=== PATIENT | female | born 1980 | race American Indian/Alaskan Native ===

== ENCOUNTER 2016-09-24 23:11 | Inpatient (IN) | payer MEDICAID ==
[2016-09-25] MEDS ORDERED: APRESOLINE IV ONE (00:58)
[2016-09-25] MEDS ORDERED: MORPHINE IV ONE (00:58)
--- NOTE | 2016-09-25 01:00 | Emergency Department Report ---
ED General Adult HPI - General Chief complaint: Abdominal Pain Stated complaint: ABD PAIN/BILATERAL EYE PULSATION Time Seen by Provider: 09/25/16 00:47 Source: patient Mode of arrival: Ambulatory Limitations: No Limitations - History of Present Illness Initial comments: This is a 36-year-old female, previously unknown to me. She is 1, para 0. She reports that her last menstrual period is July 11. She reports a past medical history of hypertension, and has not taken medication secondary to insurance issues. She has not had any care. She presents to the ER with abdominal pain. Abdominal pain is periumbilical. It migrates down to the right lower quadrant. It is sharp. It increases with palpation, decreases with rest. Patient denies irritative and obstructive urinary symptoms. She describes scant vaginal bleeding which has since resolved. Patient denies shortness of breath. She denies vomiting. She denies irritative and obstructive urinary symptoms. She admitted to mild chest pressure earlier on this afternoon after she ate some spicy food which has since resolved. There is no leg pain. There is no leg swelling. No recent trips greater than 4 hours. No recent hospital admissions. -: Gradual Location: chest, abdomen Consistency: intermittent Improves with: rest Worsens with: movement Associated Symptoms: chest pain - Related Data Home Medications Medication Instructions Recorded Confirmed Last Taken Pnv95/Ferrous Fumarate/FA 1 each PO QDAY 09/25/16 09/25/16 09/24/16 [ [place]] Allergies Allergy/AdvReac Type Severity Reaction Status Date / Time No Known Allergies Allergy Unverified 09/05/14 14:28 ED Review of Systems ROS: Stated complaint: ABD PAIN/BILATERAL EYE PULSATION Other details as noted in HPI Constitutional: fever. denies: malaise, weakness Eyes: denies: eye discharge ENT: denies: epistaxis Respiratory: denies: cough Cardiovascular: denies: chest pain Gastrointestinal: abdominal pain Genitourinary: as per HPI Musculoskeletal: as per HPI Skin: as per HPI Neurological: as per HPI Psychiatric: as per HPI ED Past Medical Hx - Past Medical History Hx Hypertension: Yes - Social History Smoking Status: Never Smoker Substance Use Type: None - Medications Home Medications: Home Medications Medication Instructions Recorded Confirmed Last Taken Type Pnv95/Ferrous Fumarate/FA 1 each PO QDAY 09/25/16 09/25/16 09/24/16 History [ [facility]] ED Physical Exam - General Limitations: No Limitations General appearance: alert, in no apparent distress, obese - Head Head exam: Present: atraumatic, normocephalic - Eye Eye exam: Present: normal appearance, EOMI. Absent: nystagmus - ENT ENT exam: Present: normal exam, normal orophraynx, mucous membranes moist, normal external ear exam - Neck Neck exam: Present: normal inspection, full ROM. Absent: tenderness, meningismus - Respiratory Respiratory exam: Present: normal lung sounds bilaterally. Absent: respiratory distress, wheezes, rales, rhonchi, stridor, chest wall tenderness - Cardiovascular Cardiovascular Exam: Present: normal rhythm, tachycardia, normal heart sounds. Absent: systolic murmur, diastolic murmur, rubs, gallop - GI/Abdominal GI/Abdominal exam: Present: soft, tenderness, normal bowel sounds, other ( suprapubic, periumbilical tenderness. Minimal right lower quadrant tenderness. No rebound, guarding or peritoneal signs.). Absent: distended, guarding, rebound, rigid, pulsatile mass - External exam: Present: normal external exam Speculum exam: Present: normal speculum exam. Absent: vaginal bleeding, foreign body Bi-manual exam: Present: normal bi-manual exam, other (escorted by CARLI WIGGINS) - Extremities Exam Extremities exam: Present: normal inspection, full ROM, normal capillary refill. Absent: tenderness, pedal edema, joint swelling, calf tenderness - Back Exam Back exam: Present: normal inspection, full ROM. Absent: tenderness, CVA tenderness (R), CVA tenderness (L), muscle spasm, paraspinal tenderness, vertebral tenderness - Neurological Exam Neurological exam: Present: alert, oriented X3, normal gait, other (Extraocular movements intact. Tongue midline. No facial droop. Facial sensation intact to light touch in the V1, V2, V3 distribution bilaterally. 5 and 5 strength in 4 extremities.. Sensation is intact to light touch in 4 extremities.). Absent : motor sensory deficit - Psychiatric Psychiatric exam: Present: normal affect, normal mood - Skin Skin exam: Present: warm, dry, intact, normal color. Absent: rash ED Course Vital Signs 09/25/16 09/25/16 09/25/16 00:32 01:22 01:28 Temperature 98.2 F 101.6 F H Pulse Rate 121 H Respiratory 20 18 Rate Blood Pressure 203/141 Blood Pressure [Left] O2 Sat by Pulse 100 Oximetry 09/25/16 09/25/16 09/25/16 01:34 01:52 01:55 Temperature Pulse Rate 108 H 104 H 108 H Respiratory 12 Rate Blood Pressure 199/133 209/107 Blood Pressure [Left] O2 Sat by Pulse 100 Oximetry 09/25/16 09/25/16 09/25/16 03:25 03:31 03:36 Temperature 101.5 F H Pulse Rate 107 H 112 H Respiratory 19 18 Rate Blood Pressure 165/87 Blood Pressure 156/94 [Left] O2 Sat by Pulse 100 100 100 Oximetry 09/25/16 09/25/16 09/25/16 03:45 04:15 04:31 Temperature Pulse Rate 105 H 111 H 109 H Respiratory 29 H 25 H 14 Rate Blood Pressure 165/87 184/112 Blood Pressure [Left] O2 Sat by Pulse 98 100 99 Oximetry 09/25/16 09/25/16 09/25/16 05:05 05:15 05:31 Temperature Pulse Rate 113 H 109 H 112 H Respiratory 19 10 L 29 H Rate Blood Pressure 184/112 170/96 184/112 Blood Pressure [Left] O2 Sat by Pulse 99 99 99 Oximetry 09/25/16 09/25/16 09/25/16 05:45 06:00 06:15 Temperature Pulse Rate 105 H 105 H 104 H Respiratory 32 H 23 29 H Rate Blood Pressure 184/112 156/81 156/81 Blood Pressure [Left] O2 Sat by Pulse 99 99 99 Oximetry 09/25/16 09/25/16 09/25/16 06:31 06:45 07:00 Temperature Pulse Rate 102 H 101 H 104 H Respiratory 26 H 27 H 16 Rate Blood Pressure 156/81 156/81 163/98 Blood Pressure 163/98 [Left] O2 Sat by Pulse 97 98 100 Oximetry 09/25/16 09/25/16 09/25/16 07:03 07:15 07:21 Temperature Pulse Rate 108 H 94 H Respiratory 14 33 H Rate Blood Pressure 163/98 163/98 163/98 Blood Pressure [Left] O2 Sat by Pulse 99 100 98 Oximetry 09/25/16 09/25/16 09/25/16 07:31 07:45 08:00 Temperature Pulse Rate 93 H 90 91 H Respiratory 30 H 28 H 29 H Rate Blood Pressure 163/98 163/98 152/80 Blood Pressure [Left] O2 Sat by Pulse 99 98 98 Oximetry 09/25/16 09/25/16 09/25/16 09:00 09:07 09:30 Temperature Pulse Rate 90 Respiratory 16 Rate Blood Pressure 148/85 144/90 Blood Pressure 148/85 [Left] O2 Sat by Pulse 100 Oximetry 09/25/16 09/25/16 09/25/16 10:00 11:00 14:00 Temperature Pulse Rate 85 99 H Respiratory 16 16 Rate Blood Pressure 159/101 Blood Pressure 155/94 155/89 [Left] O2 Sat by Pulse 100 100 Oximetry 09/25/16 09/25/16 14:40 16:00 Temperature Pulse Rate 99 H 97 H Respiratory 16 Rate Blood Pressure 155/89 Blood Pressure 161/89 [Left] O2 Sat by Pulse 100 Oximetry - Reevaluation(s) Reevaluation #1: 09/25/16 01:08 Differential diagnosis: Ovarian cyst, urinary tract infection, miscarriage, placental abruption, placenta previa, appendicitis, heterotopic Assessment and plan: 36-year-old female who is advanced maternal age, known hypertensive patient, who is noncompliant with medications who presents primarily with abdominal pain. She is afebrile, tachycardic, and markedly hypertensive. The patient's primary complaint is abdominal pain. She did describe some atypical chest discomfort which lasted for a few seconds earlier on this afternoon. However she states this is not her primary complaint. Patient has not received any care. My bedside ultrasound does demonstrate an obvious intrauterine . She will be given hydralazine for blood pressure. Her tachycardia is appreciated. Uncertain if pain, or anxiety. She will be given IV fluids and morphine. Formal radiology ultrasounds are pending. Pelvic examination will be performed after her ultrasounds have been done. We will reassess. Reevaluation #2: 09/25/16 04:29 Hypertension is improved. Patient spiked a fever. Obstetrics ultrasound unremarkable, demonstrates intrauterine gestation at 10 weeks and 6 days. The appendix is not identified on ultrasound. Renal insufficiency noted, appears to be chronic. lock tender. Antibiotics and blood cultures ordered. MR of the abdomen and pelvis ordered. Reevaluation #3: 09/25/16 07:07 d/w cmm technician at 5 am that MRI is an emergent study MRI still pending care transferred to Dr Sung if MRI shows appendicitis, plan to admit to surgery if negative for appendicitis, plan to admit to medicine for renal insufficiency , hypertensive urgency, acute febrile illness ED Medical Decision Making - Lab Data Result diagrams: 09/25/16 11:09 09/25/16 11:09 Vital Signs 09/25/16 00:32 Temperature 98.2 F Pulse Rate 121 H Respiratory 20 Rate Blood Pressure 203/141 O2 Sat by Pulse 100 Oximetry Critical care attestation.: If time is entered above; I have spent that time in minutes in the direct care of this critically ill patient, excluding procedure time. ED Disposition Clinical Impression: , Hypertensive urgency, Renal insufficiency, Acute febrile illness Disposition: OP ADMITTED IP TO THIS HOSP Is pt being admited?: Yes Condition: Good
[2016-09-25] MEDS ORDERED: NACL 0.9% 1000 ML 1,000 ML ONE (01:13)
[2016-09-25 01:21] LABS: Basophils % (Auto) 0.8 % (0.0-1.8); Eosinophils % (Auto) 0.5 % (0.0-4.3); Hematocrit 39.6 % (30.3-42.9); Hemoglobin 12.9 gm/dl (10.1-14.3); Mean Corpuscular HGB Conc 33 % (30-34); Mean Corpuscular Hemoglobin 28 pg (28-32); Mean Corpuscular Volume 84 fl (79-97); Platelet Count 226 K/mm3 (140-440); Red Cell Distribution Width 16.1 % (13.2-15.2); White Blood Count 10.2 K/mm3 (4.5-11.0)
[2016-09-25 01:29] LABS: INR 1.01 (0.87-1.13)
[2016-09-25 01:35] LABS: Albumin 3.8 g/dL (3.9-5); Albumin/Globulin Ratio 1.1 %; BUN/Creatinine Ratio 9.41; Bilirubin,Total 0.2 mg/dL (0.1-1.2); Calcium 9.2 mg/dL (8.4-10.2); Chloride 96.6 mmol/L (98-107); Potassium 4.1 mmol/L (3.6-5.0); Total Protein 7.2 g/dL (6.3-8.2)
[2016-09-25] MEDS ORDERED: NORMODYNE IV ONE (01:46)
--- NOTE | 2016-09-25 01:50 | Admit Criteria Form ---
Admission Criteria Documentation: ABDOMINAL PAIN: OBSERVATION CARE USE THIS FORM ONLY WHEN INPATIENT ADMISSION CRITERIA ARE NOT MET. (Place X for any and all applicable criteria): Placement for observation care is indicated for a patient with ANY ONE of the following(1)(2)(3)(4)(5))(6): []I. Suspected condition requiring continued monitoring (e.g., ectopic , appendicitis) [A] []II. Undiagnosed pain after evaluation and initial treatment with ANY ONE of the following: []a) Continued pain unrelieved by symptomatic treatment []b) Patient unable to maintain hydration status []c) Concerning finding on examination (e.g., increasing tenderness, focal abdominal finding) or diagnostic testing (e.g., air fluid level on x-ray) []III. A child whose situation includes ANY ONE of the following: []a) Clinical response to outpatient therapy uncertain []b) Outpatient supervision by parents or caregivers uncertain [X]IV. Other observation care needs. (Also use General Criteria: Observation Care). The original [facility] [employer] content created by [facility] has been revised. The portions of the content which have been revised are identified through the use of italic text, and [facility] has neither reviewed nor approved the modified material. All other unmodified content is copyright [facility]. Please see references footnoted in the original [facility] edition 2015 Admission Criteria Met: Yes
[2016-09-25 02:20] LABS: Bacteria,Urine 1+ /HPF (Negative); Bilirubin,Urine NEG (Negative); Blood,Urine SM (Negative); Ketones,Urine TR mg/dL (Negative); Leukocyte Esterase,Urine TR (Negative); Mucus,Urine FEW /HPF; Nitrite,Urine NEG (Negative); Urobilinogen,Urine < 2.0 mg/dL (<2.0)
[2016-09-25] MEDS ORDERED: ZOSYN/NS 4.5GM/100ML 100 ML IV ONE ×3 (03:26→07:00)
[2016-09-25] MEDS ORDERED: TYLENOL PO ONE ×2 (03:28→07:00)
--- NOTE | 2016-09-25 03:50 | Ultrasound Report ---
FINAL REPORT PROCEDURE: US ABDOMEN LIMITED TECHNIQUE: Real-time sonography in multiple planes of the bowels/appendix in the right lower quadrant of the abdomen was performed using graded compression with image documentation. CPT 70176 HISTORY: lower abd pain COMPARISON: No prior studies are available for comparison. FINDINGS: The appendix is not identified. There is no abdominal mass or fluid collection. There is no abscess or adenopathy. IMPRESSION: The appendix is not seen. There is no secondary evidence of appendicitis.
--- NOTE | 2016-09-25 03:57 | Ultrasound Report ---
FINAL REPORT PROCEDURE: US OB TRANSVAGINAL TECHNIQUE: Real-time transvaginal sonography of the uterus, placenta, amniotic fluid, adnexa, and fetus was performed with image documentation. Measurements were obtained to determine age/size. M-mode Doppler was used to document heartbeat. CPT 42252 HISTORY: abd pain COMPARISON: No prior studies are available for comparison. FINDINGS: CRL: 39.2mm, which corresponds to a gestational age of: 10weeks, 6 days. Yolk Sac: Normal. Embryonic Cardiac Activity: 194 beats per minute Gestational Sac: Normal. Right Ovary: There is an 18 millimeter complex cyst. Left Ovary: Normal. Estimated delivery date: 04/17/2017 Comment: Complete anatomic survey at 18-20 weeks suggested. IMPRESSION: 1. Single living intrauterine gestation at approximately 10 weeks and 6 days 2. EDC by US 04/17/2017.
--- NOTE | 2016-09-25 03:57 | Ultrasound Report ---
FINAL REPORT PROCEDURE: US OB early TECHNIQUE: Real-time transabdominal sonography of the uterus, placenta, amniotic fluid, adnexa, and fetus was performed with image documentation. Measurements were obtained to determine age/size. M-mode Doppler was used to document heartbeat. HISTORY: abd pain COMPARISON: No prior studies are available for comparison. FINDINGS: CRL: 39.2mm, which corresponds to a gestational age of: 10weeks, 6 days. Yolk Sac: Normal. Embryonic Cardiac Activity: 194 beats per minute Gestational Sac: Normal. Right Ovary: There is an 18 millimeter complex cyst. Left Ovary: Normal. Estimated delivery date: 04/17/2017 Comment: Complete anatomic survey at 18-20 weeks suggested. IMPRESSION: 1. Single living intrauterine gestation at approximately 10 weeks and 6 days 2. EDC by US 04/17/2017.
[2016-09-25] MEDS ORDERED: NACL 0.9% 1000 ML 1,000 ML IV ONE (05:34)
[2016-09-25] MEDS ORDERED: TYLENOL ONE (06:53)
--- NOTE | 2016-09-25 10:17 | Magnetic Resonance Report ---
MR ABDOMEN WITHOUT CONTRAST: MR PELVIS WITHOUT CONTRAST: HISTORY: Abdominal pain during , fever. TECHNIQUE: Multiple T1 and T2-weighted images were obtained with and without fat suppression through the abdomen and pelvis. COMPARISON: Ultrasound OB transvaginal, ultrasound abdomen limited of the right lower quadrant. FINDINGS: The uterus is anteverted. An intrauterine is identified. Amniotic fluid volume appears normal. The placenta appears to be forming in the fundal region. The cervix is normal. The bladder is normal. 2 cm slightly complex right ovarian cyst is noted. The left ovary is unremarkable. There is small pelvic ascites. The appendix is identified on MRI and measures 8 mm in diameter which is borderline dilated. There is certainly no advanced appendicitis. No abscess or free air. There is trace ascites in this area which may be secondary to the right ovarian cyst. The remaining bowel loops are unremarkable. Normal liver, biliary system, pancreas, spleen, kidneys and adrenal glands. The aorta is normal caliber. IMPRESSION: 2 cm right ovarian cyst and small pelvic ascites. The appendix is borderline in diameter measuring 8 mm. In my opinion, there are no convincing findings for acute appendicitis. Please see above. There is trace fluid in the region of the appendix but this is probably secondary to the ovarian cyst. Please correlate with the patient's laboratory values and clinical presentation. These findings were discussed with Dr. Sung in the emergency department at 0920 hours.
--- NOTE | 2016-09-25 10:29 | Event Note ---
Date: 09/25/16 See H/p in reports HTN emergency acute abdominal pain UTI Chest pain-Gerd no stress test ordered
[2016-09-25] MEDS ORDERED: TYLENOL PO PRN (10:30)
[2016-09-25] MEDS ORDERED: DULCOLAX PR PRN (10:30)
[2016-09-25] MEDS ORDERED: ZOFRAN IV PRN (10:30)
--- NOTE | 2016-09-25 10:45 | Admit Criteria Form ---
Admission Criteria Documentation: HYPERTENSIVE DISORDERS OF Clinical Indications for Admission to Inpatient Care (Place 'X' for any and all applicable criteria): Admission is indicated for ANY ONE of the following (1)(2)(3)(4)(5): [ ]I. Eclampsia[A][B] [ ]II. Preeclampsia with severe features (ie, severe preeclampsia) indicated by ANY ONE of the following[B][C]: [ ]a) SBP greater than or equal to 160 mm Hg or DBP greater than or equal to 110 mm Hg on 2 occasions at least 4 hours apart while the patient is at bed rest (unless antihypertensive therapy is initiated before this time) [ ]b) Platelet count less than 100,000/mm3 (100 x109/L) [ ]c) Impaired liver function as indicated by ANY ONE of the following: [ ]i. Elevation of liver enzymes (eg, SGOT, SGPT) to twice normal concentration [ ]ii. Severe persistent right upper quadrant or epigastric pain unresponsive to medication and not accounted for by alternative diagnosis [ ]d) Progressive renal insufficiency indicated by ANY ONE of the following: [ ]i. Serum creatinine concentration greater than 1.1 mg/dL (97 micromoles/L) [ ]ii. Doubling (from baseline) of serum creatinine concentration in the absence of other renal disease [ ]e) Pulmonary edema [ ]f) Cerebral or visual symptoms (eg, headache, Altered mental status , changes in vision) [ ]III. Delivery planned due to nonsevere preeclampsia as indicated by ALL of the following: [ ]a) Nonsevere preeclampsia present as indicated by ALL of the following: [ ]i. Woman at 20 or more weeks' gestation [ ]ii. New-onset SBP greater than or equal to 140 mm Hg but less than 160 mm Hg or DBP greater than or equal to 90 mm Hg but less than 110 mm Hg on 2 occasions at least 4 hours apart [ ]iii. Proteinuria present as indicated by ANY ONE of the following: [ ]A. Urinary protein excretion greater than or equal to 300 mg per 24-hour collection (or this amount extrapolated from a shorter timed collection) [ ]B. Protein/creatinine ratio greater than or equal to 0.3 (measured in mg/dL) [ ]b) Delivery indicated due to ANY ONE of the following: [ ]i. Gestational age of 37 0/7 weeks or more [ ]ii. Gestational age of 34 0/7 weeks to 36 6/7 weeks and ANY ONE of the following: [ ]A. Progressive labor or rupture of membranes [ ]B. Abnormal biophysical profile [ ]C. Suspected abruptio placentae [ ]D. Ultrasound estimate of weight less than 5th percentile [ ]E. Other indication for delivery [ ]IV. Delivery planned due to gestational hypertension[D] because of ANY ONE of the following: [ ]a) Delivery indicated because gestational age of 37 0/7 weeks or more has been reached [ ]b) Gestational age of 34 0/7 weeks to 36 6/7 weeks for which delivery is indicated because of ANY ONE of the following: [ ]i. Progressive labor or rupture of membranes [ ]ii. Abnormal biophysical profile [ ]iii. Suspected abruptio placentae [ ]iv. Ultrasound estimate of weight less than 5th percentile [ ]v. Other indication for delivery [X]V. Hypertension of any category[E] during with acute end organ damage as indicated by ANY ONE of the following: [ ]a) Hypertensive encephalopathy (eg, Altered mental status that is severe or persistent )(11) [ ]b) Cerebral infarction [ ]c) Intracranial hemorrhage [ ]d) Myocardial ischemia or infarction [ ]e) Pulmonary edema [ ]f) Aortic dissection [ ]g) Seizure [ ]h) Papilledema [ ]i) Microangiopathic hemolytic anemia [ ]j) Visual loss [X ]k) Acute renal failure [ ]) Hypertension during with evidence of compromise as indicated by ANY ONE of the following: [ ]a) Abnormal heart tones [ ]b) Abnormal stress test [ ]c) Abnormal biophysical profile [ ]VII) patient requires inpatient control of blood pressure indicated by (see Hypertensive Disorders of : Observation Care [facility] guideline as appropriate) ALL of the following: [ ]a) SBP is greater than or equal to 160 mm Hg or DBP is greater than or equal to 105 mm Hg [ ]b) Blood pressure cannot be reduced below these levels with outpatient or observation care treatment (eg, oral medications not effective) Extended stay beyond goal length of stay may be needed for : [ ]a) Eclampsia [ ]b) Ongoing compromise [ ]c) Complications of hypertensive disorders of [ ]d) Active comorbidities (eg, heart failure, poorly controlled diabetes, renal insufficiency) [ ]e) Persistent hypertension [ ]f) Delivery planned The original [facility] [employer] content created by [facility] has been revised. The portions of the content which have been revised are identified through the use of italic text or in bold, and [facility] has neither reviewed nor approved the modified material. All other unmodified content is copyright [facility] [employer]. Please see references footnoted in the original [facility] [employer] edition 2016.
[2016-09-25] MEDS ORDERED: MILK OF MAGNESIA PO PRN (11:00)
[2016-09-25 11:29] LABS: Hemoglobin 12.4 gm/dl (10.1-14.3); Mean Corpuscular HGB Conc 33 % (30-34); Mean Corpuscular Hemoglobin 28 pg (28-32); Mean Corpuscular Volume 86 fl (79-97); Platelet Count 209 K/mm3 (140-440); Red Blood Count 4.43 M/mm3 (3.65-5.03); White Blood Count 6.6 K/mm3 (4.5-11.0)
[2016-09-25] MEDS: LOVENOX SUB-Q SCH (11:49)
[2016-09-25 11:56] LABS: Albumin 3.3 g/dL (3.9-5); BUN/Creatinine Ratio 8.82; Bilirubin,Total 0.3 mg/dL (0.1-1.2); Calcium 8.5 mg/dL (8.4-10.2); Chloride 104.5 mmol/L (98-107); Potassium 4.1 mmol/L (3.6-5.0); Total Protein 6.6 g/dL (6.3-8.2)
[2016-09-25 12:15] LABS: Anisocytosis Few; Basophils % (Manual) 0 % (0.0-1.8); Blastocytes % (Manual) 0 %; Diff Status Complete; Eosinophils % (Manual) 0 % (0.0-4.3)
[2016-09-25] MEDS: NORMODYNE PO SCH ×2 (14:40→21:29)
--- NOTE | 2016-09-25 22:48 | History and Physical Report ---
CHIEF COMPLAINT: 1. Chest tightness. 2. High blood pressure. HISTORY OF PRESENT ILLNESS: A 36-year-old female whose last menstrual period was 07/11/2016, comes in for high blood pressure. Some chest tightness. Also, right lower quadrant abdominal pain and periumbilical abdominal pain. The patient denies shortness of breath. No vomiting. No dysuria. No flank pain. No leg swelling. Past medical history significant for hypertension, but noncompliant. Taking iron pills. For hypertension, labetalol 200 q. 8h. was initiated and compliance was insisted. IV labetalol as necessary. Add amlodipine if necessary. PAST MEDICAL HISTORY: As mentioned, hypertension. PAST SURGICAL HISTORY: None. SOCIAL HISTORY: Does not smoke. No alcohol, no recreational drugs. FAMILY HISTORY: Significant for hypertension. REVIEW OF SYSTEMS: CONSTITUTIONAL: No weight loss, no weight gain. No fever, no chills. HEENT: No sore throat, no postnasal drip. CARDIOVASCULAR AND RESPIRATORY: No shortness of breath. No chest pain. No palpitations. Some chest tightness present. No diaphoresis. GASTROINTESTINAL: No nausea. No vomiting. Has right lower quadrant pain and tenderness present and periumbilical tenderness present. GENITOURINARY: No dysuria, no flank pain. MUSCULOSKELETAL: No joint pains. CENTRAL NERVOUS SYSTEM: No syncope, no seizures. PSYCHIATRIC: No depression. No homicidal or suicidal ideation. SKIN: No rashes. A 14-point review of systems done, essentially negative. PHYSICAL EXAMINATION: GENERAL: Young female, cooperative during examination. VITAL SIGNS: Blood pressure 203/141, temperature 98.2, pulse is 121, respirations are 20. HEENT: Unremarkable. Pupils are equal and reactive. NECK: Supple, no lymphadenopathy, no thyromegaly. LUNGS: Clear to auscultation and percussion. Good air entry. CARDIOVASCULAR: S1, S2 heard. No gallop, no murmur, no rub. Apical impulse in left fifth intercostal space and midclavicular line. ABDOMEN: Soft and benign. No hepatosplenomegaly. No guarding, no rigidity. Hernial orifices are normal. Right lower quadrant tenderness slightly present. EXTREMITIES: Good pedal pulses. No pedal edema. CENTRAL NERVOUS SYSTEM: Alert and oriented x 4, nonfocal exam. SKIN: Normal. LABORATORY DATA: White count is 10,200, H and H is 12.9 and 39.6, platelet count is 226,000. Electrolytes are normal. Sodium is 134, slightly low, BUN and creatinine is 16 and 1.7. Albumin is 3.8. HCG is 163,258. Urine shows 8 white blood cells. MRI of the abdomen shows normal appendix. ASSESSMENT AND PLAN: 1. Hypertensive emergency. We will treat with labetalol 200 mg p.o. q. 8h. and also add amlodipine if necessary, labetalol IV in the meantime. The patient counseled about compliance. 2. . We will consult on-call SWITCH[employer]IC, also on-call surgeon. 3. Acute abdominal pain. On-call surgeon was consulted. Appendix unlikely. MRI of her appendix was negative. 4. Urinary tract infection. Started on Rocephin 2 grams IV piggyback q. 24h., should be safe in the . 5. Deep venous thrombosis prophylaxis, SCDs. No Lovenox. JOB# [id number] VSM/NTS
--- NOTE | 2016-09-26 01:34 | Consultation ---
HISTORY OF PRESENT ILLNESS: This patient was seen in the ER this morning. She is a 36-year-old -[place] female who is 8 weeks that is her first . She had no children before that. She noted some pain in the epigastric and periumbilical area last night and this became worse. She had no nausea nor vomiting. The patient came because of the increase in her pain problem. She never had this before. The patient had a CAT scan that was essentially negative. She had a small ovarian cyst on the right side, this is about 2.5 cm. The appendix did not look abnormal. Her white count was normal. PHYSICAL EXAMINATION: GENERAL: A well-preserved, obese black female. She is in no pain. She is having a tray eating without any problem. HEAD AND NECK: Negative. Neck is supple. BREASTS: Symmetrical. CHEST: Essentially clear. HEART: Sound normal to me. ABDOMEN: Protuberant, soft, benign. No evidence for any tenderness. EXTREMITIES: Showed no significant edema. IMPRESSION AND PLAN: Mid epigastric and lower abdominal pain without any specific evidence of any etiology for the pain, the fact that she is eating and having good appetite, I believe this would rule out any intraabdominal serious problem. I had a lengthy talk with the patient as to the need to keep an eye on her. She has been seen by OB so far, and I believe she is going to be admitted today to the medical floor. JOB# [id number] JOEL/WILEY
[2016-09-26] MEDS: NORMODYNE PO SCH ×3 (05:31→22:06)
[2016-09-26] MEDS: LOVENOX SUB-Q SCH (09:24)
--- NOTE | 2016-09-26 09:25 | Progress Note ---
Subjective Patient Reports: Positive: feels better, tolerating a regular diet, afebrile Narrative: Doing fine , no evidence of general surgical problem tolerating regular diet well , WBC WNL , talked to Pt, to call PRN , also, to see OB . Objective Vital Signs - 12hr 09/26/16 09/26/16 09/26/16 00:38 01:21 05:17 Temperature 97.6 F 98.2 F Pulse Rate 96 H Pulse Rate [ 94 H 92 H From Monitor] Respiratory 18 20 Rate Blood Pressure 142/72 137/78 [Left Arm] O2 Sat by Pulse 100 100 Oximetry 09/26/16 08:00 Temperature 98.3 F Pulse Rate Pulse Rate [ 88 From Monitor] Respiratory 18 Rate Blood Pressure 149/98 [Left Arm] O2 Sat by Pulse 100 Oximetry - Labs 09/25/16 11:09 09/25/16 11:09 Diabetes panel 09/25/16 Range/Units 11:09 Sodium 139 (137-145) mmol/L Potassium 4.1 (3.6-5.0) mmol/L Chloride 104.5 (98-107) mmol/L Carbon Dioxide 19 L (22-30) mmol/L BUN 15 (7-17) mg/dL Creatinine 1.7 H (0.7-1.2) mg/dL Glucose 86 (65-100) mg/dL Calcium 8.5 (8.4-10.2) mg/dL AST 15 (5-40) units/L ALT 18 (7-56) units/L Alkaline Phosphatase 47 (35-129) units/L Total Protein 6.6 (6.3-8.2) g/dL Albumin 3.3 L (3.9-5) g/dL Calcium panel 09/25/16 Range/Units 11:09 Calcium 8.5 (8.4-10.2) mg/dL Albumin 3.3 L (3.9-5) g/dL Pituitary panel 09/25/16 Range/Units 11:09 Sodium 139 (137-145) mmol/L Potassium 4.1 (3.6-5.0) mmol/L Chloride 104.5 (98-107) mmol/L Carbon Dioxide 19 L (22-30) mmol/L BUN 15 (7-17) mg/dL Creatinine 1.7 H (0.7-1.2) mg/dL Glucose 86 (65-100) mg/dL Calcium 8.5 (8.4-10.2) mg/dL Adrenal panel 09/25/16 Range/Units 11:09 Sodium 139 (137-145) mmol/L Potassium 4.1 (3.6-5.0) mmol/L Chloride 104.5 (98-107) mmol/L Carbon Dioxide 19 L (22-30) mmol/L BUN 15 (7-17) mg/dL Creatinine 1.7 H (0.7-1.2) mg/dL Glucose 86 (65-100) mg/dL Calcium 8.5 (8.4-10.2) mg/dL Total Bilirubin 0.3 (0.1-1.2) mg/dL AST 15 (5-40) units/L ALT 18 (7-56) units/L Alkaline Phosphatase 47 (35-129) units/L Total Protein 6.6 (6.3-8.2) g/dL Albumin 3.3 L (3.9-5) g/dL
--- NOTE | 2016-09-26 11:08 | Progress Note ---
[id number] is on labetalol. Blood Pressure still uncontrolled. Add Norvasc 5 mg by mouth daily. Discussed choices with Dr. Giovani Garay drill press hand Urinary tract infection . Continue Ampicillin Full CODE STATUS History Interval history: abdominal pain, Fever resolving Hospitalist Physical - Constitutional Vitals: Temp Pulse Resp BP Pulse Ox 98.3 F 88 18 149/98 100 09/26/16 08:00 09/26/16 08:00 09/26/16 08:00 09/26/16 08:00 09/26/16 08:00 General appearance: Present: no acute distress, obese - EENT Eyes: Present: PERRL ENT: hearing intact - Neck Neck: Present: supple, normal ROM - Respiratory Respiratory effort: normal Respiratory: bilateral: CTA, negative: diminished, rales, rhonchi, wheezing - Cardiovascular Rhythm: regular Heart Sounds: Present: S1 & S2 (S1 and S2 regular, no murmurs rubs or gallops) - Extremities Extremities: no ischemia, No edema, normal temperature, normal color - Abdominal General gastrointestinal: soft, non-tender, non-distended, normal bowel sounds, other () - Integumentary Integumentary: Present: clear - Psychiatric Psychiatric: appropriate mood/affect - Neurologic Neurologic: moves all extremities, other (Awake,alert, oriented 3, no focal signs) Results - Labs CBC & Chem 7: 09/27/16 08:16 09/27/16 08:00 Labs: Laboratory Last Values WBC 6.6 K/mm3 (4.5-11.0) 09/25/16 11:09 RBC 4.43 M/mm3 (3.65-5.03) 09/25/16 11:09 Hgb 12.4 gm/dl (10.1-14.3) 09/25/16 11:09 Hct 38.0 % (30.3-42.9) 09/25/16 11:09 MCV 86 fl (79-97) 09/25/16 11:09 MCH 28 pg (28-32) 09/25/16 11:09 MCHC 33 % (30-34) 09/25/16 11:09 RDW 17.0 % (13.2-15.2) H 09/25/16 11:09 Plt Count 209 K/mm3 (140-440) 09/25/16 11:09 Lymph % (Auto) 18.4 % (13.4-35.0) 09/25/16 00:59 [place] % (Auto) Party Plan Dealer 09/25/16 11:09 Eos % (Auto) 0.5 % (0.0-4.3) 09/25/16 00:59 Baso % (Auto) 0.8 % (0.0-1.8) 09/25/16 00:59 Lymph # 1.9 K/mm3 (1.2-5.4) 09/25/16 00:59 [place] # 1.4 K/mm3 (0.0-0.8) H 09/25/16 00:59 Eos # 0.0 K/mm3 (0.0-0.4) 09/25/16 00:59 Baso # 0.1 K/mm3 (0.0-0.1) 09/25/16 00:59 Add Manual Diff Complete 09/25/16 11:09 Total Counted 100 09/25/16 11:09 Seg Neutrophils % 66.8 % (40.0-70.0) 09/25/16 00:59 Seg Neuts % (Manual) 60.0 % (40.0-70.0) 09/25/16 11:09 Band Neutrophils % 1.0 % 09/25/16 11:09 Lymphocytes % (Manual) 23.0 % (13.4-35.0) 09/25/16 11:09 Reactive Lymphs % (Man) 0 % 09/25/16 11:09 Monocytes % (Manual) 16.0 % (0.0-7.3) H 09/25/16 11:09 Eosinophils % (Manual) 0 % (0.0-4.3) 09/25/16 11:09 Basophils % (Manual) 0 % (0.0-1.8) 09/25/16 11:09 Metamyelocytes % 0 % 09/25/16 11:09 Myelocytes % 0 % 09/25/16 11:09 Promyelocytes % 0 % 09/25/16 11:09 Blast Cells % 0 % 09/25/16 11:09 Nucleated RBC % Not Reportable 09/25/16 11:09 Seg Neutrophils # 6.8 K/mm3 (1.8-7.7) 09/25/16 00:59 Seg Neutrophils # Man 4.0 K/mm3 (1.8-7.7) 09/25/16 11:09 Band Neutrophils # 0.1 K/mm3 09/25/16 11:09 Lymphocytes # (Manual) 1.5 K/mm3 (1.2-5.4) 09/25/16 11:09 Abs React Lymphs (Man) 0.0 K/mm3 09/25/16 11:09 Monocytes # (Manual) 1.1 K/mm3 (0.0-0.8) H 09/25/16 11:09 Eosinophils # (Manual) 0.0 K/mm3 (0.0-0.4) 09/25/16 11:09 Basophils # (Manual) 0.0 K/mm3 (0.0-0.1) 09/25/16 11:09 Metamyelocytes # 0.0 K/mm3 09/25/16 11:09 Myelocytes # 0.0 K/mm3 09/25/16 11:09 Promyelocytes # 0.0 K/mm3 09/25/16 11:09 Blast Cells # 0.0 K/mm3 09/25/16 11:09 WBC Morphology Not Reportable 09/25/16 11:09 Hypersegmented Neuts Not Reportable 09/25/16 11:09 Hyposegmented Neuts Not Reportable 09/25/16 11:09 Hypogranular Neuts Not Reportable 09/25/16 11:09 Smudge Cells Not Reportable 09/25/16 11:09 Toxic Granulation Not Reportable 09/25/16 11:09 Toxic Vacuolation Not Reportable 09/25/16 11:09 Dohle Bodies Not Reportable 09/25/16 11:09 Pelger-Huet Anomaly Not Reportable 09/25/16 11:09 Michael Rods Not Reportable 09/25/16 11:09 Platelet Estimate Not Reportable 09/25/16 11:09 Clumped Platelets Not Reportable 09/25/16 11:09 Plt Clumps, EDTA Not Reportable 09/25/16 11:09 Large Platelets Not Reportable 09/25/16 11:09 Giant Platelets Not Reportable 09/25/16 11:09 Platelet Satelliting Not Reportable 09/25/16 11:09 Plt Morphology Comment Not Reportable 09/25/16 11:09 RBC Morphology Not Reportable 09/25/16 11:09 Dimorphic RBCs Not Reportable 09/25/16 11:09 Polychromasia Not Reportable 09/25/16 11:09 Hypochromasia Not Reportable 09/25/16 11:09 Poikilocytosis Not Reportable 09/25/16 11:09 Anisocytosis Few 09/25/16 11:09 Microcytosis Not Reportable 09/25/16 11:09 Macrocytosis Not Reportable 09/25/16 11:09 Spherocytes Not Reportable 09/25/16 11:09 Pappenheimer Bodies Not Reportable 09/25/16 11:09 Sickle Cells Not Reportable 09/25/16 11:09 Target Cells Not Reportable 09/25/16 11:09 Tear Drop Cells Not Reportable 09/25/16 11:09 Ovalocytes Not Reportable 09/25/16 11:09 Helmet Cells Not Reportable 09/25/16 11:09 Croft-Frostproof Bodies Not Reportable 09/25/16 11:09 Wake Rings Not Reportable 09/25/16 11:09 Em Cells Not Reportable 09/25/16 11:09 Bite Cells Not Reportable 09/25/16 11:09 Crenated Cell Not Reportable 09/25/16 11:09 Elliptocytes Not Reportable 09/25/16 11:09 Acanthocytes (Spur) Not Reportable 09/25/16 11:09 Rouleaux Not Reportable 09/25/16 11:09 Hemoglobin C Crystals Not Reportable 09/25/16 11:09 Schistocytes Not Reportable 09/25/16 11:09 Malaria parasites Not Reportable 09/25/16 11:09 Jules Bodies Not Reportable 09/25/16 11:09 Hem Pathologist Commnt No 09/25/16 11:09 PT 13.2 Sec. (12.2-14.9) 09/25/16 01:04 INR 1.01 (0.87-1.13) 09/25/16 01:04 Sodium 139 mmol/L (137-145) 09/25/16 11:09 Potassium 4.1 mmol/L (3.6-5.0) 09/25/16 11:09 Chloride 104.5 mmol/L (98-107) 09/25/16 11:09 Carbon Dioxide 19 mmol/L (22-30) L 09/25/16 11:09 Anion Gap 20 mmol/L 09/25/16 11:09 BUN 15 mg/dL (7-17) 09/25/16 11:09 Creatinine 1.7 mg/dL (0.7-1.2) H 09/25/16 11:09 Estimated GFR 41 ml/min 09/25/16 11:09 BUN/Creatinine Ratio 8.82 % 09/25/16 11:09 Glucose 86 mg/dL (65-100) 09/25/16 11:09 POC Glucose 76 (70-105) 09/25/16 21:46 Lactic Acid 0.8 mmol/L (0.7-2.0) 09/25/16 04:13 Calcium 8.5 mg/dL (8.4-10.2) 09/25/16 11:09 Total Bilirubin 0.3 mg/dL (0.1-1.2) 09/25/16 11:09 AST 15 units/L (5-40) 09/25/16 11:09 ALT 18 units/L (7-56) 09/25/16 11:09 Alkaline Phosphatase 47 units/L (35-129) 09/25/16 11:09 Troponin T < 0.010 ng/mL (0.00-0.029) 09/25/16 01:04 Total Protein 6.6 g/dL (6.3-8.2) 09/25/16 11:09 Albumin 3.3 g/dL (3.9-5) L 09/25/16 11:09 Albumin/Globulin Ratio 1.0 % 09/25/16 11:09 Lipase 43 units/L (13-60) 09/25/16 00:59 HCG, Quant [id number] mIU/mL (0-4) H 09/25/16 01:04 Urine Color Straw (Yellow) 09/25/16 01:45 Urine Turbidity Clear (Clear) 09/25/16 01:45 Urine pH 5.0 (5.0-7.0) 09/25/16 01:45 Ur Specific [place] 1.009 (1.003-1.030) 09/25/16 01:45 Urine Protein 100 mg/dl mg/dL (Negative) 09/25/16 01:45 Urine Glucose (UA) Neg mg/dL (Negative) 09/25/16 01:45 Urine Ketones Tr mg/dL (Negative) 09/25/16 01:45 Urine Blood Sm (Negative) 09/25/16 01:45 Urine Nitrite Neg (Negative) 09/25/16 01:45 Urine Bilirubin Neg (Negative) 09/25/16 01:45 Urine Urobilinogen < 2.0 mg/dL (<2.0) 09/25/16 01:45 Ur Leukocyte Esterase Tr (Negative) 09/25/16 01:45 Urine WBC (Auto) 8.0 /HPF (0.0-6.0) H 09/25/16 01:45 Urine RBC (Auto) 4.0 /HPF (0.0-6.0) 09/25/16 01:45 U Epithel Cells (Auto) 2.0 /HPF (0-13.0) 09/25/16 01:45 Urine Bacteria (Auto) 1+ /HPF (Negative) 09/25/16 01:45 Urine Mucus Few /HPF 09/25/16 01:45
[2016-09-26] MEDS: ROCEPHIN/NS 2 GM/100 ML 100 ML IV SCH (11:26)
--- NOTE | 2016-09-26 13:09 | Consultation ---
History of Present Illness Consult date: 09/26/16 Requesting physician: COREY RECIO Reason for consult: early problem History of present illness: Pt is a 36yo BF LMP 07/11/16; EGA 11 0/7 weeks confirmed by pelvic u/s, admitted for evaluation of abdominal pains and to r/o appendicitis. She was evaluated by Dr Hernandez, and basically cleared. I was consulted since she is and has not yet seen an Retirement Officer. She denies any further abdominal pains or vaginal bleeding and she has an appointment to begin care at [facility]. Past History Past Medical History: hypertension, diabetes (NIDDM) Past Surgical History: no surgical history Social history: no significant social history Medications and Allergies Allergies Allergy/AdvReac Type Severity Reaction Status Date / Time No Known Allergies Allergy Unverified 09/05/14 14:28 Home Medications Medication Instructions Recorded Confirmed Last Taken Type Pnv95/Ferrous Fumarate/FA 1 each PO QDAY 09/25/16 09/25/16 09/24/16 History [ Caplet] Active Meds: Active Medications Acetaminophen (Tylenol) 650 mg PO Q4H PRN PRN Reason: Pain MILD(1-3)/Fever >100.5/ANDUJAR Last Admin: 09/25/16 20:11 Dose: 650 mg Bisacodyl (Dulcolax) 10 mg DC QDAY PRN PRN Reason: Constipation unrelieved by MOM Ceftriaxone Sodium (Rocephin/Ns 2 Gm/100 Ml) 100 mls @ 200 mls/hr IV Q24HR DEBORA PRN Reason: Protocol Last Admin: 09/26/16 11:26 Dose: 200 mls/hr Labetalol HCl (Normodyne) 300 mg PO Q8HR DEBORA Last Admin: 09/26/16 05:31 Dose: 300 mg Magnesium Hydroxide (Milk Of Magnesia) 30 ml PO Q4H PRN PRN Reason: Constipation Ondansetron HCl (Zofran) 4 mg IV Q8H PRN PRN Reason: N/V unrelieved by Reglan Review of Systems All systems: negative - Vital Signs Vital signs: Vital Signs Temp Pulse Resp BP Pulse Ox 98.2 F 121 H 20 203/141 100 09/25/16 00:32 09/25/16 00:32 09/25/16 00:32 09/25/16 00:32 09/25/16 00:32 Temp Pulse Resp BP Pulse Ox 98.0 F 86 20 160/100 98 09/26/16 12:00 09/26/16 12:00 09/26/16 12:00 09/26/16 12:00 09/26/16 12:00 - Physical Exam Breasts: Positive: deferred Cardiovascular: Regular rate Lungs: Positive: Clear to auscultation Abdomen: Positive: normal appearance, soft Uterus: Positive: enlarged Extremities: Positive: normal Results Result Diagrams: 09/25/16 11:09 09/25/16 11:09 All other labs normal. Ultrasound: report reviewed Assessment and Plan - Patient Problems (1) Acute febrile illness Diagnosis Date: 09/26/16 Current Visit: Yes Status: Acute (2) Hypertensive urgency Diagnosis Date: 09/26/16 Current Visit: Yes Status: Acute (3) Diagnosis Date: 09/26/16 Current Visit: Yes Status: Acute Qualifiers: Weeks of gestation: 11 weeks Qualified Code(s): Z3A.11 - 11 weeks gestation of Plan to address problem: A: IUP @ 11 0/7 weeks Hypertensive urgency - improved Abdominal pains - resolved P: Pt can be discharged to home when BP under better control, and she can follow up with [facility] next week. (4) Renal insufficiency Diagnosis Date: 09/26/16 Current Visit: Yes Status: Acute
[2016-09-27] MEDS: NORMODYNE PO SCH ×2 (05:23→14:25)
[2016-09-27 08:43] LABS: Hematocrit 36.6 % (30.3-42.9); Hemoglobin 11.7 gm/dl (10.1-14.3); Mean Corpuscular HGB Conc 32 % (30-34); Mean Corpuscular Hemoglobin 28 pg (28-32); Mean Corpuscular Volume 87 fl (79-97); Platelet Count 186 K/mm3 (140-440); Red Blood Count 4.21 M/mm3 (3.65-5.03); Red Cell Distribution Width 16.4 % (13.2-15.2); White Blood Count 4.8 K/mm3 (4.5-11.0)
[2016-09-27 09:12] LABS: BUN/Creatinine Ratio 9.37; Calcium 8.3 mg/dL (8.4-10.2); Chloride 105.5 mmol/L (98-107); Potassium 4.3 mmol/L (3.6-5.0)
[2016-09-27] MEDS: ROCEPHIN/NS 2 GM/100 ML 100 ML IV SCH (09:47)
[2016-09-27] MEDS ORDERED: NORVASC PO SCH (11:00)
[2016-09-27] MEDS ORDERED: NORMODYNE IV ONE (11:01)
--- NOTE | 2016-09-27 12:00 | Discharge Summary ---
Providers - Providers Date of Admission: 09/25/16 10:30 Date of discharge: 09/27/16 Attending physician: COREY RECIO 09/26/16 11:08 Consult to Physician [CONS] Routine Consulting Provider: ODIN GARAY Reason For Exam: 10 weeks, passed blood clot today Place consult to:: Dr. Giovani Garay Notified:: Dr. Giovani Garay Primary care physician: FIBERGLASS CONTAINER WINDING OPERATOR Hospitalization Condition: Good Hospital course: Patient is 36-year-old female with history of hypertension, presents with him elevated blood pressure ,abdominal pain. Her last menstrual period was more than 2 months ago . Urine test was positive .Ultrasound showed 10 weeks 6 days. She was given labetalol to control blood pressure and admitted for further management. Urinalysis showed urinary tract infection. CIRCUS PERFORMER physician Dr. Odin Garay was consulted to assist in management. Blood pressure remained elevated therefore Norvasc was added. Also she had fever which subsided by the following day. She was subsequently discharged home on antihypertensives and oral antibiotics after discussing choices with Machine Printer Hose. She is to follow with electrician supervisor substation as outpatient, for care. Total time spent on discharge 34 minutes Disposition: DISCHARGED TO HOME OR SELFCARE - Discharge Diagnoses (1) Hypertensive urgency Status: Acute (2) UTI (urinary tract infection) Status: Acute Qualifiers: Urinary tract infection type: acute cystitis Hematuria presence: without hematuria Indwelling urinary catheter type: I Encounter type: E Qualified Code(s): N30.00 - Acute cystitis without hematuria (3) Status: Acute Qualifiers: Weeks of gestation: 10 weeks Qualified Code(s): Z3A.10 - 10 weeks gestation of (4) Obesity (BMI 30-39.9) Status: Acute Core Measure Documentation - Palliative Care Palliative Care/ Comfort Measures: Not Applicable - Core Measures Any of the following diagnoses?: none Exam - Constitutional Vitals: Temp Pulse Resp BP Pulse Ox 98.4 F 86 18 158/90 98 09/27/16 11:10 09/27/16 11:10 09/27/16 11:10 09/27/16 11:10 09/27/16 11:10 Plan Activity: advance as tolerated Diet: low fat, low cholesterol, low salt Additional Instructions: 1.Follo up with PCP or [facility] in 1 week. 2.Follow up with stamping press operator as scheduled Follow up with: SRAVAN ANGULO MD [Primary Care Provider] - 7 Days Prescriptions: Ampicillin [Polycillin] 500 mg PO TID #10 capsule Labetalol HCl 300 mg PO TID #90 tablet amLODIPine [Norvasc] 5 mg PO QDAY #30 tablet
[2016-09-27 16:10] VITALS: BP 173/80
== END 2016-09-27 18:39 | disposition home or self-care (01) | DRG 781 ==
LOC: ED 23:11 → 4A 09-25 10:30
PROVIDERS: ADMIT Internal Medicine; ATTEND Internal Medicine
DX: O10.011 Pre-existing essential hypertension complicating pregnancy, first trimester (principal); I16.1 Hypertensive emergency; O24.111 Pre-existing type 2 diabetes mellitus, in pregnancy, first trimester; E11.9 Type 2 diabetes mellitus without complications; Z82.49 Family history of ischemic heart disease and other diseases of the circulatory system; Z3A.10 10 weeks gestation of pregnancy; O23.41 Unspecified infection of urinary tract in pregnancy, first trimester
CPT/HCPCS: 36415; 72195; 74181; 76705; 76801; 76817; 80048; 80053; 81001; 82140; 82962; 83690; 84484; 84702; 85007; 85025; 85027; 85610; 87040; 93005; 93010; 96361; 96365; 96372; 96375; J0360; J0696; J1650; J2270; J2543; J7030

== ENCOUNTER 2016-10-06 15:43 | Emergency (ER) | payer MEDICAID ==
--- NOTE | 2016-10-06 16:04 | Emergency Department Report ---
Chief Complaint: High BP Stated Complaint: HIGH BP - HPI History of Present Illness: Patient is a 36 y/o female at 12 weeks gestation who presents due to high blodd pressure, patient was sent to the ER by her STENCILING MACHINE TENDER at [facility]. Patient denies having any headache, dizziness, blurred vision or numbness and tingling. Patient states that she stopped taking her norvasc because she having vaginal bleeding 2 days ago. - ROS Review of Systems: no headache, no blurred vision, no numbness, no tingling, pelvic pain, no vaginal bleeding. - Exam Vital Signs: Vital Signs 10/06/16 15:49 Temperature 98.3 F Pulse Rate 90 Respiratory 18 Rate Blood Pressure 185/107 O2 Sat by Pulse 100 Oximetry Physical Exam: NAD, no pain MSE screening note: Focused history and physical exam performed. Due to findings the following was ordered:CBC, CMP, hcg, UA, OB ultrasound ED Disposition for MSE Condition: Stable
[2016-10-06 16:38] LABS: Basophils % (Auto) 0.4 % (0.0-1.8); Eosinophils % (Auto) 3.3 % (0.0-4.3); Hematocrit 36.8 % (30.3-42.9); Hemoglobin 11.6 gm/dl (10.1-14.3); Mean Corpuscular HGB Conc 32 % (30-34); Mean Corpuscular Hemoglobin 28 pg (28-32); Mean Corpuscular Volume 88 fl (79-97); Platelet Count 262 K/mm3 (140-440); Red Cell Distribution Width 15.9 % (13.2-15.2); White Blood Count 11.8 K/mm3 (4.5-11.0)
[2016-10-06 16:49] LABS: Alanine Aminotransferase 21 units/L (7-56); Albumin 3.6 g/dL (3.9-5); Albumin/Globulin Ratio 1.2 %; Alkaline Phosphatase 47 units/L (35-129); Anion Gap 17 mmol/L; Bilirubin,Total < 0.2 mg/dL (0.1-1.2); Blood Urea Nitrogen 19 mg/dL (7-17); Calcium 8.9 mg/dL (8.4-10.2); Carbon Dioxide 23 mmol/L (22-30); Chloride 99.5 mmol/L (98-107); Glucose 86 mg/dL (65-100); Potassium 4.4 mmol/L (3.6-5.0); Sodium 135 mmol/L (137-145); Total Protein 6.7 g/dL (6.3-8.2)
[2016-10-06 18:55] LABS: Bilirubin,Urine NEG (Negative); Blood,Urine NEG (Negative); Ketones,Urine NEG (Negative); Leukocyte Esterase,Urine MOD (Negative); Nitrite,Urine NEG (Negative); Urobilinogen,Urine < 2.0 mg/dL (<2.0)
--- NOTE | 2016-10-06 19:09 | Ultrasound Report ---
FINAL REPORT EXAM: US OB TRANSVAGINAL HISTORY: vaginal bleeding. Quantitative beta HCG level [id number]. LMP 09/03/2016 with estimated age 4 weeks 5 days and EDC 06/10/2017 TECHNIQUE: Ultrasound of the pelvis using transvaginal imaging PRIORS: OB ultrasound 09/25/2016 FINDINGS: Uterus: Uterus is enlarged in size and normal and homogeneous in echogenicity without focal fibroid formation. The uterus measures 13.5 x 7.6 x 7.8 cm in size. There is a single early viable intrauterine gestation noted. The placenta is located posterior with no evidence for placenta previa. Intrauterine gestation: There is a single intrauterine gestation identified with both a pole and yolk sac. heart rate is monitored at 161 BPM. With gestational dating parameter measurements, an estimated age 12 weeks 6 days is noted with EDC 04/14/2017. Ovaries: Neither ovary is optimally visualized during this exam. Other: There is no evidence for solid adnexal mass is seen. There is no free fluid in the cul-de-sac. IMPRESSION: Single intrauterine viable with an approximate age of 12 weeks 6 days.
--- NOTE | 2016-10-06 19:10 | Ultrasound Report ---
FINAL REPORT EXAM: US OB < = 14 WEEKS FETUS HISTORY: vaginal bleeding. Quantitative beta HCG level [id number]. LMP 09/03/2016 with estimated age 4 weeks 5 days and EDC 06/10/2017 TECHNIQUE: Ultrasound of the pelvis using transabdominal imaging PRIORS: OB ultrasound 09/25/2016 FINDINGS: Uterus: Uterus is enlarged in size and normal and homogeneous in echogenicity without focal fibroid formation. The uterus measures 13.5 x 7.6 x 7.8 cm in size. There is a single early viable intrauterine gestation noted. The placenta is located posterior with no evidence for placenta previa. Intrauterine gestation: There is a single intrauterine gestation identified with both a pole. heart rate is monitored at 161 BPM. With gestational dating parameter measurements, an estimated age 12 weeks 6 days is noted with EDC 04/14/2017. Ovaries: Neither ovary is optimally visualized during this exam. Other: There is no evidence for solid adnexal mass is seen. There is no free fluid in the cul-de-sac. IMPRESSION: Single intrauterine viable with an approximate age of 12 weeks 6 days.
[2016-10-07 00:37] VITALS: BP 149/86
[2016-10-07] MEDS ORDERED: MACROBID PO ONE (00:51)
--- NOTE | 2016-10-07 01:05 | Emergency Department Report ---
[id number] - [facility] HPI: This is a 36-year-old Afro-[place]rian female who is about 12 weeks at the who presents to the emergency department, sent in by her [facility] MAKER at [facility], 4 hypertension. Patient was seen here and admitted to [facility] few weeks ago for uncontrolled blood pressure. At that time she was placed on labetalol and Norvasc. She stopped taking the Norvasc that she feels like it makes her have vaginal bleeding. However she does take the labetalol 300 mg 3 times daily. She denies any current symptoms of any pain. She has been having some very mild vaginal spotting. She has a history of diabetes and hypertension. Recent travel or sick contacts at home. ED Past Medical Hx - Past Medical History Hx Hypertension: Yes Hx Diabetes: Yes Additional medical history: "spilling protein in urine" per pt. - Social History Smoking Status: Never Smoker Substance Use Type: None - Medications Home Medications: Home Medications Medication Instructions Recorded Confirmed Last Taken Type Ampicillin [Polycillin] 500 mg PO TID #10 capsule 09/27/16 Unknown Rx Labetalol HCl 300 mg PO TID #90 tablet 09/27/16 Unknown Rx amLODIPine [Norvasc] 5 mg PO QDAY #30 tablet 09/27/16 Unknown Rx Nitrofurantoin [place]/M-Cryst 100 mg PO Q12HR #14 capsule 10/07/16 Unknown Rx [Macrobid CAP] Pnv95/Ferrous Fumarate/FA 1 each PO QDAY #30 tablet 10/07/16 Unknown Rx [ Caplet] ED Review of Systems ROS: Stated complaint: HIGH BP Other details as noted in HPI Comment: All other systems reviewed and negative Constitutional: denies: chills, fever Eyes: denies: eye pain, eye discharge, vision change ENT: denies: ear pain, throat pain Respiratory: denies: cough, shortness of breath, wheezing Cardiovascular: denies: chest pain, palpitations Gastrointestinal: denies: abdominal pain, nausea Genitourinary: denies: urgency, dysuria, discharge Musculoskeletal: denies: back pain, joint swelling, arthralgia Skin: denies: rash, lesions Neurological: denies: headache, weakness, paresthesias Physical Exam - Physical Exam Vital Signs: Vital Signs 10/06/16 10/07/16 15:49 00:36 Temperature 98.3 F 98.0 F Pulse Rate 90 85 Respiratory 18 18 Rate Blood Pressure 185/107 Blood Pressure 149/86 [Right] O2 Sat by Pulse 100 100 Oximetry Physical Exam: GENERAL: The patient is well-developed well-nourished. HEENT: Normocephalic. Atraumatic. Extraocular motions are intact. Patient has moist mucous membranes. Pupils equal reactive to light bilaterally. NECK: Supple. Trachea is midline. CHEST/LUNGS: Clear to auscultation. There is no respiratory distress noted. HEART/CARDIOVASCULAR: Regular. There is no tachycardia. There is no gallop rub or murmur. ABDOMEN: Abdomen is soft, nontender. Patient has normal bowel sounds. There is no abdominal distention. Obese habitus. SKIN: There is no rash. There is no diaphoresis. NEURO: The patient is awake, alert, and oriented. The patient is cooperative. The patient has no focal neurologic deficits. The patient has normal speech. MUSCULOSKELETAL: There is no tenderness or deformity. There is no limitation range of motion. There is no evidence of acute injury. ED Course Vital Signs 10/06/16 10/07/16 15:49 00:36 Temperature 98.3 F 98.0 F Pulse Rate 90 85 Respiratory 18 18 Rate Blood Pressure 185/107 Blood Pressure 149/86 [Right] O2 Sat by Pulse 100 100 Oximetry - Consultations Consultation #1: I spoke with the nurse practitioner at [facility], who listened to the patient's case presentation including current blood pressure and her lab results. She feels that the patient is safe for discharge home but they would like her to follow-up tomorrow at [facility] yet again. 10/07/16 01:19 ED Medical Decision Making - Lab Data Result diagrams: 10/06/16 16:15 10/06/16 16:15 - Radiology Data Radiology results: report reviewed Transvaginal/ ultrasound shows a live intrauterine at 12 weeks. - Medical Decision Making This is a 36-year-old female presents to the emergency department at 12 weeks and , sent in by her NET MAKER office, for elevated blood pressure. The patient presents with a systolic blood pressure of about 185 when she first got here through triage. However came down to much more reasonable level without any pressure medications or intervention. The rest the patient's labs are mostly unremarkable except for a mild urinary tract infection. I spoke with the nurse practitioner or [facility] [employer] or [employer] at [facility] who feels that the patient is safe for discharge home and recommends following up with their service tomorrow, Thursday, without fail. Patient will continue taking her labetalol. She was given a prescription for her vitamins. Patient is asymptomatic. I forgot to give the patient her perception for Macrobid when she was here but she will be called and the potential be left for her to sheepskin pickler and she received her first dose here. Patient has very mild proteinuria but not to the level concerning for preeclampsia. Patient also has some mild renal insufficiency but it is consistent with her previous visit. She will also follow up with her primary care doctor in the next few days. She will return to the ER with any worsening of her symptoms or any acute distress. - Differential Diagnosis preeclampsia, hypertensive urgency, essential hypertension Critical care attestation.: If time is entered above; I have spent that time in minutes in the direct care of this critically ill patient, excluding procedure time. ED Disposition Clinical Impression: Renal insufficiency, Threatened Qualifiers: Weeks of gestation: 12 weeks Qualified Code(s): Z3A.12 - 12 weeks gestation of UTI (urinary tract infection) Qualifiers: Urinary tract infection type: acute cystitis Hematuria presence: without hematuria Qualified Code(s): N30.00 - Acute cystitis without hematuria Hypertension Qualifiers: Hypertension type: essential hypertension Qualified Code(s): I10 - Essential ( primary) hypertension Disposition: DISCHARGED TO HOME OR SELFCARE Is pt being admited?: No Does the pt Need Aspirin: No Condition: Stable Instructions: Hypertension (ED), (ED), Threatened Miscarriage (ED) Additional Instructions: Please follow up with [facility] tomorrow. Try to stay away from foods are high in salt and caffeinated products to help with her blood pressure. Continue with your labetalol. Return to the ER with any worsening of your symptoms or any acute distress. Prescriptions: Nitrofurantoin [place]/M-Cryst [Macrobid CAP] 100 mg PO Q12HR #14 capsule Pnv95/Ferrous Fumarate/FA [ Caplet] 1 each PO QDAY #30 tablet Referrals: PRIMARY CAREMD [Primary Care Provider] - 3-5 Days [facility] [Provider Group] - 3-5 Days Time of Disposition: 02:14
== END 2016-10-07 02:30 | disposition home or self-care (01) ==
LOC: ED 15:43
DX: O20.0 Threatened abortion (principal); O16.1 Unspecified maternal hypertension, first trimester; O23.91 Unspecified genitourinary tract infection in pregnancy, first trimester; N30.00 Acute cystitis without hematuria; N28.9 Disorder of kidney and ureter, unspecified; E11.9 Type 2 diabetes mellitus without complications; Z3A.12 12 weeks gestation of pregnancy
CPT/HCPCS: 36415; 76801; 76817; 80053; 81001; 84702; 85025; 86900; 86901

== ENCOUNTER 2017-04-06 20:50 | Inpatient (IN) | payer MEDICAID ==
[2017-04-06] MEDS ORDERED: XYLOCAINE 2% INFILTRATI ONE (20:57)
[2017-04-06] MEDS ORDERED: BRETHINE SUB-Q PRN (20:57)
[2017-04-06] MEDS ORDERED: MINERAL OIL PO PRN (20:57)
[2017-04-06] MEDS ORDERED: BRETHINE IVP PRN (20:57)
[2017-04-06] MEDS ORDERED: ePHEDrine SULFATE IV PRN (20:57)
[2017-04-06] MEDS ORDERED: CERVIDIL VG ONE (20:57)
[2017-04-06] MEDS ORDERED: SUBLIMAZE IV PRN (20:57)
[2017-04-06] MEDS ORDERED: PITOCin/NS 20 UNIT/1000ML DRIP 20 UNITS/1,000 ML BAG IV SCH (21:00)
--- NOTE | 2017-04-06 21:07 | History and Physical Report ---
History of Present Illness Date of examination: 04/06/17 Date of admission: 04/06/17 20:50 Chief complaint: Here for induction of labor for induced hypertension and diabetes History of present illness: 36 y/o here for induction of labor for PIH and pregestational diabetes. 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 On labetalol 300 bid and aldomet 250mg bid. Has been followed by [facility] and [facility]. Past History Past Medical History: hypertension, diabetes Past Surgical History: no surgical history AUDIT PARTNER History: trichomonas Family/Genetic History: heart disease, hypertension Social history: no significant social history - Obstetrical History Expected Date of Delivery: 04/17/17 Actual Gestation: 38 Week(s) 3 Day(s) : 1 Para: 0 Number of Living Children: 0 Medications and Allergies Allergies Allergy/AdvReac Type Severity Reaction Status Date / Time No Known Allergies Allergy Unverified 09/05/14 14:28 Home Medications Medication Instructions Recorded Confirmed Last Taken Type Ampicillin [Polycillin] 500 mg PO TID #10 capsule 09/27/16 Unknown Rx Labetalol HCl 300 mg PO TID #90 tablet 09/27/16 Unknown Rx amLODIPine [Norvasc] 5 mg PO QDAY #30 tablet 09/27/16 Unknown Rx Nitrofurantoin [place]/M-Cryst 100 mg PO Q12HR #14 capsule 10/07/16 Unknown Rx [Macrobid CAP] Pnv95/Ferrous Fumarate/FA 1 each PO QDAY #30 tablet 10/07/16 Unknown Rx [ Caplet] Review of Systems All systems: negative - Physical Exam Breasts: Positive: deferred Cardiovascular: Regular rate Lungs: Positive: Clear to auscultation Abdomen: Positive: soft Genitourinary (Female): Positive: normal external genitalia Vulva: both: normal Vagina: Positive: normal moisture Uterus: Positive: enlarged Adnexa: both: normal Anus/Rectum: Positive: normal perianal skin Deep Tendon Reflex Grade: Normal +2 - Obstetrical FHR: category 1 Uterine Contraction Monitor Mode: External Cervical Dilatation: 1 station: -3 Uterine Contraction Pattern: Absent Results All other labs normal. Assessment and Plan A: Induction of labor for PIH and diabetes type 2 P : Cervadil induction
[2017-04-06 21:55] LABS: Hematocrit 36.2 % (30.3-42.9); Hemoglobin 11.8 gm/dl (10.1-14.3); Mean Corpuscular HGB Conc 33 % (30-34); Mean Corpuscular Hemoglobin 30 pg (28-32); Mean Corpuscular Volume 91 fl (79-97); Platelet Count 281 K/mm3 (140-440); Red Blood Count 3.98 M/mm3 (3.65-5.03); Red Cell Distribution Width 15.3 % (13.2-15.2); White Blood Count 9.8 K/mm3 (4.5-11.0)
[2017-04-06] MEDS ORDERED: AMBIEN PO PRN (23:14)
[2017-04-06] MEDS: ALDOMET PO SCH (23:23)
[2017-04-07] MEDS: NORMODYNE PO SCH ×3 (00:40→23:05)
--- NOTE | 2017-04-07 08:33 | Event Note ---
Date: 04/07/17 O: VE /-1, arom light mec, IUPC and FSE placed, CAT I tracing A: Induction of labor for PIH and diabetes P: Begin pitocin
[2017-04-07] MEDS: LACTATED RINGERS 1,000 ML IV SCH ×3 (09:16→13:08)
[2017-04-07] MEDS: PITOCin/NS 30 UNIT/500ML 30 UNITS/500 ML BAG IV SCH ×2 (09:20→11:51)
[2017-04-07] MEDS: ALDOMET PO SCH ×2 (09:28→23:06)
[2017-04-07] MEDS ORDERED: MAGNESIUM SULFATE 40GM/1000ML 40 GM/1,000 ML BAG IV SCH ×2 (10:00→23:45)
[2017-04-07] MEDS ORDERED: NORMODYNE IV ONE (10:15)
[2017-04-07] MEDS ORDERED: MAGNESIUM SULFATE 4GM/100ML 4 GM/100 ML BAG IV ONE (10:30)
[2017-04-07] MEDS ORDERED: fentaNYL-BUPIV 2 MCG/ML-0.125% 200 MCG/100 ML BAG EPIDURAL ONE (11:25)
[2017-04-07] MEDS ORDERED: ePHEDrine SULFATE IV PRN (11:39)
[2017-04-07] MEDS ORDERED: NARCAN 2 MG/2 ML IV PRN (11:39)
--- NOTE | 2017-04-07 11:39 | Anesthesia Consultation ---
Anesthesia Consult and Med Hx Date of service: 04/07/17 - Airway Anesthetic Teeth Evaluation: Poor (front loose/broken) ROM Head & Neck: Adequate Mental/Hyoid Distance: Adequate Mallampati Class: Class II Intubation Access Assessment: Probably Good - Pulmonary Exam CTA: Yes - Cardiac Exam Cardiac Exam: RRR - Pre-Operative Health Status ASA Pre-Surgery Classification: ASA3 Proposed Anesthetic Plan: Epidural (CSE for labor), Spinal - Pulmonary Hx Smoking: Yes (quit 8 months ago) Hx Asthma: No COPD: No Hx Pneumonia: No - Cardiovascular System Hx Hypertension: Yes (on mag in hospital) Hx Cardia Arrhythmia: Yes (hx skipped heart beats) - Central Nervous System Hx Seizures: No Hx Psychiatric Problems: No - Endocrine Hx Renal Disease: Yes (2003) Hx End Stage Renal Disease: No Hx Hypothyroidism: No Hx Hyperthyroidism: No - Hematic Hx Anemia: No Hx Sickle Cell Disease: No - Other Systems Hx Alcohol Use: Yes (pre ) Hx Obesity: Yes ([place])
[2017-04-07] MEDS ORDERED: APRESOLINE IV PRN (11:49)
[2017-04-07] MEDS ORDERED: fentaNYL-BUPIV 2 MCG/ML-0.125% 200 MCG/100 ML BAG EPIDURAL SCH (12:00)
--- NOTE | 2017-04-07 16:53 | Procedure Note ---
OB Delivery Note - Delivery Date of Delivery: 04/07/17 Surgeon: IFTIKHAR JUAN Estimated blood loss: 100cc - Vaginal Delivery presentation: vertex Delivery position: OA Intrapartum events: meconium, gestational hypertension Delivery induction: cervidil Delivery augmentation: rupture of membranes, pitocin Delivery monitor: external FHT, external uterine, internal FHT, internal uterine Route of delivery: Delivery placenta: spontaneous Delivery cord: other (cord on top of shoulder) Delivery laceration: none Anesthesia: epidural Delivery comments: of a viable female 5# 4oz on 04/07/2017 @ 1628 over intact perineum. Loop of cord noted at delivery of shoulder. NICU called for delivery. 6/9. Placenta delivered 3VCI. FF @ U-1. lochia small. Mother and baby doing well. - Infant A at 1 minute: 6 at 5 minutes: 9 (5# 4oz) Gender: Female
[2017-04-07] MEDS ORDERED: LANSINOH TP PRN (16:55)
[2017-04-07] MEDS ORDERED: TYLENOL PO PRN (16:55)
[2017-04-07] MEDS ORDERED: BENADRYL PO PRN (16:55)
[2017-04-07] MEDS ORDERED: PHENERGAN PO PRN (16:55)
[2017-04-07] MEDS ORDERED: SODIUM CHLORIDE FLUSH SYRINGE 10 ML IV NR (17:00)
[2017-04-07] MEDS: MOTRIN PO SCH (23:06)
[2017-04-07] MEDS ORDERED: LACTATED RINGERS 1,000 ML IV SCH (23:45)
--- NOTE | 2017-04-08 01:15 | Event Note ---
Date: 04/08/17 Just reviewed patient's chart, mag level is 8.10 was 6.9 earlier. Have called RN and asked mag be discontinued. If patient symptomatic, we'll administer calcium gluconate
[2017-04-08] MEDS: MOTRIN PO SCH ×3 (06:09→18:31)
[2017-04-08] MEDS: NORMODYNE PO SCH ×3 (06:10→21:37)
[2017-04-08] MEDS: ALDOMET PO SCH ×3 (06:10→21:37)
[2017-04-08 06:12] LABS: Hematocrit 32.9 % (30.3-42.9); Hemoglobin 10.7 gm/dl (10.1-14.3)
[2017-04-08 08:02] LABS: Urine Drugs of Abuse Note Disclamer
--- NOTE | 2017-04-08 09:02 | Progress Note ---
Assessment and Plan O: BP 140's /80's A: PPD # 1 -stable P: Plan discharge home today Subjective - Subjective Date of service: 04/08/17 Principal diagnosis: Interval history: 36 y/o here for induction of labor for PIH and pregestational diabetes. 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 On labetalol 300 bid and aldomet 250mg bid. Has been followed by [facility] and [facility]. Patient reports: appetite normal : doing well Objective - Vital Signs Latest vital signs: Vital Signs Temp Pulse Resp BP Pulse Ox 04/08/17 06:10 95 H 145/82 04/08/17 04:30 97.8 F 86 20 138/82 04/08/17 00:50 97.6 F 91 H 18 142/79 04/07/17 23:06 98 H 155/85 04/07/17 23:05 98 H 155/85 04/07/17 19:38 108 H 155/85 04/07/17 19:25 107 H 157/85 04/07/17 19:08 108 H 157/89 04/07/17 18:55 97.7 F 106 H 18 157/87 04/07/17 18:53 108 H 158/89 04/07/17 18:38 106 H 154/88 04/07/17 18:23 108 H 158/86 04/07/17 18:08 109 H 169/92 04/07/17 18:07 97.0 F L 109 H 18 169/92 04/07/17 17:53 107 H 166/87 04/07/17 17:43 97.0 F L 109 H 18 164/95 04/07/17 17:38 109 H 164/95 04/07/17 17:27 97.2 F L 113 H 20 175/97 04/07/17 17:23 113 H 175/97 04/07/17 17:16 107 H 20 170/99 04/07/17 17:08 107 H 170/99 04/07/17 16:53 113 H 166/87 04/07/17 16:45 96.8 F L 113 H 20 166/87 04/07/17 16:37 110 H 162/89 04/07/17 16:08 114 H 134/83 04/07/17 15:39 105 H 166/86 04/07/17 15:32 110 H 178/92 04/07/17 15:24 103 H 176/91 04/07/17 15:14 106 H 180/90 04/07/17 15:08 109 H 183/112 04/07/17 15:04 102 H 100 04/07/17 14:59 104 H 100 04/07/17 14:54 99 H 100 04/07/17 14:49 96 H 100 04/07/17 14:44 107 H 100 04/07/17 14:39 95 H 100 04/07/17 14:37 92 H 148/101 04/07/17 14:34 92 H 100 04/07/17 14:29 93 H 100 04/07/17 14:24 85 100 04/07/17 14:19 89 100 04/07/17 14:14 88 100 04/07/17 14:09 93 H 100 04/07/17 14:08 89 172/102 04/07/17 14:04 89 100 04/07/17 13:59 89 100 04/07/17 13:54 90 100 04/07/17 13:49 90 100 04/07/17 13:44 89 100 04/07/17 13:39 89 100 04/07/17 13:37 90 135/60 04/07/17 13:34 98 H 100 04/07/17 13:29 91 H 100 04/07/17 13:24 88 100 04/07/17 13:07 86 179/87 04/07/17 12:37 91 H 127/66 04/07/17 12:33 91 H 140/90 04/07/17 12:26 86 141/88 04/07/17 12:21 91 H 147/86 04/07/17 12:18 88 99 04/07/17 12:17 86 142/80 04/07/17 12:13 89 99 04/07/17 12:11 88 135/82 04/07/17 12:08 87 100 04/07/17 12:07 88 147/86 04/07/17 12:03 88 100 04/07/17 12:01 89 151/86 04/07/17 11:58 90 100 04/07/17 11:56 88 151/87 04/07/17 11:53 91 H 100 04/07/17 11:51 88 140/85 08/01/17 11:48 88 100 04/07/17 11:47 86 153/88 04/07/17 11:43 88 97 04/07/17 11:41 86 167/83 04/07/17 11:38 87 178/86 04/07/17 11:31 88 136/77 04/07/17 11:26 87 138/82 04/07/17 11:22 90 161/89 04/07/17 11:17 89 182/99 04/07/17 11:11 92 H 175/97 04/07/17 11:07 96 H 194/97 04/07/17 10:52 91 H 212/96 04/07/17 10:43 87 189/86 04/07/17 10:38 96 H 173/87 04/07/17 10:37 97 H 215/154 04/07/17 10:21 97 H 215/154 04/07/17 10:07 94 H 219/104 04/07/17 09:49 97 H 214/104 04/07/17 09:37 94 H 225/117 04/07/17 09:28 97 H 144/103 04/07/17 09:27 97 H 144/103 04/07/17 09:07 97 H 144/103 Intake and Output 04/07/17 04/08/17 04/08/17 22:59 06:59 14:59 Intake Total 480 Output Total 1999 1400 100 Balance -1999 -920 -100 Intake: Oral 480 Output: Urine 1999 1400 100 Indwelling Catheter 1999 1400 100 Other: Total, Intake Amount 240 Total, Output Amount 1600 1000 100 Estimated Blood Loss 100 - Exam Breasts: Present: deferred Cardiovascular: Present: Regular rate Lungs: Present: Clear to auscultation Abdomen: Present: soft Vulva: both: normal Uterus: Present: fundal height below umbilicus Extremities: Present: normal Deep Tendon Reflex Grade: Normal +2 - Labs Labs: Abnormal lab results 04/07/17 04/08/17 04/08/17 Range/Units 15:53 00:27 05:44 Magnesium 6.90 H 8.10 H 6.50 H (1.7-2.3) mg/dL
--- NOTE | 2017-04-08 09:04 | Discharge Summary ---
Providers - Providers Date of Admission: 04/06/17 20:50 Date of discharge: 04/08/17 Attending physician: HEMRAN DOWNS MD Primary care physician: HERMAN DOWNS MD Hospitalization Reason for admission: induction of labor Delivery: Episiotomy: none Laceration: none Incision: normal baby: female Condition at discharge: Good Disposition: DC-01 TO HOME OR SELFCARE Plan - Provider Discharge Summary Activity: routine, no sex for 6 weeks, no strenuous exercise Diet: routine Instructions: routine Additional instructions: [] Smoking cessation referral if applicable(refer to patient education folder for contact #) [] Refer to [facility] Booklet Call your doctor immediately for: * Fever > 100.5 * Heavy vaginal bleeding ( >1 pad per hour) * Severe persistent headache * Shortness of breath * Reddened, hot, painful area to leg or breast * Drainage or odor from incision. * Keep incision clean and dry at all times and follow doctor's instructions regarding bathing/showering - Follow up plan Follow up: [facility] [Provider Group] - 14 Days
[2017-04-08] MEDS ORDERED: BOOSTRIX IM ONE (16:30)
[2017-04-08] MEDS: NORCO 5/325 PO PRN (21:33)
[2017-04-09] MEDS: NORCO 5/325 PO PRN (05:41)
[2017-04-09] MEDS: MOTRIN PO SCH (13:42)
[2017-04-09] MEDS: ALDOMET PO SCH (13:44)
[2017-04-09 13:50] VITALS: BP 137/88
[2017-04-09] MEDS: NORMODYNE PO SCH (13:50)
[2017-04-09] MEDS ORDERED: M-M-R II VACCINE SUB-Q ONE (14:35)
== END 2017-04-09 16:35 | disposition home or self-care (01) | DRG 774 ==
LOC: LD 20:50 → OB 04-07 21:06
PROVIDERS: ADMIT Obstetrics & Gynecology; ATTEND Obstetrics & Gynecology
PROC: 10E0XZZ Delivery of Products of Conception, External Approach (ICD-10-PCS; principal; 2017-04-07)
PROC: 3E0P7GC Introduction of Other Therapeutic Substance into Female Reproductive, Via Natural or Artificial Opening (ICD-10-PCS; 2017-04-07)
PROC: 3E0R3CZ (ICD-10-PCS; 2017-04-07)
PROC: 00HU33Z Insertion of Infusion Device into Spinal Canal, Percutaneous Approach (ICD-10-PCS; 2017-04-07)
DX: O13.4 Gestational [pregnancy-induced] hypertension without significant proteinuria, complicating childbirth (principal); O77.0 Labor and delivery complicated by meconium in amniotic fluid; O99.214 Obesity complicating childbirth; E66.9 Obesity, unspecified; O24.12 Pre-existing type 2 diabetes mellitus, in childbirth; E11.9 Type 2 diabetes mellitus without complications; Z82.49 Family history of ischemic heart disease and other diseases of the circulatory system; Z68.38 Body mass index [BMI] 38.0-38.9, adult; Z83.3 Family history of diabetes mellitus; Z3A.38 38 weeks gestation of pregnancy; Z37.0 Single live birth; Z87.891 Personal history of nicotine dependence
CPT/HCPCS: 36415; 80307; 83735; 85014; 85018; 85027; 86592; 86850; 86900; 86901; 90471; 90707; 90715; 99211; G0463; J2590; J3010; J3475; J7120

== ENCOUNTER 2017-04-10 01:12 | Inpatient (IN) | payer MEDICAID ==
[2017-04-10] MEDS ORDERED: LACTATED RINGERS 1,000 ML IV ONE (01:33)
[2017-04-10] MEDS ORDERED: APRESOLINE IV ONE (01:38)
[2017-04-10 01:48] LABS: Basophils % (Auto) 0.4 % (0.0-1.8); Eosinophils % (Auto) 1.7 % (0.0-4.3); Hemoglobin 11.3 gm/dl (10.1-14.3); Mean Corpuscular HGB Conc 32 % (30-34); Mean Corpuscular Hemoglobin 29 pg (28-32); Mean Corpuscular Volume 90 fl (79-97); Platelet Count 269 K/mm3 (140-440); Red Blood Count 3.87 M/mm3 (3.65-5.03); Red Cell Distribution Width 15.3 % (13.2-15.2); White Blood Count 7.8 K/mm3 (4.5-11.0)
[2017-04-10] MEDS ORDERED: NACL ONE (01:55)
[2017-04-10 02:11] LABS: Albumin 3.3 g/dL (3.9-5); Albumin/Globulin Ratio 1.3 %; BUN/Creatinine Ratio 12.6; Bilirubin,Total 0.3 mg/dL (0.1-1.2); Calcium 8.6 mg/dL (8.4-10.2); Chloride 105.3 mmol/L (98-107); Potassium 4.7 mmol/L (3.6-5.0); Total Protein 5.9 g/dL (6.3-8.2)
[2017-04-10] MEDS ORDERED: NORMODYNE IV ONE (02:41)
[2017-04-10 03:02] LABS: Bilirubin,Urine NEG (Negative); Blood,Urine LG (Negative); Ketones,Urine NEG (Negative); Leukocyte Esterase,Urine MOD (Negative); Mucus,Urine FEW /HPF; Nitrite,Urine NEG (Negative); Urobilinogen,Urine < 2.0 mg/dL (<2.0)
[2017-04-10 03:06] LABS: RBC,Urine > 182.0 /HPF (0.0-6.0)
[2017-04-10 03:18] LABS: INR 0.89 (0.87-1.13)
[2017-04-10 03:19] LABS: Partial Thromboplastin Time 31.8 Sec. (24.2-36.6)
--- NOTE | 2017-04-10 04:49 | Nuclear Medicine Report ---
FINAL REPORT PROCEDURE: NM PERFUSION ONLY LUNG SCAN TECHNIQUE: Five mCi Tc-99m MAA was injected IV for pulmonary perfusion imaging in multiple projections. injection site: RIGHT antecubital fossa. CPT 74777 HISTORY: sob COMPARISON: No prior studies are available for comparison. FINDINGS: Lung perfusion imaging shows multiple wedge defects identified throughout both lungs. IMPRESSION: High probability of pulmonary embolus The above findings were discussed with the patient's ER physician at the time of dictation 0342 central standard time on 04/10/2017
--- NOTE | 2017-04-10 05:53 | Emergency Department Report ---
ED Shortness of Breath HPI - General Chief Complaint: Dyspnea/Respdistress Stated Complaint: DIFFICULTY IN BREATHING, VOMITING Time Seen by Provider: 04/10/17 01:28 Source: patient Mode of arrival: Wheelchair Limitations: No Limitations - History of Present Illness Initial Comments: Patient is a 36-year-old female who just delivered her baby yesterday. Patient presents with hemoptysis and shortness of breath. This is been going on for the last 2 hours. And she is experiencing some chest pain. Chest pain is when she takes a deep breath it is a 5 out 10 breathing heavily makes it worse resting makes it better. It is a sharp type of pain. It does not radiate. Patient has a history of uncontrolled high blood pressure and was treated for preeclampsia on her preoperative admission. She gave vaginally and she was induced for labor. Further history is limited due to patient's respiratory status. Patient is 74% O2 on room air. - Related Data Home Medications Medication Instructions Recorded Confirmed Last Taken Methyldopa [Aldomet] 250 mg PO TID 04/08/17 04/08/17 04/08/17 250 mg Previous Rx's Medication Instructions Recorded Last Taken Type Labetalol HCl 300 mg PO TID #90 tablet 09/27/16 04/08/17 Rx 300 mg Allergies Allergy/AdvReac Type Severity Reaction Status Date / Time No Known Allergies Allergy Unverified 09/05/14 14:28 ED Review of Systems ROS: Stated complaint: DIFFICULTY IN BREATHING, VOMITING Other details as noted in HPI Constitutional: weakness. denies: chills, fever Eyes: denies: eye pain, eye discharge, vision change ENT: denies: ear pain, throat pain Respiratory: cough, SOB at rest, other (hemoptysis) Cardiovascular: chest pain. denies: palpitations Endocrine: no symptoms reported Gastrointestinal: denies: abdominal pain, nausea, diarrhea Genitourinary: denies: urgency, dysuria, discharge Musculoskeletal: denies: back pain, joint swelling, arthralgia Skin: denies: rash, lesions Neurological: denies: headache, weakness, paresthesias Psychiatric: denies: anxiety, depression Hematological/Lymphatic: denies: easy bleeding, easy bruising ED Past Medical Hx - Past Medical History Previous Medical History?: Yes Hx Hypertension: Yes (on mag in hospital) Hx Congestive Heart Failure: No Hx Diabetes: Yes Hx Deep Vein Thrombosis: No Hx Renal Disease: Yes (2003) Hx Sickle Cell Disease: No Hx Seizures: No Hx Asthma: No Hx COPD: No Hx HIV: No Additional medical history: "spilling protein in urine" per pt. - Surgical History Past Surgical History?: Yes - Social History Smoking Status: Former Smoker Substance Use Type: None - Medications Home Medications: Home Medications Medication Instructions Recorded Confirmed Last Taken Type Labetalol HCl 300 mg PO TID #90 tablet 09/27/16 04/08/17 04/08/17 Rx 300 mg Methyldopa [Aldomet] 250 mg PO TID 04/08/17 04/08/17 04/08/17 History 250 mg ED Physical Exam - General Limitations: No Limitations General appearance: anxious, in distress - Head Head exam: Present: atraumatic - Eye Eye exam: Present: normal appearance, EOMI - ENT ENT exam: Present: mucous membranes moist - Neck Neck exam: Present: normal inspection - Respiratory Respiratory exam: Present: wheezes, rhonchi - Cardiovascular Cardiovascular Exam: Present: tachycardia. Absent: systolic murmur, diastolic murmur, rubs, gallop - GI/Abdominal GI/Abdominal exam: Present: soft, normal bowel sounds - Extremities Exam Extremities exam: Present: normal inspection - Back Exam Back exam: Present: normal inspection - Neurological Exam Neurological exam: Present: alert, oriented X3 - Psychiatric Psychiatric exam: Present: normal affect, normal mood - Skin Skin exam: Present: warm, normal color ED Course Vital Signs 04/10/17 04/10/17 04/10/17 01:16 01:21 01:30 Pulse Rate 129 H 122 H 120 H Respiratory 17 26 H 45 H Rate Blood Pressure 189/94 179/101 O2 Sat by Pulse 74 L 92 96 Oximetry 04/10/17 04/10/17 04/10/17 01:41 01:49 01:50 Pulse Rate 127 H 120 H Respiratory 25 H 28 H Rate Blood Pressure 179/101 179/101 O2 Sat by Pulse 98 Oximetry 04/10/17 04/10/17 04/10/17 01:51 02:00 02:18 Pulse Rate 130 H 131 H 133 H Respiratory 40 H 36 H 34 H Rate Blood Pressure 170/96 173/94 164/95 O2 Sat by Pulse 99 98 96 Oximetry 04/10/17 04/10/17 04/10/17 02:21 02:30 02:32 Pulse Rate 131 H 131 H 130 H Respiratory 39 H 50 H Rate Blood Pressure 164/95 180/95 O2 Sat by Pulse 99 97 Oximetry 04/10/17 04/10/17 04/10/17 02:41 02:49 02:51 Pulse Rate 127 H 125 H 126 H Respiratory 52 H 49 H Rate Blood Pressure 180/95 180/95 143/80 O2 Sat by Pulse 96 97 Oximetry 04/10/17 04/10/17 04/10/17 03:00 03:11 03:21 Pulse Rate 123 H 124 H 123 H Respiratory 44 H 51 H 44 H Rate Blood Pressure 153/85 153/85 141/80 O2 Sat by Pulse 94 97 97 Oximetry 04/10/17 04/10/17 04/10/17 03:30 03:41 04:51 Pulse Rate 121 H 126 H Respiratory 56 H 23 Rate Blood Pressure 145/90 145/90 O2 Sat by Pulse 93 97 100 Oximetry 04/10/17 04/10/17 04/10/17 05:00 05:11 05:21 Pulse Rate 118 H 114 H 119 H Respiratory 41 H 46 H 25 H Rate Blood Pressure 149/89 149/89 145/90 O2 Sat by Pulse 94 98 99 Oximetry 04/10/17 05:30 Pulse Rate 123 H Respiratory 27 H Rate Blood Pressure 167/96 O2 Sat by Pulse 91 Oximetry - Reevaluation(s) Reevaluation #1: 04/10/17 01:23 Patient is short of breath and tachycardic I'll place patient on simple oxygen mask. Patient's O2 sat is 74% on room air. Patient's oxygen sat is 91% on Ventimask. 04/10/17 05:57 Reevaluation #2: 04/10/17 02:55 Patient is hypertensive will give labetalol and hydralazine due to patient's creatinine level being high I am not able to get a CT a I will treat patient empirically with a heparin drip. - Consultations Consultation #1: 04/10/17 03:50 Consulted with CUSTOMER SUPPORT ASSISTANT Dr. Arce he states that patient does not need magnesium because magnesium level is already high. Since clinical suspicion is for pulmonary embolism he states that the patient will need to be admitted to the hospitalist but there is no acute obstetrical or gynecological intervention needed. ED Medical Decision Making - Lab Data Result diagrams: 04/10/17 01:36 04/10/17 01:36 Laboratory Results - last 24 hr 04/10/17 04/10/17 04/10/17 01:36 01:36 01:36 WBC 7.8 RBC 3.87 Hgb 11.3 Hct 35.0 MCV 90 MCH 29 MCHC 32 RDW 15.3 H Plt Count 269 Lymph % (Auto) 22.3 [place] % (Auto) 6.8 Eos % (Auto) 1.7 Baso % (Auto) 0.4 Lymph # 1.7 [place] # 0.5 Eos # 0.1 Baso # 0.0 Seg Neutrophils % 68.8 Seg Neutrophils # 5.3 PT INR APTT Sodium 141 Potassium 4.7 Chloride 105.3 Carbon Dioxide 20 L Anion Gap 20 BUN 29 H Creatinine 2.3 H Estimated GFR 29 BUN/Creatinine Ratio 12.60 Glucose 86 Lactic Acid Calcium 8.6 Magnesium Total Bilirubin 0.30 AST 25 ALT 32 Alkaline Phosphatase 94 Troponin T < 0.010 NT-Pro-B Natriuret Pep 268.8 Total Protein 5.9 L Albumin 3.3 L Albumin/Globulin Ratio 1.3 Urine Color Urine Turbidity Urine pH Ur Specific [place] Urine Protein Urine Glucose (UA) Urine Ketones Urine Blood Urine Nitrite Urine Bilirubin Urine Urobilinogen Ur Leukocyte Esterase Urine WBC (Auto) Urine RBC (Auto) U Epithel Cells (Auto) Urine Mucus 04/10/17 04/10/17 04/10/17 01:36 01:36 01:43 WBC RBC Hgb Hct MCV MCH MCHC RDW Plt Count Lymph % (Auto) [place] % (Auto) Eos % (Auto) Baso % (Auto) Lymph # [place] # Eos # Baso # Seg Neutrophils % Seg Neutrophils # PT 12.5 INR 0.89 APTT 31.8 Sodium Potassium Chloride Carbon Dioxide Anion Gap BUN Creatinine Estimated GFR BUN/Creatinine Ratio Glucose Lactic Acid 1.20 Calcium Magnesium 2.70 H Total Bilirubin AST ALT Alkaline Phosphatase Troponin T NT-Pro-B Natriuret Pep Total Protein Albumin Albumin/Globulin Ratio Urine Color Urine Turbidity Urine pH Ur Specific [place] Urine Protein Urine Glucose (UA) Urine Ketones Urine Blood Urine Nitrite Urine Bilirubin Urine Urobilinogen Ur Leukocyte Esterase Urine WBC (Auto) Urine RBC (Auto) U Epithel Cells (Auto) Urine Mucus 04/10/17 02:32 WBC RBC Hgb Hct MCV MCH MCHC RDW Plt Count Lymph % (Auto) [place] % (Auto) Eos % (Auto) Baso % (Auto) Lymph # [place] # Eos # Baso # Seg Neutrophils % Seg Neutrophils # PT INR APTT Sodium Potassium Chloride Carbon Dioxide Anion Gap BUN Creatinine Estimated GFR BUN/Creatinine Ratio Glucose Lactic Acid Calcium Magnesium Total Bilirubin AST ALT Alkaline Phosphatase Troponin T NT-Pro-B Natriuret Pep Total Protein Albumin Albumin/Globulin Ratio Urine Color Straw Urine Turbidity Clear Urine pH 5.0 Ur Specific [place] 1.006 Urine Protein 30 mg/dl Urine Glucose (UA) Neg Urine Ketones Neg Urine Blood Lg Urine Nitrite Neg Urine Bilirubin Neg Urine Urobilinogen < 2.0 Ur Leukocyte Esterase Mod Urine WBC (Auto) 45.0 H Urine RBC (Auto) > 182.0 U Epithel Cells (Auto) 2.0 Urine Mucus Few - EKG Data 04/10/17 05:59 EKG shows sinus tachycardia possible left atrial enlargement no ST segment elevations or T-wave inversions. - Radiology Data VQ scan shows multiple filling defects high probability of pulmonary embolism - Medical Decision Making Chief medical diagnosis pulmonary embolism Differential medical diagnosis: Hypertensive emergency, preeclampsia, heart failure We'll get CBC, CMP, troponin, BNP, will get chest x-ray and ventilation perfusion scan will give patient fluids and antihypertensives. Due to patient' s current vital signs instability and shortness of breath patient will be admitted for life-threatening condition. Critical Care Time: Yes Critical care time in (mins) excluding proc time.: 40 Critical care attestation.: If time is entered above; I have spent that time in minutes in the direct care of this critically ill patient, excluding procedure time. Time spent with consulting doctor's 5 minutes Time spent with patient 25 minutes time spent reviewing old records 5 minutes Time discussing diagnostic findings with patient's family 5 minutes. Total amount critical care time 40 minutes ED Disposition Clinical Impression: Tachycardia, Shortness of breath at rest, Hypertensive emergency, no CHF Pulmonary embolism Qualifiers: Pulmonary embolism type: other Chronicity: acute Acute cor pulmonale presence: without acute cor pulmonale Qualified Code(s): I26.99 - Other pulmonary embolism without acute cor pulmonale Hypertension Qualifiers: Hypertension type: unspecified Qualified Code(s): I10 - Essential (primary) hypertension Chronic kidney disease Qualifiers: Chronic kidney disease stage: unspecified stage Qualified Code(s): N18.9 - Chronic kidney disease, unspecified Disposition: OP ADMIT IP TO THIS HOSP Is pt being admited?: No Does the pt Need Aspirin: No Condition: Stable Instructions: Hypertension (ED) Referrals: PRIMARY CARE, [Primary Care Provider] - 3-5 Days Time of Disposition: 06:05
[2017-04-10] MEDS ORDERED: HEPARIN 10,000 UNITS/10 ML IV ONE (07:23)
[2017-04-10] MEDS: HEPARIN/ 0.45% NACL-25,000 UNIT/500 ML 25,000 UNIT/500 ML BAG IV SCH (07:34)
--- NOTE | 2017-04-10 07:57 | Admit Criteria Form ---
Admission Criteria Documentation: PULMONARY EMBOLISM Clinical Indications for Admission to Inpatient Care (Place 'X' for any and all applicable criteria): Admission is indicated for 1 or more of the following(1)(2)(3)(4)(5)(6)(7) [X ]I. Hypoxemia [X ]II. Vital sign abnormality (8) indicated by ALL of the following: [X ]a) Vital sign findings not as expected for chronic patient condition or baseline (eg, intentionally low, blood pressure in heart failure) [X ]b) Vital sign abnormality as indicated by 1 or more of the following [X ]l) Tachycardia [ ]ll) Hypotension [ ]lll) Orthostatic vital sign changes [ ]III. History of cancer [ ]IV. History of chronic cardiopulmonary disease (eg. CHF, coronary artery disease, COPD, cor pulmonale) [ ]V. Cardiac arrhythmias of intermediate concern [ ]. Right ventricular dysfunction (eg, by echocardiogram) [ ]VII. Positive cardiac biomarker (eg, troponin T or I > 0.1 ng/mL (mcg/L), highly sensitive troponin I assay greater than 0.014 ng/mL (mcg/L), BNP or NT proBNP > assay threshold)(8 )(10)(11) [ ]VIII. Need for IV narcotics (eg, to treat dyspnea) 1 or more of following: [ ]a) Bleeding before anticoagulation [ ]b) Recent surgery (eg, within 3 months) that increases risk of catastrophic bleeding (eg, spinal surgery, intracranial surgery, cardiovascular surgery) [ ]c) Recent GI bleeding (eg, within 3 months) or known increased risk of GI bleed (eg,esophageal varices, current ulcer) [ ]d) Recent (eg, within 3 months) ischemic stroke [ ]e) History of intracranial bleeding (eg, hemorrhagic stroke) [ ]f) History of active bleeding when anticoagulated [ ]g) Active substance abuse [ ]h) Other risk factor thought to place patient at high risk such that ability to rapidly reverse reversal agent) [ ]X. Documented extensive thrombosis (eg, clot in vena cava or above iliofemoral bifurcation) [ ]Xl. Thrombolysis (eg, catheter-directed) or pharmacomechanical thrombectomy needed[A][B](8) [ ]XIl. Vena cava filter placement needed (eg, unable to anticoagulate)[C](8) [ ]Xlll. with delivery planned (eg, 37 or more weeks' gestation)(14 ) [ ]XlV. Limb-threatening thrombosis (eg, phlegmasia cerula dolens) [ ]XV. Embolism while on anti-coagulation [ ]XVl. Contraindication to outpatient use of medication with rapid anticoagulation effect as indicated by ALL of the following: [ ] a) Contraindication to use of [id number]-[id number] heparin[E][F ] indicated by 1 or more of the following(16): [ ] i) Documented current or history of heparin-induced thrombocytopenia(15) [ ] ii) Severe thrombocytopenia (eg, platelet count less than 50 ,000/mm3 (50 x109/L)) [ ] iii) Allergy to heparin, [id number]-blhvmt heparin, or product component [ ] iv) Renal failure (creatinine clearance less than 30 mL/min/ 1.73m2 (0.50 mL/sec/1.73m2) or on dialysis) [ ] v) Need for neuraxial anesthesia or spinal puncture anticipated [ ] vi) Inability to manage self-injection (eg. By patient, caregiver, or visiting nurse) [ ] b) Contraindication to use of fondaparinux indicated by 1 or more of the following: [ ] i) Documented current or history of heparin-induced thrombocytopenia (15) [ ] ii) Severe thrombocytopenia (eg, platelet count less than 50 ,000/mm3 (50 x109/L)) [ ] iii) Allergy to fondaparinux, related drugs, or product components [ ] iv) Renal failure (creatinine clearance less than 30 mL/min/ 1.73m2 (0.50 mL/sec/1.73m2) or on dialysis) [ ] v) [ ] vi) Liver disease with coagulopathy (eg, elevated INR due to liver disease) [ ] vii) Mechanical heart valve [ ] viii) Need for neuraxial anesthesia or spinal puncture anticipated [ ] xi) Inability to manage self-injection (eg, by patient, caregiver, or visiting nurse) [ ] c) Contraindication to use of an oral direct thrombin inhibitor (eg, dabigatran) or an oral coagulation factor Xa inhibitor (eg, rivaroxaban, apixaban)[E][F] indicated by 1 or more of the following(17)(18): [ ] i) Severe thrombocytopenia (eg, platelet count less than 50, 000/mm3 (50 x109/L)) [ ] ii) Allergy to medication or product components x109/L)) [ ] iii) Renal failure (creatinine clearance less than 30 mL/min /1.73m2 (0.50 mL/sec/1.73m2) or on dialysis) [ ] iv) [ ] v) Liver disease with coagulopathy (eg, elevated INR due to liver disease) [ ] vi) Mechanical heart valve [ ] vii) Need for neuraxial anesthesia or spinal puncture anticipated [ ]XVll. Inpatient admission required rather than observation care (Also use Pulmonary Embolism: Observation Care guideline as appropriate) because of ANY ONE of the following: [ ] a) Significant autoimmune (thrombocytopenia) or coagulopathic reaction occurs in response to anticoagulation [ ] b) Respiratory symptoms (eg, tachypnea, dyspnea) that are severe or persistent [ ] c) Other condition, treatment, or monitoring requiring inpatient admission The original [employer] content created by [employer] has been revised. The portions of the content which have been revised are identified through the use of italic text or in bold, and [facility] has neither reviewed nor approved the modified material. All other unmodified content is copyright [facility] [employer]. Please see references footnoted in the original [facility] edition 2017 Admission Criteria Met: Yes
[2017-04-10] MEDS ORDERED: PROVENTIL IH PRN (08:00)
--- NOTE | 2017-04-10 08:43 | History and Physical Report ---
<DIAMOND STEWART - Last Filed: 04/10/17 15:53> History of Present Illness Date of examination: 04/10/17 Date of admission: 04/10/2017 Chief complaint: Shortness of breath History of present illness: Patient is a 36-year-old female with past medical history of hypertension and diabetes mellitus who presents to the emergency department complaining of shortness of breath. Patient states she woke up this morning and began to vomit blood. Patient states that she vomited 7-8 times prior to arrival.Now he has had progressive worsening of her dyspnea on exertion ([place]) to where he cannot walk across a room or talk while sitting up without becoming short of breath; she has never had anything like this before. Patient just deliver her baby 2 days ago. Patient also reported chest pain when she takes deep breath. Patient has a history of uncontrolled high blood pressure and was treated for preeclampsia on her preoperative admission. Patient upon arrival to the emergency room she was hypoxia on low 70's % on room air but her oxygen saturation improved with 28% face mask. Past History Past Medical History: diabetes (Type 2), hypertension Medications and Allergies Allergies Allergy/AdvReac Type Severity Reaction Status Date / Time No Known Allergies Allergy Unverified 09/05/14 14:28 Home Medications Medication Instructions Recorded Confirmed Last Taken Type Labetalol HCl 300 mg PO TID #90 tablet 09/27/16 04/10/17 04/09/17 Rx Methyldopa [Aldomet] 250 mg PO TID 04/08/17 04/10/17 04/09/17 History Acetaminophen [Shake That Ache] 750 mg PO Q6H PRN 04/10/17 04/10/17 04/09/17 History Pnv95/Ferrous Fumarate/FA 1 each PO QDAY 04/10/17 04/10/17 04/09/17 History [ [place]] Active Meds: Active Medications Albuterol (Proventil) 2.5 mg IH Q4HRT PRN PRN Reason: Shortness Of Breath Famotidine (Pepcid) 20 mg PO DAILY [place]B[facility]A Hydralazine HCl (Apresoline) 50 mg PO Q8H DEB[place] Hydralazine HCl (Apresoline) 10 mg IV Q4H PRN PRN Reason: Hypertension Heparin Sodium/Sodium Chloride (Heparin/ 0.45% Nacl-25,000 Unit/500 Ml) 25,000 unit in 500 mls @ 29 mls/hr IV TITR DEBORA; 1,450 UNITS/HR PRN Reason: Protocol Last Admin: 04/10/17 07:34 Dose: 1,450 units/hr, 29 mls/hr Ceftriaxone Sodium (Rocephin/Ns 1 Gm/50 Ml) 1 gm in 50 mls @ 100 mls/hr IV Q24HR DEBORA PRN Reason: Protocol Zolpidem Tartrate (Ambien) 5 mg PO QHS PRN PRN Reason: Sleep Review of Systems Constitutional: no weight loss, no weight gain, no fever, no chills Ears, nose, mouth and throat: no ear pain, no ear discharge, no tinnitis Breasts: no change in shape, no swelling Cardiovascular: chest pain (While ), shortness of breath, dyspnea on exertion, no orthopnea, no palpitations Respiratory: cough, hemoptysis, shortness of breath, dyspnea on exertion, no cough with sputum, no excessive sputum Gastrointestinal: vomiting (bloody ), no nausea Genitourinary Female: no dyspareunia, no dysmenorrhea, no pelvic pain Menstruation: no currently menstrual, no premenarcheal, no post hysterectomy, no ammenorrhea Rectal: no pain, no incontinence Musculoskeletal: no neck stiffness, no neck pain, no shooting arm pain, no arm numbness/tingling, no low back pain, no shooting leg pain Integumentary: no rash, no pruritis, no redness, no sores, no wounds Neurological: no head injury, no transient paralysis, no paralysis, no weakness , no parathesias Psychiatric: no anxiety, no memory loss, no change in sleep habits, no sleep disturbances, no insomnia, no hypersomnia Endocrine: no cold intolerance, no heat intolerance, no polyphagia, no excessive thirst, no polydipsia Hematologic/Lymphatic: no easy bruising, no easy bleeding Allergic/Immunologic: no urticaria, no allergic rhinitis Exam - Constitutional Vitals: Temp Pulse Resp BP Pulse Ox 98.1 F 118 H 31 H 174/116 99 04/10/17 07:00 04/10/17 07:55 04/10/17 07:41 04/10/17 07:41 04/10/17 07:41 General appearance: Present: no acute distress - EENT Eyes: Present: PERRL ENT: hearing intact - Neck Neck: Present: supple - Respiratory Respiratory effort: labored Respiratory: bilateral: diminished, rhonchi - Cardiovascular Heart rate: 116 ( tachycardia) Rhythm: regular Heart Sounds: Present: S1 & S2 - Extremities Extremities: no ischemia Peripheral Pulses: within normal limits - Abdominal General gastrointestinal: Present: soft, non-tender Female genitourinary: Present: deferred - Rectal Rectal Exam: deferred - Integumentary Integumentary: Present: clear, warm, dry - Musculoskeletal Musculoskeletal: strength equal bilaterally - Psychiatric Psychiatric: appropriate mood/affect - Neurologic Neurologic: CNII-XII intact - Allied Health Allied health notes reviewed: nursing Results - Labs CBC & Chem 7: 04/10/17 01:36 04/10/17 01:36 Labs: Laboratory Last Values WBC 7.8 K/mm3 (4.5-11.0) 04/10/17 01:36 RBC 3.87 M/mm3 (3.65-5.03) 04/10/17 01:36 Hgb 11.3 gm/dl (10.1-14.3) 04/10/17 01:36 Hct 35.0 % (30.3-42.9) 04/10/17 01:36 MCV 90 fl (79-97) 04/10/17 01:36 MCH 29 pg (28-32) 04/10/17 01:36 MCHC 32 % (30-34) 04/10/17 01:36 RDW 15.3 % (13.2-15.2) H 04/10/17 01:36 Plt Count 269 K/mm3 (140-440) 04/10/17 01:36 Lymph % (Auto) 22.3 % (13.4-35.0) 04/10/17 01:36 [place] % (Auto) 6.8 % (0.0-7.3) 04/10/17 01:36 Eos % (Auto) 1.7 % (0.0-4.3) 04/10/17 01:36 Baso % (Auto) 0.4 % (0.0-1.8) 04/10/17 01:36 Lymph # 1.7 K/mm3 (1.2-5.4) 04/10/17 01:36 [place] # 0.5 K/mm3 (0.0-0.8) 04/10/17 01:36 Eos # 0.1 K/mm3 (0.0-0.4) 04/10/17 01:36 Baso # 0.0 K/mm3 (0.0-0.1) 04/10/17 01:36 Seg Neutrophils % 68.8 % (40.0-70.0) 04/10/17 01:36 Seg Neutrophils # 5.3 K/mm3 (1.8-7.7) 04/10/17 01:36 PT 12.5 Sec. (12.2-14.9) 04/10/17 01:36 INR 0.89 (0.87-1.13) 04/10/17 01:36 APTT 31.8 Sec. (24.2-36.6) 04/10/17 01:36 Sodium 141 mmol/L (137-145) 04/10/17 01:36 Potassium 4.7 mmol/L (3.6-5.0) 04/10/17 01:36 Chloride 105.3 mmol/L (98-107) 04/10/17 01:36 Carbon Dioxide 20 mmol/L (22-30) L 04/10/17 01:36 Anion Gap 20 mmol/L 04/10/17 01:36 BUN 29 mg/dL (7-17) H 04/10/17 01:36 Creatinine 2.3 mg/dL (0.7-1.2) H 04/10/17 01:36 Estimated GFR 29 ml/min 04/10/17 01:36 BUN/Creatinine Ratio 12.60 % 04/10/17 01:36 Glucose 86 mg/dL (65-100) 04/10/17 01:36 Lactic Acid 1.20 mmol/L (0.7-2.0) 04/10/17 01:43 Calcium 8.6 mg/dL (8.4-10.2) 04/10/17 01:36 Magnesium 2.70 mg/dL (1.7-2.3) H 04/10/17 01:36 Total Bilirubin 0.30 mg/dL (0.1-1.2) 04/10/17 01:36 AST 25 units/L (5-40) 04/10/17 01:36 ALT 32 units/L (7-56) 04/10/17 01:36 Alkaline Phosphatase 94 units/L (35-129) 04/10/17 01:36 Troponin T < 0.010 ng/mL (0.00-0.029) 04/10/17 01:36 NT-Pro-B Natriuret Pep 268.8 pg/mL (0-450) 04/10/17 01:36 Total Protein 5.9 g/dL (6.3-8.2) L 04/10/17 01:36 Albumin 3.3 g/dL (3.9-5) L 04/10/17 01:36 Albumin/Globulin Ratio 1.3 % 04/10/17 01:36 Urine Color Straw (Yellow) 04/10/17 02:32 Urine Turbidity Clear (Clear) 04/10/17 02:32 Urine pH 5.0 (5.0-7.0) 04/10/17 02:32 Ur Specific [place] 1.006 (1.003-1.030) 04/10/17 02:32 Urine Protein 30 mg/dl mg/dL (Negative) 04/10/17 02:32 Urine Glucose (UA) Neg mg/dL (Negative) 04/10/17 02:32 Urine Ketones Neg mg/dL (Negative) 04/10/17 02:32 Urine Blood Lg (Negative) 04/10/17 02:32 Urine Nitrite Neg (Negative) 04/10/17 02:32 Urine Bilirubin Neg (Negative) 04/10/17 02:32 Urine Urobilinogen < 2.0 mg/dL (<2.0) 04/10/17 02:32 Ur Leukocyte Esterase Mod (Negative) 04/10/17 02:32 Urine WBC (Auto) 45.0 /HPF (0.0-6.0) H 04/10/17 02:32 Urine RBC (Auto) > 182.0 /HPF (0.0-6.0) 04/10/17 02:32 U Epithel Cells (Auto) 2.0 /HPF (0-13.0) 04/10/17 02:32 Urine Mucus Few /HPF 04/10/17 02:32 - Imaging and Cardiology Chest x-ray: image reviewed (highly probablity of pulmonary embolus) CT scan - chest: image reviewed (NM/ high probability of pulmonary embolus) Assessment and Plan Assessment and plan: ASSSMENT/PLAN Acute respiratory failure with hypoxia Patient oxygen saturation improved with Ventimask, currently oxygen saturation greater than 95%. No acute respiratory distress noted ABG when necessary Oxygen supplement Supportive care Bilateral Pulmonary embolism We will admit to telemetry floor NM Lung scan revealed high probability of pulmonary embolus Started on heparin drip Bilateral VL Doppler ordered to rule out lower extremity DVT. Hematology consulted Supportive care Acute renal failure/Vasomotor nephropathy Etiology unknown BUN/creatinine elevated IV fluid hydration Renal ultrasound If renal does not improved with IV fluid we will consider Nephrology evaluation. Hypertension emergency We will resume home antihypertensive medications IV hydralazine for SBP >160 Closely monitor blood pressure Urinary tract infection Started on empiric treatment of antibiotic Rocephin IV fluid hydration Supportive care Status post vaginal delivery. Patient delivered a baby 2 days ago [employer] consult Diabetes mellitus Type 2 We will get A1c level Sliding scale insulin/NovoLog Accu-Chek before meals and at bedtime ADA consistent carbohydrate diet DVT/prophylaxis Patient on heparin drip for pulmonary embolism. Advance Directives: Yes VTE prophylaxis?: Chemical Contraindication Mechanical VTE Prophylaxis: Treatment Not Indicated Plan of care discussed with patient/family: Yes <ORTIZ TRIPLETT - Last Filed: 04/12/17 16:26> History of Present Illness Date of admission: 04/10/17 07:37 Medications and Allergies Active Meds: Active Medications Acetaminophen (Tylenol) 650 mg PO Q4H PRN PRN Reason: Pain, Mild (1-3) Last Admin: 04/12/17 07:24 Dose: 650 mg Albuterol (Proventil) 2.5 mg IH Q4HRT PRN PRN Reason: Shortness Of Breath Famotidine (Pepcid) 20 mg PO DAILY DEBORA Last Admin: 04/12/17 09:26 Dose: 20 mg Hydralazine HCl (Apresoline) 50 mg PO Q8H DEBORA Last Admin: 04/12/17 09:26 Dose: 50 mg Hydralazine HCl (Apresoline) 10 mg IV Q4H PRN PRN Reason: Hypertension Heparin Sodium/Sodium Chloride (Heparin/ 0.45% Nacl-25,000 Unit/500 Ml) 25,000 unit in 500 mls @ 29 mls/hr IV TITR DEBORA; 1,450 UNITS/HR PRN Reason: Protocol Last Titration: 04/12/17 14:57 Dose: 1,650 units/hr, 33 mls/hr Ceftriaxone Sodium (Rocephin/Ns 1 Gm/50 Ml) 1 gm in 50 mls @ 100 mls/hr IV Q24HR DEBORA PRN Reason: Protocol Last Admin: 04/12/17 09:25 Dose: 100 mls/hr Warfarin Sodium 10 mg/ (Warfarin Sodium 2.5 mg) 12.5 mg PO 1700 DEBORA PRN Reason: Protocol Warfarin Sodium (Coumadin Pharmacy To Dose) 1 each PO PKCONSULT DEBORA PRN Reason: Protocol Warfarin Sodium (Coumadin Pharmacy To Dose) 1 each PO PKCONSULT DEBORA PRN Reason: Protocol Zolpidem Tartrate (Ambien) 5 mg PO QHS PRN PRN Reason: Sleep Last Admin: 04/11/17 22:28 Dose: 5 mg Exam - Constitutional Vitals: Temp Pulse Resp BP Pulse Ox 98.2 F 106 H 20 164/85 99 04/12/17 12:30 04/12/17 12:30 04/12/17 12:30 04/12/17 12:30 04/12/17 10:00 Results - Labs CBC & Chem 7: 04/12/17 03:06 04/12/17 03:06 Labs: Laboratory Last Values WBC 9.6 K/mm3 (4.5-11.0) 04/12/17 03:06 RBC 3.62 M/mm3 (3.65-5.03) L 04/12/17 03:06 Hgb 10.8 gm/dl (10.1-14.3) 04/12/17 03:06 Hct 32.0 % (30.3-42.9) 04/12/17 03:06 MCV 89 fl (79-97) 04/12/17 03:06 MCH 30 pg (28-32) 04/12/17 03:06 MCHC 34 % (30-34) 04/12/17 03:06 RDW 14.8 % (13.2-15.2) 04/12/17 03:06 Plt Count 308 K/mm3 (140-440) 04/12/17 03:06 Lymph % (Auto) 24.7 % (13.4-35.0) 04/12/17 03:06 [place] % (Auto) 8.5 % (0.0-7.3) H 08/06/17 03:06 Eos % (Auto) 3.4 % (0.0-4.3) 04/12/17 03:06 Baso % (Auto) 0.3 % (0.0-1.8) 04/12/17 03:06 Lymph # 2.4 K/mm3 (1.2-5.4) 04/12/17 03:06 [place] # 0.8 K/mm3 (0.0-0.8) 04/12/17 03:06 Eos # 0.3 K/mm3 (0.0-0.4) 04/12/17 03:06 Baso # 0.0 K/mm3 (0.0-0.1) 04/12/17 03:06 Seg Neutrophils % 63.1 % (40.0-70.0) 04/12/17 03:06 Seg Neutrophils # 6.1 K/mm3 (1.8-7.7) 04/12/17 03:06 PT 12.5 Sec. (12.2-14.9) 04/10/17 01:36 INR 0.89 (0.87-1.13) 04/10/17 01:36 APTT 31.8 Sec. (24.2-36.6) 04/10/17 01:36 Antithrombin III Ag 74 % (80-120) L 04/10/17 10:12 Heparin Anti-Xa Level 0.51 U.I./ml (0.3-0.7) 04/12/17 12:41 Sodium 135 mmol/L (137-145) L 04/12/17 03:06 Potassium 4.4 mmol/L (3.6-5.0) 04/12/17 03:06 Chloride 100.6 mmol/L (98-107) 04/12/17 03:06 Carbon Dioxide 22 mmol/L (22-30) 04/12/17 03:06 Anion Gap 17 mmol/L 04/12/17 03:06 BUN 20 mg/dL (7-17) H 04/12/17 03:06 Creatinine 1.6 mg/dL (0.7-1.2) H 04/12/17 03:06 Estimated GFR 44 ml/min 04/12/17 03:06 BUN/Creatinine Ratio 12.50 % 04/12/17 03:06 Glucose 87 mg/dL (65-100) 04/12/17 03:06 Lactic Acid 1.20 mmol/L (0.7-2.0) 04/10/17 01:43 Calcium 8.9 mg/dL (8.4-10.2) 04/12/17 03:06 Magnesium 2.70 mg/dL (1.7-2.3) H 04/10/17 01:36 Total Bilirubin 0.30 mg/dL (0.1-1.2) 04/10/17 01:36 AST 25 units/L (5-40) 04/10/17 01:36 ALT 32 units/L (7-56) 04/10/17 01:36 Alkaline Phosphatase 94 units/L (35-129) 04/10/17 01:36 Troponin T < 0.010 ng/mL (0.00-0.029) 04/10/17 01:36 NT-Pro-B Natriuret Pep 268.8 pg/mL (0-450) 04/10/17 01:36 Total Protein 5.9 g/dL (6.3-8.2) L 04/10/17 01:36 Albumin 3.3 g/dL (3.9-5) L 04/10/17 01:36 Albumin/Globulin Ratio 1.3 % 04/10/17 01:36 Urine Color Straw (Yellow) 04/10/17 02:32 Urine Turbidity Clear (Clear) 04/10/17 02:32 Urine pH 5.0 (5.0-7.0) 04/10/17 02:32 Ur Specific [place] 1.006 (1.003-1.030) 04/10/17 02:32 Urine Protein 30 mg/dl mg/dL (Negative) 04/10/17 02:32 Urine Glucose (UA) Neg mg/dL (Negative) 04/10/17 02:32 Urine Ketones Neg mg/dL (Negative) 04/10/17 02:32 Urine Blood Lg (Negative) 04/10/17 02:32 Urine Nitrite Neg (Negative) 04/10/17 02:32 Urine Bilirubin Neg (Negative) 04/10/17 02:32 Urine Urobilinogen < 2.0 mg/dL (<2.0) 04/10/17 02:32 Ur Leukocyte Esterase Mod (Negative) 04/10/17 02:32 Urine WBC (Auto) 45.0 /HPF (0.0-6.0) H 04/10/17 02:32 Urine RBC (Auto) > 182.0 /HPF (0.0-6.0) 04/10/17 02:32 U Epithel Cells (Auto) 2.0 /HPF (0-13.0) 04/10/17 02:32 Urine Mucus Few /HPF 04/10/17 02:32 Assessment and Plan Assessment and plan: I saw and evaluated the patient. I agree with the findings and the plan of care as documented in the Nurse Practitioner's~note, with the following corrections and additions. Patient seen and evaluated along with the nurse practitioner, physical examination performed, formulated the plan of care About documentation and plan of action reviewed and agreed Continue heparin drip. Consult hematology oncology. As patient is breast- feeding, we will consider Coumadin as long-term anticoagulant Plan of care discussed with the patient and family member
[2017-04-10] MEDS: APRESOLINE PO SCH ×2 (09:13→17:20)
[2017-04-10] MEDS: PEPCID PO SCH (09:32)
--- NOTE | 2017-04-10 09:56 | Hem/Onc Consultation ---
History of Present Illness - Reason for Consult Consult date: 04/10/17 - History of Present Illness dictated doppler LE cont heparin once stable- coumadin or eliquis hypercoag w/u Medications and Allergies Allergies Allergy/AdvReac Type Severity Reaction Status Date / Time No Known Allergies Allergy Unverified 09/05/14 14:28 Home Medications Medication Instructions Recorded Confirmed Last Taken Type Labetalol HCl 300 mg PO TID #90 tablet 09/27/16 04/08/17 04/08/17 Rx 300 mg Methyldopa [Aldomet] 250 mg PO TID 04/08/17 04/08/17 04/08/17 History 250 mg Active Meds: Active Medications Albuterol (Proventil) 2.5 mg IH Q4HRT PRN PRN Reason: Shortness Of Breath Famotidine (Pepcid) 20 mg PO DAILY [facility] Last Admin: 04/10/17 09:32 Dose: 20 mg Hydralazine HCl (Apresoline) 50 mg PO Q8H [place] Last Admin: 04/10/17 09:13 Dose: 50 mg Hydralazine HCl (Apresoline) 10 mg IV Q4H PRN PRN Reason: Hypertension Heparin Sodium/Sodium Chloride (Heparin/ 0.45% Nacl-25,000 Unit/500 Ml) 25,000 unit in 500 mls @ 29 mls/hr IV TITR DEBOR[place]; 1,450 UNITS/HR PRN Reason: Protocol Last Admin: 04/10/17 07:34 Dose: 1,450 units/hr, 29 mls/hr Ceftriaxone Sodium (Rocephin/Ns 1 Gm/50 Ml) 1 gm in 50 mls @ 100 mls/hr IV Q24HR [place] PRN Reason: Protocol Zolpidem Tartrate (Ambien) 5 mg PO QHS PRN PRN Reason: Sleep Exam - Constitutional Vitals: Last Vital Signs Temp 98.1 F 04/10/17 07:00 Pulse 125 H 04/10/17 09:31 Resp 29 H 04/10/17 09:31 BP 136/84 04/10/17 09:31 Pulse Ox 99 04/10/17 09:31
[2017-04-10] MEDS: ROCEPHIN/NS 1 GM/50 ML 1 GM/50 ML BAG IV SCH (11:30)
--- NOTE | 2017-04-10 15:20 | Ultrasound Report ---
ULTRASOUND RENAL BILATERAL HISTORY: Acute renal failure. TECHNIQUE: transabdominal ultrasound with color Doppler interrogation. FINDINGS: The right kidney measures 10.1 x 3.0 x 4.7cm. Right renal cortex: 1.2cm. The left kidney measures 11.1 x 3.5 x 4.4cm. Left renal cortex: 1.0cm. The kidneys are normal size, contour and position. There is increased renal parenchymal echotexture bilaterally. Corticomedullary differentiation is preserved. No evidence for cystic disease, mass, nephrolithiasis, hydronephrosis or perinephric fluid. The views of the bladder and the region of the ureters appear normal. IMPRESSION: Renal parenchymal disease.
[2017-04-10] MEDS: TYLENOL PO PRN (17:21)
--- NOTE | 2017-04-10 20:25 | Consultation ---
REFERRING PHYSICIAN: Dr. Bell. REASON FOR CONSULTATION: Pulmonary emboli. HISTORY OF PRESENT ILLNESS: The patient is a 36-year-old female who is , 2 days ago she delivered a baby. She presented to the hospital with shortness of breath, which was going on for about 2 hours. She also had chest pain. She presented to the hospital where she was found to have evidence of pulmonary emboli. She is started on a heparin drip. Hematology-Oncology consult was called. The patient never had any PE or DVT in the past. She has had a full-term . During , she did have evidence of hypertension. She also has history of proteinuria in the past. 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 The patient denies any family history of thrombosis. She used to smoke, quit when she found out she was at 5 weeks' gestation. The patient denies any swelling of the legs, prior to the event. PAST MEDICAL HISTORY: Positive for recent . She has had proteinuria in the past. She said she was seen at [place] many years ago, she is not sure of she seen anybody else since then. SOCIAL HISTORY: Used to smoke, quit at 5-week gestation. FAMILY HISTORY: Unremarkable. PHYSICAL EXAM: GENERAL: The patient is awake and oriented. She is on an oxygen mask. CHEST: Clear. CVS: Regular rate and rhythm. ABDOMEN: Slightly distended. EXTREMITIES: Has no clubbing, cyanosis or edema. LABORATORY: Shows hemoglobin of 11.3, white count 7.8, platelets of 269,000. INR of 1.89. Creatinine of 2.3, magnesium 2.7. Of note, she has had elevated magnesium. From last couple of days, it looks like she has magnesium infusion during her delivery. Her urine does show wbc's. ASSESSMENT: PE after delivery in this 36-year-old female. RECOMMENDATION/PLAN: At this time agree with heparin. Once she is stable, maybe able to switch her either to Coumadin, maybe to Eliquis. The patient is not planning to breast feed at this time because of the current events. We will get hypercoagulable workup. Strongly recommended for the patient to not smoke again. We will follow. JOB# [id number] GKS/NTS
[2017-04-10] MEDS: AMBIEN PO PRN (22:13)
[2017-04-11] MEDS: APRESOLINE PO SCH ×3 (00:41→17:47)
[2017-04-11] MEDS: HEPARIN/ 0.45% NACL-25,000 UNIT/500 ML 25,000 UNIT/500 ML BAG IV SCH ×2 (01:50→18:24)
[2017-04-11] MEDS: ROCEPHIN/NS 1 GM/50 ML 1 GM/50 ML BAG IV SCH (09:47)
[2017-04-11] MEDS: PEPCID PO SCH (09:47)
--- NOTE | 2017-04-11 12:16 | Progress Note ---
Assessment and Plan Assessment and plan: Acute respiratory failure with hypoxia Patient oxygen saturation improved with Ventimask, currently oxygen saturation greater than 95%. No acute respiratory distress noted ABG when necessary Oxygen supplement Supportive care Bilateral Pulmonary embolism Continue heparin drip Hematology following, consider Coumadin/Eliquis in 1 or 2 days Acute renal failure/Vasomotor nephropathy Continue IV fluid hydration Renal ultrasound, Avoid nephrotoxic medications Hypertension emergency We will resume home antihypertensive medications Blood pressures are well controlled Urinary tract infection Started on empiric treatment of antibiotic Rocephin Follow cultures Diabetes mellitus Type 2 Sliding scale insulin/NovoLog Accu-Chek before meals and at bedtime ADA consistent carbohydrate diet DVT/prophylaxis Patient on heparin drip for pulmonary embolism. Advance Directives: Yes Plan of care discussed with patient/family: Yes History Interval history: patient feels better denies any chest pain or shortness of breath Alert awake oriented 3 not in acute distress Hospitalist Physical - Constitutional Vitals: Temp Pulse Resp BP Pulse Ox 98.9 F 113 H 20 158/85 98 04/11/17 07:05 04/11/17 07:05 04/11/17 07:05 04/11/17 07:05 04/11/17 07:05 General appearance: Present: no acute distress, well-nourished - EENT Eyes: Present: PERRL, EOM intact - Neck Neck: Present: supple, normal ROM - Respiratory Respiratory effort: normal Respiratory: negative: rales, rhonchi, wheezing - Cardiovascular Rhythm: regular Heart Sounds: Present: S1 & S2 - Extremities Extremities: no ischemia, No edema - Abdominal General gastrointestinal: soft, non-tender, non-distended, normal bowel sounds - Integumentary Integumentary: Present: clear, warm - Psychiatric Psychiatric: appropriate mood/affect, cooperative - Neurologic Neurologic: CNII-XII intact, moves all extremities Results - Labs CBC & Chem 7: 04/10/17 01:36 04/10/17 01:36 Labs: Laboratory Last Values WBC 7.8 K/mm3 (4.5-11.0) 04/10/17 01:36 RBC 3.87 M/mm3 (3.65-5.03) 04/10/17 01:36 Hgb 11.3 gm/dl (10.1-14.3) 04/10/17 01:36 Hct 35.0 % (30.3-42.9) 04/10/17 01:36 MCV 90 fl (79-97) 04/10/17 01:36 MCH 29 pg (28-32) 04/10/17 01:36 MCHC 32 % (30-34) 04/10/17 01:36 RDW 15.3 % (13.2-15.2) H 04/10/17 01:36 Plt Count 269 K/mm3 (140-440) 04/10/17 01:36 Lymph % (Auto) 22.3 % (13.4-35.0) 04/10/17 01:36 [place] % (Auto) 6.8 % (0.0-7.3) 04/10/17 01:36 Eos % (Auto) 1.7 % (0.0-4.3) 04/10/17 01:36 Baso % (Auto) 0.4 % (0.0-1.8) 04/10/17 01:36 Lymph # 1.7 K/mm3 (1.2-5.4) 04/10/17 01:36 [place] # 0.5 K/mm3 (0.0-0.8) 04/10/17 01:36 Eos # 0.1 K/mm3 (0.0-0.4) 04/10/17 01:36 Baso # 0.0 K/mm3 (0.0-0.1) 04/10/17 01:36 Seg Neutrophils % 68.8 % (40.0-70.0) 04/10/17 01:36 Seg Neutrophils # 5.3 K/mm3 (1.8-7.7) 04/10/17 01:36 PT 12.5 Sec. (12.2-14.9) 04/10/17 01:36 INR 0.89 (0.87-1.13) 04/10/17 01:36 APTT 31.8 Sec. (24.2-36.6) 04/10/17 01:36 Heparin Anti-Xa Level 0.33 U.I./ml (0.3-0.7) 04/10/17 20:17 Sodium 141 mmol/L (137-145) 04/10/17 01:36 Potassium 4.7 mmol/L (3.6-5.0) 04/10/17 01:36 Chloride 105.3 mmol/L (98-107) 04/10/17 01:36 Carbon Dioxide 20 mmol/L (22-30) L 04/10/17 01:36 Anion Gap 20 mmol/L 04/10/17 01:36 BUN 29 mg/dL (7-17) H 04/10/17 01:36 Creatinine 2.3 mg/dL (0.7-1.2) H 04/10/17 01:36 Estimated GFR 29 ml/min 04/10/17 01:36 BUN/Creatinine Ratio 12.60 % 04/10/17 01:36 Glucose 86 mg/dL (65-100) 04/10/17 01:36 Lactic Acid 1.20 mmol/L (0.7-2.0) 04/10/17 01:43 Calcium 8.6 mg/dL (8.4-10.2) 04/10/17 01:36 Magnesium 2.70 mg/dL (1.7-2.3) H 04/10/17 01:36 Total Bilirubin 0.30 mg/dL (0.1-1.2) 04/10/17 01:36 AST 25 units/L (5-40) 04/10/17 01:36 ALT 32 units/L (7-56) 04/10/17 01:36 Alkaline Phosphatase 94 units/L (35-129) 04/10/17 01:36 Troponin T < 0.010 ng/mL (0.00-0.029) 04/10/17 01:36 NT-Pro-B Natriuret Pep 268.8 pg/mL (0-450) 04/10/17 01:36 Total Protein 5.9 g/dL (6.3-8.2) L 04/10/17 01:36 Albumin 3.3 g/dL (3.9-5) L 04/10/17 01:36 Albumin/Globulin Ratio 1.3 % 04/10/17 01:36 Urine Color Straw (Yellow) 04/10/17 02:32 Urine Turbidity Clear (Clear) 04/10/17 02:32 Urine pH 5.0 (5.0-7.0) 04/10/17 02:32 Ur Specific [place] 1.006 (1.003-1.030) 04/10/17 02:32 Urine Protein 30 mg/dl mg/dL (Negative) 04/10/17 02:32 Urine Glucose (UA) Neg mg/dL (Negative) 04/10/17 02:32 Urine Ketones Neg mg/dL (Negative) 04/10/17 02:32 Urine Blood Lg (Negative) 04/10/17 02:32 Urine Nitrite Neg (Negative) 04/10/17 02:32 Urine Bilirubin Neg (Negative) 04/10/17 02:32 Urine Urobilinogen < 2.0 mg/dL (<2.0) 04/10/17 02:32 Ur Leukocyte Esterase Mod (Negative) 04/10/17 02:32 Urine WBC (Auto) 45.0 /HPF (0.0-6.0) H 04/10/17 02:32 Urine RBC (Auto) > 182.0 /HPF (0.0-6.0) 04/10/17 02:32 U Epithel Cells (Auto) 2.0 /HPF (0-13.0) 04/10/17 02:32 Urine Mucus Few /HPF 04/10/17 02:32
[2017-04-11] MEDS: AMBIEN PO PRN (22:28)
[2017-04-12] MEDS: APRESOLINE PO SCH ×3 (01:01→16:36)
[2017-04-12 03:49] LABS: Basophils % (Auto) 0.3 % (0.0-1.8); Eosinophils % (Auto) 3.4 % (0.0-4.3); Hemoglobin 10.8 gm/dl (10.1-14.3); Mean Corpuscular HGB Conc 34 % (30-34); Mean Corpuscular Hemoglobin 30 pg (28-32); Mean Corpuscular Volume 89 fl (79-97); Platelet Count 308 K/mm3 (140-440); Red Blood Count 3.62 M/mm3 (3.65-5.03); Red Cell Distribution Width 14.8 % (13.2-15.2); White Blood Count 9.6 K/mm3 (4.5-11.0)
[2017-04-12 03:52] LABS: BUN/Creatinine Ratio 12.5; Calcium 8.9 mg/dL (8.4-10.2); Chloride 100.6 mmol/L (98-107); Potassium 4.4 mmol/L (3.6-5.0)
[2017-04-12] MEDS: TYLENOL PO PRN ×2 (07:24→20:13)
[2017-04-12] MEDS: ROCEPHIN/NS 1 GM/50 ML 1 GM/50 ML BAG IV SCH (09:25)
[2017-04-12] MEDS: PEPCID PO SCH (09:26)
[2017-04-12] MEDS: HEPARIN/ 0.45% NACL-25,000 UNIT/500 ML 25,000 UNIT/500 ML BAG IV SCH (09:38)
--- NOTE | 2017-04-12 13:05 | Hem/Onc Progress Note ---
Subjective Date of service: 04/12/17 Principal diagnosis: PE Interval history: Patient is feeling much better, No pulmonary complaints. She is still on the Heparin drip Await results of lower ext ultrasound Because patient is actively nursing, recommend coumadin. Objective - Constitutional Vitals: Last Vital Signs Temp 98.2 F 04/12/17 12:30 Pulse 106 H 04/12/17 12:30 Resp 20 04/12/17 12:30 BP 164/85 04/12/17 12:30 Pulse Ox 99 04/12/17 10:00 Pain Intensity (0-10): denies any pain General appearance: no acute distress Performance status: 0-fully active - EENT Eyes: PERRL, EOM intact ENT: hearing intact, clear oral mucosa - Neck Neck: supple - Respiratory Respiratory effort: Positive: normal Respiratory: bilateral: CTA - Cardiovascular Rhythm: regular Extremities: No edema - Labs Lab Results: Laboratory Results - last 24 hr 04/10/17 04/11/17 04/12/17 10:12 20:16 03:06 WBC 9.6 RBC 3.62 L Hgb 10.8 Hct 32.0 MCV 89 MCH 30 MCHC 34 RDW 14.8 Plt Count 308 Lymph % (Auto) 24.7 [place] % (Auto) 8.5 H Eos % (Auto) 3.4 Baso % (Auto) 0.3 Lymph # 2.4 [place] # 0.8 Eos # 0.3 Baso # 0.0 Seg Neutrophils % 63.1 Seg Neutrophils # 6.1 Antithrombin III Ag 74 L Heparin Anti-Xa Level 0.22 L Sodium Potassium Chloride Carbon Dioxide Anion Gap BUN Creatinine Estimated GFR BUN/Creatinine Ratio Glucose Calcium 04/12/17 04/12/17 03:06 03:06 WBC RBC Hgb Hct MCV MCH MCHC RDW Plt Count Lymph % (Auto) [place] % (Auto) Eos % (Auto) Baso % (Auto) Lymph # [place] # Eos # Baso # Seg Neutrophils % Seg Neutrophils # Antithrombin III Ag Heparin Anti-Xa Level 0.23 L Sodium 135 L Potassium 4.4 Chloride 100.6 Carbon Dioxide 22 Anion Gap 17 BUN 20 H Creatinine 1.6 H Estimated GFR 44 BUN/Creatinine Ratio 12.50 Glucose 87 Calcium 8.9
--- NOTE | 2017-04-12 16:19 | Progress Note ---
Assessment and Plan Assessment and plan: --Acute hypoxic respiratory failure Secondary to bilateral PE, oxygen, nebulizers as needed, supportive care Symptoms slowly improving --Bilateral PE Lower extremity venous Doppler negative for DVT , will change heparin to Lovenox 1 mg per KG body weight every 12 hours Start Coumadin as patient is breast-feeding , frequent INRs to the therapeutic goal between 2 and 3 , oxygen titrated to O2 sats more than 90% --Acute kidney injury; probably secondary to ATN Closely monitor renal function, avoid nephrotoxic medication, consider nephrology evaluation if needed Creatinine improved from 2.3-1.6 today --Malignant hypertension; blood pressures are reasonable control today Continue current antihypertensives and when necessary medications --Urinary tract infection; on empiric antibiotics Follow cultures, IV fluids --2 diabetes mellitus; Accu-Chek sliding scale coverage ADA diet and insulin as needed --DC planning. Case management --DVT prophylaxis on full dose anticoagulation at this point Assessment and plan of care reviewed with the patient and family member at the bedside I also discussed the plan of care with the nurse Consults and recommendations noted and appreciated History Interval history: Patient seen and evaluated medical records reviewed Patient feels better no shortness of breath or chest pain, on heparin drip alert awake oriented 3 not in acute distress Hospitalist Physical - Constitutional Vitals: Temp Pulse Resp BP Pulse Ox 98.2 F 106 H 20 164/85 99 04/12/17 12:30 04/12/17 12:30 04/12/17 12:30 04/12/17 12:30 04/12/17 10:00 General appearance: Present: no acute distress, well-nourished - EENT Eyes: Present: PERRL, EOM intact - Neck Neck: Present: supple, normal ROM - Respiratory Respiratory effort: normal Respiratory: bilateral: diminished, rhonchi, negative: rales, wheezing - Cardiovascular Rhythm: regular Heart Sounds: Present: S1 & S2 - Extremities Extremities: no ischemia, pulses intact Peripheral Pulses: within normal limits - Abdominal General gastrointestinal: soft, non-tender, non-distended, normal bowel sounds - Integumentary Integumentary: Present: clear, warm - Psychiatric Psychiatric: appropriate mood/affect, cooperative - Neurologic Neurologic: CNII-XII intact, moves all extremities Results - Labs CBC & Chem 7: 04/12/17 03:06 04/12/17 03:06 Labs: Laboratory Last Values WBC 9.6 K/mm3 (4.5-11.0) 04/12/17 03:06 RBC 3.62 M/mm3 (3.65-5.03) L 04/12/17 03:06 Hgb 10.8 gm/dl (10.1-14.3) 04/12/17 03:06 Hct 32.0 % (30.3-42.9) 04/12/17 03:06 MCV 89 fl (79-97) 04/12/17 03:06 MCH 30 pg (28-32) 04/12/17 03:06 MCHC 34 % (30-34) 04/12/17 03:06 RDW 14.8 % (13.2-15.2) 04/12/17 03:06 Plt Count 308 K/mm3 (140-440) 04/12/17 03:06 Lymph % (Auto) 24.7 % (13.4-35.0) 04/12/17 03:06 Esmeralda % (Auto) 8.5 % (0.0-7.3) H 04/12/17 03:06 Eos % (Auto) 3.4 % (0.0-4.3) 04/12/17 03:06 Baso % (Auto) 0.3 % (0.0-1.8) 04/12/17 03:06 Lymph # 2.4 K/mm3 (1.2-5.4) 04/12/17 03:06 Esmeralda # 0.8 K/mm3 (0.0-0.8) 04/12/17 03:06 Eos # 0.3 K/mm3 (0.0-0.4) 04/12/17 03:06 Baso # 0.0 K/mm3 (0.0-0.1) 04/12/17 03:06 Seg Neutrophils % 63.1 % (40.0-70.0) 04/12/17 03:06 Seg Neutrophils # 6.1 K/mm3 (1.8-7.7) 04/12/17 03:06 PT 12.5 Sec. (12.2-14.9) 04/10/17 01:36 INR 0.89 (0.87-1.13) 04/10/17 01:36 APTT 31.8 Sec. (24.2-36.6) 04/10/17 01:36 Antithrombin III Ag 74 % (80-120) L 04/10/17 10:12 Heparin Anti-Xa Level 0.51 U.I./ml (0.3-0.7) 04/12/17 12:41 Sodium 135 mmol/L (137-145) L 04/12/17 03:06 Potassium 4.4 mmol/L (3.6-5.0) 04/12/17 03:06 Chloride 100.6 mmol/L (98-107) 04/12/17 03:06 Carbon Dioxide 22 mmol/L (22-30) 04/12/17 03:06 Anion Gap 17 mmol/L 04/12/17 03:06 BUN 20 mg/dL (7-17) H 04/12/17 03:06 Creatinine 1.6 mg/dL (0.7-1.2) H 04/12/17 03:06 Estimated GFR 44 ml/min 04/12/17 03:06 BUN/Creatinine Ratio 12.50 % 04/12/17 03:06 Glucose 87 mg/dL (65-100) 04/12/17 03:06 Lactic Acid 1.20 mmol/L (0.7-2.0) 04/10/17 01:43 Calcium 8.9 mg/dL (8.4-10.2) 04/12/17 03:06 Magnesium 2.70 mg/dL (1.7-2.3) H 04/10/17 01:36 Total Bilirubin 0.30 mg/dL (0.1-1.2) 04/10/17 01:36 AST 25 units/L (5-40) 04/10/17 01:36 ALT 32 units/L (7-56) 04/10/17 01:36 Alkaline Phosphatase 94 units/L (35-129) 04/10/17 01:36 Troponin T < 0.010 ng/mL (0.00-0.029) 04/10/17 01:36 NT-Pro-B Natriuret Pep 268.8 pg/mL (0-450) 04/10/17 01:36 Total Protein 5.9 g/dL (6.3-8.2) L 04/10/17 01:36 Albumin 3.3 g/dL (3.9-5) L 04/10/17 01:36 Albumin/Globulin Ratio 1.3 % 04/10/17 01:36 Urine Color Straw (Yellow) 04/10/17 02:32 Urine Turbidity Clear (Clear) 04/10/17 02:32 Urine pH 5.0 (5.0-7.0) 04/10/17 02:32 Ur Specific [place] 1.006 (1.003-1.030) 04/10/17 02:32 Urine Protein 30 mg/dl mg/dL (Negative) 04/10/17 02:32 Urine Glucose (UA) Neg mg/dL (Negative) 04/10/17 02:32 Urine Ketones Neg mg/dL (Negative) 04/10/17 02:32 Urine Blood Lg (Negative) 04/10/17 02:32 Urine Nitrite Neg (Negative) 04/10/17 02:32 Urine Bilirubin Neg (Negative) 04/10/17 02:32 Urine Urobilinogen < 2.0 mg/dL (<2.0) 04/10/17 02:32 Ur Leukocyte Esterase Mod (Negative) 04/10/17 02:32 Urine WBC (Auto) 45.0 /HPF (0.0-6.0) H 04/10/17 02:32 Urine RBC (Auto) > 182.0 /HPF (0.0-6.0) 04/10/17 02:32 U Epithel Cells (Auto) 2.0 /HPF (0-13.0) 04/10/17 02:32 Urine Mucus Few /HPF 04/10/17 02:32
[2017-04-12] MEDS ORDERED: COUMADIN 10 MG, COUMADIN 2.5 MG PO SCH (17:00)
[2017-04-12 19:22] LABS: INR 0.95 (0.87-1.13)
[2017-04-12] MEDS: APRESOLINE IV PRN (20:14)
[2017-04-12] MEDS ORDERED: COUMADIN PO SCH (22:00)
[2017-04-12] MEDS ORDERED: LOVENOX SUB-Q SCH (22:00)
[2017-04-13] MEDS: APRESOLINE PO SCH ×2 (00:59→12:14)
[2017-04-13] MEDS: AMBIEN PO PRN (01:02)
[2017-04-13] MEDS: APRESOLINE IV PRN (01:03)
[2017-04-13 06:56] LABS: INR 1.01 (0.87-1.13)
[2017-04-13 08:53] LABS: INR 1.01 (0.87-1.13)
--- NOTE | 2017-04-13 09:27 | Hem/Onc Progress Note ---
Assessment and Plan on coumadin coumadin does not get excreted in the breast milk at regular doses. will monitor if she needs bigger doses advised to use contraception- non hormone Subjective Date of service: 04/13/17 Interval history: pt feels fair. on lovenox and coumadin. some vaginal bleeding- stable Objective - Constitutional Vitals: Last Vital Signs Temp 98.4 F 04/12/17 22:00 Pulse 109 H 04/12/17 22:00 Resp 18 04/12/17 22:00 BP 175/95 04/13/17 01:03 Pulse Ox 100 04/13/17 09:02 General appearance: no acute distress - Neck Neck: supple - Cardiovascular Rhythm: regular Extremities: No edema - Gastrointestinal General gastrointestinal: Present: soft - Labs Lab Results: Laboratory Results - last 24 hr 04/12/17 04/12/17 04/13/17 12:41 18:42 05:00 PT 13.2 13.8 INR 0.95 1.01 Heparin Anti-Xa Level 0.51 04/13/17 08:10 PT 13.8 INR 1.01 Heparin Anti-Xa Level
[2017-04-13] MEDS ORDERED: LOVENOX SUB-Q SCH (10:00)
[2017-04-13] MEDS: ROCEPHIN/NS 1 GM/50 ML 1 GM/50 ML BAG IV SCH (12:19)
[2017-04-13] MEDS: PEPCID PO SCH (12:25)
--- NOTE | 2017-04-13 15:07 | Discharge Summary ---
Providers - Providers Date of Admission: 04/10/17 07:37 Date of discharge: 04/13/17 Attending physician: ORTIZ TRIPLETT 04/10/17 07:58 Consult to Physician [CONS] Routine Consulting Provider: KIMBERLY CALVO Reason For Exam: tosin PE Place consult to:: answering service Notified:: yes Phone number called:: [phone] Was contact made?: Yes If yes, spoke with:: Alessia Time called:: 08:16 04/10/17 12:55 Consult to Physician [CONS] Routine Consulting Provider: SLIME HERNANDEZ Reason For Exam: S/P Vaginal delivery Place consult to:: Notified:: Phone number called:: yes Primary care physician: [facility] Hospitalization Reason for admission: shortness of breath/respiratory distress Condition: Stable Pertinent studies: VQ scan; high probability for bilateral PE Renal ultrasound; renal parenchyma disease Lower extremity venous Doppler; negative for DVT Hospital course: Very pleasant obese 37-year-old -[place] female patient with past medical history of hypertension was admitted through emergency room with worsening shortness of breath. Patient recently delivered a baby vaginally . Initial evaluation with VQ scan if consistent with high probability for bilateral pulmonary embolism. Admitted to the hospital and started on heparin drip, lower extremity venous Doppler was negative for DVT Hematology evaluated the patient, managed symptomatically Since patient is lactating, medication profile was reviewed, and Lovenox and Coumadin and compatible with Discussed the patient that target INR is 2-3, hypercoagulation profile was sent , patient will be discharged home on Lovenox and Coumadin, with home health, follow-up with hematology oncologist for periodic INR check, and to follow hypercoagulability workup and advise Next INR to be checked within 2-3 days at the time of discharge patient is hemodynamically and clinically stable Discharge diagnosis: --Acute hypoxic respiratory failure --Bilateral PE --Acute kidney injury; probably secondary to ATN --Malignant hypertension; blood pressures are reasonable control today --Urinary tract infection; on empiric antibiotics for 4 days, cardiac stress negative -- state, follow-up with [employer] Disposition: DC/[place]-06 HOME UNDER [facility] Time spent for discharge: 32 min Core Measure Documentation - Palliative Care Palliative Care/ Comfort Measures: Not Applicable - Core Measures Any of the following diagnoses?: DVT/PE - VTE Discharge Requirements Deep Vein Thrombosis/Pulmonary Embolism Present on Admission: Yes Has pt received <5 days of overlap therapy or INR<2.0: Yes Anticoagulant overlap therapy prescribed at discharge: Yes Exam - Constitutional Vitals: Temp Pulse Resp BP Pulse Ox 99.8 F H 110 H 20 174/92 100 04/13/17 08:25 04/13/17 08:25 04/13/17 08:25 04/13/17 08:25 04/13/17 09:02 General appearance: Present: no acute distress, well-nourished, obese - EENT Eyes: Present: PERRL, EOM intact - Neck Neck: Present: supple, normal ROM - Respiratory Respiratory effort: normal Respiratory: bilateral: diminished, rhonchi, negative: rales, wheezing - Cardiovascular Rhythm: regular Heart Sounds: Present: S1 & S2 - Extremities Extremities: no ischemia, No edema - Abdominal General gastrointestinal: Present: soft, non-tender, non-distended, normal bowel sounds - Integumentary Integumentary: Present: clear, warm - Musculoskeletal Musculoskeletal: strength equal bilaterally - Psychiatric Psychiatric: appropriate mood/affect, cooperative - Neurologic Neurologic: CNII-XII intact, moves all extremities Plan Activity: advance as tolerated Diet: regular Additional Instructions: INR check on 04/15/17 at [facility]/ [facility] [employer] [facility] office. Target INR 2-3. If INR is more than 2, stop Lovenox. If your INR is more than 3 stop Coumadin and contact M.D. If you notice any bleeding. Stop Coumadin , Lovenox and contact M.D. or go to ER. Follow up with: SRAVAN ANGULO MD [Primary Care Provider] - 3-5 Days KIMBERLY CALVO MD [Staff Physician] - 7 Days Forms: Warfarin Discharge Instruction Prescriptions: Enoxaparin [Lovenox] 100 mg SUB-Q Q12HR #14 syringe Famotidine [Pepcid] 20 mg PO DAILY #14 tablet hydrALAZINE [Apresoline TAB] 100 mg PO TID #90 tab Warfarin [Coumadin] 10 mg PO DAILY@1700 #14 tablet
[2017-04-13 17:24] VITALS: BP 157/90
[2017-04-13 20:23] LABS: Albumin 2.7 g/dL (3.8-4.8); Gamma Globulin 0.7 g/dL (0.8-1.7)
[2017-04-14 05:50] LABS: PTT-LA >200 sec (<=40)
== END 2017-04-13 20:00 | disposition home health service (06) | DRG 776 ==
LOC: ED 01:12 → 4A 07:37 → 3A 12:38
PROVIDERS: ADMIT Internal Medicine; ATTEND Internal Medicine
DX: O88.23 Thromboembolism in the puerperium (principal); O99.53 Diseases of the respiratory system complicating the puerperium; O90.4 Postpartum acute kidney failure; J96.01 Acute respiratory failure with hypoxia; I11.9 Hypertensive heart disease without heart failure; O86.20 Urinary tract infection following delivery, unspecified; O16.5 Unspecified maternal hypertension, complicating the puerperium; Z87.891 Personal history of nicotine dependence
CPT/HCPCS: 36415; 71010; 76770; 78580; 80048; 80053; 81001; 82140; 83516; 83735; 83880; 84165; 84484; 85025; 85210; 85220; 85301; 85305; 85520; 85610; 85613; 85730; 87040; 87086; 93005; 93010; 93970; 94760; 96374; 96375; A9540; J0360; J0696; J1644; J1650; J7120

== ENCOUNTER 2019-07-15 09:03 | Emergency (ER) | payer MEDICAID, OTHER ==
[2019-07-15 10:35] LABS: Bilirubin,Urine NEG (Negative); Blood,Urine SM (Negative); Color,Urine Yellow (Yellow); HCG Qualitative,Urine Positive (Negative); Mucus,Urine FEW /HPF; Protein,Urine >2000 mg dL mg/dL (Negative); Urobilinogen,Urine < 2.0 mg/dL (<2.0)
[2019-07-15 10:40] LABS: Amphetamine Screen,Urine PRESUMPTIVE NEGATIVE; Benzodiazepines Screen,Urine PRESUMPTIVE NEGATIVE; Cannabinoid Screen,Urine PRESUMPTIVE NEGATIVE; Cocaine Screen,Urine PRESUMPTIVE NEGATIVE; Methadone Screen,Urine PRESUMPTIVE NEGATIVE; Opiate Screen,Urine PRESUMPTIVE NEGATIVE
[2019-07-15] MEDS ORDERED: NITROFURANTOIN MONOHYD/M-CRYST 100 MG CAP PO ONE (11:19)
--- NOTE | 2019-07-15 11:38 | Emergency Department Report ---
ED General Adult HPI - General Chief complaint: High BP Stated complaint: HBP/POSS Time Seen by Provider: 07/15/19 09:45 Source: patient Mode of arrival: Ambulatory Limitations: No Limitations - History of Present Illness Initial comments: Patient present with concern for high blood pressure. Reports she was once told she had HTN and prescribed HCTZ but has been non-compliant. Reports she took a home test which showed she was . Reports her LMP was approximately in April. Severity scale (0 -10): 0 - Related Data Home Medications Medication Instructions Recorded Confirmed Last Taken Pnv No.95/Ferrous Fum/Folic AC 1 each PO QDAY 04/10/17 04/10/17 04/09/17 [ Caplet] Previous Rx's Medication Instructions Recorded Last Taken Type Labetalol HCl 300 mg PO TID #90 tablet 09/27/16 04/09/17 Rx Enoxaparin 100 mg SUB-Q Q12HR #14 syringe 04/13/17 Unknown Rx Famotidine [Pepcid] 20 mg PO DAILY #14 tablet 04/13/17 Unknown Rx Warfarin [Coumadin] 10 mg PO DAILY@1700 #14 tablet 04/13/17 Unknown Rx hydrALAZINE [Apresoline TAB] 100 mg PO TID #90 tab 04/13/17 Unknown Rx Labetalol [Labetalol 200mg TAB] 200 mg PO TID #90 tablet 07/15/19 Unknown Rx Nitrofurantoin Clark/M-Cryst 100 mg PO Q12HR #20 capsule 07/15/19 Unknown Rx [Macrobid CAP] Allergies Allergy/AdvReac Type Severity Reaction Status Date / Time No Known Allergies Allergy Unverified 09/05/14 14:28 ED Review of Systems ROS: Stated complaint: HBP/POSS Other details as noted in HPI Other: GENERAL: No weight change, fatigue, fever, chills, or night sweats SKIN: No changes in skin or hair, no itching, no rashes, no jaundice HEAD: No trauma EYES: No blurriness, tearing, itching, acute visual loss, conjunctival discoloration, or scleral icterus EARS: No hearing loss, tinnitus, vertigo, or earache NOSE: No rhinorrhea, stuffiness, sneezing, itching, or epistaxis MOUTH: No bleeding gums, hoarseness, sore throat, or swelling CARDIAC: No new murmur, chest pain, palpitations, dyspnea on exertion, orthopnea, PND, or edema RESPIRATORY: No shortness of breath, wheeze, cough, sputum production, hemoptysis GI: No nausea, vomiting, dysphagia, diarrhea, constipation, hematemesis, melena, hematochezia, or abdominal pain URINARY: No frequency, urgency, polyuria, dysuria, hematuria, or incontinence MUSCULOSKELETAL: No muscle weakness, joint stiffness, decrease in range of motion, redness, swelling NEUROLOGIC: No headache, syncope, loss of sensation, numbness, tingling, tremors, weakness, paralysis, seizures HEMATOLOGIC: No anemia, easy bruising, bleeding, petechiae, or purpura ENDOCRINE: No hot or cold intolerance, sweating, polyuria, polydipsia or, polyphagia no thyroid problems PSYCHIATRIC: No change in mood, no anxiety, no depression ED Past Medical Hx - Past Medical History Hx Hypertension: Yes (on mag in hospital) Hx Congestive Heart Failure: No Hx Diabetes: Yes Hx Deep Vein Thrombosis: No Hx Pulmonary Embolism: No Hx Renal Disease: No Hx Sickle Cell Disease: No Hx Headaches / Migraines: Yes Hx Seizures: No Hx Kidney Stones: No Hx Asthma: No Hx COPD: No Hx Tuberculosis: No Hx HIV: No Additional medical history: "spilling protein in urine" per pt. - Surgical History Past Surgical History?: No - Social History Smoking Status: Current Every Day Smoker Substance Use Type: None - Medications Home Medications: Home Medications Medication Instructions Recorded Confirmed Last Taken Type Labetalol HCl 300 mg PO TID #90 tablet 09/27/16 04/10/17 04/09/17 Rx Pnv No.95/Ferrous Fum/Folic AC 1 each PO QDAY 04/10/17 04/10/17 04/09/17 History [ Caplet] Enoxaparin 100 mg SUB-Q Q12HR #14 syringe 04/13/17 Unknown Rx Famotidine [Pepcid] 20 mg PO DAILY #14 tablet 04/13/17 Unknown Rx Warfarin [Coumadin] 10 mg PO DAILY@1700 #14 tablet 04/13/17 Unknown Rx hydrALAZINE [Apresoline TAB] 100 mg PO TID #90 tab 04/13/17 Unknown Rx Labetalol [Labetalol 200mg TAB] 200 mg PO TID #90 tablet 07/15/19 Unknown Rx Nitrofurantoin Clark/M-Cryst 100 mg PO Q12HR #20 capsule 07/15/19 Unknown Rx [Macrobid CAP] ED Physical Exam - General Limitations: No Limitations - Other Other exam information: GENERAL: Patient in no acute distress HEAD: Normocephalic, atraumatic EYES: PERRLA, EOM intact, no scleral icterus, no conjunctival hemorrhage, visual [place] and acuity wnl NOSE: No tenderness, discharge, sinus tenderness MOUTH: No erythema, bleeding, exudate HEART: Regular rate and rhythm, no murmur, S1-S2 are auscultated, no edema, pulses are symmetric LUNGS: No respiratory distress. Bilateral breath sounds, No tachypnea, No retractions, No wheezing, rales, rhonchi ABDOMEN: Normal bowel sounds, abdomen soft, no tenderness, no rebound, no guarding, no distention, no masses, no CVA tenderness MUSCULOSKELETAL: Normal joint range of motion, no redness, no swelling, no tenderness NEUROLOGIC: GCS 15, Alert and Oriented x3, Cranial nerves intact, normal sensation, normal strength, no cerebellar deficit, NIHSS 0 PSYCHIATRIC: No homicidal or suicidal ideation, no anxiety, no depression, no hallucinations SKIN: Skin is warm and dry, no wounds, no rashes ED Course Vital Signs 07/15/19 07/15/19 07/15/19 09:19 09:50 09:53 Temperature 98.5 F Pulse Rate 110 H 97 H 101 H Respiratory 18 21 18 Rate Blood Pressure 261/138 Blood Pressure 224/100 [Left] O2 Sat by Pulse 98 99 99 Oximetry 07/15/19 07/15/19 07/15/19 09:58 10:02 10:16 Temperature Pulse Rate 103 H 96 H Respiratory 17 19 23 Rate Blood Pressure 224/100 224/100 Blood Pressure [Left] O2 Sat by Pulse 99 99 96 Oximetry 07/15/19 07/15/19 07/15/19 10:30 10:37 10:46 Temperature Pulse Rate 104 H 95 H 87 Respiratory 17 20 Rate Blood Pressure 199/100 225/116 225/116 Blood Pressure [Left] O2 Sat by Pulse 97 96 Oximetry 07/15/19 07/15/19 07/15/19 11:00 11:16 11:30 Temperature Pulse Rate 92 H 89 88 Respiratory 15 14 17 Rate Blood Pressure 198/104 173/92 183/95 Blood Pressure [Left] O2 Sat by Pulse 98 99 99 Oximetry 07/15/19 07/15/19 07/15/19 11:46 12:00 12:15 Temperature Pulse Rate Respiratory 14 13 10 L Rate Blood Pressure 176/93 204/112 193/105 Blood Pressure [Left] O2 Sat by Pulse 100 100 99 Oximetry 07/15/19 07/15/19 07/15/19 12:30 12:45 12:48 Temperature Pulse Rate 90 Respiratory 9 L 12 Rate Blood Pressure 191/109 207/110 207/110 Blood Pressure [Left] O2 Sat by Pulse 95 100 Oximetry 07/15/19 07/15/19 07/15/19 13:00 13:16 13:30 Temperature Pulse Rate 88 Respiratory 12 11 L 17 Rate Blood Pressure 227/132 236/118 Blood Pressure [Left] O2 Sat by Pulse 98 41 L 99 Oximetry 07/15/19 07/15/19 07/15/19 13:38 13:46 14:00 Temperature Pulse Rate 95 H 91 H 89 Respiratory 19 17 Rate Blood Pressure 203/100 191/109 176/94 Blood Pressure [Left] O2 Sat by Pulse 100 99 Oximetry 07/15/19 14:15 Temperature Pulse Rate 92 H Respiratory 13 Rate Blood Pressure 165/95 Blood Pressure [Left] O2 Sat by Pulse 99 Oximetry ED Medical Decision Making - Lab Data Result diagrams: 07/15/19 13:45 07/15/19 13:45 - Medical Decision Making At 1416 Dr. Aguiar hospitalist consulted. Recommends patient safe for discharge. Reports patient has been hypertensive for a long time now and it will take a few days for the Labetalol po to decrease her pressure. Recommends Labetalol 200mg TID for discharge. Critical care attestation.: If time is entered above; I have spent that time in minutes in the direct care of this critically ill patient, excluding procedure time. ED Disposition Clinical Impression: Hypertensive urgency, UTI (urinary tract infection), Disposition: DC-01 TO HOME OR SELFCARE Is pt being admited?: No Condition: Stable Instructions: (ED), Urinary Tract Infection in Women (ED), Hypertensive Crisis (ED) Prescriptions: Labetalol [Labetalol 200mg TAB] 200 mg PO TID #90 tablet Nitrofurantoin Clark/M-Cryst [Macrobid CAP] 100 mg PO Q12HR #20 capsule Referrals: PRIMARY CARE, [Primary Care Provider] - 2-3 Days BRYANT MONTOYA MD [Staff Physician] - 2-3 Days MIMI BERMUDEZ MD [Staff Physician] - 2-3 Days Time of Disposition: 14:54
[2019-07-15] MEDS ORDERED: hydrALAZINE 20 MG/1 ML INJ IV ONE (13:25)
[2019-07-15 14:02] LABS: Basophils # (Auto) 0.1 K/mm3 (0.0-0.1); Basophils % (Auto) 0.6 % (0.0-1.8); Eosinophils # (Auto) 0.3 K/mm3 (0.0-0.4); Eosinophils % (Auto) 3.8 % (0.0-4.3); Hematocrit 40.3 % (30.3-42.9); Hemoglobin 13.4 gm/dl (10.1-14.3); Lymphocytes % (Auto) 23.1 % (13.4-35.0); Mean Corpuscular HGB Conc 33 % (30-34); Mean Corpuscular Volume 91 fl (79-97); Monocytes # (Auto) 0.7 K/mm3 (0.0-0.8); Monocytes % (Auto) 8.3 % (0.0-7.3); Platelet Count 205 K/mm3 (140-440); Red Blood Count 4.42 M/mm3 (3.65-5.03); Red Cell Distribution Width 13.9 % (13.2-15.2)
[2019-07-15 14:24] VITALS: BP 165/95
[2019-07-15 14:55] LABS: BUN/Creatinine Ratio 10; Blood Urea Nitrogen 20 mg/dL (7-17); Calcium 9.2 mg/dL (8.4-10.2); Hemolysis Index 5
== END 2019-07-15 15:30 | disposition home or self-care (01) ==
LOC: ED 09:03
DX: O99.411 Diseases of the circulatory system complicating pregnancy, first trimester (principal); I16.0 Hypertensive urgency; O10.911 Unspecified pre-existing hypertension complicating pregnancy, first trimester; O23.31 Infections of other parts of urinary tract in pregnancy, first trimester; O24.111 Pre-existing type 2 diabetes mellitus, in pregnancy, first trimester; O99.351 Diseases of the nervous system complicating pregnancy, first trimester; G43.909 Migraine, unspecified, not intractable, without status migrainosus; O99.331 Smoking (tobacco) complicating pregnancy, first trimester; Z79.899 Other long term (current) drug therapy; Z91.14 Patient's other noncompliance with medication regimen; Z3A.00 Weeks of gestation of pregnancy not specified
CPT/HCPCS: 36415; 80048; 80307; 81001; 81025; 84484; 85025; 87086; 96374; 96375; 99284; J0360

== ENCOUNTER 2019-08-19 15:06 | Emergency (ER) | payer MEDICAID ==
--- NOTE | 2019-08-19 16:17 | Event Note ---
ED Screening Note Date of service: 08/19/19 Time: 16:13 ED Screening Note: This is a 39 y.o. F. that presents to the ER with abdominal pain since this morning. Patient is 8 weeks . Have scheduled appointment at [facility]. LMP 07/01/2019, A0 PMH of Gestational HTN Currently taking macrobid for UTI and labetalol. Admits to upper abdominal pain, vaginal discharge, and back pain Denies vaginal bleeding, dysuria This initial assessment/diagnostic orders/clinical plan/treatment(s) is/are subject to change based on patients health status, clinical progression and re- assessment by fellow clinical providers in the ED. Further treatment and workup at subsequent clinical providers discretion. Patient/guardian urged not to elope from the ED as their condition may be serious if not clinically assessed and managed. Initial orders include: Labs and OB US
[2019-08-19 17:59] LABS: Basophils % (Auto) 0.4 % (0.0-1.8); Eosinophils # (Auto) 0.3 K/mm3 (0.0-0.4); Eosinophils % (Auto) 2.9 % (0.0-4.3); Hematocrit 39.6 % (30.3-42.9); Lymphocytes # (Auto) 1.4 K/mm3 (1.2-5.4); Lymphocytes % (Auto) 13.6 % (13.4-35.0); Mean Corpuscular HGB Conc 33 % (30-34); Mean Corpuscular Volume 92 fl (79-97); Monocytes # (Auto) 0.7 K/mm3 (0.0-0.8); Monocytes % (Auto) 7.3 % (0.0-7.3); Platelet Count 222 K/mm3 (140-440); Red Cell Distribution Width 13.4 % (13.2-15.2)
[2019-08-19 18:09] LABS: Albumin 3.7 g/dL (3.9-5); Calcium 9.2 mg/dL (8.4-10.2)
--- NOTE | 2019-08-19 18:15 | Ultrasound Report ---
US OB <= 14 weeks fetus, US OB transvaginal INDICATION / CLINICAL INFORMATION: abdominal pain, 8 wks preg. COMPARISON: None available. FINDINGS: Single, viable intrauterine . heart rate 172. [place]-rump length measures 4.95 cm, corresponding to a gestational age of 11 weeks 5 days. Right ovary is normal. Left ovary contains a 2.6 cm complex cyst, probably corpus luteal cyst. IMPRESSION: 1. Viable, 11 week 5 day intrauterine . Signer Name: Isidro Pate MD Signed: 08/19/2019 6:11 PM Workstation Name: [id number]
--- NOTE | 2019-08-19 18:15 | Ultrasound Report ---
US OB <= 14 weeks fetus, US OB transvaginal INDICATION / CLINICAL INFORMATION: abdominal pain, 8 wks preg. COMPARISON: None available. FINDINGS: Single, viable intrauterine . heart rate 172. [place]-rump length measures 4.95 cm, corresponding to a gestational age of 11 weeks 5 days. Right ovary is normal. Left ovary contains a 2.6 cm complex cyst, probably corpus luteal cyst. IMPRESSION: 1. Viable, 11 week 5 day intrauterine . Signer Name: Isidro Pate MD Signed: 08/19/2019 6:11 PM Workstation Name: [id number]
[2019-08-19] MEDS ORDERED: ACETAMINOPHEN 325 MG TAB PO ONE (20:46)
--- NOTE | 2019-08-19 22:49 | Ultrasound Report ---
ULTRASOUND ABDOMEN, LIMITED (RIGHT UPPER QUADRANT) INDICATION: ruq, epigastric pain. COMPARISON: None available. FINDINGS: Pancreas: Visualized portion shows no significant abnormality. Liver: Normal. Gallbladder: Normal. Bile ducts: Normal. Common Bile Duct measures 3.3 mm. Free fluid: None. Additional Findings: Right kidney measures 9.7 cm in length but is somewhat echogenic. IMPRESSION: 1. Echogenic right kidney. No gallstones or other abnormality. Signer Name: Sunday Camargo MD Signed: 08/19/2019 10:45 PM Workstation Name: [id number]
[2019-08-19 22:53] LABS: Bilirubin,Urine NEG (Negative); Blood,Urine NEG (Negative); Color,Urine Yellow (Yellow); Urobilinogen,Urine < 2.0 mg/dL (<2.0)
--- NOTE | 2019-08-19 22:56 | Emergency Department Report ---
ED Abdominal Pain HPI - General Chief Complaint: Abdominal Pain Stated Complaint: ABDOMINAL PAIN/PREG Time Seen by Provider: 08/19/19 16:13 Source: patient Mode of arrival: Ambulatory Limitations: No Limitations - History of Present Illness Initial Comments: 39-year-old female the past medical history of hypertension currently on medications presents to the hospital approximately 8 weeks complaining of upper abdominal pain since this morning. Pain is across the entire abdomen intermittent and, pulling needle sensation. Pain is aggrevated by movement. Patient denies nausea, vomiting, diarrhea, or fever. Patient ate [place] in the ER without difficulty her blood pressure noted to be elevated. Patient takes labetalol 200mg 3 times a day and did not have her to PM or evening dose at time of my evaluation. She did take it this morning and is otherwise compliant. Patient complains of mild dysuria. Denies history of gallbladder or pancreatic issues. Also denies headache, blurred vision, current chest pain or shortness of breath. Pt had an ob US on visit to ED here last month. No care Severity scale (0 -10): 6 - Related Data Home Medications Medication Instructions Recorded Confirmed Last Taken Pnv No.95/Ferrous Fum/Folic AC 1 each PO QDAY 04/10/17 04/10/17 04/09/17 [ Caplet] Previous Rx's Medication Instructions Recorded Last Taken Type Labetalol HCl 300 mg PO TID #90 tablet 09/27/16 04/09/17 Rx Enoxaparin 100 mg SUB-Q Q12HR #14 syringe 04/13/17 Unknown Rx Famotidine [Pepcid] 20 mg PO DAILY #14 tablet 04/13/17 Unknown Rx Warfarin [Coumadin] 10 mg PO DAILY@1700 #14 tablet 04/13/17 Unknown Rx hydrALAZINE [Apresoline TAB] 100 mg PO TID #90 tab 04/13/17 Unknown Rx Nitrofurantoin [place]/M-Cryst 100 mg PO Q12HR #20 capsule 07/15/19 Unknown Rx [Macrobid CAP] labetaloL [Labetalol 200mg TAB] 200 mg PO TID #90 tablet 07/15/19 Unknown Rx Nitrofurantoin [place]/M-Cryst 100 mg PO Q12HR #20 capsule 08/19/19 Unknown Rx [Macrobid CAP] Allergies Allergy/AdvReac Type Severity Reaction Status Date / Time No Known Allergies Allergy Verified 08/19/19 15:08 ED Review of Systems ROS: Stated complaint: ABDOMINAL PAIN/PREG Other details as noted in HPI Comment: All other systems reviewed and negative ED Past Medical Hx - Past Medical History Previous Medical History?: Yes Hx Hypertension: Yes (on mag in hospital) Hx Congestive Heart Failure: No Hx Diabetes: No Hx Deep Vein Thrombosis: No Hx Pulmonary Embolism: No Hx Renal Disease: No Hx Sickle Cell Disease: No Hx Headaches / Migraines: Yes Hx Seizures: No Hx Kidney Stones: No Hx Asthma: No Hx COPD: No Hx Tuberculosis: No Hx HIV: No Additional medical history: "spilling protein in urine" per pt. - Surgical History Past Surgical History?: No - Social History Smoking Status: Current Every Day Smoker Substance Use Type: Alcohol - Medications Home Medications: Home Medications Medication Instructions Recorded Confirmed Last Taken Type Labetalol HCl 300 mg PO TID #90 tablet 09/27/16 04/10/17 04/09/17 Rx Pnv No.95/Ferrous Fum/Folic AC 1 each PO QDAY 04/10/17 04/10/17 04/09/17 History [ Caplet] Enoxaparin 100 mg SUB-Q Q12HR #14 syringe 04/13/17 Unknown Rx Famotidine [Pepcid] 20 mg PO DAILY #14 tablet 04/13/17 Unknown Rx Warfarin [Coumadin] 10 mg PO DAILY@1700 #14 tablet 04/13/17 Unknown Rx hydrALAZINE [Apresoline TAB] 100 mg PO TID #90 tab 04/13/17 Unknown Rx Nitrofurantoin [place]/M-Cryst 100 mg PO Q12HR #20 capsule 07/15/19 Unknown Rx [Macrobid CAP] labetaloL [Labetalol 200mg TAB] 200 mg PO TID #90 tablet 07/15/19 Unknown Rx Nitrofurantoin [place]/M-Cryst 100 mg PO Q12HR #20 capsule 08/19/19 Unknown Rx [Macrobid CAP] ED Physical Exam - General Limitations: No Limitations - Other Other exam information: General: No acute distress Head: Atraumatic Eyes: normal appearance ENT: Moist mucous membranes Neck: Normal appearance, no midline tenderness Chest: Clear to auscultation bilaterally CV: Regular rate and rhythm Abdomen: Soft, normal bowel sounds, pain across the upper abdomen greatest in the right upper quadrant Back: Normal inspection Extremity: Normal inspection infection, full range of motion Neuro: Alert O x 3, no facial asymmetry, speech clear, no gross motor sensory deficit Psych: Appropriate behavior Skin: No rash ED Course Vital Signs 08/19/19 08/19/19 08/19/19 16:13 20:44 20:45 Temperature 98.0 F Pulse Rate 106 H Respiratory 18 Rate Blood Pressure 238/117 220/100 O2 Sat by Pulse 98 100 100 Oximetry 08/19/19 08/19/19 08/19/19 21:01 21:15 21:30 Temperature Pulse Rate Respiratory Rate Blood Pressure 184/83 193/82 152/88 O2 Sat by Pulse 99 99 100 Oximetry 08/19/19 08/19/19 08/19/19 21:34 22:17 22:30 Temperature Pulse Rate Respiratory 18 Rate Blood Pressure 152/88 154/81 O2 Sat by Pulse 100 91 99 Oximetry 08/19/19 08/19/19 22:45 23:00 Temperature Pulse Rate Respiratory Rate Blood Pressure 161/72 170/83 O2 Sat by Pulse 98 98 Oximetry - Reevaluation(s) Reevaluation #1: 08/19/19 23:18 bp improved after IV labetolol. pt due for evening po labetolol at 10pm. will be given labetolol 100mg and instructed to restart her meds as scheduled in the am. ED Medical Decision Making - Lab Data Result diagrams: 08/19/19 17:34 08/19/19 17:34 Lab Results 08/19/19 08/19/19 08/19/19 Range/Units 17:34 17:34 17:34 WBC 10.2 (4.5-11.0) K/mm3 RBC 4.30 (3.65-5.03) M/mm3 Hgb 13.0 (10.1-14.3) gm/dl Hct 39.6 (30.3-42.9) % MCV 92 (79-97) fl MCH 30 (28-32) pg MCHC 33 (30-34) % RDW 13.4 (13.2-15.2) % Plt Count 222 (140-440) K/mm3 Lymph % (Auto) 13.6 (13.4-35.0) % [place] % (Auto) 7.3 (0.0-7.3) % Eos % (Auto) 2.9 (0.0-4.3) % Baso % (Auto) 0.4 (0.0-1.8) % Lymph # 1.4 (1.2-5.4) K/mm3 [place] # 0.7 (0.0-0.8) K/mm3 Eos # 0.3 (0.0-0.4) K/mm3 Baso # 0.0 (0.0-0.1) K/mm3 Seg Neutrophils % 75.8 H (40.0-70.0) % Seg Neutrophils # 7.7 (1.8-7.7) K/mm3 Sodium 137 (137-145) mmol/L Potassium 4.6 (3.6-5.0) mmol/L Chloride 104.1 (98-107) mmol/L Carbon Dioxide 21 L (22-30) mmol/L Anion Gap 17 mmol/L BUN 21 H (7-17) mg/dL Creatinine 2.0 H (0.7-1.2) mg/dL Estimated GFR 34 ml/min BUN/Creatinine Ratio 11 % Glucose 132 H (65-100) mg/dL Calcium 9.2 (8.4-10.2) mg/dL Total Bilirubin 0.30 (0.1-1.2) mg/dL AST 12 (5-40) units/L ALT 19 (7-56) units/L Alkaline Phosphatase 57 (35-129) units/L Total Protein 7.2 (6.3-8.2) g/dL Albumin 3.7 L (3.9-5) g/dL Albumin/Globulin Ratio 1.1 % HCG, Quant 437207 H (0-4) mIU/mL Urine Color (Yellow) Urine Turbidity (Clear) Urine pH (5.0-7.0) Ur Specific [place] (1.003-1.030) Urine Protein (Negative) mg/dL Urine Glucose (UA) (Negative) mg/dL Urine Ketones (Negative) mg/dL Urine Blood (Negative) Urine Nitrite (Negative) Urine Bilirubin (Negative) Urine Urobilinogen (<2.0) mg/dL Ur Leukocyte Esterase (Negative) Urine WBC (Auto) (0.0-6.0) /HPF Urine RBC (Auto) (0.0-6.0) /HPF U Epithel Cells (Auto) (0-13.0) /HPF // Range/Units Unknown WBC (4.5-11.0) K/mm3 RBC (3.65-5.03) M/mm3 Hgb (10.1-14.3) gm/dl Hct (30.3-42.9) % MCV (79-97) fl MCH (28-32) pg MCHC (30-34) % RDW (13.2-15.2) % Plt Count (140-440) K/mm3 Lymph % (Auto) (13.4-35.0) % [place] % (Auto) (0.0-7.3) % Eos % (Auto) (0.0-4.3) % Baso % (Auto) (0.0-1.8) % Lymph # (1.2-5.4) K/mm3 [place] # (0.0-0.8) K/mm3 Eos # (0.0-0.4) K/mm3 Baso # (0.0-0.1) K/mm3 Seg Neutrophils % (40.0-70.0) % Seg Neutrophils # (1.8-7.7) K/mm3 Sodium (137-145) mmol/L Potassium (3.6-5.0) mmol/L Chloride (98-107) mmol/L Carbon Dioxide (22-30) mmol/L Anion Gap mmol/L BUN (7-17) mg/dL Creatinine (0.7-1.2) mg/dL Estimated GFR ml/min BUN/Creatinine Ratio % Glucose (65-100) mg/dL Calcium (8.4-10.2) mg/dL Total Bilirubin (0.1-1.2) mg/dL AST (5-40) units/L ALT (7-56) units/L Alkaline Phosphatase (35-129) units/L Total Protein (6.3-8.2) g/dL Albumin (3.9-5) g/dL Albumin/Globulin Ratio % HCG, Quant (0-4) mIU/mL Urine Color Yellow (Yellow) Urine Turbidity Clear (Clear) Urine pH 6.0 (5.0-7.0) Ur Specific Gar[place] 1.012 (1.003-1.030) Urine Protein 100 mg/dl (Negative) mg/dL Urine Glucose (UA) Neg (Negative) mg/dL Urine Ketones Neg (Negative) mg/dL Urine Blood Neg (Negative) Urine Nitrite Neg (Negative) Urine Bilirubin Neg (Negative) Urine Urobilinogen < 2.0 (<2.0) mg/dL Ur Leukocyte Esterase Lg (Negative) Urine WBC (Auto) 37.0 H (0.0-6.0) /HPF Urine RBC (Auto) 5.0 (0.0-6.0) /HPF U Epithel Cells (Auto) 1.0 (0-13.0) /HPF - Radiology Data Radiology results: report reviewed US OB <= 14 weeks fetus, US OB transvaginal INDICATION / CLINICAL INFORMATION: abdominal pain, 8 wks preg. COMPARISON: None available. FINDINGS: Single, viable intrauterine . heart rate 172. [place]-rump length measures 4.95 cm, corresponding to a gestational age of 11 weeks 5 days. Right ovary is normal. Left ovary contains a 2.6 cm complex cyst, probably corpus luteal cyst. IMPRESSION: 1. Viable, 11 week 5 day intrauterine . ULTRASOUND ABDOMEN, LIMITED (RIGHT UPPER QUADRANT) INDICATION: ruq, epigastric pain. COMPARISON: None available. FINDINGS: Pancreas: Visualized portion shows no significant abnormality. Liver: Normal. Gallbladder: Normal. Bile ducts: Normal. Common Bile Duct measures 3.3 mm. Free fluid: None. Additional Findings: Right kidney measures 9.7 cm in length but is somewhat echogenic. IMPRESSION: 1. Echogenic right kidney. No gallstones or other abnormality. - Medical Decision Making Pt with chronic asymptomatic hypertension. bp improved after IV labetolol. pt due for evening po labetolol at 10pm. will be given labetolol 100mg and in structed to restart her meds as scheduled in the am. macrobid provided for uti. tylenol for pain. chronic renal insuf unchanged. - Differential Diagnosis htn urgency/emergency, gallstone, uti, gerd, gastritis Critical Care Time: No Critical care attestation.: If time is entered above; I have spent that time in minutes in the direct care of this critically ill patient, excluding procedure time. ED Disposition Clinical Impression: Uncontrolled hypertension, 11 weeks gestation of , UTI (urinary tract infection), Chronic kidney disease Disposition: - TO HOME OR SELFCARE Is pt being admited?: No Does the pt Need Aspirin: No Condition: Stable Instructions: Hypertension (ED), Urinary Tract Infection in Women (ED), Chronic Hypertension (ED), Impaired Kidney Function (ED), (ED) Additional Instructions: Take the medication as prescribed. Is very important that you follow-up with the [facility] doctor since you are a high risk . Return if symptoms worsen as indicated by your discharge instructions. Prescriptions: Nitrofurantoin Gal[place]/M-Cryst [Macrobid CAP] 100 mg PO Q12HR #20 capsule Referrals: SINDY MITCHELL MD [Staff Physician] - 3-5 Days Time of Disposition: 23:27
[2019-08-19 23:12] VITALS: BP 170/83
[2019-08-19] MEDS ORDERED: NITROFURANTOIN MONOHYD/M-CRYST 100 MG CAP PO ONE (23:14)
== END 2019-08-19 23:39 | disposition home or self-care (01) ==
LOC: ED 15:06
DX: O16.1 Unspecified maternal hypertension, first trimester (principal); O23.41 Unspecified infection of urinary tract in pregnancy, first trimester; M19.90 Unspecified osteoarthritis, unspecified site; I12.9 Hypertensive chronic kidney disease with stage 1 through stage 4 chronic kidney disease, or unspecified chronic kidney disease; F17.200 Nicotine dependence, unspecified, uncomplicated; Z79.899 Other long term (current) drug therapy; Z3A.11 11 weeks gestation of pregnancy
CPT/HCPCS: 36415; 76705; 76801; 76817; 80053; 81001; 84702; 85025; 87086; 96374

== ENCOUNTER 2019-09-14 12:34 | Emergency (ER) | payer MEDICAID ==
--- NOTE | 2019-09-14 18:35 | Event Note ---
ED Screening Note Date of service: 09/14/19 Time: 18:31 ED Screening Note: This is a 39 y.o. F. that presents to the ER with elevated blood pressure and 15 weeks . Patient seen by [facility] today and sent to ER for follow up for elevated BP. Prior history of gestational HTN. Denies chest pain, palpitations, SOB, dizziness, or headache. This initial assessment/diagnostic orders/clinical plan/treatment(s) is/are subject to change based on patients health status, clinical progression and re- assessment by fellow clinical providers in the ED. Further treatment and workup at subsequent clinical providers discretion. Patient/guardian urged not to elope from the ED as their condition may be serious if not clinically assessed and managed. Initial orders include: Labs
[2019-09-14 19:25] LABS: Basophils # (Auto) 0.1 K/mm3 (0.0-0.1); Basophils % (Auto) 0.7 % (0.0-1.8); Eosinophils # (Auto) 0.4 K/mm3 (0.0-0.4); Eosinophils % (Auto) 4.1 % (0.0-4.3); Hematocrit 36.8 % (30.3-42.9); Lymphocytes # (Auto) 2.6 K/mm3 (1.2-5.4); Lymphocytes % (Auto) 26.9 % (13.4-35.0); Mean Corpuscular HGB Conc 33 % (30-34); Mean Corpuscular Volume 91 fl (79-97); Monocytes # (Auto) 0.8 K/mm3 (0.0-0.8); Monocytes % (Auto) 8.5 % (0.0-7.3); Platelet Count 263 K/mm3 (140-440); Red Blood Count 4.06 M/mm3 (3.65-5.03); Red Cell Distribution Width 13.3 % (13.2-15.2)
[2019-09-14 19:47] LABS: Albumin 3.4 g/dL (3.9-5); Calcium 9.3 mg/dL (8.4-10.2)
--- NOTE | 2019-09-14 21:05 | Emergency Department Report ---
ED General Adult HPI - General Chief complaint: High BP Stated complaint: HIGH BLOOD PRESSURE/15WKS PREG Time Seen by Provider: 09/14/19 18:29 Source: patient Mode of arrival: Ambulatory Limitations: No Limitations - History of Present Illness Initial comments: Patient is a 39-year-old female that presents emergency room with complaints of high blood pressure and being . Patient states she went to her [facility] office today for her initial visit and states her blood pressure was high patient forgot to take her labetalol 300 mg. Patient states she was also rushing to get there because she was late. Patient states she is 15 weeks 3 days . Patient states she started he had a ultrasound to confirm IUP. Patient denies pain. Patient denies abdominal pain. Patient denies vaginal discharge. Patient denies loss of fluid per vagina. Patient denies chest pain. Patient denies shortness of breath. Patient denies headache. Patient denies dizziness. Patient denies blurry vision. Patient states she feels like her blood pressures improved since waiting in the waiting room. -: Sudden Severity scale (0 -10): 0 Consistency: constant Improves with: rest Worsens with: other Associated Symptoms: denies other symptoms. denies: confusion, chest pain, cough, diaphoresis, fever/chills, headaches, loss of appetite, malaise, nausea/vomiting, rash, seizure, shortness of breath, syncope, weakness, other Treatments Prior to Arrival: none - Related Data Home Medications Medication Instructions Recorded Confirmed Last Taken Pnv No.95/Ferrous Fum/Folic AC 1 each PO QDAY 04/10/17 04/10/17 04/09/17 [ Caplet] Previous Rx's Medication Instructions Recorded Last Taken Type Labetalol HCl 300 mg PO TID #90 tablet 09/27/16 04/09/17 Rx Enoxaparin 100 mg SUB-Q Q12HR #14 syringe 04/13/17 Unknown Rx Famotidine [Pepcid] 20 mg PO DAILY #14 tablet 04/13/17 Unknown Rx Warfarin [Coumadin] 10 mg PO DAILY@1700 #14 tablet 04/13/17 Unknown Rx hydrALAZINE [Apresoline TAB] 100 mg PO TID #90 tab 04/13/17 Unknown Rx labetaloL [Labetalol 200mg TAB] 200 mg PO TID #90 tablet 07/15/19 Unknown Rx Nitrofurantoin Evangeline/M-Cryst 100 mg PO Q12HR #14 capsule 08/19/19 Unknown Rx [Macrobid CAP] Allergies Allergy/AdvReac Type Severity Reaction Status Date / Time No Known Allergies Allergy Verified 08/19/19 15:08 ED Review of Systems ROS: Stated complaint: HIGH BLOOD PRESSURE/15WKS PREG Other details as noted in HPI Constitutional: denies: chills, fever Eyes: denies: eye pain, eye discharge, vision change ENT: denies: ear pain, throat pain Respiratory: denies: cough, shortness of breath, wheezing Cardiovascular: denies: chest pain, palpitations Endocrine: no symptoms reported Gastrointestinal: denies: abdominal pain, nausea, diarrhea Genitourinary: denies: urgency, dysuria, discharge Musculoskeletal: denies: back pain, joint swelling, arthralgia Skin: denies: rash, lesions Neurological: denies: headache, weakness, paresthesias Psychiatric: denies: anxiety, depression Hematological/Lymphatic: denies: easy bleeding, easy bruising ED Past Medical Hx - Past Medical History Previous Medical History?: Yes Hx Hypertension: Yes (on mag in hospital) Hx Congestive Heart Failure: No Hx Diabetes: No Hx Deep Vein Thrombosis: No Hx Pulmonary Embolism: No Hx Renal Disease: Yes (ckd3) Hx Sickle Cell Disease: No Hx Headaches / Migraines: Yes Hx Seizures: No Hx Kidney Stones: No Hx Asthma: No Hx COPD: No Hx Tuberculosis: No Hx HIV: No Additional medical history: "spilling protein in urine" per pt. - Surgical History Past Surgical History?: No - Family History Family history: no significant - Social History Smoking Status: Former Smoker Substance Use Type: None - Medications Home Medications: Home Medications Medication Instructions Recorded Confirmed Last Taken Type Labetalol HCl 300 mg PO TID #90 tablet 09/27/16 04/10/17 04/09/17 Rx Pnv No.95/Ferrous Fum/Folic AC 1 each PO QDAY 04/10/17 04/10/17 04/09/17 History [ Caplet] Enoxaparin 100 mg SUB-Q Q12HR #14 syringe 04/13/17 Unknown Rx Famotidine [Pepcid] 20 mg PO DAILY #14 tablet 04/13/17 Unknown Rx Warfarin [Coumadin] 10 mg PO DAILY@1700 #14 tablet 04/13/17 Unknown Rx hydrALAZINE [Apresoline TAB] 100 mg PO TID #90 tab 04/13/17 Unknown Rx labetaloL [Labetalol 200mg TAB] 200 mg PO TID #90 tablet 07/15/19 Unknown Rx Nitrofurantoin Evangeline/M-Cryst 100 mg PO Q12HR #14 capsule 08/19/19 Unknown Rx [Macrobid CAP] ED Physical Exam - General Limitations: No Limitations General appearance: alert, in no apparent distress - Head Head exam: Present: atraumatic, normocephalic - Eye Eye exam: Present: normal appearance, PERRL, EOMI Pupils: Present: normal accommodation - ENT ENT exam: Present: mucous membranes moist - Neck Neck exam: Present: normal inspection - Respiratory Respiratory exam: Present: normal lung sounds bilaterally. Absent: respiratory distress - Cardiovascular Cardiovascular Exam: Present: regular rate, normal rhythm. Absent: systolic murmur, diastolic murmur, rubs, gallop - GI/Abdominal GI/Abdominal exam: Present: soft, normal bowel sounds - Extremities Exam Extremities exam: Present: normal inspection - Back Exam Back exam: Present: normal inspection - Neurological Exam Neurological exam: Present: alert, oriented X3 - Psychiatric Psychiatric exam: Present: normal affect, normal mood - Skin Skin exam: Present: warm, dry, intact, normal color. Absent: rash ED Course Vital Signs 09/14/19 09/14/19 09/14/19 12:42 18:30 21:10 Temperature 98.5 F 98.5 F Pulse Rate 103 H 92 H 100 H Respiratory 18 20 23 Rate Blood Pressure 181/98 206/99 Blood Pressure 182/83 [Left] O2 Sat by Pulse 97 100 99 Oximetry 09/14/19 09/14/19 09/14/19 21:15 21:30 21:45 Temperature Pulse Rate 85 87 91 H Respiratory 16 19 21 Rate Blood Pressure 149/82 159/78 144/75 Blood Pressure [Left] O2 Sat by Pulse 98 100 100 Oximetry 09/14/19 09/14/19 09/14/19 22:00 22:15 22:30 Temperature Pulse Rate 86 90 87 Respiratory 18 22 24 Rate Blood Pressure 137/75 139/74 133/79 Blood Pressure [Left] O2 Sat by Pulse 100 100 96 Oximetry - Reevaluation(s) Reevaluation #1: Patient states she feels fine. Patient states she is ready go home. Patient's blood pressures improved on its own. Patient is stable for discharge. Patient discharged home. Patient given discharge instructions. Patient voiced understanding of discharge instructions. I discussed all results with patient. 09/14/19 23:32 ED Medical Decision Making - Lab Data Result diagrams: 09/14/19 19:03 09/14/19 19:03 - Medical Decision Making Patient is a 39-year-old female that presents emergency room for high blood pressure and . Patient was sent here by her [facility]. Patient's initial blood pressure was extremely elevated and her blood pressure improved on its own. Patient's blood pressure just prior to discharge is 133/80. Patient had labs done. Patient's labs consistent with chronic kidney disease. Patient's states she has a baseline creatinine of 1.8. The rest of the patient's labs unremarkable. Patient instructed to increase water. Patient instructed to take her blood pressure medications regularly. Patient is currently on labetalol 300 mg 3 times a day. Patient's - Differential Diagnosis hypertensive emergency. Missed dose. Hypertension. Critical care attestation.: If time is entered above; I have spent that time in minutes in the direct care of this critically ill patient, excluding procedure time. ED Disposition Clinical Impression: Hypertensive urgency, Renal insufficiency Hypertension Qualifiers: Hypertension type: essential hypertension Qualified Code(s): I10 - Essential (primary) hypertension Qualifiers: Weeks of gestation: 15 weeks Qualified Code(s): Z3A.15 - 15 weeks gestation of Chronic kidney disease Qualifiers: Chronic kidney disease stage: unspecified stage Qualified Code(s): N18.9 - Chronic kidney disease, unspecified Disposition: DC-01 TO HOME OR SELFCARE Is pt being admited?: No Does the pt Need Aspirin: No Condition: Stable Instructions: Hypertension (ED), Heart Healthy Diet (ED), How to Take a Blood Pressure (ED), DASH Eating Plan (ED), Low Sodium Diet (ED), (ED) Additional Instructions: Patient to follow up with primary care in 2-3 days. Patient to follow up with [facility] in 2-3 days. Patient to continue blood pressure medications. Patient to monitor blood pressure at home. Patient to take blood pressure log to her follow-up appointment. Patient to increase water. Patient's take Tylenol when necessary for pain. Patient to continue vitamin. Referrals: PRIMARY CARE, [Primary Care Provider] - 2-3 Days Time of Disposition: 23:37
[2019-09-14 21:07] LABS: Bilirubin,Urine NEG (Negative); Blood,Urine NEG (Negative); Color,Urine Yellow (Yellow); Mucus,Urine FEW /HPF; Urobilinogen,Urine < 2.0 mg/dL (<2.0)
[2019-09-14 22:36] VITALS: BP 133/79
== END 2019-09-14 23:45 | disposition home or self-care (01) ==
LOC: ED 12:34
DX: O10.212 Pre-existing hypertensive chronic kidney disease complicating pregnancy, second trimester (principal); O16.2 Unspecified maternal hypertension, second trimester; O99.311 Alcohol use complicating pregnancy, first trimester; Z3A.15 15 weeks gestation of pregnancy; G43.909 Migraine, unspecified, not intractable, without status migrainosus; Z79.899 Other long term (current) drug therapy
CPT/HCPCS: 36415; 80053; 81001; 85025

== ENCOUNTER 2019-12-21 12:15 | Emergency (ER) | payer MEDICAID ==
--- NOTE | 2019-12-21 12:51 | Event Note ---
ED Screening Note Date of service: 12/21/19 Time: 12:50 ED Screening Note: This is a 39-year-old female at 29 weeks gestation who was seen earlier at her [facility] today and was sent to the ED due to her elevated blood pressure. Patient does have a history of hypertension and is currently on labetalol. Patient states she took her labetalol at 10:00 this morning. Patient denies any symptoms at this time. This initial assessment/diagnostic orders/clinical plan/treatment(s) is/are subject to change based on patients health status, clinical progression and re- assessment by fellow clinical providers in the ED. Further treatment and workup at subsequent clinical providers discretion. Patient/guardian urged not to elope from the ED as their condition may be serious if not clinically assessed and managed. Initial orders include: Orders placed. Main side evaluation.
--- NOTE | 2019-12-21 13:35 | XRay Report ---
CHEST 1 VIEW INDICATION: hypertension. COMPARISON: 04/10/2017 FINDINGS: Support devices: None. Heart: Within normal limits. Pulmonary vascular: Normal. Lungs/Pleura: The lungs are normally expanded and clear. Additional findings: None. IMPRESSION: 1. No acute findings. Signer Name: Rudy Bella MD Signed: 12/21/2019 1:31 PM Workstation Name: [id number]
[2019-12-21 13:50] LABS: Basophils % (Auto) 0.3 % (0.0-1.8); Eosinophils # (Auto) 0.2 K/mm3 (0.0-0.4); Eosinophils % (Auto) 2.4 % (0.0-4.3); Hematocrit 35.2 % (30.3-42.9); Hemoglobin 11.8 gm/dl (10.1-14.3); Lymphocytes # (Auto) 1.7 K/mm3 (1.2-5.4); Lymphocytes % (Auto) 19.4 % (13.4-35.0); Mean Corpuscular HGB Conc 33 % (30-34); Mean Corpuscular Volume 91 fl (79-97); Monocytes # (Auto) 0.6 K/mm3 (0.0-0.8); Monocytes % (Auto) 7.2 % (0.0-7.3); Platelet Count 239 K/mm3 (140-440); Red Blood Count 3.89 M/mm3 (3.65-5.03); Red Cell Distribution Width 14.7 % (13.2-15.2)
[2019-12-21 14:04] LABS: Bilirubin,Urine NEG (Negative); Blood,Urine SM (Negative); Color,Urine Yellow (Yellow); Urobilinogen,Urine < 2.0 mg/dL (<2.0)
[2019-12-21 14:05] LABS: INR 0.91 (0.87-1.13)
[2019-12-21 14:06] LABS: Partial Thromboplastin Time 29.5 Sec. (24.2-36.6)
[2019-12-21 14:13] LABS: Creatine Kinase MB 4.3 ng/mL (0.0-4.0)
[2019-12-21 14:15] LABS: Alanine Aminotransferase 17 units/L (7-56); Albumin 3.2 g/dL (3.9-5); BUN/Creatinine Ratio 9; Blood Urea Nitrogen 18 mg/dL (7-17); Calcium 9.2 mg/dL (8.4-10.2); Hemolysis Index 9
[2019-12-21 14:23] LABS: Bilirubin,Direct < 0.2 mg/dL (0-0.2)
--- NOTE | 2019-12-21 14:44 | Emergency Department Report ---
ED General Adult HPI - General Chief complaint: High BP Stated complaint: HBP Time Seen by Provider: 12/21/19 12:48 Source: patient Mode of arrival: Ambulatory Limitations: No Limitations - History of Present Illness Initial comments: This is a 39-year-old female who was sent to the emergency department from her OB is office this morning. She has a history of hypertension in . She was found to have a significantly elevated blood pressure and was referred to the hospital. She is 29 weeks of gestational age. Patient does not complain of shortness of breath. She is not complaining of leg swelling. She has no urinary complaints. He does have a complex medical history to include VTE that is and PE. She has been worked up for hypercoagulable state. I think perhaps she is thought to have it although I do not see a specific history. Apparently from her previous hospitalization she had bilateral pulmonary embolism without a source. She states that she has been using Lovenox once a day. She does not know the dose. Discharge summary after pulmonary embolism in 2017: Hospitalization Reason for admission: shortness of breath/respiratory distress Condition: Stable Pertinent studies: VQ scan; high probability for bilateral PE Renal ultrasound; renal parenchyma disease Lower extremity venous Doppler; negative for DVT Hospital course: Very pleasant obese 37-year-old -Maur[place] female patient with past medical history of hypertension was admitted through emergency room with worsening shortness of breath. Patient recently delivered a baby vaginally . Initial evaluation with VQ scan if consistent with high probability for bilateral pulmonary embolism. Admitted to the hospital and started on heparin drip, lower extremity venous Doppler was negative for DVT Hematology evaluated the patient, managed symptomatically Since patient is lactating, medication profile was reviewed, and Lovenox and Coumadin and compatible with Discussed the patient that target INR is 2-3, hypercoagulation profile was sent, patient will be discharged home on Lovenox and Coumadin, with home health, tien brooke-up with hematology oncologist for periodic INR check, and to follow hypercoagulability workup and advise Next INR to be checked within 2-3 days at the time of discharge patient is hemodynamically and clinically stable Discharge diagnosis: --Acute hypoxic respiratory failure --Bilateral PE --Acute kidney injury; probably secondary to ATN --Malignant hypertension; blood pressures are reasonable control today --Urinary tract infection; on empiric antibiotics for 4 days, cardiac stress negative -- state, follow-up with [facility] -: unknown Severity scale (0 -10): 0 - Related Data Home Medications Medication Instructions Recorded Confirmed Last Taken Pnv No.95/Ferrous Fum/Folic AC 1 each PO QDAY 04/10/17 04/10/17 04/09/17 [ Caplet] Previous Rx's Medication Instructions Recorded Last Taken Type Labetalol HCl 300 mg PO TID #90 tablet 09/27/16 04/09/17 Rx Enoxaparin 100 mg SUB-Q Q12HR #14 syringe 04/13/17 Unknown Rx Famotidine [Pepcid] 20 mg PO DAILY #14 tablet 04/13/17 Unknown Rx Warfarin [Coumadin] 10 mg PO DAILY@1700 #14 tablet 04/13/17 Unknown Rx hydrALAZINE [Apresoline TAB] 100 mg PO TID #90 tab 04/13/17 Unknown Rx labetaloL [Labetalol 200mg TAB] 200 mg PO TID #90 tablet 07/15/19 Unknown Rx Nitrofurantoin [place]/M-Cryst 100 mg PO Q12HR #14 capsule 08/19/19 Unknown Rx [Macrobid CAP] Allergies Allergy/AdvReac Type Severity Reaction Status Date / Time No Known Allergies Allergy Verified 08/19/19 15:08 ED Review of Systems ROS: Stated complaint: HBP Other details as noted in HPI ED Past Medical Hx - Past Medical History Previous Medical History?: Yes Hx Hypertension: Yes (on mag in hospital) Hx Congestive Heart Failure: No Hx Diabetes: No Hx Deep Vein Thrombosis: No Hx Pulmonary Embolism: No Hx Renal Disease: Yes (ckd3) Hx Sickle Cell Disease: No Hx Headaches / Migraines: Yes Hx Seizures: No Hx Kidney Stones: No Hx Asthma: No Hx COPD: No Hx Tuberculosis: No Hx HIV: No Additional medical history: "spilling protein in urine" per pt. - Surgical History Hx Appendectomy: No - Social History Smoking Status: Never Smoker Substance Use Type: None - Medications Home Medications: Home Medications Medication Instructions Recorded Confirmed Last Taken Type Labetalol HCl 300 mg PO TID #90 tablet 09/27/16 04/10/17 04/09/17 Rx Pnv No.95/Ferrous Fum/Folic AC 1 each PO QDAY 04/10/17 04/10/17 04/09/17 History [ Caplet] Enoxaparin 100 mg SUB-Q Q12HR #14 syringe 04/13/17 Unknown Rx Famotidine [Pepcid] 20 mg PO DAILY #14 tablet 04/13/17 Unknown Rx Warfarin [Coumadin] 10 mg PO DAILY@1700 #14 tablet 04/13/17 Unknown Rx hydrALAZINE [Apresoline TAB] 100 mg PO TID #90 tab 04/13/17 Unknown Rx labetaloL [Labetalol 200mg TAB] 200 mg PO TID #90 tablet 07/15/19 Unknown Rx Nitrofurantoin [place]/M-Cryst 100 mg PO Q12HR #14 capsule 08/19/19 Unknown Rx [Macrobid CAP] ED Physical Exam - General Limitations: No Limitations General appearance: alert, in no apparent distress - Head Head exam: Present: atraumatic, normocephalic - Eye Eye exam: Present: normal appearance. Absent: scleral icterus - ENT ENT exam: Present: mucous membranes moist - Neck Neck exam: Present: normal inspection - Respiratory Respiratory exam: Present: normal lung sounds bilaterally. Absent: respiratory distress - Cardiovascular Cardiovascular Exam: Present: regular rate, normal rhythm. Absent: systolic murmur, diastolic murmur, rubs, gallop - GI/Abdominal GI/Abdominal exam: Present: soft, normal bowel sounds, organomegaly (Consistent with dates), other. Absent: tenderness - Extremities Exam Extremities exam: Present: normal inspection, other (Trace edema pretibial) - Back Exam Back exam: Present: normal inspection - Neurological Exam Neurological exam: Present: alert, oriented X3, CN II-XII intact. Absent: motor sensory deficit - Psychiatric Psychiatric exam: Present: normal affect, normal mood - Skin Skin exam: Present: warm, dry, intact, normal color. Absent: rash ED Course Vital Signs 12/21/19 12/21/19 12/21/19 12:44 13:00 13:16 Temperature 98.1 F Pulse Rate 99 H Respiratory 22 Rate Blood Pressure 195/102 Blood Pressure [Right] O2 Sat by Pulse 100 99 100 Oximetry 12/21/19 12/21/19 13:31 13:45 Temperature 98.7 F Pulse Rate 96 H 93 H Respiratory 24 21 Rate Blood Pressure Blood Pressure 156/87 [Right] O2 Sat by Pulse 100 Oximetry - Reevaluation(s) Reevaluation #1: Patient was given 10 of labetalol. Last blood pressure was 150 systolic. We will continue to monitor. OB paged. Admission anticipated. 12/21/19 14:47 Reevaluation #2: Despite repeated inquiry the patient did not disclose that she had a dictated record at at the lab care which she kept in her pocket the whole time. She finally produced that for me. Patient was seen by Dr. Sumner. She was sent to the emergency department for admission for hypertension in . According to the plan the patient's care was discussed with Dr. Pop. "Ms. Alejandra beatty was given a copy of today's ultrasound report to present to [facility] for admission." An ultrasound report will accompany the patient's chart as well as today's dictation. We called the [facility] office. We were directed to send the patient to OB triage. That will be done. Her blood pressure has reasonably responded to 10 mg of labetalol thus far. Her labs are likewise stable. I have asked for heart tones. I presume she will need nonstress monitoring. Further care per OB. 12/21/19 14:59 ED Medical Decision Making - Lab Data Result diagrams: 12/21/19 13:31 12/21/19 13:31 - EKG Data -: EKG Interpreted by Me EKG shows normal: sinus rhythm, axis (Left axis deviation), intervals, QRS complexes, ST-T waves Rate: normal - EKG Data Interpretation: no acute changes - Radiology Data Radiology results: report reviewed (Chest x-ray no acute process) Critical care attestation.: If time is entered above; I have spent that time in minutes in the direct care of this critically ill patient, excluding procedure time. ED Disposition Clinical Impression: Accelerated hypertension, with 29 completed weeks gestation, Chronic renal insufficiency, stage III (moderate) Disposition: DC/TX-70 ANOTHER TYPE HLTHCARE Is pt being admited?: No Does the pt Need Aspirin: No Condition: Stable Instructions: Hypertension (ED) Additional Instructions: To labor and delivery now. Referrals: PRIMARY CARE, [Primary Care Provider] - 3-5 Days Time of Disposition: 15:03
[2019-12-21 15:24] VITALS: BP 150/87
== END 2019-12-21 15:26 | disposition home or self-care (01) ==
LOC: ED 12:15
DX: O13.3 Gestational [pregnancy-induced] hypertension without significant proteinuria, third trimester (principal); O26.833 Pregnancy related renal disease, third trimester; N18.3 Chronic kidney disease, stage 3 (moderate); Z3A.29 29 weeks gestation of pregnancy; Z79.899 Other long term (current) drug therapy
CPT/HCPCS: 36415; 71045; 80048; 80076; 81001; 82550; 82553; 83735; 83880; 84484; 84550; 85025; 85610; 85730; 93005; 93010; 96374

== ENCOUNTER 2019-12-21 15:43 | Outpatient (CLI) | payer MEDICAID ==
[2019-12-21] MEDS ORDERED: NIFEdipine*For Tocolysis only* 10 MG CAPSULE PO ONE (17:00)
[2019-12-21 20:15] LABS: Calcium 9.2 mg/dL (8.4-10.2)
[2019-12-21 20:47] VITALS: BP 137/63
== END 2019-12-21 20:48 | disposition home or self-care (01) ==
LOC: TRG 15:43 → APU 15:45 → TRG 20:48
PROVIDERS: ATTEND Obstetrics & Gynecology
DX: O16.3 Unspecified maternal hypertension, third trimester (principal); Z3A.29 29 weeks gestation of pregnancy
CPT/HCPCS: 36415; 59025; 71045; 80048; 80076; 81001; 82550; 82553; 83735; 83880; 84484; 84550; 85025; 85610; 85730; 93005; 93010; 96374

== ENCOUNTER 2021-06-17 23:02 | Inpatient (IN) | payer MEDICAID ==
[2021-06-18 03:42] LABS: Basophils % (Auto) 0.1 % (0.0-1.8); Hemoglobin 14.8 gm/dl (10.1-14.3); Lymphocytes # (Auto) 0.5 K/mm3 (1.2-5.4); Lymphocytes % (Auto) 10.7 % (13.4-35.0); Mean Corpuscular HGB Conc 34 % (30-34); Mean Corpuscular Volume 91 fl (79-97); Monocytes # (Auto) 0.7 K/mm3 (0.0-0.8); Monocytes % (Auto) 13.7 % (0.0-7.3); Platelet Count 181 K/mm3 (140-440); Red Blood Count 4.85 M/mm3 (3.65-5.03); Red Cell Distribution Width 15.1 % (13.2-15.2)
[2021-06-18 03:47] LABS: Alanine Aminotransferase 19 units/L (7-56); Albumin 2.7 g/dL (3.9-5); Calcium 8.4 mg/dL (8.4-10.2); Hemolysis Index 6
[2021-06-18 03:48] LABS: Bilirubin,Direct < 0.2 mg/dL (0-0.2)
[2021-06-18 04:27] LABS: BUN/Creatinine Ratio 8; Blood Urea Nitrogen 94 mg/dL (7-17)
--- NOTE | 2021-06-18 04:56 | Ultrasound Report ---
ULTRASOUND ABDOMEN, LIMITED (RIGHT UPPER QUADRANT) INDICATION: RUQ pain. COMPARISON: None available. FINDINGS: Pancreas: Visualized portion shows no significant abnormality. Liver: Normal. Gallbladder: Normal. Bile ducts: Normal. Common Bile Duct measures 2 mm. Free fluid: None. Additional Findings: Small echogenic right kidney measures 6.8 cm in length characteristic for chroni c renal disease IMPRESSION: 1. No sonographic abnormality of the right upper quadrant. 2. Chronic right renal disease Signer Name: Jose Luis Jiménez MD Signed: 06/18/2021 4:52 AM Workstation Name: [id number]
[2021-06-18 05:14] LABS: Bilirubin,Urine NEG (Negative); Blood,Urine MOD (Negative); Color,Urine Amber (Yellow); Mucus,Urine FEW /HPF; Urobilinogen,Urine < 2.0 mg/dL (<2.0)
[2021-06-18 05:15] LABS: Protein,Urine >500 mg/dL (Negative)
--- NOTE | 2021-06-18 05:47 | Emergency Department Report ---
ED Abdominal Pain HPI - General Chief Complaint: Abdominal Pain Stated Complaint: ABDOMINAL PAIN Source: patient Mode of arrival: Ambulatory Limitations: No Limitations - History of Present Illness Initial Comments: 41-year-old obese -Malaysian female with past medical history of hypertension presents emergency department complaining of right flank pain for the last 1 week radiates to the right upper quadrant appears to be associated with with eating. When she eats she develops cramps to the right side associated with nausea and some vomiting. She also has been experiencing a cough and dry mouth reports no hemoptysis no hematemesis no hematochezia no fever, chills, sweats. No chest pain no palpitations. -: Gradual Location: R flank Radiation: RUQ Migration to: no migration Severity: mild Quality: dull Consistency: constant Improves With: nothing Worsens With: nothing Associated Symptoms: nausea. denies: dysuria, hematemesis, hematuria, anorexia, syncope - Related Data Home Medications Medication Instructions Recorded Confirmed Last Taken Pnv No.95/Ferrous Fum/Folic AC 1 each PO QDAY 04/10/17 12/31/19 12/30/19 10:30 [ Caplet] Aspirin BABY CHEW TAB 80 mg PO DAILY 12/31/19 12/31/19 12/30/19 10:30 Enoxaparin 40 mg SUB-Q DAILY 12/31/19 12/31/19 12/30/19 10:30 labetaloL [Labetalol 200mg TAB] 400 mg PO BID 12/31/19 12/31/19 12/30/19 10:30 Previous Rx's Medication Instructions Recorded Last Taken Type Famotidine [Pepcid] 20 mg PO DAILY #14 tablet 04/13/17 12/30/19 10:30 Rx hydrALAZINE [Apresoline TAB] 100 mg PO TID #90 tab 04/13/17 Unknown Rx Nitrofurantoin [place]/M-Cryst 100 mg PO Q12HR #14 capsule 08/19/19 Unknown Rx [Macrobid CAP] HYDROcodone/APAP 5-325 [[place] 1 - 2 each PO Q4HR PRN #30 tablet 01/05/20 Unknown Rx 5/325] Allergies Allergy/AdvReac Type Severity Reaction Status Date / Time No Known Allergies Allergy Verified 08/19/19 15:08 ED Review of Systems ROS: Stated complaint: ABDOMINAL PAIN Other details as noted in HPI Comment: All other systems reviewed and negative ED Past Medical Hx - Past Medical History Hx Hypertension: Yes (on mag in hospital 2017) Hx Congestive Heart Failure: No Hx Diabetes: No Hx Deep Vein Thrombosis: No Hx Pulmonary Embolism: No Hx Renal Disease: Yes (ckd3) Hx Sickle Cell Disease: No Hx Headaches / Migraines: Yes Hx Seizures: No Hx Kidney Stones: No Hx Asthma: No Hx COPD: No Hx Tuberculosis: No Hx HIV: No Additional medical history: "spilling protein in urine" per pt. - Surgical History Hx Appendectomy: No - Social History Smoking Status: Never Smoker Substance Use Type: None - Medications Home Medications: Home Medications Medication Instructions Recorded Confirmed Last Taken Type Pnv No.95/Ferrous Fum/Folic AC 1 each PO QDAY 04/10/17 12/31/19 12/30/19 10:30 History [ Caplet] Famotidine [Pepcid] 20 mg PO DAILY #14 tablet 04/13/17 12/31/19 12/30/19 10:30 Rx hydrALAZINE [Apresoline TAB] 100 mg PO TID #90 tab 04/13/17 12/31/19 Unknown Rx Nitrofurantoin [place]/M-Cryst 100 mg PO Q12HR #14 capsule 08/19/19 12/31/19 Unknown Rx [Macrobid CAP] Aspirin BABY CHEW TAB 80 mg PO DAILY 12/31/19 12/31/19 12/30/19 10:30 History Enoxaparin 40 mg SUB-Q DAILY 12/31/19 12/31/19 12/30/19 10:30 History labetaloL [Labetalol 200mg TAB] 400 mg PO BID 12/31/19 12/31/19 12/30/19 10:30 History HYDROcodone/APAP 5-325 [[place] 1 - 2 each PO Q4HR PRN #30 tablet 01/05/20 Unknown Rx 5/325] ED Physical Exam - General Limitations: No Limitations General appearance: alert, in no apparent distress - Head Head exam: Present: atraumatic, normocephalic - Eye Eye exam: Present: normal appearance - ENT ENT exam: Present: mucous membranes moist - Neck Neck exam: Present: normal inspection - Respiratory Respiratory exam: Present: normal lung sounds bilaterally. Absent: respiratory distress - Cardiovascular Cardiovascular Exam: Present: regular rate, normal rhythm. Absent: systolic murmur, diastolic murmur, rubs, gallop - GI/Abdominal GI/Abdominal exam: Present: soft, tenderness (Tenderness to the right upper quadrant. No CVA tenderness is noted. No Rovsing, no Vasquez Mcmanus, no Jose sign, no tenderness at McBurney's), normal bowel sounds - Extremities Exam Extremities exam: Present: normal inspection - Back Exam Back exam: Present: normal inspection - Neurological Exam Neurological exam: Present: alert, oriented X3 - Psychiatric Psychiatric exam: Present: normal affect, normal mood - Skin Skin exam: Present: warm, dry, intact, normal color. Absent: rash ED Course Vital Signs 06/18/21 06/18/21 06/18/21 00:07 07:01 07:15 Temperature 98.6 F Pulse Rate 125 H 109 H 106 H Respiratory 22 22 29 H Rate Blood Pressure 150/96 110/87 108/72 O2 Sat by Pulse 90 96 96 Oximetry 06/18/21 06/18/21 06/18/21 07:31 07:45 08:01 Temperature Pulse Rate 105 H 102 H 102 H Respiratory 27 H 23 23 Rate Blood Pressure 114/66 114/66 115/70 O2 Sat by Pulse 98 99 98 Oximetry 06/18/21 06/18/21 06/18/21 08:15 08:31 08:32 Temperature 99.1 F Pulse Rate 106 H 109 H 105 H Respiratory 23 21 23 Rate Blood Pressure 109/69 111/63 111/63 O2 Sat by Pulse 97 98 100 Oximetry 06/18/21 06/18/21 06/18/21 08:41 08:46 08:51 Temperature Pulse Rate 106 H 101 H Respiratory 23 30 H Rate Blood Pressure 111/63 124/64 O2 Sat by Pulse 97 97 97 Oximetry 06/18/21 09:00 Temperature Pulse Rate 107 H Respiratory 35 H Rate Blood Pressure 111/63 O2 Sat by Pulse Oximetry - Reevaluation(s) Reevaluation #2: 06/18/21 06:05 Telling her back from nephrology Dr. Kennedy not yet return phone call discussed the case with hospitalist for second time she is admitted today to the [facility] was started on 1 L bolus per his request and 1 g of Rocephin. ED Medical Decision Making - Lab Data Result diagrams: 07/02/21 04:32 07/02/21 04:32 Lab Results 06/18/21 06/18/21 06/18/21 Range/Units 03:10 03:10 04:55 WBC 4.9 (4.5-11.0) K/mm3 RBC 4.85 (3.65-5.03) M/mm3 Hgb 14.8 H (10.1-14.3) gm/dl Hct 44.0 H (30.3-42.9) % MCV 91 (79-97) fl MCH 31 (28-32) pg MCHC 34 (30-34) % RDW 15.1 (13.2-15.2) % Plt Count 181 (140-440) K/mm3 Lymph % (Auto) 10.7 L (13.4-35.0) % [place] % (Auto) 13.7 H (0.0-7.3) % Eos % (Auto) 0.0 (0.0-4.3) % Baso % (Auto) 0.1 (0.0-1.8) % Lymph # (Auto) 0.5 L (1.2-5.4) K/mm3 [place] # (Auto) 0.7 (0.0-0.8) K/mm3 Eos # (Auto) 0.0 (0.0-0.4) K/mm3 Baso # (Auto) 0.0 (0.0-0.1) K/mm3 Seg Neutrophils % 75.5 H (40.0-70.0) % Seg Neutrophils # 3.7 (1.8-7.7) K/mm3 Sodium 133 L (137-145) mmol/L Potassium 4.8 (3.6-5.0) mmol/L Chloride 96.6 L (98-107) mmol/L Carbon Dioxide 16 L (22-30) mmol/L Anion Gap 25 mmol/L BUN 94 H (7-17) mg/dL Creatinine 12.1 H (0.6-1.2) mg/dL Estimated GFR 4 ml/min BUN/Creatinine Ratio 8 % Glucose 131 H (65-100) mg/dL Calcium 8.4 (8.4-10.2) mg/dL Total Bilirubin 0.30 (0.1-1.2) mg/dL Direct Bilirubin < 0.2 (0-0.2) mg/dL Indirect Bilirubin 0.1 mg/dL AST 33 (5-40) units/L ALT 19 (7-56) units/L Alkaline Phosphatase 58 (35-129) units/L Total Protein 6.9 (6.3-8.2) g/dL Albumin 2.7 L (3.9-5) g/dL Albumin/Globulin Ratio 0.6 % Lipase 199 H (13-60) units/L Urine Color Jessy (Yellow) Urine Turbidity Cloudy (Clear) Urine pH 5.0 (5.0-7.0) Ur Specific [place] 1.039 H (1.003-1.030) Urine Protein >500 (Negative) mg/dL Urine Glucose (UA) 50 (Negative) mg/dL Urine Ketones Neg (Negative) mg/dL Urine Blood Mod (Negative) Urine Nitrite Neg (Negative) Urine Bilirubin Neg (Negative) Urine Urobilinogen < 2.0 (<2.0) mg/dL Ur Leukocyte Esterase Neg (Negative) Urine WBC (Auto) 76.0 H (0.0-6.0) /HPF Urine RBC (Auto) 14.0 (0.0-6.0) /HPF U Epithel Cells (Auto) 2.0 (0-13.0) /HPF Urine Mucus Few /HPF Urine Yeast (Budding) 3+ /HPF - Radiology Data interpreted by al: [facility] [address] [place] [address] Cat Scan Report Signed Patient: AMITA DENNIS MR#: [id number] : 1980 Acct:[id number] Age/Sex: 41 / F ADM Date: 06/18/21 Loc: 3A A369-[address]: SHITAL PIRES MD Ordering Physician: LEXIE DUMONT Date of Service: 06/18/21 Procedure(s): CT abdomen pelvis wo con Accession Number(s): [id number] cc: LEXIE DUMONT CT OF THE ABDOMEN AND PELVIS WITHOUT CONTRAST INDICATION / CLINICAL INFORMATION: Right flank pain. TECHNIQUE: All CT scans at this location are performed using CT dose reduction for ALARA by means of automated exposure control. COMPARISON: None available. FINDINGS: ABDOMEN: The liver, spleen, gallbladder, bile ducts, pancreas, adrenal glands and kidneys are normal. There is no evidence of bowel obstruction or free air. No adenopathy is present. There are moderate patchy multifocal areas of peripheral consolidation and groundglass opacity in both lower lung zones. No pleural effusion. PELVIS: The appendix is dilated and thick-walled measuring up to approximately 11 mm transverse. There is mild soft tissue stranding in the periappendiceal fat. I see no evidence of abscess, free air or bowel obstruction. The distal ureters and urinary bladder are normal. The uterus and adnexal regions are unremarkable. There is no evidence of diverticulitis. No abnormal mass or fluid collection is seen. I do not identify a hernia. No acute osseous abnormality is seen area IMPRESSION: 1. Acute, uncomplicated appendicitis. 2. Multifocal patchy peripheral areas of consolidation and groundglass parenchymal disease in both lower lung zones are nonspecific but highly suggestive of atypical pneumonia, including viral causes. Signer Name: Jay Rosales MD Signed: 06/18/2021 10:38 AM Workstation Name: [id number] Transcribed By: RT Dictated By: Jay Rosales MD Electronically Authenticated By: Jay Rosales MD Signed Date/Time: 06/18/21 1038 DD/ 1033 TD/TT: Print Cancel [facility] [address] [place] [address] Cat Scan Report Signed Patient: AMITA DENNIS MR#: [id number] : 1980 Acct:[id number] Age/Sex: 41 / F ADM Date: 06/18/21 Loc: 3A A369-[address]: SHITAL PIRES MD Ordering Physician: LEXIE DUMONT Date of Service: 06/18/21 Procedure(s): CT abdomen pelvis wo con Accession Number(s): [id number] cc: LEXIE DUMONT CT OF THE ABDOMEN AND PELVIS WITHOUT CONTRAST INDICATION / CLINICAL INFORMATION: Right flank pain. TECHNIQUE: All CT scans at this location are performed using CT dose reduction for ALARA by means of automated exposure control. COMPARISON: None available. FINDINGS: ABDOMEN: The liver, spleen, gallbladder, bile ducts, pancreas, adrenal glands and kidneys are normal. There is no evidence of bowel obstruction or free air. No adenopathy is present. There are moderate patchy multifocal areas of peripheral consolidation and groundglass opacity in both lower lung zones. No pleural effusion. PELVIS: The appendix is dilated and thick-walled measuring up to approximately 11 mm transverse. There is mild soft tissue stranding in the periappendiceal fat. I see no evidence of abscess, free air or bowel obstruction. The distal ureters and urinary bladder are normal. The uterus and adnexal regions are unremarkable. There is no evidence of diverticulitis. No abnormal mass or fluid collection is seen. I do not identify a hernia. No acute osseous abnormality is seen area IMPRESSION: 1. Acute, uncomplicated appendicitis. 2. Multifocal patchy peripheral areas of consolidation and groundglass parenchymal disease in both lower lung zones are nonspecific but highly suggestive of atypical pneumonia, including viral causes. Signer Name: Jay Rosales MD Signed: 06/18/2021 10:38 AM Workstation Name: [id number] Transcribed By: RT Dictated By: Jay Rosales MD Electronically Authenticated By: Jya Rosales MD Signed Date/Time: 06/18/21 1038 DD/ 1033 TD/TT: Print Cancel Critical care attestation.: If time is entered above; I have spent that time in minutes in the direct care of this critically ill patient, excluding procedure time. ED Disposition Clinical Impression: Appendicitis Disposition: 09 ADMITTED INPATIENT Is pt being admited?: Yes Does the pt Need Aspirin: No Condition: Stable
[2021-06-18] MEDS ORDERED: cefTRIAXone/NS 1 GM/50 ML 1 GM/50 ML BAG IV STA (06:05)
[2021-06-18] MEDS ORDERED: SODIUM CHLORIDE 0.9% 1000 ML 1,000 ML IV ONE (06:05)
[2021-06-18] MEDS ORDERED: MORPHINE 4 MG/1 ML INJ IV PRN (06:25)
[2021-06-18] MEDS ORDERED: ONDANSETRON 4 MG/2 ML INJ IV PRN (06:25)
[2021-06-18] MEDS ORDERED: DEXTROSE 50% IN WATER (25GM) 50 ML SYRINGE IV PRN (06:25)
[2021-06-18] MEDS ORDERED: MORPHINE 2 MG/1 ML INJ IV PRN (06:25)
--- NOTE | 2021-06-18 06:39 | History and Physical Report ---
History of Present Illness Date of examination: 06/18/21 Date of admission: 06/18/2021 Chief complaint: Abdominal pain History of present illness: 41-year-old -Citizen Of [place] female with known history of hypertension, chronic kidney disease and DVT in the past presenting in the emergency room today complaining of abdominal pain. Abdominal pain is said to be more in the right upper quadrant. She has had some associated nausea and vomiting. She denies any fever or chills, no chest pain or shortness of breath, no headache or dizziness and no diaphoresis. She has had occasional dysuria but denies any hematuria. Patient denies any sick contacts and no recent travel, denies any contact with anyone with COVID-19. Patient states she has not been vaccinated against COVID- 19. 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 Work-up in the emergency room today, significant findings were that of BUN of 94 and creatinine of 12.1. Urinalysis reveals WBC of 76 and a few budding yeast. Abdominal ultrasound reveals no abnormality of the right upper quadrant however there is chronic right renal disease. CT of the abdomen and pelvis is still being awaited. Past History Past Medical History: diabetes, DVT, hypertension, renal failure Past Surgical History: No surgical history Social history: no significant social history Family history: CAD, hypertension Medications and Allergies Allergies Allergy/AdvReac Type Severity Reaction Status Date / Time No Known Allergies Allergy Verified 08/19/19 15:08 Home Medications Medication Instructions Recorded Confirmed Last Taken Type Pnv No.95/Ferrous Fum/Folic AC 1 each PO QDAY 04/10/17 12/31/19 12/30/19 10:30 History [ Caplet] Famotidine [Pepcid] 20 mg PO DAILY #14 tablet 04/13/17 12/31/19 12/30/19 10:30 Rx hydrALAZINE [Apresoline TAB] 100 mg PO TID #90 tab 04/13/17 12/31/19 Unknown Rx Nitrofurantoin [place]/M-Cryst 100 mg PO Q12HR #14 capsule 08/19/19 12/31/19 Unknown Rx [Macrobid CAP] Aspirin BABY CHEW TAB 80 mg PO DAILY 12/31/19 12/31/19 12/30/19 10:30 History Enoxaparin 40 mg SUB-Q DAILY 12/31/19 12/31/19 12/30/19 10:30 History labetaloL [Labetalol 200mg TAB] 400 mg PO BID 12/31/19 12/31/19 12/30/19 10:30 History HYDROcodone/APAP 5-325 [[place] 1 - 2 each PO Q4HR PRN #30 tablet 01/05/20 Unknown Rx 5/325] Active Meds: Active Medications Acetaminophen (Acetaminophen 325 Mg Tab) 650 mg PO Q4H PRN PRN Reason: Pain MILD(1-3)/Fever >100.5/ANDUJAR Dextrose (Dextrose 50% In Water (25gm) 50 Ml Syringe) 50 ml IV Q30MIN PRN; Protocol PRN Reason: Hypoglycemia Sodium Chloride (Nacl 0.9% 1000 Ml) 1,000 mls @ 999 mls/hr IV BOLUS ONE Stop: 06/18/21 07:05 Last Admin: 06/18/21 06:20 Dose: 999 mls/hr Documented by: Sodium Chloride (Nacl 0.9% 1000 Ml) 1,000 mls @ 125 mls/hr IV DIRECT DEBORA Morphine Sulfate (Morphine 2 Mg/1 Ml Inj) 2 mg IV Q4H PRN PRN Reason: Pain, Moderate (4-6) Ondansetron HCl (Ondansetron 4 Mg/2 Ml Inj) 4 mg IV Q8H PRN PRN Reason: Nausea And Vomiting Sodium Chloride (Sodium Chloride 0.9% 10 Ml Flush Syringe) 10 ml IV BID DEBORA Sodium Chloride (Sodium Chloride 0.9% 10 Ml Flush Syringe) 10 ml IV PRN PRN PRN Reason: LINE FLUSH Review of Systems Constitutional: no fever, no chills Ears, nose, mouth and throat: no nasal congestion, no sore throat Cardiovascular: no chest pain, no palpitations Respiratory: no cough, no shortness of breath Gastrointestinal: abdominal pain, no nausea, no vomiting, no diarrhea Genitourinary Female: flank pain (Right flank pain), dysuria, no hematuria Musculoskeletal: no neck pain, no low back pain Integumentary: no rash, no pruritis Neurological: no headaches, no confusion Psychiatric: no anxiety, no depression (`) Endocrine: no polyphagia, no polydipsia, no polyuria, no nocturia Exam - Constitutional Vitals: Temp Pulse Resp BP Pulse Ox 98.6 F 125 H 22 150/96 90 06/18/21 00:07 06/18/21 00:07 06/18/21 00:07 06/18/21 00:07 06/18/21 00:07 General appearance: Present: no acute distress, well-nourished - EENT Eyes: Present: PERRL, EOM intact. Absent: scleral icterus ENT: hearing intact, clear oral mucosa, dentition normal - Neck Neck: Present: supple, normal ROM - Respiratory Respiratory effort: normal Respiratory: bilateral: CTA - Cardiovascular Rhythm: regular Heart Sounds: Present: S1 & S2. Absent: systolic murmur, diastolic murmur, rub, click - Extremities Extremities: no ischemia, pulses intact, pulses symmetrical, No edema, normal temperature, normal color, Full ROM Peripheral Pulses: within normal limits - Abdominal General gastrointestinal: Present: soft, tender (Tenderness in the right costovertebral angle.), non-distended, normal bowel sounds. Absent: mass - Integumentary Integumentary: Present: clear, warm, dry, normal turgor. Absent: rash - Musculoskeletal Musculoskeletal: strength equal bilaterally - Psychiatric Psychiatric: appropriate mood/affect, intact judgment & insight, memory intact, cooperative - Neurologic Neurologic: CNII-XII intact, no focal deficits, moves all extremities Results - Labs CBC & Chem 7: 06/18/21 03:10 06/18/21 03:10 Labs: Abnormal lab results 06/18/21 06/18/21 06/18/21 Range/Units 03:10 03:10 04:55 Hgb 14.8 H (10.1-14.3) gm/dl Hct 44.0 H (30.3-42.9) % Lymph % (Auto) 10.7 L (13.4-35.0) % [place] % (Auto) 13.7 H (0.0-7.3) % Lymph # (Auto) 0.5 L (1.2-5.4) K/mm3 Seg Neutrophils % 75.5 H (40.0-70.0) % Sodium 133 L (137-145) mmol/L Chloride 96.6 L (98-107) mmol/L Carbon Dioxide 16 L (22-30) mmol/L BUN 94 H (7-17) mg/dL Creatinine 12.1 H (0.6-1.2) mg/dL Glucose 131 H (65-100) mg/dL Albumin 2.7 L (3.9-5) g/dL Lipase 199 H (13-60) units/L Ur Specific [place] 1.039 H (1.003-1.030) Urine WBC (Auto) 76.0 H (0.0-6.0) /HPF Assessment and Plan - Patient Problems (1) Acute kidney injury superimposed on chronic kidney disease Status: Acute Plan to address problem: Patient has had significant worsening of her renal function. Baseline creatinine has been 2.0 Consult placed to nephrology for evaluation. Will await CT of the abdomen and pelvis (2) Hypertension Status: Acute Qualifiers: Hypertension type: essential hypertension Qualified Code(s): I10 - Essential (primary) hypertension Plan to address problem: We will resume routine home medications and monitor vital signs closely. (3) DVT prophylaxis Status: Acute Plan to address problem: And placed on subcutaneous heparin. (4) Full code status Status: Acute Plan to address problem: Patient is full code.
[2021-06-18] MEDS: cefTRIAXone/NS 1 GM/50 ML 1 GM/50 ML BAG IV SCH (07:30)
[2021-06-18] MEDS ORDERED: FLUCONAZOLE 100 MG TAB PO SCH (08:00)
[2021-06-18] MEDS: INSULIN LISPRO 100 UNIT/ML SUB-Q SCH ×4 (09:20→22:26)
--- NOTE | 2021-06-18 10:20 | Ultrasound Report ---
ULTRASOUND RENAL INDICATION: SHANON. COMPARISON: No relevant prior imaging study available. FINDINGS: RIGHT KIDNEY: Size: 9.1 cm. Echogenicity: Increased. Cortical thickness: 1.0 cm. Hydronephrosis: None. Cyst or mass: None. Stones: None. LEFT KIDNEY: Size: 8.9 cm. Echogenicity: Increased. Cortical thickness: 1.6 cm. Hydronephrosis: None. Cyst or mass: None. Stones: None. Urinary Bladder: No significant abnormality. Free Fluid: None. Additional Findings: None. IMPRESSION 1. Prominent increased renal cortical echogenicity bilaterally compatible chronic medical renal disea se. 2. Mild cortical thinning on the right. 3. Negative for mass or obstruction. Signer Name: León Lawrence MD Signed: 06/18/2021 10:15 AM Workstation Name: [email or web address]
--- NOTE | 2021-06-18 10:42 | Cat Scan Report ---
CT OF THE ABDOMEN AND PELVIS WITHOUT CONTRAST INDICATION / CLINICAL INFORMATION: Right flank pain. TECHNIQUE: All CT scans at this location are performed using CT dose reduction for ALARA by means of automated exposure control. COMPARISON: None available. FINDINGS: ABDOMEN: The liver, spleen, gallbladder, bile ducts, pancreas, adrenal glands and kidneys are normal. There is no evidence of bowel obstruction or free air. No adenopathy is present. There are moderate patchy multifocal areas of peripheral consolidation and groundglass opacity in bot h lower lung zones. No pleural effusion. PELVIS: The appendix is dilated and thick-walled measuring up to approximately 11 mm transverse. Ther e is mild soft tissue stranding in the periappendiceal fat. I see no evidence of abscess, free air or bowel obstruction. The distal ureters and urinary bladder are normal. The uterus and adnexal regions are unremarkable. T here is no evidence of diverticulitis. No abnormal mass or fluid collection is seen. I do not identif y a hernia. No acute osseous abnormality is seen area IMPRESSION: 1. Acute, uncomplicated appendicitis. 2. Multifocal patchy peripheral areas of consolidation and groundglass parenchymal disease in both lo wer lung zones are nonspecific but highly suggestive of atypical pneumonia, including viral causes. Signer Name: Jay Rosales MD Signed: 06/18/2021 10:38 AM Workstation Name: [id number]
--- NOTE | 2021-06-18 12:23 | Consultation ---
History of Present Illness - Reason for Consult acute renal failure - History of Present Illness very pleasant 41-year-old -[place] female with a past medical history of chronic kidney disease stage IIIb in the setting of hypertension and diabetes, who previously had a renal biopsy done in the past, presented to emergency department with progressive weakness and fatigue. She states that it has been years since she has seen a packager. She was previously under the care of another packager here in the area but does not remember the name of the physician at this time. She states that she had a kidney biopsy done and was placed on an intermittent protocol of prednisone but had been weaned off. Again she does not remember the exact findings of this kidney biopsy or exactly when it was done but it seems to have been done more than 5 years ago. Overall patient seems to have had poor compliance with follow-up with general medical care. Nephrology consult at this time secondary to admission labs concerning for acute renal failure. Renal ultrasound reviewed without any acute ab normalities but does show evidence of likely underlying chronic renal disease. CT scan of the abdomen was also done which did not show any acute abnormalities otherwise.he did however show presence of infiltrates in the chest bilaterally concerning for possible viral atypical pneumonia. Urine analysis was evident for proteinuria and microscopic hematuria. Past History Past Medical History: diabetes, DVT, hypertension, renal failure Past Surgical History: No surgical history Social history: no significant social history Family history: CAD, hypertension Medications and Allergies Allergies Allergy/AdvReac Type Severity Reaction Status Date / Time No Known Allergies Allergy Verified 08/19/19 15:08 Home Medications Medication Instructions Recorded Confirmed Last Taken Type Pnv No.95/Ferrous Fum/Folic AC 1 each PO QDAY 04/10/17 12/31/19 12/30/19 10:30 History [ Caplet] Famotidine [Pepcid] 20 mg PO DAILY #14 tablet 04/13/17 12/31/19 12/30/19 10:30 Rx hydrALAZINE [Apresoline TAB] 100 mg PO TID #90 tab 04/13/17 12/31/19 Unknown Rx Nitrofurantoin [place]/M-Cryst 100 mg PO Q12HR #14 capsule 08/19/19 12/31/19 Unknown Rx [Macrobid CAP] Aspirin BABY CHEW TAB 80 mg PO DAILY 12/31/19 12/31/19 12/30/19 10:30 History Enoxaparin 40 mg SUB-Q DAILY 12/31/19 12/31/19 12/30/19 10:30 History labetaloL [Labetalol 200mg TAB] 400 mg PO BID 12/31/19 12/31/19 12/30/19 10:30 History HYDROcodone/APAP 5-325 [[place] 1 - 2 each PO Q4HR PRN #30 tablet 01/05/20 Unknown Rx 5/325] Active Meds: Active Medications Acetaminophen (Acetaminophen 325 Mg Tab) 650 mg PO Q4H PRN PRN Reason: Pain MILD(1-3)/Fever >100.5/ANDUJAR Dextrose (Dextrose 50% In Water (25gm) 50 Ml Syringe) 50 ml IV Q30MIN PRN; Protocol PRN Reason: Hypoglycemia Heparin Sodium (Porcine) (Heparin 5,000 Unit/1 Ml Vial) 5,000 unit SUB-Q Q8HR DEBORA Sodium Chloride (Nacl 0.9% 1000 Ml) 1,000 mls @ 125 mls/hr IV DIRECT DEBORA Ceftriaxone Sodium (Rocephin/Ns 1 Gm/50 Ml) 1 gm in 50 mls @ 100 mls/hr IV Q24H DEBORA; Protocol Last Admin: 06/18/21 07:30 Dose: Not Given Documented by: Insulin Human Lispro (Insulin Lispro 100 Unit/Ml) 0 unit SUB-Q ACHS DEBORA; Protocol Last Admin: 06/18/21 09:20 Dose: Not Given Documented by: Magnesium Hydroxide (Magnesium Hydroxide (Mom) Oral Liqd Udc) 30 ml PO Q4H PRN PRN Reason: Constipation Morphine Sulfate (Morphine 2 Mg/1 Ml Inj) 2 mg IV Q4H PRN PRN Reason: Pain, Moderate (4-6) Morphine Sulfate (Morphine 4 Mg/1 Ml Inj) 4 mg IV Q4H PRN PRN Reason: Pain , Severe (7-10) Ondansetron HCl (Ondansetron 4 Mg/2 Ml Inj) 4 mg IV Q8H PRN PRN Reason: Nausea And Vomiting Sodium Chloride (Sodium Chloride 0.9% 10 Ml Flush Syringe) 10 ml IV BID DEOBRA Last Admin: 06/18/21 11:00 Dose: 10 ml Documented by: Sodium Chloride (Sodium Chloride 0.9% 10 Ml Flush Syringe) 10 ml IV PRN PRN PRN Reason: LINE FLUSH Review of Systems Constitutional: fatigue, weakness Exam - Vital Signs Vital signs: Vital Signs Temp Pulse Resp BP Pulse Ox 98.6 F 125 H 22 150/96 90 06/18/21 00:07 06/18/21 00:07 06/18/21 00:07 06/18/21 00:07 06/18/21 00:07 - General Appearance General appearance: well-developed, obese EENT: ATNC Neck: Present: neck supple Respiratory: Clear to Ascultation Heart: regular Gastrointestinal: Present: normal Integumentary: warm and dry Neurologic: no focal deficit Musculoskeletal: Present: deferred Psychiatric: cooperative Results - Lab Results 06/18/21 03:10 06/18/21 03:10 Most recent lab results Calcium 8.4 mg/dL (8.4-10.2) 06/18/21 03:10 Assessment and Plan - Patient Problems (1) Acute kidney injury superimposed on chronic kidney disease Current Visit: No Status: Acute Plan to address problem: it seems that she has had at least baseline chronic kidney disease stage IIIb. Am concerned that findings this morning are indicative of a progressive renal disease process and that she has progressed towards stage V chronic kidney disease. If this is the case she may very well likely have to be initiated on hemodialysis during this admission. discussed with the patient in detail. given evidence of proteinuria and microscopic hematuria I will add protein to creatinine ratio along with further serologic workup for further investigation. May need to consider kidney biopsy during this admission. (2) Abdominal pain Current Visit: Yes Status: Acute Plan to address problem: CT of the abdomen did not show any acute pathology. It did however show evidence of possible atypical pneumonia which could be leading to some of her aforementioned symptoms of abdominal discomfort, nausea. We will follow up closely. Also concerned whether her symptoms are more indicative of progressive kidney disease and underlying uremia. (3) Hypertensive chronic kidney disease with stage 1 through stage 4 chronic kid dominic disease, or unspecified chronic kidney disease Current Visit: Yes Status: Acute Plan to address problem: current blood pressures are more in the hypotensive range and would continue to monitor off of blood pressure medication at this time. (4) Type 2 diabetes mellitus with diabetic chronic kidney disease Current Visit: Yes Status: Chronic Plan to address problem: diabetes management per primary attending.
--- NOTE | 2021-06-18 12:37 | Event Note ---
Date: 06/18/21 Patient admitted this morning. Patient updated about current medical status. Reports taking hypertensive medications in the past. Will hold anti-h ypertensives for now. Nephrology also evaluated and is considering renal biopsy and possibly dialysis this admission. Patient is understanding.
[2021-06-18] MEDS: HEPARIN 5,000 UNIT/1 ML VIAL SUB-Q SCH ×2 (14:30→22:26)
[2021-06-19] MEDS: ACETAMINOPHEN 325 MG TAB PO PRN ×2 (05:15→18:52)
[2021-06-19] MEDS: HEPARIN 5,000 UNIT/1 ML VIAL SUB-Q SCH ×3 (05:34→22:17)
[2021-06-19 05:44] LABS: Basophils % (Auto) 0.2 % (0.0-1.8); Hematocrit 38.2 % (30.3-42.9); Hemoglobin 12.5 gm/dl (10.1-14.3); Lymphocytes # (Auto) 0.8 K/mm3 (1.2-5.4); Lymphocytes % (Auto) 17.1 % (13.4-35.0); Mean Corpuscular HGB Conc 33 % (30-34); Mean Corpuscular Volume 91 fl (79-97); Monocytes # (Auto) 0.5 K/mm3 (0.0-0.8); Monocytes % (Auto) 12.2 % (0.0-7.3); Platelet Count 189 K/mm3 (140-440)
[2021-06-19 05:54] LABS: INR 1.01 (0.87-1.13)
[2021-06-19 06:05] LABS: Bilirubin,Urine NEG (Negative); Blood,Urine LG (Negative); Color,Urine Amber (Yellow); Mucus,Urine FEW /HPF; Protein,Urine >500 mg/dL (Negative); Urobilinogen,Urine < 2.0 mg/dL (<2.0); WBC,Urine > 182.0 /HPF (0.0-6.0)
[2021-06-19 06:06] LABS: HCG Qualitative,Urine Negative (Negative)
[2021-06-19 06:14] LABS: Chloride, Urine 25.9 mmolL (110-250); Creatinine,Urine 132.3 mg/dL (0.1-20.0)
[2021-06-19 06:19] LABS: Creatinine,Urine 132.5 mg/dL (0.1-20.0)
[2021-06-19 06:30] LABS: Protein/Creatinine Ratio,Urine 1.48
--- NOTE | 2021-06-19 08:39 | Progress Note ---
Assessment and Plan Assessment and plan: #Acute on chronic kidney injury -History of CKD stage IIIb -Lost to follow-up, concern for progression -proteinuria -SCr increased to 14.7 today -Nephrology following, plan for renal biopsy and possible HD while inpatient -rocephin prior to biopsy #Abdominal pain -improved -CT scan negative for acute abnormalities #Type 2 Diabetes -patient euglycemic while inpatient -continue accuchecks for now #Hypertension -BP within goal while inpatient -will not resume medications #Asymptomatic bacteriuria -Plan for renal biopsy within the next few days -Rocephin started prophylactically Disposition Plan: Continue medical management Total Time Spent with Patient (Minutes): 30 minutes History Interval history: No acute events overnight. Patient reports feeling much better. Abdominal pain has resolved. Denies nausea or vomiting. Hospitalist Physical - Physical exam Narrative exam: GENERAL: Well-developed well-nourished. Lying in bed CHEST/LUNGS: CTAB on room air HEART/CARDIOVASCULAR: RRR. No murmur, rubs or gallops appreciated. ABDOMEN: +BS. NT/ND. SKIN: No rashes noted. NEURO: No focal motor deficit. Follows all commands. EXTREMITIES: No cyanosis, clubbing or edema. PSYCH: Cooperative. - Constitutional Vitals: Temp Pulse Resp BP Pulse Ox 99.0 F 115 H 20 122/61 94 06/19/21 04:55 06/19/21 04:55 06/19/21 04:55 06/19/21 04:55 06/19/21 04:55 General appearance: Present: no acute distress, well-nourished Results - Labs CBC & Chem 7: 06/19/21 05:00 06/19/21 05:00 Labs: Laboratory Last Values WBC 4.5 K/mm3 (4.5-11.0) 06/19/21 05:00 RBC 4.20 M/mm3 (3.65-5.03) 06/19/21 05:00 Hgb 12.5 gm/dl (10.1-14.3) 06/19/21 05:00 Hct 38.2 % (30.3-42.9) 06/19/21 05:00 MCV 91 fl (79-97) 06/19/21 05:00 MCH 30 pg (28-32) 06/19/21 05:00 MCHC 33 % (30-34) 06/19/21 05:00 RDW 15.0 % (13.2-15.2) 06/19/21 05:00 Plt Count 189 K/mm3 (140-440) 06/19/21 05:00 Lymph % (Auto) 17.1 % (13.4-35.0) 06/19/21 05:00 [place] % (Auto) 12.2 % (0.0-7.3) H 06/19/21 05:00 Eos % (Auto) 0.0 % (0.0-4.3) 06/19/21 05:00 Baso % (Auto) 0.2 % (0.0-1.8) 06/19/21 05:00 Lymph # (Auto) 0.8 K/mm3 (1.2-5.4) L 06/19/21 05:00 [place] # (Auto) 0.5 K/mm3 (0.0-0.8) 06/19/21 05:00 Eos # (Auto) 0.0 K/mm3 (0.0-0.4) 06/19/21 05:00 Baso # (Auto) 0.0 K/mm3 (0.0-0.1) 06/19/21 05:00 Seg Neutrophils % 70.5 % (40.0-70.0) H 06/19/21 05:00 Seg Neutrophils # 3.2 K/mm3 (1.8-7.7) 06/19/21 05:00 PT 14.4 Sec. (12.2-14.9) 06/19/21 05:00 INR 1.01 (0.87-1.13) 06/19/21 05:00 Sodium 135 mmol/L (137-145) L 06/19/21 05:00 Potassium 4.6 mmol/L (3.6-5.0) 06/19/21 05:00 Chloride 98.4 mmol/L (98-107) 06/19/21 05:00 Carbon Dioxide 14 mmol/L (22-30) L 06/19/21 05:00 Anion Gap 27 mmol/L 06/19/21 05:00 BUN 102 mg/dL (7-17) H 06/19/21 05:00 Creatinine 14.7 mg/dL (0.6-1.2) H 06/19/21 05:00 Estimated GFR 3 ml/min 06/19/21 05:00 BUN/Creatinine Ratio 7 % 06/19/21 05:00 Glucose 88 mg/dL (65-100) 06/19/21 05:00 POC Glucose 96 mg/dL (70-105) 06/19/21 08:28 Calcium 8.0 mg/dL (8.4-10.2) L 06/19/21 05:00 Total Bilirubin 0.30 mg/dL (0.1-1.2) 06/18/21 03:10 Direct Bilirubin < 0.2 mg/dL (0-0.2) 06/18/21 03:10 Indirect Bilirubin 0.1 mg/dL 06/18/21 03:10 AST 33 units/L (5-40) 06/18/21 03:10 ALT 19 units/L (7-56) 06/18/21 03:10 Alkaline Phosphatase 58 units/L (35-129) 06/18/21 03:10 Total Protein 6.9 g/dL (6.3-8.2) 06/18/21 03:10 Albumin 2.7 g/dL (3.9-5) L 06/18/21 03:10 Albumin/Globulin Ratio 0.6 % 06/18/21 03:10 Lipase 199 units/L (13-60) H 06/18/21 03:10 Urine Color Jessy (Yellow) 06/19/21 05:27 Urine Turbidity Cloudy (Clear) 06/19/21 05:27 Urine pH 5.0 (5.0-7.0) 06/19/21 05:27 Ur Specific [place] 1.025 (1.003-1.030) 06/19/21 05:27 Urine Protein >500 mg/dL (Negative) 06/19/21 05:27 Urine Glucose (UA) 50 mg/dL (Negative) 06/19/21 05:27 Urine Ketones Neg mg/dL (Negative) 06/19/21 05:27 Urine Blood Lg (Negative) 06/19/21 05:27 Urine Nitrite Neg (Negative) 06/19/21 05:27 Urine Bilirubin Neg (Negative) 06/19/21 05:27 Urine Urobilinogen < 2.0 mg/dL (<2.0) 06/19/21 05:27 Ur Leukocyte Esterase Mod (Negative) 06/19/21 05:27 Urine WBC (Auto) > 182.0 /HPF (0.0-6.0) H 06/19/21 05:27 Urine RBC (Auto) 35.0 /HPF (0.0-6.0) 06/19/21 05:27 U Epithel Cells (Auto) 1.0 /HPF (0-13.0) 06/19/21 05:27 Urine WBC Clumps 3+ /HPF 06/19/21 05:27 Urine Mucus Few /HPF 06/19/21 05:27 Urine Yeast (Budding) 3+ /HPF 06/18/21 04:55 Urine Creatinine 132.3 mg/dL (0.1-20.0) H 06/19/21 05:27 Urine Creatinine 132.5 mg/dL (0.1-20.0) H 06/19/21 05:27 Protein/Creatinin Ratio 1.48 06/19/21 05:27 Urine Sodium 26 mmol/L 06/19/21 05:27 Urine Chloride 25.9 mmolL (110-250) L 06/19/21 05:27 Urine Total Protein 196 mg/dL (5-11.8) H 06/19/21 05:27 Urine HCG, Qual Negative (Negative) 06/19/21 05:27 [place]/IV: Voiding Method Toilet Active Medications - Current Medications Current Medications: Generic Name Dose Route Start Last Admin Trade Name Freq PRN Reason Stop Dose Admin Acetaminophen 650 mg 06/18/21 06:25 06/19/21 05:15 Acetaminophen 325 Mg Tab PO 650 mg Q4H PRN Administration Pain MILD(1-3)/Fever >100.5/ANDUJAR Dextrose 50 ml 06/18/21 06:25 Dextrose 50% In Water (25gm) 50 Ml Syringe IV Q30MIN PRN Hypoglycemia Protocol Heparin Sodium (Porcine) 5,000 unit 06/18/21 14:00 06/19/21 05:34 Heparin 5,000 Unit/1 Ml Vial SUB-Q 5,000 unit Q8HR DEBORA Administration Sodium Chloride 1,000 mls @ 125 mls/hr 06/18/21 06:30 Nacl 0.9% 1000 Ml IV DIRECT DEBORA Ceftriaxone Sodium 1 gm in 50 mls @ 100 mls/hr 06/18/21 07:30 06/18/21 07:30 Rocephin/Ns 1 Gm/50 Ml IV 06/23/21 07:29 Not Given Q24H [facility] Protocol Insulin Human Lispro 0 unit 06/18/21 07:30 06/18/21 22:26 Insulin Lispro 100 Unit/Ml SUB-Q Not Given ACHS [facility] Protocol Magnesium Hydroxide 30 ml 06/18/21 06:25 Magnesium Hydroxide (Mom) Oral Liqd Udc PO Q4H PRN Constipation Morphine Sulfate 2 mg 06/18/21 06:25 Morphine 2 Mg/1 Ml Inj IV Q4H PRN Pain, Moderate (4-6) Morphine Sulfate 4 mg 06/18/21 06:25 Morphine 4 Mg/1 Ml Inj IV Q4H PRN Pain , Severe (7-10) Ondansetron HCl 4 mg 06/18/21 06:25 Ondansetron 4 Mg/2 Ml Inj IV Q8H PRN Nausea And Vomiting Sodium Chloride 10 ml 06/18/21 10:00 06/18/21 22:26 Sodium Chloride 0.9% 10 Ml Flush Syringe IV 10 ml BID DEBORA Administration Sodium Chloride 10 ml 06/18/21 06:25 Sodium Chloride 0.9% 10 Ml Flush Syringe IV PRN PRN LINE FLUSH Nutrition/Malnutrition Assess - Dietary Evaluation Nutrition/Malnutrition Findings: Nutrition Notes Start: 06/18/21 15 :35 Freq: Status: Active Protocol: Document 06/18/21 15:35 CHARY (Rec: 06/18/21 15:58 CHARY [id number]) Nutrition Notes Need for Assessment generated from: Education Initial or Follow up Assessment Current Diagnosis CKD(stage I-IV),Hypertension Other Pertinent Diagnosis Abdominal pain, nausea. Current Diet Cardiac/Consistent Carbohydrate Diet (since B ). Labs/Tests 06/18: Na 133, Cl 96.6, CO2 16 , BUN 94, Cr 12.1, Glu 131. Pertinent Medications 06/18: Nutritionally unremarkable. Height 5 ft 2 in Weight 92.986 kg [place] Body Weight (kg) 50.00 BMI 37.5 Weight Status Obese Percent of energy/protein needs met: Prescribed C/CC Diet provides with energy/protein needs ( 1977 Kcal/86 g) during LOS. Burn Absent Trauma Absent GI Symptoms None,Nausea Food Allergy No Skin Integrity/Comment Integumentary; clear, warm, dry. Minimum of two criteria No physical signs of malnutrition #1 Nutrition Diagnosis Food and nutrition-related knowledge deficit Comments: Pt could banefit from nutrition education material to elicit behavioral changes towards a healthy lifestyle. Etiology Concomitant chronic metabolic conditions As Evidenced by Signs and Symptoms Abnormal chemistry lab values, MD diagnosis. Is patient on ventilator? No Is Patient Ambulatory and/or Out of Bed Yes REE-(Maben-St. Jeor-ambulatory/OOB) [ 2019.043 [id number]] Kcal/Kg value to use for calculation 22 Approximate Energy Requirements Using 2045 kcal/Kg Calculation Used for Recommendations Kcal/kg Additional Notes Protein: 0.8-1.0 g/Kg/day; 40- 50 g/day; 160-200 Kcal/day ( fromIBW). Fluids: 1.0 ml/Kcal/day, or as oer MD. Nutrition Intervention Change Diet Order: Continue Cardiac/Consistent Carbohydrate Diet. Education Handouts Provided AND: Hypertension Nutrition Therapy, Chronic Kidney Disease Stage 3-5 Nutrition Therapy. Goal #1 Pt could benefit from nutrition education material to elicit behavioral changes towards a healthy lifestyle. Goal #2 Maintain body weight within +/ -3% of current BWt during LOS. Goal #3 Reach and maintain acceptable chemistry lab values during LOS. Follow-Up By: 06/25/21 Additional Comments Nutrition Education matrial will be provided when Pt is assigned to a room. Continue monitoring acceptance of food, % PO intake of meals , Hydration, and BM.
[2021-06-19] MEDS: INSULIN LISPRO 100 UNIT/ML SUB-Q SCH ×4 (08:41→22:18)
[2021-06-19] MEDS: cefTRIAXone/NS 1 GM/50 ML 1 GM/50 ML BAG IV SCH (09:12)
--- NOTE | 2021-06-19 10:06 | Progress Note ---
Assessment and Plan - Patient Problems (1) Acute kidney injury superimposed on chronic kidney disease Current Visit: No Status: Acute Plan to address problem: it seems that she has had at least baseline chronic kidney disease stage IIIb. Am concerned that findings this morning are indicative of a progressive renal disease process and that she has progressed towards stage V chronic kidney disease. If this is the case she may very well likely have to be initiated on hemodialysis during this admission. discussed with the patient in detail. given evidence of proteinuria and microscopic hematuria I will add protein to creatinine ratio along with further serologic workup for further investigation. Her UPC indicated >1g proteinuria. Pending ANCA, C3/C4, RAFAEL, dsDNA, SmithAb at this time. Her urine culture is indicative of gram (-) yamilet growth/UTI. Would recommend treatment of infection for at least 48 hours, prior to planning for kidney biopsy. She is not having symptoms overtly concerning for pyelonephritis, with only low grade fevers and mild abdominal pain. Tentatively plan for biopsy on Thursday or next week Thursday to allow for appropriate treatment of underlying UTI. She has no acute indications for initiating renal renal replacement therapy but we will be monitoring closely. Would recommend continuing on IVF hydration. (2) Abdominal pain Current Visit: Yes Status: Acute Plan to address problem: CT of the abdomen did not show any acute pathology. It did however show evidence of possible atypical pneumonia which could be leading to some of her aforementioned symptoms of abdominal discomfort, nausea. We will follow up closely. Also concerned whether her symptoms are more indicative of progressive kidney disease and underlying uremia. (3) Hypertensive chronic kidney disease with stage 1 through stage 4 chronic kidney disease, or unspecified chronic kidney disease Current Visit: Yes Status: Acute Plan to address problem: current blood pressures are more in the hypotensive range and would continue to monitor off of blood pressure medication at this time. (4) Type 2 diabetes mellitus with diabetic chronic kidney disease Current Visit: Yes Status: Chronic Plan to address problem: diabetes management per primary attending. (5) Urinary tract infection Current Visit: Yes Status: Acute Plan to address problem: Started on rocephin, to be dosed for her decreased renal function. Pending sensitivities. She is afebrile and non toxic appearing. Subjective Date of service: 06/19/21 Interval history: UA and reflect urine culture indicating presence of UTI and gram(-) yamilet. Started on rocephin. Renal function with no improvement noted. UPC indicating >1g proteinuria. Patient states that overall symptoms are stable, still with mild abdominal discomfort. Appetite still not back to baseline. Objective - Vital Signs Vital signs: Vital Signs - 12hr 06/18/21 06/19/21 06/19/21 22:58 01:55 04:55 Temperature 99.7 F H 99.0 F Pulse Rate 118 H 115 H Respiratory 20 20 20 Rate Blood Pressure 150/94 122/61 O2 Sat by Pulse 93 97 94 Oximetry - General Appearance General appearance: appears stated age, obese EENT: ATNC Neck: no JVD, no thyromegaly Respiratory: Present: Clear to Ascultation, Normal Exam Cardiology: regular, S1S2 Gastrointestinal: normal Integumentary: no rash, warm and dry Neurologic: no focal deficit, alert and oriented x3 Musculoskeletal: deferred Psychiatric: cooperative - Lab 06/19/21 05:00 06/19/21 05:00 Most recent lab results Calcium 8.0 mg/dL (8.4-10.2) L 06/19/21 05:00 Urine Creatinine 132.3 mg/dL (0.1-20.0) H 06/19/21 05:27 Urine Creatinine 132.5 mg/dL (0.1-20.0) H 06/19/21 05:27 Urine Sodium 26 mmol/L 06/19/21 05:27 Urine Total Protein 196 mg/dL (5-11.8) H 06/19/21 05:27 - Imaging Chest x-ray: pending - Allied health notes Allied health notes reviewed: nursing Medications & Allergies - Medications Allergies/Adverse Reactions: Allergies No Known Allergies Allergy (Verified 08/19/19 15:08) Home Medications: Home Medications Medication Instructions Recorded Confirmed Last Taken Type Pnv No.95/Ferrous Fum/Folic AC 1 each PO QDAY 04/10/17 12/31/19 12/30/19 10:30 History [ [place]] Famotidine [Pepcid] 20 mg PO DAILY #14 tablet 04/13/17 12/31/19 12/30/19 10:30 Rx hydrALAZINE [Apresoline TAB] 100 mg PO TID #90 tab 04/13/17 12/31/19 Unknown Rx Nitrofurantoin [place]/M-Cryst 100 mg PO Q12HR #14 capsule 08/19/19 12/31/19 Unknown Rx [Macrobid CAP] Aspirin BABY CHEW TAB 80 mg PO DAILY 12/31/19 12/31/19 12/30/19 10:30 History Enoxaparin 40 mg SUB-Q DAILY 12/31/19 12/31/19 12/30/19 10:30 History labetaloL [Labetalol 200mg TAB] 400 mg PO BID 12/31/19 12/31/19 12/30/19 10:30 History HYDROcodone/APAP 5-325 [[place] 1 - 2 each PO Q4HR PRN #30 tablet 01/05/20 Unknown Rx 5/325] Active Medications: Generic Name Dose Route Start Last Admin Trade Name Freq PRN Reason Stop Dose Admin Acetaminophen 650 mg 06/18/21 06:25 06/19/21 05:15 Acetaminophen 325 Mg Tab PO 650 mg Q4H PRN Administration Pain MILD(1-3)/Fever >100.5/ANDUJAR Dextrose 50 ml 06/18/21 06:25 Dextrose 50% In Water (25gm) 50 Ml Syringe IV Q30MIN PRN Hypoglycemia Protocol Heparin Sodium (Porcine) 5,000 unit 06/18/21 14:00 06/19/21 05:34 Heparin 5,000 Unit/1 Ml Vial SUB-Q 5,000 unit Q8HR DEBORA Administration Sodium Chloride 1,000 mls @ 125 mls/hr 06/18/21 06:30 Nacl 0.9% 1000 Ml IV DIRECT DEBORA Ceftriaxone Sodium 1 gm in 50 mls @ 100 mls/hr 06/18/21 07:30 06/19/21 09:12 Rocephin/Ns 1 Gm/50 Ml IV 06/23/21 07:29 100 mls/hr Q24H DEBORA Administration Protocol Insulin Human Lispro 0 unit 06/18/21 07:30 06/19/21 08:41 Insulin Lispro 100 Unit/Ml SUB-Q Not Given ACHS DEBORA Protocol Magnesium Hydroxide 30 ml 06/18/21 06:25 Magnesium Hydroxide (Mom) Oral Liqd Udc PO Q4H PRN Constipation Morphine Sulfate 2 mg 06/18/21 06:25 Morphine 2 Mg/1 Ml Inj IV Q4H PRN Pain, Moderate (4-6) Morphine Sulfate 4 mg 06/18/21 06:25 Morphine 4 Mg/1 Ml Inj IV Q4H PRN Pain , Severe (7-10) Ondansetron HCl 4 mg 06/18/21 06:25 Ondansetron 4 Mg/2 Ml Inj IV Q8H PRN Nausea And Vomiting Sodium Chloride 10 ml 06/18/21 10:00 06/19/21 09:12 Sodium Chloride 0.9% 10 Ml Flush Syringe IV 10 ml BID DEBORA Administration Sodium Chloride 10 ml 06/18/21 06:25 Sodium Chloride 0.9% 10 Ml Flush Syringe IV PRN PRN LINE FLUSH
[2021-06-20] MEDS: SODIUM CHLORIDE 0.9% 1000 ML 1,000 ML IV SCH (03:35)
[2021-06-20] MEDS: ACETAMINOPHEN 325 MG TAB PO PRN ×2 (05:45→23:31)
[2021-06-20] MEDS: HEPARIN 5,000 UNIT/1 ML VIAL SUB-Q SCH ×3 (05:45→23:30)
--- NOTE | 2021-06-20 07:17 | Progress Note ---
Assessment and Plan Assessment and plan: #Acute on chronic kidney injury -History of CKD stage IIIb -Lost to follow-up, concern for progression -proteinuria -SCr increased to 16 today -Nephrology following, plan for renal biopsy and possible HD while inpatient -rocephin prior to biopsy #Sepsis -Fever, tachycardia -continue rocephin -If continue, will order blood cultures and chest x-ray -unclear source #Abdominal pain -improved -CT scan negative for acute abnormalities #Type 2 Diabetes -patient euglycemic while inpatient -continue accuchecks for now #Hypertension -BP within goal while inpatient -will not resume medications #Asymptomatic bacteriuria -Urine culture grew [id number] E. coli sensitive to Rocephin -Plan for renal biopsy within the next few days -Continue Rocephin Disposition Plan: Continue medical management Total Time Spent with Patient (Minutes): 20 minutes History Interval history: No acute events overnight. Patient reports shortness of breath overnight. Currently resolved. Denies nausea or vomiting. Hospitalist Physical - Physical exam Narrative exam: GENERAL: Well-developed well-nourished. Lying in bed CHEST/LUNGS: CTAB on room air HEART/CARDIOVASCULAR: RRR. No murmur, rubs or gallops appreciated. ABDOMEN: +BS. NT/ND. EXTREMITIES: No cyanosis, clubbing or edema. PSYCH: Cooperative. - Constitutional Vitals: Temp Pulse Resp BP Pulse Ox 100.4 F H 120 H 18 162/90 90 06/20/21 04:07 06/20/21 04:07 06/20/21 04:07 06/20/21 04:07 06/20/21 04:07 General appearance: Present: no acute distress, well-nourished Results - Labs CBC & Chem 7: 06/20/21 08:27 06/20/21 08:27 Labs: Laboratory Last Values WBC 4.5 K/mm3 (4.5-11.0) 06/19/21 05:00 RBC 4.20 M/mm3 (3.65-5.03) 06/19/21 05:00 Hgb 12.5 gm/dl (10.1-14.3) 06/19/21 05:00 Hct 38.2 % (30.3-42.9) 06/19/21 05:00 MCV 91 fl (79-97) 06/19/21 05:00 MCH 30 pg (28-32) 06/19/21 05:00 MCHC 33 % (30-34) 06/19/21 05:00 RDW 15.0 % (13.2-15.2) 06/19/21 05:00 Plt Count 189 K/mm3 (140-440) 06/19/21 05:00 Lymph % (Auto) 17.1 % (13.4-35.0) 06/19/21 05:00 [place] % (Auto) 12.2 % (0.0-7.3) H 06/19/21 05:00 Eos % (Auto) 0.0 % (0.0-4.3) 06/19/21 05:00 Baso % (Auto) 0.2 % (0.0-1.8) 06/19/21 05:00 Lymph # (Auto) 0.8 K/mm3 (1.2-5.4) L 06/19/21 05:00 [place] # (Auto) 0.5 K/mm3 (0.0-0.8) 06/19/21 05:00 Eos # (Auto) 0.0 K/mm3 (0.0-0.4) 06/19/21 05:00 Baso # (Auto) 0.0 K/mm3 (0.0-0.1) 06/19/21 05:00 Seg Neutrophils % 70.5 % (40.0-70.0) H 06/19/21 05:00 Seg Neutrophils # 3.2 K/mm3 (1.8-7.7) 06/19/21 05:00 PT 14.4 Sec. (12.2-14.9) 06/19/21 05:00 INR 1.01 (0.87-1.13) 06/19/21 05:00 Sodium 135 mmol/L (137-145) L 06/19/21 05:00 Potassium 4.6 mmol/L (3.6-5.0) 06/19/21 05:00 Chloride 98.4 mmol/L (98-107) 06/19/21 05:00 Carbon Dioxide 14 mmol/L (22-30) L 06/19/21 05:00 Anion Gap 27 mmol/L 06/19/21 05:00 BUN 102 mg/dL (7-17) H 06/19/21 05:00 Creatinine 14.7 mg/dL (0.6-1.2) H 06/19/21 05:00 Estimated GFR 3 ml/min 06/19/21 05:00 BUN/Creatinine Ratio 7 % 06/19/21 05:00 Glucose 88 mg/dL (65-100) 06/19/21 05:00 POC Glucose 105 mg/dL (70-105) 06/19/21 21:27 Calcium 8.0 mg/dL (8.4-10.2) L 06/19/21 05:00 Total Bilirubin 0.30 mg/dL (0.1-1.2) 06/18/21 03:10 Direct Bilirubin < 0.2 mg/dL (0-0.2) 06/18/21 03:10 Indirect Bilirubin 0.1 mg/dL 06/18/21 03:10 AST 33 units/L (5-40) 06/18/21 03:10 ALT 19 units/L (7-56) 06/18/21 03:10 Alkaline Phosphatase 58 units/L (35-129) 06/18/21 03:10 Total Protein 6.9 g/dL (6.3-8.2) 06/18/21 03:10 Albumin 2.7 g/dL (3.9-5) L 06/18/21 03:10 Albumin/Globulin Ratio 0.6 % 06/18/21 03:10 Lipase 199 units/L (13-60) H 06/18/21 03:10 Urine Color Jessy (Yellow) 06/19/21 05:27 Urine Turbidity Cloudy (Clear) 06/19/21 05:27 Urine pH 5.0 (5.0-7.0) 06/19/21 05:27 Ur Specific [place] 1.025 (1.003-1.030) 06/19/21 05:27 Urine Protein >500 mg/dL (Negative) 06/19/21 05:27 Urine Glucose (UA) 50 mg/dL (Negative) 06/19/21 05:27 Urine Ketones Neg mg/dL (Negative) 06/19/21 05:27 Urine Blood Lg (Negative) 06/19/21 05:27 Urine Nitrite Neg (Negative) 06/19/21 05:27 Urine Bilirubin Neg (Negative) 06/19/21 05:27 Urine Urobilinogen < 2.0 mg/dL (<2.0) 06/19/21 05:27 Ur Leukocyte Esterase Mod (Negative) 06/19/21 05:27 Urine WBC (Auto) > 182.0 /HPF (0.0-6.0) H 06/19/21 05:27 Urine RBC (Auto) 35.0 /HPF (0.0-6.0) 06/19/21 05:27 U Epithel Cells (Auto) 1.0 /HPF (0-13.0) 06/19/21 05:27 Urine WBC Clumps 3+ /HPF 06/19/21 05:27 Urine Mucus Few /HPF 06/19/21 05:27 Urine Yeast (Budding) 3+ /HPF 06/18/21 04:55 Urine Creatinine 132.3 mg/dL (0.1-20.0) H 06/19/21 05:27 Urine Creatinine 132.5 mg/dL (0.1-20.0) H 06/19/21 05:27 Protein/Creatinin Ratio 1.48 06/19/21 05:27 Urine Sodium 26 mmol/L 06/19/21 05:27 Urine Chloride 25.9 mmolL (110-250) L 06/19/21 05:27 Urine Total Protein 196 mg/dL (5-11.8) H 06/19/21 05:27 Urine HCG, Qual Negative (Negative) 06/19/21 05:27 Microbiology: Microbiology 06/18/21 04:55 Urine,Clean Catch Urine Culture - Preliminary Gram Negative John Forman/IV: Voiding Method Toilet Active Medications - Current Medications Current Medications: Generic Name Dose Route Start Last Admin Trade Name Freq PRN Reason Stop Dose Admin Acetaminophen 650 mg 06/18/21 06:25 06/20/21 05:45 Acetaminophen 325 Mg Tab PO 650 mg Q4H PRN Administration Pain MILD(1-3)/Fever >100.5/ANDUJAR Dextrose 50 ml 06/18/21 06:25 Dextrose 50% In Water (25gm) 50 Ml Syringe IV Q30MIN PRN Hypoglycemia Protocol Heparin Sodium (Porcine) 5,000 unit 06/18/21 14:00 06/20/21 05:45 Heparin 5,000 Unit/1 Ml Vial SUB-Q 5,000 unit Q8HR DEBORA Administration Sodium Chloride 1,000 mls @ 125 mls/hr 06/18/21 06:30 06/20/21 03:35 Nacl 0.9% 1000 Ml IV 125 mls/hr DIRECT DEBORA Administration Ceftriaxone Sodium 1 gm in 50 mls @ 100 mls/hr 06/18/21 07:30 06/19/21 09:12 Rocephin/Ns 1 Gm/50 Ml IV 06/23/21 07:29 100 mls/hr Q24H DEBORA Administration Protocol Insulin Human Lispro 0 unit 06/18/21 07:30 06/19/21 22:18 Insulin Lispro 100 Unit/Ml SUB-Q Not Given ACHS DEBORA Protocol Magnesium Hydroxide 30 ml 06/18/21 06:25 Magnesium Hydroxide (Mom) Oral Liqd Udc PO Q4H PRN Constipation Morphine Sulfate 2 mg 06/18/21 06:25 Morphine 2 Mg/1 Ml Inj IV Q4H PRN Pain, Moderate (4-6) Morphine Sulfate 4 mg 06/18/21 06:25 Morphine 4 Mg/1 Ml Inj IV Q4H PRN Pain , Severe (7-10) Ondansetron HCl 4 mg 06/18/21 06:25 Ondansetron 4 Mg/2 Ml Inj IV Q8H PRN Nausea And Vomiting Sodium Chloride 10 ml 06/18/21 10:00 06/19/21 22:18 Sodium Chloride 0.9% 10 Ml Flush Syringe IV 10 ml BID DEBORA Administration Sodium Chloride 10 ml 06/18/21 06:25 Sodium Chloride 0.9% 10 Ml Flush Syringe IV PRN PRN LINE FLUSH Nutrition/Malnutrition Assess - Dietary Evaluation Nutrition/Malnutrition Findings: Nutrition Notes Start: 06/18/21 15:35 Freq: Status: Active Protocol: Document 06/19/21 14:16 CHARY (Rec: 06/19/21 14:26 CHARY [email or web address]) Nutrition Notes Need for Assessment generated from: service operator Initial or Follow up Assessment Current Diagnosis CKD(stage I-IV),Hypertension Other Pertinent Diagnosis Abdominal pain, nausea. Current Diet Cardiac/Consistent Carbohydrate Diet (since B ). Labs/Tests 06/19: Na 135, CO2 14, BUN 102 , Cr 14.7. Pertinent Medications 06/19: Nutritionally unremarkable. Height 5 ft 2 in Weight 92.99 kg [place] Body Weight (kg) 50.00 BMI 37.5 Weight Status Obese Percent of energy/protein needs met: Prescribed C/CC Diet provides with energy/protein needs (1, 977/86 g) during LOS. Burn Absent Trauma Absent GI Symptoms None Food Allergy No Skin Integrity/Comment Integumentary; clear, warm, dry. Current % PO Negligible Minimum of two criteria No physical signs of malnutrition #2 Nutrition Diagnosis No nutrition diagnosis at this time Comments: Pt shows no integumentary risk at the time. As per Progress Notes. #1 Nutrition Diagnosis Food and nutrition-related knowledge deficit Comments: Pt could banefit from nutrition education material to elicit behavioral changes towards a healthy lifestyle. Etiology Concomitant chronic metabolic conditions As Evidenced by Signs and Symptoms Abnormal chemistry lab values, MD diagnosis. Is patient on ventilator? No Is Patient Ambulatory and/or Out of Bed Yes REE[facility]) [ 2019.095 [id number]] Kcal/Kg value to use for calculation 22 Approximate Energy Requirements Using 2045 kcal/Kg Calculation Used for Recommendations Kcal/kg Additional Notes Protein: 0.8-1.0 g/Kg/day; 40- 50 g/day; 160-200 Kcal/day ( fromIBW). Fluids: 1.0 ml/Kcal/day, or as oer MD. Nutrition Intervention Change Diet Order: Continue Cardiac/Consistent Carbohydrate Diet. Teaching Recipient Patient Learning Readiness Good Teaching Methods Handout Response to Teaching Verbalize understanding Education Handouts Provided AND: Hypertension Nutrition Therapy, and Chronic Kidney Disease Stage 3-5 Nutrition Therapy. Barriers to Learning No Barriers RD phone number provided Yes Patient aware of follow up options Yes Goal #1 Pt could benefit from nutrition education material to elicit behavioral changes towards a healthy lifestyle. Goal #2 Maintain body weight within +/ -3% of current BWt during LOS. Goal #3 Reach and maintain acceptable chemistry lab values during LOS. Follow-Up By: 06/25/21 Additional Comments Continue monitoring acceptance of food, % PO intake of meals , Hydration, and BM.
[2021-06-20 09:02] LABS: Hematocrit 32.1 % (30.3-42.9); Hemoglobin 10.8 gm/dl (10.1-14.3); Mean Corpuscular HGB Conc 34 % (30-34); Mean Corpuscular Volume 90 fl (79-97); Platelet Count 180 K/mm3 (140-440); Red Blood Count 3.55 M/mm3 (3.65-5.03); Red Cell Distribution Width 15.2 % (13.2-15.2)
[2021-06-20 09:19] LABS: Calcium 7.5 mg/dL (8.4-10.2)
[2021-06-20] MEDS: INSULIN LISPRO 100 UNIT/ML SUB-Q SCH ×3 (10:14→18:04)
[2021-06-20] MEDS: cefTRIAXone/NS 1 GM/50 ML 1 GM/50 ML BAG IV SCH (10:17)
--- NOTE | 2021-06-20 15:40 | Progress Note ---
Assessment and Plan - Patient Problems (1) Acute kidney injury superimposed on chronic kidney disease Current Visit: No Status: Acute Plan to address problem: it seems that she has had at least baseline chronic kidney disease stage IIIb. Am concerned that findings this morning are indicative of a progressive renal disease process and that she has progressed towards stage V chronic kidney disease. If this is the case she may very well likely have to be initiated on hemodialysis during this admission. discussed with the patient in detail. given evidence of proteinuria and microscopic hematuria I will add protein to creatinine ratio along with further serologic workup for further investigation. Her UPC indicated >1g proteinuria. Pending ANCA, C3/C4, RAFAEL, dsDNA, SmithAb at this time. Her urine culture is indicative of gram (-) yamilet growth/UTI. Would recommend treatment of infection for at least 48 hours, prior to planning for kidney biopsy. She is not having symptoms overtly concerning for pyelonephritis, with only low grade fevers and mild abdominal pain. She is complaining of more nausea, poor appetite, likely as a consequence of ur emia secondary to worsening renal function. Will place consult to vascular surgery for permcath placement and will plan for HD initiation tomorrow. Will plan for renal biopsy on Thursday once stabilized on dialysis and antibiotic regimen for UTI. (2) Abdominal pain Current Visit: Yes Status: Acute Plan to address problem: CT of the abdomen did not show any acute pathology. It did however show evidence of possible atypical pneumonia which could be leading to some of her aforementioned symptoms of abdominal discomfort, nausea. We will follow up closely. Also concerned whether her symptoms are more indicative of progressive kidney disease and underlying uremia. (3) Hypertensive chronic kidney disease with stage 1 through stage 4 chronic kidney disease, or unspecified chronic kidney disease Current Visit: Yes Status: Acute Plan to address problem: current blood pressures are more in the hypotensive range and would continue to monitor off of blood pressure medication at this time. (4) Type 2 diabetes mellitus with diabetic chronic kidney disease Current Visit: Yes Status: Chronic Plan to address problem: diabetes management per primary attending. (5) Urinary tract infection Current Visit: Yes Status: Acute Plan to address problem: Started on rocephin, to be dosed for her decreased renal function. The sensitivities were reviewed. She did have febrile episode last night, but afebrile currently. Subjective Date of service: 06/20/21 Interval history: Worsening nausea and remains with poor appetite, concerning for uremia in sett ing of worsening renal function. Discussed with patient at length, and at this point, will plan to consult vascular surgery for permcath placement and initiation of HD while inpatient. Objective - Vital Signs Vital signs: Vital Signs - 12hr 06/20/21 06/20/21 04:07 13:00 Temperature 100.4 F H Pulse Rate 120 H Respiratory 18 Rate Blood Pressure 162/90 O2 Sat by Pulse 90 100 Oximetry - General Appearance General appearance: appears stated age, obese, fatigue EENT: ATNC Neck: no JVD Respiratory: Present: Clear to Ascultation Cardiology: regular Gastrointestinal: normal Integumentary: warm and dry Neurologic: no focal deficit, alert and oriented x3 Musculoskeletal: deferred Psychiatric: cooperative - Lab 06/20/21 08:27 06/20/21 08:27 Most recent lab results Calcium 7.5 mg/dL (8.4-10.2) L 06/20/21 08:27 Urine Creatinine 132.3 mg/dL (0.1-20.0) H 06/19/21 05:27 Urine Creatinine 132.5 mg/dL (0.1-20.0) H 06/19/21 05:27 Urine Sodium 26 mmol/L 06/19/21 05:27 Urine Total Protein 196 mg/dL (5-11.8) H 06/19/21 05:27 - Allied health notes Allied health notes reviewed: nursing Medications & Allergies - Medications Allergies/Adverse Reactions: Allergies No Known Allergies Allergy (Verified 08/19/19 15:08) Home Medications: Home Medications Medication Instructions Recorded Confirmed Last Taken Type Pnv No.95/Ferrous Fum/Folic AC 1 each PO QDAY 04/10/17 12/31/19 12/30/19 10:30 History [ [place]] Famotidine [Pepcid] 20 mg PO DAILY #14 tablet 04/13/17 12/31/19 12/30/19 10:30 Rx hydrALAZINE [Apresoline TAB] 100 mg PO TID #90 tab 04/13/17 12/31/19 Unknown Rx Nitrofurantoin [place]/M-Cryst 100 mg PO Q12HR #14 capsule 08/19/19 12/31/19 Unknown Rx [Macrobid CAP] Aspirin BABY CHEW TAB 80 mg PO DAILY 04/12/31/19 12/30/19 10:30 History Enoxaparin 40 mg SUB-Q DAILY 12/31/19 12/31/19 12/30/19 10:30 History labetaloL [Labetalol 200mg TAB] 400 mg PO BID 12/31/19 12/31/19 12/30/19 10:30 History HYDROcodone/APAP 5-325 [[place] 1 - 2 each PO Q4HR PRN #30 tablet 01/05/20 Unknown Rx 5/325] Active Medications: Generic Name Dose Route Start Last Admin Trade Name Freq PRN Reason Stop Dose Admin Acetaminophen 650 mg 06/18/21 06:25 06/20/21 05:45 Acetaminophen 325 Mg Tab PO 650 mg Q4H PRN Administration Pain MILD(1-3)/Fever >100.5/ANDUJAR Dextrose 50 ml 06/18/21 06:25 Dextrose 50% In Water (25gm) 50 Ml Syringe IV Q30MIN PRN Hypoglycemia Protocol Heparin Sodium (Porcine) 5,000 unit 06/18/21 14:00 06/20/21 05:45 Heparin 5,000 Unit/1 Ml Vial SUB-Q 5,000 unit Q8HR DEBORA Administration Sodium Chloride 1,000 mls @ 125 mls/hr 06/18/21 06:30 06/20/21 03:35 Nacl 0.9% 1000 Ml IV 125 mls/hr DIRECT DEBORA Administration Ceftriaxone Sodium 1 gm in 50 mls @ 100 mls/hr 06/18/21 07:30 06/20/21 10:17 Rocephin/Ns 1 Gm/50 Ml IV 06/23/21 07:29 100 mls/hr Q24H DEBORA Administration Protocol Insulin Human Lispro 0 unit 06/18/21 07:30 06/20/21 13:55 Insulin Lispro 100 Unit/Ml SUB-Q Not Given ACHS DEBORA Protocol Magnesium Hydroxide 30 ml 06/18/21 06:25 Magnesium Hydroxide (Mom) Oral Liqd Udc PO Q4H PRN Constipation Morphine Sulfate 2 mg 06/18/21 06:25 06/20/21 15:32 Morphine 2 Mg/1 Ml Inj IV 2 mg Q4H PRN Administration Pain, Moderate (4-6) Morphine Sulfate 4 mg 06/18/21 06:25 Morphine 4 Mg/1 Ml Inj IV Q4H PRN Pain , Severe (7-10) Ondansetron HCl 4 mg 06/18/21 06:25 Ondansetron 4 Mg/2 Ml Inj IV Q8H PRN Nausea And Vomiting Sodium Chloride 10 ml 06/18/21 10:00 06/20/21 10:18 Sodium Chloride 0.9% 10 Ml Flush Syringe IV 10 ml BID DEBORA Administration Sodium Chloride 10 ml 06/18/21 06:25 Sodium Chloride 0.9% 10 Ml Flush Syringe IV PRN PRN LINE FLUSH
[2021-06-21 05:18] LABS: Hepatitis C Virus Antibody Non-Reactive (NonReactive)
[2021-06-21 06:13] LABS: Hepatitis B Surface Antigen Nonreactive (Negative)
[2021-06-21] MEDS: HEPARIN 5,000 UNIT/1 ML VIAL SUB-Q SCH ×4 (06:26→23:00)
[2021-06-21] MEDS: INSULIN LISPRO 100 UNIT/ML SUB-Q SCH ×4 (06:33→22:00)
--- NOTE | 2021-06-21 07:30 | Progress Note ---
Assessment and Plan Assessment and plan: #Acute on chronic kidney injury -History of CKD stage IIIb -Lost to follow-up, concern for progression -proteinuria -SCr increased to 18 today -Nephrology following, plan for renal biopsy Thursday -permacath placement today and HD initiation -continue rocephin prior to biopsy #Sepsis -Fever, tachycardia -continue rocephin -blood cultures ordered -unclear source #Abdominal pain -resolved, likely 2/2 to renal failure -CT scan negative for acute abnormalities #Type 2 Diabetes -patient euglycemic while inpatient -continue accuchecks for now #Hypertension -BP within goal while inpatient -will continue to -if persistently elevated, will start antihypertensives #Asymptomatic bacteriuria -Urine culture grew [id number] E. coli sensitive to Rocephin -Plan for renal biopsy 06/24 -Continue Rocephin Disposition Plan: Continue medical management Total Time Spent with Patient (Minutes): 30 minutes History Interval history: No acute events overnight. Patient nervous about HD. Has no complaints at this time. Hospitalist Physical - Physical exam Narrative exam: GENERAL: Well-developed well-nourished. Lying in bed CHEST/LUNGS: CTAB on room air HEART/CARDIOVASCULAR: RRR. No murmur, rubs or gallops appreciated. ABDOMEN: +BS. NT/ND. EXTREMITIES: No cyanosis, clubbing or edema. PSYCH: Cooperative. - Constitutional Vitals: Temp Pulse Resp BP Pulse Ox 98.8 F 119 H 18 140/64 100 06/21/21 05:00 06/21/21 05:00 06/21/21 05:00 06/21/21 05:00 06/21/21 01:00 General appearance: Present: no acute distress, well-nourished Results - Labs CBC & Chem 7: 06/20/21 08:27 06/21/21 10:47 Labs: Laboratory Last Values WBC 3.7 K/mm3 (4.5-11.0) L 06/20/21 08:27 RBC 3.55 M/mm3 (3.65-5.03) L 06/20/21 08:27 Hgb 10.8 gm/dl (10.1-14.3) 06/20/21 08:27 Hct 32.1 % (30.3-42.9) D 06/20/21 08:27 MCV 90 fl (79-97) 06/20/21 08:27 MCH 31 pg (28-32) 06/20/21 08:27 MCHC 34 % (30-34) 06/20/21 08:27 RDW 15.2 % (13.2-15.2) 06/20/21 08:27 Plt Count 180 K/mm3 (140-440) 06/20/21 08:27 Lymph % (Auto) 17.1 % (13.4-35.0) 06/19/21 05:00 [place] % (Auto) 12.2 % (0.0-7.3) H 06/19/21 05:00 Eos % (Auto) 0.0 % (0.0-4.3) 06/19/21 05:00 Baso % (Auto) 0.2 % (0.0-1.8) 06/19/21 05:00 Lymph # (Auto) 0.8 K/mm3 (1.2-5.4) L 06/19/21 05:00 [place] # (Auto) 0.5 K/mm3 (0.0-0.8) 06/19/21 05:00 Eos # (Auto) 0.0 K/mm3 (0.0-0.4) 06/19/21 05:00 Baso # (Auto) 0.0 K/mm3 (0.0-0.1) 06/19/21 05:00 Seg Neutrophils % 70.5 % (40.0-70.0) H 06/19/21 05:00 Seg Neutrophils # 3.2 K/mm3 (1.8-7.7) 06/19/21 05:00 PT 14.4 Sec. (12.2-14.9) 06/19/21 05:00 INR 1.01 (0.87-1.13) 06/19/21 05:00 Sodium 133 mmol/L (137-145) L 06/20/21 08:27 Potassium 4.3 mmol/L (3.6-5.0) 06/20/21 08:27 Chloride 97.8 mmol/L (98-107) L 06/20/21 08:27 Carbon Dioxide 12 mmol/L (22-30) L 06/20/21 08:27 Anion Gap 28 mmol/L 06/20/21 08:27 BUN 112 mg/dL (7-17) H 06/20/21 08:27 Creatinine 16.8 mg/dL (0.6-1.2) H 06/20/21 08:27 Estimated GFR 3 ml/min 06/20/21 08:27 BUN/Creatinine Ratio 7 % 06/20/21 08:27 Glucose 88 mg/dL (65-100) 06/20/21 08:27 POC Glucose 100 mg/dL (70-105) 06/20/21 23:29 Calcium 7.5 mg/dL (8.4-10.2) L 06/20/21 08:27 Total Bilirubin 0.30 mg/dL (0.1-1.2) 06/18/21 03:10 Direct Bilirubin < 0.2 mg/dL (0-0.2) 06/18/21 03:10 Indirect Bilirubin 0.1 mg/dL 06/18/21 03:10 AST 33 units/L (5-40) 06/18/21 03:10 ALT 19 units/L (7-56) 06/18/21 03:10 Alkaline Phosphatase 58 units/L (35-129) 06/18/21 03:10 Total Protein 6.9 g/dL (6.3-8.2) 06/18/21 03:10 Albumin 2.7 g/dL (3.9-5) L 06/18/21 03:10 Albumin/Globulin Ratio 0.6 % 06/18/21 03:10 Lipase 199 units/L (13-60) H 06/18/21 03:10 Urine Color Jessy (Yellow) 06/19/21 05:27 Urine Turbidity Cloudy (Clear) 06/19/21 05:27 Urine pH 5.0 (5.0-7.0) 06/19/21 05:27 Ur Specific [place] 1.025 (1.003-1.030) 06/19/21 05:27 Urine Protein >500 mg/dL (Negative) 06/19/21 05:27 Urine Glucose (UA) 50 mg/dL (Negative) 06/19/21 05:27 Urine Ketones Neg mg/dL (Negative) 06/19/21 05:27 Urine Blood Lg (Negative) 06/19/21 05:27 Urine Nitrite Neg (Negative) 06/19/21 05:27 Urine Bilirubin Neg (Negative) 06/19/21 05:27 Urine Urobilinogen < 2.0 mg/dL (<2.0) 06/19/21 05:27 Ur Leukocyte Esterase Mod (Negative) 06/19/21 05:27 Urine WBC (Auto) > 182.0 /HPF (0.0-6.0) H 06/19/21 05:27 Urine RBC (Auto) 35.0 /HPF (0.0-6.0) 06/19/21 05:27 U Epithel Cells (Auto) 1.0 /HPF (0-13.0) 06/19/21 05:27 Urine WBC Clumps 3+ /HPF 06/19/21 05:27 Urine Mucus Few /HPF 06/19/21 05:27 Urine Yeast (Budding) 3+ /HPF 06/18/21 04:55 Urine Creatinine 132.3 mg/dL (0.1-20.0) H 06/19/21 05:27 Urine Creatinine 132.5 mg/dL (0.1-20.0) H 06/19/21 05:27 Protein/Creatinin Ratio 1.48 06/19/21 05:27 Urine Sodium 26 mmol/L 06/19/21 05:27 Urine Chloride 25.9 mmolL (110-250) L 06/19/21 05:27 Urine Total Protein 196 mg/dL (5-11.8) H 06/19/21 05:27 Urine HCG, Qual Negative (Negative) 06/19/21 05:27 Hepatitis A IgM Ab Non-reactive (NonReactive) 06/21/21 04:20 Hep Bs Antigen Nonreactive (Negative) 06/21/21 04:20 Hep B Core IgM Ab Non-reactive (NonReactive) 06/21/21 04:20 Hepatitis C Antibody Non-reactive (NonReactive) 06/21/21 04:20 Microbiology: Microbiology 06/18/21 04:55 Urine,Clean Catch Urine Culture - Final Escherichia Coli Forman/IV: Voiding Method Toilet Active Medications - Current Medications Current Medications: Generic Name Dose Route Start Last Admin Trade Name Freq PRN Reason Stop Dose Admin Acetaminophen 650 mg 06/18/21 06:25 06/20/21 23:31 Acetaminophen 325 Mg Tab PO 650 mg Q4H PRN Administration Pain MILD(1-3)/Fever >100.5/ANDUJAR Dextrose 50 ml 06/18/21 06:25 Dextrose 50% In Water (25gm) 50 Ml Syringe IV Q30MIN PRN Hypoglycemia Protocol Heparin Sodium (Porcine) 5,000 unit 06/18/21 14:00 06/21/21 06:30 Heparin 5,000 Unit/1 Ml Vial SUB-Q Not Given Q8HR DEBORA Sodium Chloride 1,000 mls @ 125 mls/hr 06/18/21 06:30 06/20/21 03:35 Nacl 0.9% 1000 Ml IV 125 mls/hr DIRECT DEBORA Administration Ceftriaxone Sodium 1 gm in 50 mls @ 100 mls/hr 06/18/21 07:30 06/20/21 10:17 Rocephin/Ns 1 Gm/50 Ml IV 06/23/21 07:29 100 mls/hr Q24H DEBORA Administration Protocol Insulin Human Lispro 0 unit 06/18/21 07:30 06/21/21 06:33 Insulin Lispro 100 Unit/Ml SUB-Q Not Given ACHS DEBORA Protocol Magnesium Hydroxide 30 ml 06/18/21 06:25 Magnesium Hydroxide (Mom) Oral Liqd Udc PO Q4H PRN Constipation Morphine Sulfate 2 mg 06/18/21 06:25 06/20/21 15:32 Morphine 2 Mg/1 Ml Inj IV 2 mg Q4H PRN Administration Pain, Moderate (4-6) Morphine Sulfate 4 mg 06/18/21 06:25 Morphine 4 Mg/1 Ml Inj IV Q4H PRN Pain , Severe (7-10) Ondansetron HCl 4 mg 06/18/21 06:25 Ondansetron 4 Mg/2 Ml Inj IV Q8H PRN Nausea And Vomiting Sodium Chloride 10 ml 06/18/21 10:00 06/20/21 23:30 Sodium Chloride 0.9% 10 Ml Flush Syringe IV 10 ml BID DEBORA Administration Sodium Chloride 10 ml 06/18/21 06:25 Sodium Chloride 0.9% 10 Ml Flush Syringe IV PRN PRN LINE FLUSH Nutrition/Malnutrition Assess - Dietary Evaluation Nutrition/Malnutrition Findings: Nutrition Notes Start: 06/18/21 15:35 Freq: Status: Active Protocol: Document 06/19/21 14:16 CHARY (Rec: 06/19/21 14:26 CHARY [id number]) Nutrition Notes 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 Current Diet Cardiac/Consistent Carbohydrate Diet (since B ). Labs/Tests 06/19: Na 135, CO2 14, BUN 102 , Cr 14.7. Pertinent Medications 06/19: Nutritionally unremarkable. Height 5 ft 2 in Weight 92.99 kg [place] Body Weight (kg) 50.00 BMI 37.5 Weight Status Obese Percent of energy/protein needs met: Prescribed C/CC Diet provides with energy/protein needs (1, 977/86 g) during LOS. Burn Absent Trauma Absent GI Symptoms None Food Allergy No Skin Integrity/Comment Integumentary; clear, warm, dry. Current % PO Negligible Minimum of two criteria No physical signs of malnutrition #2 Nutrition Diagnosis No nutrition diagnosis at this time Comments: Pt shows no integumentary risk at the time. As per Progress Notes. #1 Nutrition Diagnosis Food and nutrition-related knowledge deficit Comments: Pt could banefit from nutrition education material to elicit behavioral changes towards a healthy lifestyle. Etiology Concomitant chronic metabolic conditions As Evidenced by Signs and Symptoms Abnormal chemistry lab values, MD diagnosis. Is patient on ventilator? No Is Patient Ambulatory and/or Out of Bed Yes REE-(Jamison-St. Jeor-ambulatory/OOB) [ 2019.095 NUTR.[id number]] Kcal/Kg value to use for calculation 22 Approximate Energy Requirements Using 2045 kcal/Kg Calculation Used for Recommendations Kcal/kg Additional Notes Protein: 0.8-1.0 g/Kg/day; 40- 50 g/day; 160-200 Kcal/day ( fromIBW). Fluids: 1.0 ml/Kcal/day, or as oer MD. Nutrition Intervention Change Diet Order: Continue Cardiac/Consistent Carbohydrate Diet. Teaching Recipient Patient Learning Readiness Good Teaching Methods Handout Response to Teaching Verbalize understanding Education Handouts Provided AND: Hypertension Nutrition Therapy, and Chronic Kidney Disease Stage 3-5 Nutrition Therapy. Barriers to Learning No Barriers RD phone number provided Yes Patient aware of follow up options Yes Goal #1 Pt could benefit from nutrition education material to elicit behavioral changes towards a healthy lifestyle. Goal #2 Maintain body weight within +/ -3% of current BWt during LOS. Goal #3 Reach and maintain acceptable chemistry lab values during LOS. Follow-Up By: 06/25/21 Additional Comments Continue monitoring acceptance of food, % PO intake of meals , Hydration, and BM.
[2021-06-21] MEDS: SODIUM CHLORIDE 0.9% 1000 ML 1,000 ML IV SCH (07:45)
[2021-06-21] MEDS: cefTRIAXone/NS 1 GM/50 ML 1 GM/50 ML BAG IV SCH (08:27)
[2021-06-21 11:49] LABS: Calcium 8.4 mg/dL (8.4-10.2)
[2021-06-21] MEDS ORDERED: SODIUM CHLORIDE 0.9% 100 ML ONE (12:31)
[2021-06-21] MEDS ORDERED: HEPARIN/NS 5000 UNIT/500ML 500 ML IR ONE (12:31)
[2021-06-21] MEDS ORDERED: LIDOCAINE (2%) 20 MG/1 ML VIAL 20 ML MDV INFILTRATI ONE ×5 (12:32→13:16)
[2021-06-21 13:02] LABS: ANA Screen, IFA Negative (Negative)
[2021-06-21] MEDS ORDERED: HEPARIN 10,000 UNITS/10 ML VIAL IV ONE ×2 (13:02→13:24)
--- NOTE | 2021-06-21 13:07 | Consultation ---
History of Present Illness - Reason for Consult Consult date: 06/21/21 Permacath Insertion Requesting physician: TONNY SANCHEZ - History of Present Illness The patient is a 41-year-old female with history of stage III renal insufficiency that was first diagnosed approximately 5 years ago. She presented to the emergency department with complaints of worsening right flank pain that have been going on for approximately 1 week. She also complains of a nonproductive cough. Her labs upon admission revealed that she had progressed to end-stage renal disease and requires the initiation of hemodialysis. She has no additional complaints at this time. Past History Past Medical History: diabetes, DVT, hypertension, renal failure Past Surgical History: No surgical history Social history: no significant social history Family history: CAD, hypertension Medications and Allergies Allergies Allergy/AdvReac Type Severity Reaction Status Date / Time No Known Allergies Allergy Verified 08/19/19 15:08 Home Medications Medication Instructions Recorded Confirmed Last Taken Type Pnv No.95/Ferrous Fum/Folic AC 1 each PO QDAY 04/10/17 12/31/19 12/30/19 10:30 History [ Caplet] Famotidine [Pepcid] 20 mg PO DAILY #14 tablet 04/13/17 12/31/19 12/30/19 10:30 Rx hydrALAZINE [Apresoline TAB] 100 mg PO TID #90 tab 04/13/17 12/31/19 Unknown Rx Nitrofurantoin [place]/M-Cryst 100 mg PO Q12HR #14 capsule 08/19/19 12/31/19 Unknown Rx [Macrobid CAP] Aspirin BABY CHEW TAB 80 mg PO DAILY 12/31/19 12/31/19 12/30/19 10:30 History Enoxaparin 40 mg SUB-Q DAILY 12/31/19 12/31/19 12/30/19 10:30 History labetaloL [Labetalol 200mg TAB] 400 mg PO BID 12/31/19 12/31/19 12/30/19 10:30 History HYDROcodone/APAP 5-325 [[place] 1 - 2 each PO Q4HR PRN #30 tablet 01/05/20 Unknown Rx 5/325] Active Meds: Active Medications Acetaminophen (Acetaminophen 325 Mg Tab) 650 mg PO Q4H PRN PRN Reason: Pain MILD(1-3)/Fever >100.5/ANDUJAR Last Admin: 06/20/21 23:31 Dose: 650 mg Documented by: Dextrose (Dextrose 50% In Water (25gm) 50 Ml Syringe) 50 ml IV Q30MIN PRN; Protocol PRN Reason: Hypoglycemia Heparin Sodium (Porcine) (Heparin 5,000 Unit/1 Ml Vial) 5,000 unit SUB-Q Q8HR DEBORA Last Admin: 06/21/21 06:30 Dose: Not Given Documented by: Sodium Chloride (Nacl 0.9% 1000 Ml) 1,000 mls @ 125 mls/hr IV DIRECT DEBORA Last Admin: 06/21/21 07:45 Dose: 125 mls/hr Documented by: Ceftriaxone Sodium (Rocephin/Ns 1 Gm/50 Ml) 1 gm in 50 mls @ 100 mls/hr IV Q24H DEBORA; Protocol Stop: 06/23/21 07:29 Last Admin: 06/21/21 08:27 Dose: 100 mls/hr Documented by: Insulin Human Lispro (Insulin Lispro 100 Unit/Ml) 0 unit SUB-Q ACHS DEBORA; Protocol Last Admin: 06/21/21 08:24 Dose: Not Given Documented by: Magnesium Hydroxide (Magnesium Hydroxide (Mom) Oral Liqd Udc) 30 ml PO Q4H PRN PRN Reason: Constipation Morphine Sulfate (Morphine 2 Mg/1 Ml Inj) 2 mg IV Q4H PRN PRN Reason: Pain, Moderate (4-6) Last Admin: 06/20/21 15:32 Dose: 2 mg Documented by: Morphine Sulfate (Morphine 4 Mg/1 Ml Inj) 4 mg IV Q4H PRN PRN Reason: Pain , Severe (7-10) Ondansetron HCl (Ondansetron 4 Mg/2 Ml Inj) 4 mg IV Q8H PRN PRN Reason: Nausea And Vomiting Sodium Chloride (Sodium Chloride 0.9% 10 Ml Flush Syringe) 10 ml IV BID COUNT INCLUDES THE [facility] Last Admin: 06/21/21 10:11 Dose: 10 ml Documented by: Sodium Chloride (Sodium Chloride 0.9% 10 Ml Flush Syringe) 10 ml IV PRN PRN PRN Reason: LINE FLUSH Review of Systems All systems: negative Exam - Constitutional Vitals: Temp Pulse Resp BP Pulse Ox 98.8 F 119 H 18 140/64 100 06/21/21 05:00 06/21/21 05:00 06/21/21 05:00 06/21/21 05:00 06/21/21 01:00 General appearance: Present: no acute distress - Respiratory Respiratory effort: other (Slightly labored) - Cardiovascular Rhythm: regular (With tachycardia) - Extremities Extremities: pulses intact - Abdominal General gastrointestinal: Present: soft, non-distended Female genitourinary: Present: deferred - Rectal Rectal Exam: deferred Results - Labs CBC & Chem 7: 06/20/21 08:27 06/21/21 10:47 Labs: Abnormal lab results 06/18/21 06/21/21 Range/Units 13:49 10:47 Carbon Dioxide 11 L (22-30) mmol/L BUN 125 H (7-17) mg/dL Creatinine 18.5 H (0.6-1.2) mg/dL Glucose 109 H (65-100) mg/dL Complement C4 70 H (15-57) mg/dL Assessment and Plan The patient is a 41-year-old female with a history of chronic renal sufficiency who presented with worsening of her renal failure and now in need of hem odialysis. She will require a permacath for the initiation of hemodialysis. She has been given the risk, benefits, and alternative procedures and has consented to the procedure.
--- NOTE | 2021-06-21 13:44 | Operative Report ---
Operative Report Operative Report: Date of procedure: 06/21/2021 Pre-operative diagnosis: Acute on Chronic Renal Failure Post-operative diagnosis: Same Procedure(s): 1. Ultrasound-Guided Access Right Internal Vein 2. Placement of 23 cm GlidePath Permacath 3. Radiologic Supervision with Interpretation Surgeon: Joey Arce MD Supervisor Model Making: None Anesthesia: Local/Monitored Moderate Sedation EBL: Minimal Counts: Correct Complications: None Condition: Stable Findings: Successful placement of right IJ permacath with the distal tip in the right atrium and no evidence of pneumothorax at the completion of the case. Specimen: None Indication: The patient is a 41-year-old female with a history of chronic renal insuffic iency who presented to the emergency department with complaints of back pain and was found to have progressed to end-stage renal disease and the need for initiation of hemodialysis. She will will require a permacath for dialysis. She was given the risk, benefits, and alternative procedures and consented to the procedure. Description of Procedure: The patient was brought to the r&d lab technician and laid in supine position and the right neck and chest were prepped and draped in normal sterile fashion. Ultrasound was used to identify the right internal jugular vein and the overlying skin and soft tissue was anesthetized with lidocaine. An 11 blade was used to make a small stab incision and a 21-gauge micropuncture needle was used with ultrasound guidance to enter the right internal jugular vein. A 0.018 micropuncture wire was advanced into the inferior vena cava under fluoroscopy and after removing the needle the micropuncture sheath was advanced into the internal jugular vein by Seldinger technique. The wire and inner cannula were removed and a 0.035 J-wire was advanced into the inferior vena cava under direct fluoroscopic visualization. The tract was serially dilated up to a 16 [place] peel-away safety sheath. An exit site on the chest was then chosen and the presumed tunnel was anesthetized with lidocaine. A small stab incision was made on the chest and then the permacath was connected to the tunneler and pulled antegrade through the tunnel. The J-wire and inner cannula were remove from the SafeSheath and the catheter was inserted into the safe sheath. The safe sheath was then peeled away while advancing the catheter. The catheter was positioned under fluoroscopy with the distal tip in the right atrium. Once in adequate position, both ports were aspirated, flushed, and primed with the appropriate amount of heparin. The neck incision was then closed with 4-0 Monocryl in interrupted subcuticular fashion and dressed with Dermabond. The permacath was secured in place with a 2-0 Ethilon in interrupted fashion and dressed with a sterile dressing. Final fluoroscopy demonstrated the catheter was in adequate position with the distal tip in the right atrium and no evidence of pneumothorax. The patient tolerated the procedure well. All sponge, needle, and instrument counts were correct. The patient was taken to recovery in stable condition.
--- NOTE | 2021-06-21 14:52 | Progress Note ---
Assessment and Plan - Patient Problems (1) Acute kidney injury superimposed on chronic kidney disease Current Visit: No Status: Acute Plan to address problem: it seems that she has had at least baseline chronic kidney disease stage IIIb. Am concerned that findings this morning are indicative of a progressive renal disease process and that she has progressed towards stage V chronic kidney disease. If this is the case she may very well likely have to be initiated on hemodialysis during this admission. discussed with the patient in detail. given evidence of proteinuria and microscopic hematuria I will add protein to creatinine ratio along with further serologic workup for further investigation. Her UPC indicated >1g proteinuria. Pending ANCA, C3/C4, RAFAEL, dsDNA, SmithAb at this time. Her urine culture is indicative of gram (-) yamilet growth/UTI. Would recommend treatment of infection for at least 48 hours, prior to planning for kidney biopsy. She is not having symptoms overtly concerning for pyelonephritis, with only low grade fevers and mild abdominal pain. She is complaining of more nausea, poor appetite, likely as a consequence of ur emia secondary to worsening renal function. plan for PermCath placement today and initiation of dialysis afterwards. Will plan for renal biopsy on Thursday once stabilized on dialysis and antibiotic regimen for UTI. (2) Abdominal pain Current Visit: Yes Status: Acute Plan to address problem: CT of the abdomen did not show any acute pathology. It did however show evidence of possible atypical pneumonia which could be leading to some of her aforementioned symptoms of abdominal discomfort, nausea. We will follow up closely. Also concerned whether her symptoms are more indicative of progressive kidney disease and underlying uremia. (3) Hypertensive chronic kidney disease with stage 1 through stage 4 chronic kidney disease, or unspecified chronic kidney disease Current Visit: Yes Status: Acute Plan to address problem: current blood pressures are more in the hypotensive range and would continue to monitor off of blood pressure medication at this time. (4) Type 2 diabetes mellitus with diabetic chronic kidney disease Current Visit: Yes Status: Chronic Plan to address problem: diabetes management per primary attending. (5) Urinary tract infection Current Visit: Yes Status: Acute Plan to address problem: Started on rocephin, to be dosed for her decreased renal function. The sensitivities were reviewed. She did have febrile episode last night, but afebrile currently. Subjective Date of service: 06/21/21 Interval history: seen earlier today. Plan for PermCath placement and initiation of dialysis. Orders placed discussed with dialysis staff this morning. Objective - Vital Signs Vital signs: Vital Signs - 12hr 06/21/21 05:00 Temperature 98.8 F Pulse Rate 119 H Respiratory 18 Rate Blood Pressure 140/64 [Right] - General Appearance General appearance: appears stated age, obese EENT: ATNC Neck: no JVD, no thyromegaly Respiratory: Present: Decreased Breath Sounds Cardiology: regular Gastrointestinal: normal Integumentary: warm and dry Neurologic: no focal deficit Psychiatric: cooperative - Lab 06/20/21 08:27 06/21/21 10:47 Most recent lab results Calcium 8.4 mg/dL (8.4-10.2) 06/21/21 10:47 Urine Creatinine 132.3 mg/dL (0.1-20.0) H 06/19/21 05:27 Urine Creatinine 132.5 mg/dL (0.1-20.0) H 06/19/21 05:27 Urine Sodium 26 mmol/L 06/19/21 05:27 Urine Total Protein 196 mg/dL (5-11.8) H 06/19/21 05:27 Medications & Allergies - Medications Allergies/Adverse Reactions: Allergies No Known Allergies Allergy (Verified 08/19/19 15:08) Home Medications: Home Medications Medication Instructions Recorded Confirmed Last Taken Type Pnv No.95/Ferrous Fum/Folic AC 1 each PO QDAY 04/10/17 12/31/19 12/30/19 10:30 History [ Caplet] Famotidine [Pepcid] 20 mg PO DAILY #14 tablet 04/13/17 12/31/19 12/30/19 10:30 Rx hydrALAZINE [Apresoline TAB] 100 mg PO TID #90 tab 04/13/17 12/31/19 Unknown Rx Nitrofurantoin [place]/M-Cryst 100 mg PO Q12HR #14 capsule 08/19/19 12/31/19 Unknown Rx [Macrobid CAP] Aspirin BABY CHEW TAB 80 mg PO DAILY 12/31/19 12/31/19 12/30/19 10:30 History Enoxaparin 40 mg SUB-Q DAILY 12/31/19 12/31/19 12/30/19 10:30 History labetaloL [Labetalol 200mg TAB] 400 mg PO BID 12/31/19 12/31/19 12/30/19 10:30 History HYDROcodone/APAP 5-325 [[place] 1 - 2 each PO Q4HR PRN #30 tablet 01/05/20 Unknown Rx 5/325] Active Medications: Generic Name Dose Route Start Last Admin Trade Name Freq PRN Reason Stop Dose Admin Acetaminophen 650 mg 06/18/21 06:25 06/20/21 23:31 Acetaminophen 325 Mg Tab PO 650 mg Q4H PRN Administration Pain MILD(1-3)/Fever >100.5/ANDUJAR Dextrose 50 ml 06/18/21 06:25 Dextrose 50% In Water (25gm) 50 Ml Syringe IV Q30MIN PRN Hypoglycemia Protocol Heparin Sodium (Porcine) 5,000 unit 06/18/21 14:00 06/21/21 06:30 Heparin 5,000 Unit/1 Ml Vial SUB-Q Not Given Q8HR DEBORA Sodium Chloride 1,000 mls @ 125 mls/hr 06/18/21 06:30 06/21/21 07:45 Nacl 0.9% 1000 Ml IV 125 mls/hr DIRECT DEBORA Administration Ceftriaxone Sodium 1 gm in 50 mls @ 100 mls/hr 06/18/21 07:30 06/21/21 08:27 Rocephin/Ns 1 Gm/50 Ml IV 06/23/21 07:29 100 mls/hr Q24H DEBORA Administration Protocol Insulin Human Lispro 0 unit 06/18/21 07:30 06/21/21 08:24 Insulin Lispro 100 Unit/Ml SUB-Q Not Given ACHS DEBORA Protocol Magnesium Hydroxide 30 ml 06/18/21 06:25 Magnesium Hydroxide (Mom) Oral Liqd Udc PO Q4H PRN Constipation Morphine Sulfate 2 mg 06/18/21 06:25 06/20/21 15:32 Morphine 2 Mg/1 Ml Inj IV 2 mg Q4H PRN Administration Pain, Moderate (4-6) Morphine Sulfate 4 mg 06/18/21 06:25 Morphine 4 Mg/1 Ml Inj IV Q4H PRN Pain , Severe (7-10) Ondansetron HCl 4 mg 06/18/21 06:25 Ondansetron 4 Mg/2 Ml Inj IV Q8H PRN Nausea And Vomiting Sodium Chloride 10 ml 06/18/21 10:00 06/21/21 10:11 Sodium Chloride 0.9% 10 Ml Flush Syringe IV 10 ml BID DEBORA Administration Sodium Chloride 10 ml 06/18/21 06:25 Sodium Chloride 0.9% 10 Ml Flush Syringe IV PRN PRN LINE FLUSH
[2021-06-21] MEDS ORDERED: hydrALAZINE 20 MG/1 ML INJ ONE (16:58)
[2021-06-21] MEDS ORDERED: hydrALAZINE 20 MG/1 ML INJ IV ONE (17:00)
--- NOTE | 2021-06-21 17:03 | Event Note ---
Date: 06/21/21 A code met was called. I presented to the patient's bedside. Patient seen and evaluated by me. Patient found to have acute hypoxemic respiratory failure suspected secondary to pneumonia secondary to coronavirus infection. COVID-19 protocol initiated. Patient placed on supplemental oxygen via nonrebreather mask and admitted to IMCU. Patient treated with empiric dose of vancomycin as well as initiated on pneumonia protocol. 35 minutes dedicated to patient care time and coordination of care.
[2021-06-21] MEDS ORDERED: VANCOMYCIN/NS 1 GM/250 ML 1 GM/250 ML BAG IV ONE (17:07)
[2021-06-21 17:54] LABS: ABG Base Excess -3.9 mmol/L (-2.0-3.0); ABG Methemoglobin 0.5 % (0.0-1.5); ABG PCO2 24.1 mm Hg; ABG PH 7.492 pH Units (7.350-7.450); ABG PO2 79.9 mm Hg (80.0-90.0)
[2021-06-21] MEDS ORDERED: LORazepam 2 MG/ML VIAL IV ONE (18:43)
[2021-06-21] MEDS ORDERED: SODIUM CHLORIDE 0.9% 100 ML IVPB IV ONE (18:45)
[2021-06-21] MEDS: AZITHROMYCIN/NS 500 MG/250 ML 500 MG/250 ML BAG IV SCH (18:45)
[2021-06-21] MEDS ORDERED: SODIUM CHLORIDE 0.9% 500 ML 500 ML ONE (18:49)
[2021-06-21 22:09] LABS: C-Reactive Protein 26.7 mg/dL (0.00-1.30)
[2021-06-21] MEDS ORDERED: METOPROLOL TARTRATE 5 MG/5 ML INJ IV ONE (22:39)
[2021-06-21] MEDS: ZINC SULFATE 220 MG CAP PO SCH (23:00)
[2021-06-21] MEDS: ASCORBIC ACID 500 MG TAB PO SCH (23:00)
[2021-06-21] MEDS: methylPREDNISolone Sod Succinate 40 MG/1 ML INJ IV SCH (23:00)
[2021-06-21] MEDS: ACETAMINOPHEN 325 MG TAB PO PRN (23:41)
[2021-06-22] MEDS: methylPREDNISolone Sod Succinate 40 MG/1 ML INJ IV SCH ×3 (05:54→22:17)
[2021-06-22] MEDS: INSULIN LISPRO 100 UNIT/ML SUB-Q SCH ×4 (07:57→22:14)
--- NOTE | 2021-06-22 08:01 | Progress Note ---
Assessment and Plan Assessment and plan: #Acute on chronic kidney injury -History of CKD stage IIIb -Lost to follow-up, concern for progression -proteinuria -Nephrology following, plan for renal biopsy Thursday -permacath placement 06/21 -HD initiation 06/21, will have another session today -continue rocephin prior to biopsy #Sepsis -Fever, tachycardia -continue rocephin -blood cultures NGTD -COVID PCR pending -CXR ordered -unclear source #Acute hypoxic respiratory failure -HFNC @ 40LPM, FIO2 100% -will wean as tolerated, goal SpO2 >92% -will continue steroids and empiric CAP coverage for now -COVID PCR pending #Suspected COVID-19 infection -COVID PCR pending -d-dimer 1290, CRP 26.7, LDH 939, ferritin 1625 #Abdominal pain -resolved, likely 2/2 to renal failure -CT scan negative for acute abnormalities #Type 2 Diabetes -patient euglycemic while inpatient -continue accuchecks for now #Hypertension -elevated BP yesterday -plan to increase UF during HD -if persistently elevated, will start antihypertensives #Asymptomatic bacteriuria -Urine culture grew [id number] E. coli sensitive to Rocephin -Plan for renal biopsy 06/24 -Continue Rocephin Disposition Plan: Continue medical management Total Time Spent with Patient (Minutes): 20 minutes History Interval history: Yesterday during dialysis session, patient became hypertensive, tachycardic and was found to be in respiratory failure. NIPPV was started and she was transferred to ICU. Currently on high flow nasal cannula. Patient denies shortness of breath, chest pain. Hospitalist Physical - Physical exam Narrative exam: GENERAL: Well-developed well-nourished. Lying in bed HEENT: HFNC at 40 L/min, FiO2 100% CHEST/LUNGS: Vas-Cath in right upper chest. Coarse breath sound bilaterally. HEART/CARDIOVASCULAR: RRR. No murmur, rubs or gallops appreciated. ABDOMEN: +BS. NT/ND. EXTREMITIES: No cyanosis, clubbing or edema. PSYCH: Cooperative. - Constitutional Vitals: Temp Pulse Resp BP Pulse Ox 97.8 F 97 H 25 H 147/95 100 06/22/21 07:00 06/22/21 07:30 06/22/21 07:30 06/22/21 07:30 06/22/21 07:30 General appearance: Present: no acute distress Results - Labs CBC & Chem 7: 06/22/21 08:29 06/22/21 08:29 Labs: Laboratory Last Values WBC 3.7 K/mm3 (4.5-11.0) L 06/20/21 08:27 RBC 3.55 M/mm3 (3.65-5.03) L 06/20/21 08:27 Hgb 10.8 gm/dl (10.1-14.3) 06/20/21 08:27 Hct 32.1 % (30.3-42.9) D 06/20/21 08:27 MCV 90 fl (79-97) 06/20/21 08:27 MCH 31 pg (28-32) 06/20/21 08:27 MCHC 34 % (30-34) 06/20/21 08:27 RDW 15.2 % (13.2-15.2) 06/20/21 08:27 Plt Count 180 K/mm3 (140-440) 06/20/21 08:27 Lymph % (Auto) 17.1 % (13.4-35.0) 06/19/21 05:00 Leslie % (Auto) 12.2 % (0.0-7.3) H 06/19/21 05:00 Eos % (Auto) 0.0 % (0.0-4.3) 06/19/21 05:00 Baso % (Auto) 0.2 % (0.0-1.8) 06/19/21 05:00 Lymph # (Auto) 0.8 K/mm3 (1.2-5.4) L 06/19/21 05:00 Leslie # (Auto) 0.5 K/mm3 (0.0-0.8) 06/19/21 05:00 Eos # (Auto) 0.0 K/mm3 (0.0-0.4) 06/19/21 05:00 Baso # (Auto) 0.0 K/mm3 (0.0-0.1) 06/19/21 05:00 Seg Neutrophils % 70.5 % (40.0-70.0) H 06/19/21 05:00 Seg Neutrophils # 3.2 K/mm3 (1.8-7.7) 06/19/21 05:00 PT 14.4 Sec. (12.2-14.9) 06/19/21 05:00 INR 1.01 (0.87-1.13) 06/19/21 05:00 D-Dimer 1290.36 ng/mlDDU (0-234) H 06/21/21 20:58 ABG pH 7.492 pH Units (7.350-7.450) H 06/21/21 17:30 ABG pCO2 24.1 mm Hg 06/21/21 17:30 ABG pO2 79.9 mm Hg (80.0-90.0) L 06/21/21 17:30 ABG HCO3 18.0 mmol/L (20.0-26.0) L 06/21/21 17:30 ABG O2 Saturation 97.0 % (95.0-99.0) 06/21/21 17:30 ABG O2 Content 15.1 (0.0-44) 06/21/21 17:30 ABG Base Excess -3.9 mmol/L (-2.0-3.0) L 06/21/21 17:30 ABG Hemoglobin 11.2 gm/dl (12.0-16.0) L 06/21/21 17:30 ABG Carboxyhemoglobin 1.1 % (0.0-5.0) 06/21/21 17:30 ABG Methemoglobin 0.5 % (0.0-1.5) 06/21/21 17:30 Oxyhemoglobin 95.4 % (95.0-99.0) 06/21/21 17:30 FiO2 100 % 06/21/21 17:30 Sodium 139 mmol/L (137-145) 06/21/21 10:47 Potassium 4.4 mmol/L (3.6-5.0) 06/21/21 10:47 Chloride 100.4 mmol/L (98-107) 06/21/21 10:47 Carbon Dioxide 11 mmol/L (22-30) L 06/21/21 10:47 Anion Gap 32 mmol/L 06/21/21 10:47 BUN 125 mg/dL (7-17) H 06/21/21 10:47 Creatinine 18.5 mg/dL (0.6-1.2) H 06/21/21 10:47 Estimated GFR 3 ml/min 06/21/21 10:47 BUN/Creatinine Ratio 7 % 06/21/21 10:47 Glucose 132 mg/dL (65-100) H 06/21/21 20:58 POC Glucose 112 mg/dL (70-105) H 06/21/21 22:21 Calcium 8.4 mg/dL (8.4-10.2) 06/21/21 10:47 Ferritin 1625.0 ng/mL (10.0-200.0) H 06/21/21 20:58 Total Bilirubin 0.30 mg/dL (0.1-1.2) 06/18/21 03:10 Direct Bilirubin < 0.2 mg/dL (0-0.2) 06/18/21 03:10 Indirect Bilirubin 0.1 mg/dL 06/18/21 03:10 AST 33 units/L (5-40) 06/18/21 03:10 ALT 19 units/L (7-56) 06/18/21 03:10 Alkaline Phosphatase 58 units/L (35-129) 06/18/21 03:10 Lactate Dehydrogenase 939 units/L (91-180) H 06/21/21 20:58 C-Reactive Protein 26.70 mg/dL (0.00-1.30) H 06/21/21 20:58 Total Protein 6.9 g/dL (6.3-8.2) 06/18/21 03:10 Albumin 2.7 g/dL (3.9-5) L 06/18/21 03:10 Albumin/Globulin Ratio 0.6 % 06/18/21 03:10 Lipase 199 units/L (13-60) H 06/18/21 03:10 Urine Color Jessy (Yellow) 06/19/21 05:27 Urine Turbidity Cloudy (Clear) 06/19/21 05:27 Urine pH 5.0 (5.0-7.0) 06/19/21 05:27 Ur Specific [place] 1.025 (1.003-1.030) 06/19/21 05:27 Urine Protein >500 mg/dL (Negative) 06/19/21 05:27 Urine Glucose (UA) 50 mg/dL (Negative) 06/19/21 05:27 Urine Ketones Neg mg/dL (Negative) 06/19/21 05:27 Urine Blood Lg (Negative) 06/19/21 05:27 Urine Nitrite Neg (Negative) 06/19/21 05:27 Urine Bilirubin Neg (Negative) 06/19/21 05:27 Urine Urobilinogen < 2.0 mg/dL (<2.0) 06/19/21 05:27 Ur Leukocyte Esterase Mod (Negative) 06/19/21 05:27 Urine WBC (Auto) > 182.0 /HPF (0.0-6.0) H 06/19/21 05:27 Urine RBC (Auto) 35.0 /HPF (0.0-6.0) 06/19/21 05:27 U Epithel Cells (Auto) 1.0 /HPF (0-13.0) 06/19/21 05:27 Urine WBC Clumps 3+ /HPF 06/19/21 05:27 Urine Mucus Few /HPF 06/19/21 05:27 Urine Yeast (Budding) 3+ /HPF 06/18/21 04:55 Urine Creatinine 132.3 mg/dL (0.1-20.0) H 06/19/21 05:27 Urine Creatinine 132.5 mg/dL (0.1-20.0) H 06/19/21 05:27 Protein/Creatinin Ratio 1.48 06/19/21 05:27 Urine Sodium 26 mmol/L 06/19/21 05:27 Urine Chloride 25.9 mmolL (110-250) L 06/19/21 05:27 Urine Total Protein 196 mg/dL (5-11.8) H 06/19/21 05:27 Urine HCG, Qual Negative (Negative) 06/19/21 05:27 RAFAEL Screen Negative (Negative) 06/18/21 13:49 Complement C3 168 mg/dL (83-193) 06/18/21 13:49 Complement C4 70 mg/dL (15-57) H 06/18/21 13:49 Hepatitis A IgM Ab Non-reactive (NonReactive) 06/21/21 04:20 Hep Bs Antigen Nonreactive (Negative) 06/21/21 04:20 Hep B Core IgM Ab Non-reactive (NonReactive) 06/21/21 04:20 Hepatitis C Antibody Non-reactive (NonReactive) 06/21/21 04:20 Microbiology: Microbiology 06/21/21 10:47 Peripheral/Venous Blood Culture - Preliminary Culture in Progress 06/21/21 11:57 Peripheral/Venous Blood Culture - Preliminary Culture in Progress Forman/IV: Voiding Method External Female Catheter Active Medications - Current Medications Current Medications: Generic Name Dose Route Start Last Admin Trade Name Freq PRN Reason Stop Dose Admin Acetaminophen 650 mg 06/18/21 06:25 06/21/21 23:41 Acetaminophen 325 Mg Tab PO 650 mg Q4H PRN Administration Pain MILD(1-3)/Fever >100.5/ANDUJAR Ascorbic Acid 500 mg 06/21/21 22:00 06/21/21 23:00 Ascorbic Acid 500 Mg Tab PO 500 mg BID DEBORA Administration Cholecalciferol 1,000 unit 06/22/21 10:00 Cholecalciferol (Vit D3) 400 Unit Tab PO QDAY DEBORA Dextrose 50 ml 06/18/21 06:25 Dextrose 50% In Water (25gm) 50 Ml Syringe IV Q30MIN PRN Hypoglycemia Protocol Heparin Sodium (Porcine) 5,000 unit 06/21/21 22:00 06/21/21 23:00 Heparin 5,000 Unit/1 Ml Vial SUB-Q 5,000 unit Q12HR DEBORA Administration Hydralazine HCl 10 mg 06/21/21 17:04 Hydralazine 20 Mg/1 Ml Inj IV Q6HR PRN Hypertension Sodium Chloride 1,000 mls @ 125 mls/hr 06/18/21 06:30 06/21/21 07:45 Nacl 0.9% 1000 Ml IV 125 mls/hr DIRECT DEBORA Administration Ceftriaxone Sodium 1 gm in 50 mls @ 100 mls/hr 06/18/21 07:30 06/21/21 08:27 Rocephin/Ns 1 Gm/50 Ml IV 06/23/21 07:29 100 mls/hr Q24H DEBORA Administration Protocol Azithromycin 500 mg in 250 mls @ 250 mls/hr 06/21/21 18:07 06/21/21 18:45 Zithromax/Ns IV 250 mls/hr Q24H DEBORA Administration Protocol Insulin Human Lispro 0 unit 06/18/21 07:30 06/22/21 07:57 Insulin Lispro 100 Unit/Ml SUB-Q Not Given ACHS DEBORA Protocol Magnesium Hydroxide 30 ml 06/18/21 06:25 Magnesium Hydroxide (Mom) Oral Liqd Udc PO Q4H PRN Constipation Methylprednisolone Sodium Succinate 40 mg 06/21/21 22:00 06/22/21 05:54 Methylprednisolone Sod Succinate 40 Mg/1 Ml Inj IV 40 mg Q8HR DEBORA Administration Morphine Sulfate 2 mg 06/18/21 06:25 06/20/21 15:32 Morphine 2 Mg/1 Ml Inj IV 2 mg Q4H PRN Administration Pain, Moderate (4-6) Morphine Sulfate 4 mg 06/18/21 06:25 Morphine 4 Mg/1 Ml Inj IV Q4H PRN Pain , Severe (7-10) Ondansetron HCl 4 mg 06/18/21 06:25 Ondansetron 4 Mg/2 Ml Inj IV Q8H PRN Nausea And Vomiting Sodium Chloride 10 ml 06/18/21 10:00 06/21/21 23:00 Sodium Chloride 0.9% 10 Ml Flush Syringe IV 10 ml BID DEBORA Administration Sodium Chloride 10 ml 06/18/21 06:25 Sodium Chloride 0.9% 10 Ml Flush Syringe IV PRN PRN LINE FLUSH Zinc Sulfate 220 mg 06/21/21 22:00 06/21/21 23:00 Zinc Sulfate 220 Mg Cap PO 220 mg BID DEBORA Administration Nutrition/Malnutrition Assess - Dietary Evaluation Nutrition/Malnutrition Findings: Nutrition Notes Start: 06/18/21 15:35 Freq: Status: Active Protocol: Document 06/19/21 14:16 CHARY (Rec: 06/19/21 14:26 CHARY [id number]) Nutrition Notes 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 Current Diet Cardiac/Consistent Carbohydrate Diet (since B ). Labs/Tests 06/19: Na 135, CO2 14, BUN 102 , Cr 14.7. Pertinent Medications 06/19: Nutritionally unremarkable. Height 5 ft 2 in Weight 92.99 kg [place] Body Weight (kg) 50.00 BMI 37.5 Weight Status Obese Percent of energy/protein needs met: Prescribed C/CC Diet provides with energy/protein needs (1, 977/86 g) during LOS. Burn Absent Trauma Absent GI Symptoms None Food Allergy No Skin Integrity/Comment Integumentary; clear, warm, dry. Current % PO Negligible Minimum of two criteria No physical signs of malnutrition #2 Nutrition Diagnosis No nutrition diagnosis at this time Comments: Pt shows no integumentary risk at the time. As per Progress Notes. #1 Nutrition Diagnosis Food and nutrition-related knowledge deficit Comments: Pt could banefit from nutrition education material to elicit behavioral changes towards a healthy lifestyle. Etiology Concomitant chronic metabolic conditions As Evidenced by Signs and Symptoms Abnormal chemistry lab values, MD diagnosis. Is patient on ventilator? No Is Patient Ambulatory and/or Out of Bed Yes REE-([place]-St. Jeor-ambulatory/OOB) [ 2019.095 NUTR.MSJOOB] Kcal/Kg value to use for calculation 22 Approximate Energy Requirements Using 2045 kcal/Kg Calculation Used for Recommendations Kcal/kg Additional Notes Protein: 0.8-1.0 g/Kg/day; 40- 50 g/day; 160-200 Kcal/day ( fromIBW). Fluids: 1.0 ml/Kcal/day, or as oer MD. Nutrition Intervention Change Diet Order: Continue Cardiac/Consistent Carbohydrate Diet. Teaching Recipient Patient Learning Readiness Good Teaching Methods Handout Response to Teaching Verbalize understanding Education Handouts Provided AND: Hypertension Nutrition Therapy, and Chronic Kidney Disease Stage 3-5 Nutrition Therapy. Barriers to Learning No Barriers RD phone number provided Yes Patient aware of follow up options Yes Goal #1 Pt could benefit from nutrition education material to elicit behavioral changes towards a healthy lifestyle. Goal #2 Maintain body weight within +/ -3% of current BWt during LOS. Goal #3 Reach and maintain acceptable chemistry lab values during LOS. Follow-Up By: 06/25/21 Additional Comments Continue monitoring acceptance of food, % PO intake of meals , Hydration, and BM.
--- NOTE | 2021-06-22 08:24 | Progress Note ---
Assessment and Plan - Patient Problems (1) Acute kidney injury superimposed on chronic kidney disease Current Visit: No Status: Acute Plan to address problem: She has now been intiated on HD with first treatment yesterday. Tolerated 1L UF with treatment. Will have second HD treatment today, and will increase goal UF to 2-2.5L as tolerated. Pending COVID-19 testing and is currently in isolation precautions. Will monitor renal function daily. (2) Abdominal pain Current Visit: Yes Status: Acute Plan to address problem: CT of the abdomen did not show any acute pathology. It did however show evidence of possible atypical pneumonia which could be leading to some of her aforementioned symptoms of abdominal discomfort, nausea. We will follow up denice mcneal. Also concerned whether her symptoms are more indicative of progressive kidney disease and underlying uremia. (3) Hypertensive chronic kidney disease with stage 1 through stage 4 chronic kidney disease, or unspecified chronic kidney disease Current Visit: Yes Status: Acute Plan to address problem: Elevated blood pressure readings noted over the last 24 hours. Will try to optimize volume status with UF during HD. (4) Acute respiratory failure Current Visit: Yes Status: Acute Plan to address problem: Now transitioned to HFNC 40% Fio2 and stable on current settings per nursing staff. Management per ICU/pulmonary recommendations. (5) Suspected COVID-19 virus infection Current Visit: Yes Status: Acute Plan to address problem: Pending testing today. (6) Urinary tract infection Current Visit: Yes Status: Acute Plan to address problem: Started on rocephin, to be dosed for her decreased renal function. The sensitivities were reviewed. She did have febrile episode last night, but afebrile currently. (7) Type 2 diabetes mellitus with diabetic chronic kidney disease Current Visit: Yes Status: Chronic Plan to address problem: diabetes management per primary attending. Subjective Date of service: 06/22/21 Interval history: Rapid response was called after completion of HD treatment secondary to worsening respiratory distress, tachycardia and elevated blood pressures. Now in the IMCU. Chest Xray reviewed. Pending COVID-19 testing at this time, but inflammatory markers are elevated. Objective - Exam Narrative Exam: Not directly examined in order to preserve PPE. She is under investigation for COVID-19 infection. Physical examination by primary team reviewed. - Vital Signs Vital signs: Vital Signs - 12hr 06/21/21 06/21/21 06/21/21 20:21 20:30 20:41 Temperature Pulse Rate 139 H 142 H 143 H Respiratory 29 H 28 H 21 Rate Respiratory Rate [Lower Back] Blood Pressure 165/109 162/101 162/101 O2 Sat by Pulse 100 100 100 Oximetry 06/21/21 06/21/21 06/21/21 20:51 21:00 21:11 Temperature 102.2 F H Pulse Rate 141 H 147 H 142 H Respiratory 26 H 15 30 H Rate Respiratory Rate [Lower Back] Blood Pressure 162/101 161/107 161/107 O2 Sat by Pulse 100 100 100 Oximetry 06/21/21 06/21/21 06/21/21 21:21 21:30 21:41 Temperature Pulse Rate 153 H 154 H 140 H Respiratory 16 20 36 H Rate Respiratory Rate [Lower Back] Blood Pressure 161/107 159/86 159/86 O2 Sat by Pulse 90 86 91 Oximetry 06/21/21 06/21/21 06/21/21 21:51 22:00 22:11 Temperature Pulse Rate 140 H 142 H 140 H Respiratory 38 H 40 H 35 H Rate Respiratory 28 H Rate [Lower Back] Blood Pressure 159/86 150/88 150/88 O2 Sat by Pulse 93 94 91 Oximetry 06/21/21 06/21/21 06/21/21 22:21 22:31 22:41 Temperature Pulse Rate 143 H 143 H 145 H Respiratory 34 H 12 17 Rate Respiratory Rate [Lower Back] Blood Pressure 150/88 187/107 O2 Sat by Pulse 93 Oximetry 06/21/21 06/21/21 06/21/21 22:51 23:00 23:11 Temperature Pulse Rate 134 H 144 H 144 H Respiratory 30 H 32 H 32 H Rate Respiratory Rate [Lower Back] Blood Pressure 188/79 186/98 O2 Sat by Pulse Oximetry 06/21/21 06/21/21 06/21/21 23:21 23:30 23:40 Temperature Pulse Rate 146 H 140 H 140 H Respiratory 19 42 H 29 H Rate Respiratory Rate [Lower Back] Blood Pressure 186/98 162/99 162/99 O2 Sat by Pulse 99 Oximetry 06/21/21 06/22/21 06/22/21 23:50 00:00 00:10 Temperature 102.0 F H Pulse Rate 124 H 125 H 125 H Respiratory 25 H 27 H 23 Rate Respiratory Rate [Lower Back] Blood Pressure 189/110 183/118 O2 Sat by Pulse 98 97 95 Oximetry 06/22/21 06/22/21 06/22/21 00:20 00:30 00:40 Temperature Pulse Rate 127 H 122 H 125 H Respiratory 53 H 33 H 28 H Rate Respiratory Rate [Lower Back] Blood Pressure 167/109 175/105 O2 Sat by Pulse 98 87 91 Oximetry 06/22/21 06/22/21 06/22/21 00:50 01:00 01:10 Temperature Pulse Rate 126 H 123 H 118 H Respiratory 21 19 36 H Rate Respiratory Rate [Lower Back] Blood Pressure 153/93 153/93 O2 Sat by Pulse 88 99 94 Oximetry 06/22/21 06/22/21 06/22/21 01:20 01:30 01:40 Temperature Pulse Rate 117 H 115 H 114 H Respiratory 32 H 30 H 36 H Rate Respiratory Rate [Lower Back] Blood Pressure 153/93 123/77 123/77 O2 Sat by Pulse 95 93 91 Oximetry 06/22/21 06/22/21 06/22/21 01:50 02:00 02:10 Temperature Pulse Rate 114 H 109 H 114 H Respiratory 31 H 26 H 24 Rate Respiratory Rate [Lower Back] Blood Pressure 123/77 118/74 118/74 O2 Sat by Pulse 90 99 100 Oximetry 06/22/21 06/22/21 06/22/21 02:20 02:30 02:40 Temperature Pulse Rate 110 H 108 H 108 H Respiratory 39 H 31 H 30 H Rate Respiratory Rate [Lower Back] Blood Pressure 118/74 123/73 123/73 O2 Sat by Pulse 86 90 Oximetry 06/22/21 06/22/21 06/22/21 02:50 03:00 03:10 Temperature Pulse Rate 109 H 102 H 104 H Respiratory 28 H 24 24 Rate Respiratory Rate [Lower Back] Blood Pressure 123/73 114/71 114/71 O2 Sat by Pulse 85 100 Oximetry 06/22/21 06/22/21 06/22/21 03:20 03:24 03:30 Temperature 98.2 F Pulse Rate 101 H 103 H Respiratory 23 24 Rate Respiratory Rate [Lower Back] Blood Pressure 114/71 115/72 O2 Sat by Pulse 100 100 Oximetry 06/22/21 06/22/21 06/22/21 03:40 03:50 04:00 Temperature Pulse Rate 102 H 112 H 105 H Respiratory 27 H 29 H 31 H Rate Respiratory Rate [Lower Back] Blood Pressure 138/90 O2 Sat by Pulse 100 90 90 Oximetry 06/22/21 06/22/21 06/22/21 04:10 04:20 04:30 Temperature Pulse Rate 103 H 100 H 100 H Respiratory 31 H 26 H 27 H Rate Respiratory Rate [Lower Back] Blood Pressure 138/90 138/90 122/79 O2 Sat by Pulse 88 98 Oximetry 06/22/21 06/22/21 06/22/21 04:40 04:50 05:00 Temperature Pulse Rate 103 H 102 H 100 H Respiratory 29 H 29 H 28 H Rate Respiratory Rate [Lower Back] Blood Pressure 122/79 122/79 135/83 O2 Sat by Pulse 90 90 95 Oximetry 06/22/21 06/22/21 06/22/21 05:10 05:20 05:30 Temperature Pulse Rate 103 H 108 H 101 H Respiratory 27 H 10 L 24 Rate Respiratory Rate [Lower Back] Blood Pressure 135/83 135/83 152/99 O2 Sat by Pulse 89 90 100 Oximetry 06/22/21 06/22/21 06/22/21 05:40 05:50 06:00 Temperature Pulse Rate 100 H 99 H 96 H Respiratory 22 24 25 H Rate Respiratory Rate [Lower Back] Blood Pressure 152/99 133/91 O2 Sat by Pulse 100 100 Oximetry 06/22/21 06/22/21 06/22/21 06:10 06:20 06:30 Temperature Pulse Rate 98 H 107 H 102 H Respiratory 21 13 24 Rate Respiratory Rate [Lower Back] Blood Pressure 133/91 133/91 172/97 O2 Sat by Pulse 100 99 94 Oximetry 06/22/21 06/22/21 06/22/21 06:40 06:50 07:00 Temperature 97.8 F Pulse Rate 99 H 98 H 99 H Respiratory 24 28 H 26 H Rate Respiratory Rate [Lower Back] Blood Pressure 172/97 172/97 157/93 O2 Sat by Pulse 97 97 96 Oximetry 06/22/21 06/22/21 06/22/21 07:10 07:20 07:30 Temperature Pulse Rate 99 H 97 H 97 H Respiratory 24 27 H 25 H Rate Respiratory Rate [Lower Back] Blood Pressure 157/93 147/95 O2 Sat by Pulse 97 99 100 Oximetry - Lab 06/20/21 08:27 06/21/21 20:58 Most recent lab results ABG pH 7.492 pH Units (7.350-7.450) H 06/21/21 17:30 ABG pCO2 24.1 mm Hg 06/21/21 17:30 ABG pO2 79.9 mm Hg (80.0-90.0) L 06/21/21 17:30 ABG HCO3 18.0 mmol/L (20.0-26.0) L 06/21/21 17:30 ABG O2 Saturation 97.0 % (95.0-99.0) 06/21/21 17:30 Calcium 8.4 mg/dL (8.4-10.2) 06/21/21 10:47 Urine Creatinine 132.3 mg/dL (0.1-20.0) H 06/19/21 05:27 Urine Creatinine 132.5 mg/dL (0.1-20.0) H 06/19/21 05:27 Urine Sodium 26 mmol/L 06/19/21 05:27 Urine Total Protein 196 mg/dL (5-11.8) H 06/19/21 05:27 Medications & Allergies - Medications Allergies/Adverse Reactions: Allergies No Known Allergies Allergy (Verified 08/19/19 15:08) Home Medications: Home Medications Medication Instructions Recorded Confirmed Last Taken Type Pnv No.95/Ferrous Fum/Folic AC 1 each PO QDAY 04/10/17 12/31/19 12/30/19 10:30 History [ [place]] Famotidine [Pepcid] 20 mg PO DAILY #14 tablet 04/13/17 12/31/19 12/30/19 10:30 Rx hydrALAZINE [Apresoline TAB] 100 mg PO TID #90 tab 04/13/17 12/31/19 Unknown Rx Nitrofurantoin [place]/M-Cryst 100 mg PO Q12HR #14 capsule 08/19/19 12/31/19 Unknown Rx [Macrobid CAP] Aspirin BABY CHEW TAB 80 mg PO DAILY 12/31/19 12/31/19 12/30/19 10:30 History Enoxaparin 40 mg SUB-Q DAILY 12/31/19 12/31/19 12/30/19 10:30 History labetaloL [Labetalol 200mg TAB] 400 mg PO BID 12/31/19 12/31/19 12/30/19 10:30 History HYDROcodone/APAP 5-325 [[place] 1 - 2 each PO Q4HR PRN #30 tablet 01/05/20 Unknown Rx 5/325] Active Medications: Generic Name Dose Route Start Last Admin Trade Name Freq PRN Reason Stop Dose Admin Acetaminophen 650 mg 06/18/21 06:25 06/21/21 23:41 Acetaminophen 325 Mg Tab PO 650 mg Q4H PRN Administration Pain MILD(1-3)/Fever >100.5/ANDUJAR Ascorbic Acid 500 mg 06/21/21 22:00 06/21/21 23:00 Ascorbic Acid 500 Mg Tab PO 500 mg BID DEBORA Administration Cholecalciferol 1,000 unit 06/22/21 10:00 Cholecalciferol (Vit D3) 400 Unit Tab PO QDAY DEBORA Dextrose 50 ml 06/18/21 06:25 Dextrose 50% In Water (25gm) 50 Ml Syringe IV Q30MIN PRN Hypoglycemia Protocol Heparin Sodium (Porcine) 5,000 unit 06/21/21 22:00 06/21/21 23:00 Heparin 5,000 Unit/1 Ml Vial SUB-Q 5,000 unit Q12HR DEBORA Administration Hydralazine HCl 10 mg 06/21/21 17:04 Hydralazine 20 Mg/1 Ml Inj IV Q6HR PRN Hypertension Sodium Chloride 1,000 mls @ 125 mls/hr 06/18/21 06:30 06/21/21 07:45 Nacl 0.9% 1000 Ml IV 125 mls/hr DIRECT DEBORA Administration Ceftriaxone Sodium 1 gm in 50 mls @ 100 mls/hr 06/18/21 07:30 06/21/21 08:27 Rocephin/Ns 1 Gm/50 Ml IV 06/23/21 07:29 100 mls/hr Q24H DEBORA Administration Protocol Azithromycin 500 mg in 250 mls @ 250 mls/hr 06/21/21 18:07 06/21/21 18:45 Zithromax/Ns IV 250 mls/hr Q24H DEBORA Administration Protocol Insulin Human Lispro 0 unit 06/18/21 07:30 06/22/21 07:57 Insulin Lispro 100 Unit/Ml SUB-Q Not Given ACHS DEBORA Protocol Magnesium Hydroxide 30 ml 06/18/21 06:25 Magnesium Hydroxide (Mom) Oral Liqd Udc PO Q4H PRN Constipation Methylprednisolone Sodium Succinate 40 mg 06/21/21 22:00 10/16/21 05:54 Methylprednisolone Sod Succinate 40 Mg/1 Ml Inj IV 40 mg Q8HR DEBORA Administration Morphine Sulfate 2 mg 06/18/21 06:25 06/20/21 15:32 Morphine 2 Mg/1 Ml Inj IV 2 mg Q4H PRN Administration Pain, Moderate (4-6) Morphine Sulfate 4 mg 06/18/21 06:25 Morphine 4 Mg/1 Ml Inj IV Q4H PRN Pain , Severe (7-10) Ondansetron HCl 4 mg 06/18/21 06:25 Ondansetron 4 Mg/2 Ml Inj IV Q8H PRN Nausea And Vomiting Sodium Chloride 10 ml 06/18/21 10:00 06/21/21 23:00 Sodium Chloride 0.9% 10 Ml Flush Syringe IV 10 ml BID DEBORA Administration Sodium Chloride 10 ml 06/18/21 06:25 Sodium Chloride 0.9% 10 Ml Flush Syringe IV PRN PRN LINE FLUSH Zinc Sulfate 220 mg 06/21/21 22:00 06/21/21 23:00 Zinc Sulfate 220 Mg Cap PO 220 mg BID DEBORA Administration
[2021-06-22 09:06] LABS: Basophils % (Auto) 0.1 % (0.0-1.8); Hematocrit 32.4 % (30.3-42.9); Hemoglobin 10.9 gm/dl (10.1-14.3); Lymphocytes # (Auto) 0.2 K/mm3 (1.2-5.4); Lymphocytes % (Auto) 5.6 % (13.4-35.0); Mean Corpuscular HGB Conc 34 % (30-34); Mean Corpuscular Volume 91 fl (79-97); Monocytes # (Auto) 0.3 K/mm3 (0.0-0.8); Monocytes % (Auto) 10.7 % (0.0-7.3); Platelet Count 205 K/mm3 (140-440); Red Blood Count 3.57 M/mm3 (3.65-5.03)
[2021-06-22 09:26] LABS: Albumin 1.8 g/dL (3.9-5); Calcium 8.1 mg/dL (8.4-10.2)
[2021-06-22] MEDS: ZINC SULFATE 220 MG CAP PO SCH ×2 (09:50→22:16)
[2021-06-22] MEDS: ASCORBIC ACID 500 MG TAB PO SCH ×2 (09:50→22:16)
[2021-06-22] MEDS: cefTRIAXone/NS 1 GM/50 ML 1 GM/50 ML BAG IV SCH (09:50)
[2021-06-22] MEDS: HEPARIN 5,000 UNIT/1 ML VIAL SUB-Q SCH ×2 (09:50→22:17)
[2021-06-22] MEDS: hydrALAZINE 20 MG/1 ML INJ IV PRN (10:40)
--- NOTE | 2021-06-22 11:04 | XRay Report ---
CHEST 1 VIEW 06/22/2021 10:49 AM INDICATION / CLINICAL INFORMATION: Respiratory failure. COMPARISON: 12/21/2019 FINDINGS: SUPPORT DEVICES: Right central line catheter tip projects over the right atrium. HEART / MEDIASTINUM: No significant abnormality. LUNGS / PLEURA: Bilateral airspace opacities. No pneumothorax. ADDITIONAL FINDINGS: No significant additional findings. IMPRESSION: 1. Bilateral airspace opacities compatible with pneumonia. Signer Name: Carl Garcia MD Signed: 06/22/2021 11:00 AM Workstation Name: [id number]
[2021-06-22] MEDS: CHOLECALCIFEROL (VIT D3) 400 UNIT TAB PO SCH (14:03)
[2021-06-22] MEDS: AZITHROMYCIN/NS 500 MG/250 ML 500 MG/250 ML BAG IV SCH (18:23)
[2021-06-23 05:29] LABS: Hematocrit 33.5 % (30.3-42.9); Hemoglobin 11.3 gm/dl (10.1-14.3); Mean Corpuscular HGB Conc 34 % (30-34); Mean Corpuscular Volume 91 fl (79-97); Platelet Count 230 K/mm3 (140-440); Red Cell Distribution Width 15.1 % (13.2-15.2)
[2021-06-23 05:39] LABS: Calcium 8.6 mg/dL (8.4-10.2)
[2021-06-23] MEDS: methylPREDNISolone Sod Succinate 40 MG/1 ML INJ IV SCH ×3 (06:47→21:42)
--- NOTE | 2021-06-23 08:19 | Progress Note ---
Assessment and Plan Assessment and plan: #Acute on chronic kidney injury -History of CKD stage IIIb -proteinuria -Nephrology following, will hold off renal biopsy given new COVID PNA -permacath placement 06/21 -HD initiation 06/21, continue with MWF schedule -CM consult for outpatient HD #Sepsis -Fever, tachycardia -will discontinue rocephin -blood cultures NGTD -COVID PCR positive -CXR with bilateral pneumonia -likely 2/2 to respiratory failure vs COVID PNA vs PE #Acute hypoxic respiratory failure -HFNC @ 40LPM, FIO2 100% -will wean as tolerated, goal SpO2 >92% -will continue steroids and empiric CAP coverage for now -COVID PCR positive -CXR showing bilateral PNA, will continue CAP coverage with Azithromycin and rocephin x 5 days total #COVID-Pneumonia #COVID-19 infection -COVID PCR positive -d-dimer 1290, CRP 26.7, LDH 939, ferritin 1625 -will consult ID tomorrow #Elevated D-dimer -patient persistently tachycardic and with oxygen requirement, V/Q scan ordered to rule out PE -could be 2/2 to COVID infection #Abdominal pain -resolved, likely 2/2 to renal failure -CT scan negative for acute abnormalities #Type 2 Diabetes -patient euglycemic while inpatient -continue accuchecks for now #Hypertension -elevated BP yesterday -plan to increase UF during HD -if persistently elevated, will start antihypertensives #Asymptomatic bacteriuria -Urine culture grew [id number] E. coli sensitive to Rocephin -treated with rocephin Disposition Plan: Continue medical management Total Time Spent with Patient (Minutes): 30 minutes History Interval history: No acute events overnight. Patient reports feeling much better than she did yesterday. Tolerated HD well. Per nursing patient continuously falls all high flow nasal cannula. Hospitalist Physical - Physical exam Narrative exam: GENERAL: Well-developed well-nourished. Lying in bed HEENT: HFNC at 40 L/min, FiO2 90% CHEST/LUNGS: Vas-Cath in right upper chest. Coarse breath sound bilaterally. HEART/CARDIOVASCULAR: RRR. No murmur, rubs or gallops appreciated. ABDOMEN: +BS. NT/ND. EXTREMITIES: No cyanosis, clubbing or edema. PSYCH: Cooperative. - Constitutional Vitals: Temp Pulse Resp BP Pulse Ox 98.6 F 114 H 15 133/90 95 06/23/21 04:40 06/23/21 06:00 06/23/21 06:00 06/23/21 06:00 06/23/21 08:16 General appearance: Present: no acute distress Results - Labs CBC & Chem 7: 06/23/21 04:44 06/23/21 04:44 Labs: Laboratory Last Values WBC 5.4 K/mm3 (4.5-11.0) 06/23/21 04:44 RBC 3.70 M/mm3 (3.65-5.03) 06/23/21 04:44 Hgb 11.3 gm/dl (10.1-14.3) 06/23/21 04:44 Hct 33.5 % (30.3-42.9) 06/23/21 04:44 MCV 91 fl (79-97) 06/23/21 04:44 MCH 31 pg (28-32) 06/23/21 04:44 MCHC 34 % (30-34) 06/23/21 04:44 RDW 15.1 % (13.2-15.2) 06/23/21 04:44 Plt Count 230 K/mm3 (140-440) 06/23/21 04:44 Lymph % (Auto) 5.6 % (13.4-35.0) L 06/22/21 08:29 [place] % (Auto) 10.7 % (0.0-7.3) H 06/22/21 08:29 Eos % (Auto) 0.0 % (0.0-4.3) 06/22/21 08:29 Baso % (Auto) 0.1 % (0.0-1.8) 06/22/21 08:29 Lymph # (Auto) 0.2 K/mm3 (1.2-5.4) L 06/22/21 08:29 [place] # (Auto) 0.3 K/mm3 (0.0-0.8) 06/22/21 08:29 Eos # (Auto) 0.0 K/mm3 (0.0-0.4) 06/22/21 08:29 Baso # (Auto) 0.0 K/mm3 (0.0-0.1) 06/22/21 08:29 Seg Neutrophils % 83.6 % (40.0-70.0) H 06/22/21 08:29 Seg Neutrophils # 2.6 K/mm3 (1.8-7.7) 06/22/21 08:29 PT 14.4 Sec. (12.2-14.9) 06/19/21 05:00 INR 1.01 (0.87-1.13) 06/19/21 05:00 D-Dimer 1290.36 ng/mlDDU (0-234) H 06/21/21 20:58 ABG pH 7.492 pH Units (7.350-7.450) H 06/21/21 17:30 ABG pCO2 24.1 mm Hg 06/21/21 17:30 ABG pO2 79.9 mm Hg (80.0-90.0) L 06/21/21 17:30 ABG HCO3 18.0 mmol/L (20.0-26.0) L 06/21/21 17:30 ABG O2 Saturation 97.0 % (95.0-99.0) 06/21/21 17:30 ABG O2 Content 15.1 (0.0-44) 06/21/21 17:30 ABG Base Excess -3.9 mmol/L (-2.0-3.0) L 06/21/21 17:30 ABG Hemoglobin 11.2 gm/dl (12.0-16.0) L 06/21/21 17:30 ABG Carboxyhemoglobin 1.1 % (0.0-5.0) 06/21/21 17:30 ABG Methemoglobin 0.5 % (0.0-1.5) 06/21/21 17:30 Oxyhemoglobin 95.4 % (95.0-99.0) 06/21/21 17:30 FiO2 100 % 06/21/21 17:30 Sodium 137 mmol/L (137-145) 06/23/21 04:44 Potassium 3.7 mmol/L (3.6-5.0) 06/23/21 04:44 Chloride 94.7 mmol/L (98-107) L 06/23/21 04:44 Carbon Dioxide 20 mmol/L (22-30) L 06/23/21 04:44 Anion Gap 26 mmol/L 06/23/21 04:44 BUN 61 mg/dL (7-17) H 06/23/21 04:44 Creatinine 10.2 mg/dL (0.6-1.2) H 06/23/21 04:44 Estimated GFR 5 ml/min 06/23/21 04:44 BUN/Creatinine Ratio 6 % 06/23/21 04:44 Glucose 138 mg/dL (65-100) H 06/23/21 04:44 POC Glucose 121 mg/dL (70-105) H 06/22/21 21:50 Calcium 8.6 mg/dL (8.4-10.2) 06/23/21 04:44 Ferritin 1625.0 ng/mL (10.0-200.0) H 06/21/21 20:58 Total Bilirubin 0.20 mg/dL (0.1-1.2) 06/22/21 08:29 Direct Bilirubin < 0.2 mg/dL (0-0.2) 06/18/21 03:10 Indirect Bilirubin 0.1 mg/dL 06/18/21 03:10 AST 32 units/L (5-40) 06/22/21 08:29 ALT 11 units/L (7-56) 06/22/21 08:29 Alkaline Phosphatase 53 units/L (35-129) 06/22/21 08:29 Lactate Dehydrogenase 939 units/L (91-180) H 06/21/21 20:58 C-Reactive Protein 26.70 mg/dL (0.00-1.30) H 06/21/21 20:58 Total Protein 5.6 g/dL (6.3-8.2) L 06/22/21 08:29 Albumin 1.8 g/dL (3.9-5) L 06/22/21 08:29 Albumin/Globulin Ratio 0.5 % 06/22/21 08:29 Lipase 199 units/L (13-60) H 06/18/21 03:10 Procalcitonin 24.59 ng/mL (<0.15) 06/21/21 20:58 Urine Color Jessy (Yellow) 06/19/21 05:27 Urine Turbidity Cloudy (Clear) 06/19/21 05:27 Urine pH 5.0 (5.0-7.0) 06/19/21 05:27 Ur Specific [place] 1.025 (1.003-1.030) 06/19/21 05:27 Urine Protein >500 mg/dL (Negative) 06/19/21 05:27 Urine Glucose (UA) 50 mg/dL (Negative) 06/19/21 05:27 Urine Ketones Neg mg/dL (Negative) 06/19/21 05:27 Urine Blood Lg (Negative) 06/19/21 05:27 Urine Nitrite Neg (Negative) 06/19/21 05:27 Urine Bilirubin Neg (Negative) 06/19/21 05:27 Urine Urobilinogen < 2.0 mg/dL (<2.0) 06/19/21 05:27 Ur Leukocyte Esterase Mod (Negative) 06/19/21 05:27 Urine WBC (Auto) > 182.0 /HPF (0.0-6.0) H 06/19/21 05:27 Urine RBC (Auto) 35.0 /HPF (0.0-6.0) 06/19/21 05:27 U Epithel Cells (Auto) 1.0 /HPF (0-13.0) 06/19/21 05:27 Urine WBC Clumps 3+ /HPF 06/19/21 05:27 Urine Mucus Few /HPF 06/19/21 05:27 Urine Yeast (Budding) 3+ /HPF 06/18/21 04:55 Urine Creatinine 132.3 mg/dL (0.1-20.0) H 06/19/21 05:27 Urine Creatinine 132.5 mg/dL (0.1-20.0) H 06/19/21 05:27 Protein/Creatinin Ratio 1.48 06/19/21 05:27 Urine Sodium 26 mmol/L 06/19/21 05:27 Urine Chloride 25.9 mmolL (110-250) L 06/19/21 05:27 Urine Total Protein 196 mg/dL (5-11.8) H 06/19/21 05:27 Urine HCG, Qual Negative (Negative) 06/19/21 05:27 RAFAEL Screen Negative (Negative) 06/18/21 13:49 Double Strand DNA Ab <1 IU/mL (<=4) 06/18/21 13:49 Complement C3 168 mg/dL (83-193) 06/18/21 13:49 Complement C4 70 mg/dL (15-57) H 06/18/21 13:49 Coronavirus (PCR) Positive (Negative) A 06/22/21 09:00 Hepatitis A IgM Ab Non-reactive (NonReactive) 06/21/21 04:20 Hep Bs Antigen Nonreactive (Negative) 06/21/21 04:20 Hep B Core IgM Ab Non-reactive (NonReactive) 06/21/21 04:20 Hepatitis C Antibody Non-reactive (NonReactive) 06/21/21 04:20 Microbiology: Microbiology 06/21/21 10:47 Peripheral/Venous Blood Culture - Preliminary NO GROWTH AFTER 24 HOURS 06/21/21 11:57 Peripheral/Venous Blood Culture - Preliminary NO GROWTH AFTER 24 HOURS [place]/IV: Voiding Method Indwelling Catheter Active Medications - Current Medications Current Medications: Generic Name Dose Route Start Last Admin Trade Name Freq PRN Reason Stop Dose Admin Acetaminophen 650 mg 06/18/21 06:25 06/21/21 23:41 Acetaminophen 325 Mg Tab PO 650 mg Q4H PRN Administration Pain MILD(1-3)/Fever >100.5/ANDUJAR Ascorbic Acid 500 mg 06/21/21 22:00 06/22/21 22:16 Ascorbic Acid 500 Mg Tab PO 500 mg BID DEBORA Administration Cholecalciferol 1,000 unit 06/22/21 10:00 06/22/21 14:03 Cholecalciferol (Vit D3) 400 Unit Tab PO Not Given QDAY DEBORA Dextrose 50 ml 06/18/21 06:25 Dextrose 50% In Water (25gm) 50 Ml Syringe IV Q30MIN PRN Hypoglycemia Protocol Heparin Sodium (Porcine) 5,000 unit 06/21/21 22:00 06/22/21 22:17 Heparin 5,000 Unit/1 Ml Vial SUB-Q 5,000 unit Q12HR DEBORA Administration Hydralazine HCl 10 mg 06/21/21 17:04 06/22/21 10:40 Hydralazine 20 Mg/1 Ml Inj IV 10 mg Q6HR PRN Administration Hypertension Sodium Chloride 1,000 mls @ 125 mls/hr 06/18/21 06:30 06/21/21 07:45 Nacl 0.9% 1000 Ml IV 125 mls/hr DIRECT DEBORA Administration Azithromycin 500 mg in 250 mls @ 250 mls/hr 06/21/21 18:07 06/22/21 18:23 Zithromax/Ns IV 250 mls/hr Q24H DEBORA Administration Protocol Insulin Human Lispro 0 unit 06/18/21 07:30 06/22/21 22:14 Insulin Lispro 100 Unit/Ml SUB-Q Not Given ACHS [facility] Protocol Magnesium Hydroxide 30 ml 06/18/21 06:25 Magnesium Hydroxide (Mom) Oral Liqd Udc PO Q4H PRN Constipation Methylprednisolone Sodium Succinate 40 mg 06/21/21 22:00 06/23/21 06:47 Methylprednisolone Sod Succinate 40 Mg/1 Ml Inj IV 40 mg Q8HR DEBORA Administration Morphine Sulfate 2 mg 06/18/21 06:25 06/20/21 15:32 Morphine 2 Mg/1 Ml Inj IV 2 mg Q4H PRN Administration Pain, Moderate (4-6) Morphine Sulfate 4 mg 06/18/21 06:25 Morphine 4 Mg/1 Ml Inj IV Q4H PRN Pain , Severe (7-10) Ondansetron HCl 4 mg 06/18/21 06:25 Ondansetron 4 Mg/2 Ml Inj IV Q8H PRN Nausea And Vomiting Sodium Chloride 10 ml 06/18/21 10:00 06/22/21 22:17 Sodium Chloride 0.9% 10 Ml Flush Syringe IV 10 ml BID DEBORA Administration Sodium Chloride 10 ml 06/18/21 06:25 Sodium Chloride 0.9% 10 Ml Flush Syringe IV PRN PRN LINE FLUSH Zinc Sulfate 220 mg 06/21/21 22:00 06/22/21 22:16 Zinc Sulfate 220 Mg Cap PO 220 mg BID DEBORA Administration Nutrition/Malnutrition Assess - Dietary Evaluation Nutrition/Malnutrition Findings: Nutrition Notes Start: 06/18/21 15:35 Freq: Status: Active Protocol: Document 06/19/21 14:16 CHARY (Rec: 06/19/21 14:26 CHARY [id number]) Nutrition Notes Need for Assessment generated from: staff educator Initial or Follow up Assessment Current Diagnosis CKD(stage I-IV),Hypertension Other Pertinent Diagnosis Abdominal pain, nausea. Current Diet Cardiac/Consistent Carbohydrate Diet (since B ). Labs/Tests 06/19: Na 135, CO2 14, BUN 102 , Cr 14.7. Pertinent Medications 06/19: Nutritionally unremarkable. Height 5 ft 2 in Weight 92.99 kg [place] Body Weight (kg) 50.00 BMI 37.5 Weight Status Obese Percent of energy/protein needs met: Prescribed C/CC Diet provides with energy/protein needs (1, 977/86 g) during LOS. Burn Absent Trauma Absent GI Symptoms None Food Allergy No Skin Integrity/Comment Integumentary; clear, warm, dry. Current % PO Negligible Minimum of two criteria No physical signs of malnutrition #2 Nutrition Diagnosis No nutrition diagnosis at this time Comments: Pt shows no integumentary risk at the time. As per Progress Notes. #1 Nutrition Diagnosis Food and nutrition-related knowledge deficit Comments: Pt could banefit from nutrition education material to elicit behavioral changes towards a healthy lifestyle. Etiology Concomitant chronic metabolic conditions As Evidenced by Signs and Symptoms Abnormal chemistry lab values, MD diagnosis. Is patient on ventilator? No Is Patient Ambulatory and/or Out of Bed Yes REE-([facility]-ambulatory/OOB) [ 2019.095 [id number]] Kcal/Kg value to use for calculation 22 Approximate Energy Requirements Using 2045 kcal/Kg Calculation Used for Recommendations Kcal/kg Additional Notes Protein: 0.8-1.0 g/Kg/day; 40- 50 g/day; 160-200 Kcal/day ( fromIBW). Fluids: 1.0 ml/Kcal/day, or as oer MD. Nutrition Intervention Change Diet Order: Continue Cardiac/Consistent Carbohydrate Diet. Teaching Recipient Patient Learning Readiness Good Teaching Methods Handout Response to Teaching Verbalize understanding Education Handouts Provided AND: Hypertension Nutrition Therapy, and Chronic Kidney Disease Stage 3-5 Nutrition Therapy. Barriers to Learning No Barriers RD phone number provided Yes Patient aware of follow up options Yes Goal #1 Pt could benefit from nutrition education material to elicit behavioral changes towards a healthy lifestyle. Goal #2 Maintain body weight within +/ -3% of current BWt during LOS. Goal #3 Reach and maintain acceptable chemistry lab values during LOS. Follow-Up By: 06/25/21 Additional Comments Continue monitoring acceptance of food, % PO intake of meals , Hydration, and BM.
[2021-06-23] MEDS: ASCORBIC ACID 500 MG TAB PO SCH ×2 (09:36→21:42)
[2021-06-23] MEDS: ZINC SULFATE 220 MG CAP PO SCH ×2 (09:36→21:42)
[2021-06-23] MEDS: CHOLECALCIFEROL (VIT D3) 400 UNIT TAB PO SCH (09:37)
[2021-06-23] MEDS: HEPARIN 5,000 UNIT/1 ML VIAL SUB-Q SCH ×2 (09:37→21:42)
[2021-06-23] MEDS ORDERED: SODIUM CHLORIDE 0.9% 100 ML IV PRN (10:17)
--- NOTE | 2021-06-23 10:17 | Progress Note ---
Assessment and Plan - Patient Problems (1) Acute kidney injury superimposed on chronic kidney disease Current Visit: No Status: Acute Plan to address problem: She has now been intiated on HD with 2nd treatment yesterday. Tolerated 1.5L UF with treatment. Will now place on inpatient MWF HD schedule. Will need to be placed at an outpatient facility for HD once discharged. Will need assistance from case management (2) Pneumonia due to COVID-19 virus Current Visit: Yes Status: Acute Plan to address problem: Started on IV solumedrol regimen. Not a candidate for remdesivir given poor renal function. Management per ID/primary team recommendations. Hold off on planned renal biopsy at present time given COVID-19 pneumonia. (3) Abdominal pain Current Visit: Yes Status: Acute Plan to address problem: CT of the abdomen did not show any acute pathology. It did however show evidence of possible atypical pneumonia which could be leading to some of her af orementioned symptoms of abdominal discomfort, nausea. We will follow up closely. Also concerned whether her symptoms are more indicative of progressive kidney disease and underlying uremia. (4) Hypertensive chronic kidney disease with stage 1 through stage 4 chronic kidney disease, or unspecified chronic kidney disease Current Visit: Yes Status: Acute Plan to address problem: Elevated blood pressure readings noted over the last 24 hours. Will try to optimize volume status with UF during HD. (5) Acute respiratory failure Current Visit: Yes Status: Acute Plan to address problem: Now transitioned to HFNC 40% Fio2 and stable on current settings per nursing staff. Management per ICU/pulmonary recommendations. (6) Urinary tract infection Current Visit: Yes Status: Acute Plan to address problem: Started on rocephin, to be dosed for her decreased renal function. The sensitivities were reviewed. She did have febrile episode last night, but afebrile currently. (7) Type 2 diabetes mellitus with diabetic chronic kidney disease Current Visit: Yes Status: Chronic Plan to address problem: diabetes management per primary attending. Subjective Date of service: 06/23/21 Interval history: (+) COVID-19 pneumonia. On isolate protocol. Remains on HFNC with non- rebreather. Tolerated HD with 1.5L UF yesterday. Plan for next HD treatment tomorrow. Objective - Exam Narrative Exam: Not directly examined in order to preserve PPE. She is under investigation for COVID-19 infection. Physical examination by primary team reviewed. - Vital Signs Vital signs: Vital Signs - 12hr 06/22/21 06/23/21 06/23/21 23:00 00:00 00:08 Temperature 98.7 F Pulse Rate 126 H 112 H 111 H Respiratory 24 22 Rate Blood Pressure 143/108 150/100 O2 Sat by Pulse 94 98 Oximetry 06/23/21 06/23/21 06/23/21 01:00 02:00 03:00 Temperature Pulse Rate 116 H 114 H 120 H Respiratory 27 H 23 19 Rate Blood Pressure 146/99 152/99 134/91 O2 Sat by Pulse 92 95 93 Oximetry 06/23/21 06/23/21 06/23/21 04:00 04:40 05:00 Temperature 98.6 F Pulse Rate 113 H 109 H Respiratory 35 H 25 H Rate Blood Pressure 148/96 161/93 O2 Sat by Pulse 97 95 Oximetry 06/23/21 06/23/21 06/23/21 05:34 06:00 08:16 Temperature Pulse Rate 114 H Respiratory 15 Rate Blood Pressure 133/90 O2 Sat by Pulse 97 95 Oximetry - Lab 06/23/21 04:44 06/23/21 04:44 Most recent lab results ABG pH 7.492 pH Units (7.350-7.450) H 06/21/21 17:30 ABG pCO2 24.1 mm Hg 06/21/21 17:30 ABG pO2 79.9 mm Hg (80.0-90.0) L 06/21/21 17:30 ABG HCO3 18.0 mmol/L (20.0-26.0) L 06/21/21 17:30 ABG O2 Saturation 97.0 % (95.0-99.0) 06/21/21 17:30 Calcium 8.6 mg/dL (8.4-10.2) 06/23/21 04:44 Urine Creatinine 132.3 mg/dL (0.1-20.0) H 06/19/21 05:27 Urine Creatinine 132.5 mg/dL (0.1-20.0) H 06/19/21 05:27 Urine Sodium 26 mmol/L 06/19/21 05:27 Urine Total Protein 196 mg/dL (5-11.8) H 06/19/21 05:27 Medications & Allergies - Medications Allergies/Adverse Reactions: Allergies No Known Allergies Allergy (Verified 08/19/19 15:08) Home Medications: Home Medications Medication Instructions Recorded Confirmed Last Taken Type Pnv No.95/Ferrous Fum/Folic AC 1 each PO QDAY 04/10/17 12/31/19 12/30/19 10:30 History [ [place]] Famotidine [Pepcid] 20 mg PO DAILY #14 tablet 04/13/17 12/31/19 12/30/19 10:30 Rx hydrALAZINE [Apresoline TAB] 100 mg PO TID #90 tab 04/13/17 12/31/19 Unknown Rx Nitrofurantoin [place]/M-Cryst 100 mg PO Q12HR #14 capsule 08/19/19 12/31/19 Unknown Rx [Macrobid CAP] Aspirin BABY CHEW TAB 80 mg PO DAILY 12/31/19 12/31/19 12/30/19 10:30 History Enoxaparin 40 mg SUB-Q DAILY 12/31/19 12/31/19 12/30/19 10:30 History labetaloL [Labetalol 200mg TAB] 400 mg PO BID 12/31/19 12/31/19 12/30/19 10:30 History HYDROcodone/APAP 5-325 [[place] 1 - 2 each PO Q4HR PRN #30 tablet 01/05/20 Unknown Rx 5/325] Active Medications: Generic Name Dose Route Start Last Admin Trade Name Freq PRN Reason Stop Dose Admin Acetaminophen 650 mg 06/18/21 06:25 06/21/21 23:41 Acetaminophen 325 Mg Tab PO 650 mg Q4H PRN Administration Pain MILD(1-3)/Fever >100.5/ANDUJAR Ascorbic Acid 500 mg 06/21/21 22:00 06/23/21 09:36 Ascorbic Acid 500 Mg Tab PO 500 mg BID DEBORA Administration Cholecalciferol 1,000 unit 06/22/21 10:00 06/23/21 09:37 Cholecalciferol (Vit D3) 400 Unit Tab PO 1,000 unit QDAY DEBORA Administration Dextrose 50 ml 06/18/21 06:25 Dextrose 50% In Water (25gm) 50 Ml Syringe IV Q30MIN PRN Hypoglycemia Protocol Heparin Sodium (Porcine) 5,000 unit 06/21/21 22:00 06/23/21 09:37 Heparin 5,000 Unit/1 Ml Vial SUB-Q 5,000 unit Q12HR DEBORA Administration Hydralazine HCl 10 mg 06/21/21 17:04 06/22/21 10:40 Hydralazine 20 Mg/1 Ml Inj IV 10 mg Q6HR PRN Administration Hypertension Sodium Chloride 1,000 mls @ 125 mls/hr 06/18/21 06:30 06/21/21 07:45 Nacl 0.9% 1000 Ml IV 125 mls/hr DIRECT DEBORA Administration Azithromycin 500 mg in 250 mls @ 250 mls/hr 06/21/21 18:07 06/22/21 18:23 Zithromax/Ns IV 250 mls/hr Q24H DEBORA Administration Protocol Insulin Human Lispro 0 unit 06/18/21 07:30 06/22/21 22:14 Insulin Lispro 100 Unit/Ml SUB-Q Not Given ACHS DEBORA Protocol Magnesium Hydroxide 30 ml 06/18/21 06:25 Magnesium Hydroxide (Mom) Oral Liqd Udc PO Q4H PRN Constipation Methylprednisolone Sodium Succinate 40 mg 06/21/21 22:00 06/23/21 06:47 Methylprednisolone Sod Succinate 40 Mg/1 Ml Inj IV 40 mg Q8HR DEBORA Administration Morphine Sulfate 2 mg 06/18/21 06:25 06/20/21 15:32 Morphine 2 Mg/1 Ml Inj IV 2 mg Q4H PRN Administration Pain, Moderate (4-6) Morphine Sulfate 4 mg 06/18/21 06:25 Morphine 4 Mg/1 Ml Inj IV Q4H PRN Pain , Severe (7-10) Ondansetron HCl 4 mg 06/18/21 06:25 Ondansetron 4 Mg/2 Ml Inj IV Q8H PRN Nausea And Vomiting Sodium Chloride 10 ml 06/18/21 10:00 06/23/21 09:37 Sodium Chloride 0.9% 10 Ml Flush Syringe IV 10 ml BID DEBORA Administration Sodium Chloride 10 ml 06/18/21 06:25 Sodium Chloride 0.9% 10 Ml Flush Syringe IV PRN PRN LINE FLUSH Zinc Sulfate 220 mg 06/21/21 22:00 06/23/21 09:36 Zinc Sulfate 220 Mg Cap PO 220 mg BID DEBORA Administration
[2021-06-23] MEDS: INSULIN LISPRO 100 UNIT/ML SUB-Q SCH ×4 (12:10→21:47)
[2021-06-23] MEDS: cefTRIAXone/NS 1 GM/50 ML 1 GM/50 ML BAG IV SCH (12:13)
[2021-06-23] MEDS: AZITHROMYCIN/NS 500 MG/250 ML 500 MG/250 ML BAG IV SCH (17:48)
[2021-06-24] MEDS: MELATONIN 5 MG TAB PO PRN ×3 (01:19→23:03)
[2021-06-24] MEDS: hydrALAZINE 20 MG/1 ML INJ IV PRN ×2 (01:20→12:30)
[2021-06-24] MEDS: methylPREDNISolone Sod Succinate 40 MG/1 ML INJ IV SCH ×3 (05:20→23:01)
[2021-06-24] MEDS: ASCORBIC ACID 500 MG TAB PO SCH ×2 (10:21→23:01)
[2021-06-24] MEDS: ZINC SULFATE 220 MG CAP PO SCH ×2 (10:21→23:01)
[2021-06-24] MEDS: CHOLECALCIFEROL (VIT D3) 400 UNIT TAB PO SCH (10:22)
[2021-06-24] MEDS: INSULIN LISPRO 100 UNIT/ML SUB-Q SCH ×3 (10:22→23:01)
[2021-06-24] MEDS: HEPARIN 5,000 UNIT/1 ML VIAL SUB-Q SCH ×2 (10:22→23:00)
--- NOTE | 2021-06-24 11:07 | Progress Note ---
Assessment and Plan Assessment and plan: Patient is a 41-year-old lady with past medical history of focal segmental glomerulosclerosis lost to follow-up who presented with malaise and abdominal pain. Found to be in acute renal failure. Patient was also septic and began to have respiratory failure. Covid PCR was positive. Currently patient is undergoing hemodialysis on MWF schedule. High flow nasal cannula. Awaiting the V/Q scan to rule out PE. #Acute on chronic kidney injury -History of CKD stage IIIb -proteinuria -Nephrology following, will hold off renal biopsy given new COVID PNA -permacath placement 06/21 -HD initiation 06/21, continue with MWF schedule -CM consult for outpatient HD #Sepsis -Fever, tachycardia -blood cultures NGTD -COVID PCR positive -CXR with bilateral pneumonia -likely 2/2 to respiratory failure vs COVID PNA vs PE #Acute hypoxic respiratory failure -HFNC @ 40LPM, FIO2 100% -will wean as tolerated, goal SpO2 >92% -will continue steroids and empiric CAP coverage for now -COVID PCR positive -CXR showing bilateral PNA, will continue CAP coverage with Azithromycin and rocephin x 5 days total #COVID-Pneumonia #COVID-19 infection -COVID PCR positive -d-dimer 1290, CRP 26.7, LDH 939, ferritin 1625 -ID consulted, assistance appreciated #Elevated D-dimer -patient persistently tachycardic and with oxygen requirement, V/Q scan ordered to rule out PE -could be 2/2 to COVID infection #Abdominal pain -resolved, likely 2/2 to renal failure -CT scan negative for acute abnormalities #Type 2 Diabetes -Glucose control with sliding scale, will continue -continue accuchecks for now #Hypertension -elevated BP -if persistently elevated, will start antihypertensives #Asymptomatic bacteriuria -Urine culture grew [id number] E. coli sensitive to Rocephin -treated with rocephin Disposition Plan: Continue medical management Total Time Spent with Patient (Minutes): 30 minutes History Interval history: No acute events overnight. Patient reports felling "good". Nursing has to continuously redirect her to keep her nasal cannula on. We discussed the importance of keeping it on. Hospitalist Physical - Physical exam Narrative exam: GENERAL: Well-developed well-nourished. Lying in bed HEENT: HFNC at 40 L/min, FiO2 90% CHEST/LUNGS: Vas-Cath in right upper chest. Coarse breath sound bilaterally. HEART/CARDIOVASCULAR: RRR. No murmur, rubs or gallops appreciated. ABDOMEN: +BS. NT/ND. EXTREMITIES: No cyanosis, clubbing or edema. PSYCH: Cooperative. - Constitutional Vitals: Temp Pulse Resp BP Pulse Ox 97.3 F L 104 H 16 177/107 94 06/24/21 08:30 06/24/21 05:00 06/24/21 05:00 06/24/21 06:00 06/24/21 06:00 General appearance: Present: no acute distress Results - Labs CBC & Chem 7: 06/23/21 04:44 06/23/21 04:44 Labs: Laboratory Last Values WBC 5.4 K/mm3 (4.5-11.0) 06/23/21 04:44 RBC 3.70 M/mm3 (3.65-5.03) 06/23/21 04:44 Hgb 11.3 gm/dl (10.1-14.3) 06/23/21 04:44 Hct 33.5 % (30.3-42.9) 06/23/21 04:44 MCV 91 fl (79-97) 06/23/21 04:44 MCH 31 pg (28-32) 06/23/21 04:44 MCHC 34 % (30-34) 06/23/21 04:44 RDW 15.1 % (13.2-15.2) 06/23/21 04:44 Plt Count 230 K/mm3 (140-440) 06/23/21 04:44 Lymph % (Auto) 5.6 % (13.4-35.0) L 06/22/21 08:29 [place] % (Auto) 10.7 % (0.0-7.3) H 06/22/21 08:29 Eos % (Auto) 0.0 % (0.0-4.3) 06/22/21 08:29 Baso % (Auto) 0.1 % (0.0-1.8) 06/22/21 08:29 Lymph # (Auto) 0.2 K/mm3 (1.2-5.4) L 06/22/21 08:29 [place] # (Auto) 0.3 K/mm3 (0.0-0.8) 06/22/21 08:29 Eos # (Auto) 0.0 K/mm3 (0.0-0.4) 06/22/21 08:29 Baso # (Auto) 0.0 K/mm3 (0.0-0.1) 06/22/21 08:29 Seg Neutrophils % 83.6 % (40.0-70.0) H 06/22/21 08:29 Seg Neutrophils # 2.6 K/mm3 (1.8-7.7) 06/22/21 08:29 PT 14.4 Sec. (12.2-14.9) 06/19/21 05:00 INR 1.01 (0.87-1.13) 06/19/21 05:00 D-Dimer 1290.36 ng/mlDDU (0-234) H 06/21/21 20:58 ABG pH 7.492 pH Units (7.350-7.450) H 06/21/21 17:30 ABG pCO2 24.1 mm Hg 06/21/21 17:30 ABG pO2 79.9 mm Hg (80.0-90.0) L 06/21/21 17:30 ABG HCO3 18.0 mmol/L (20.0-26.0) L 06/21/21 17:30 ABG O2 Saturation 97.0 % (95.0-99.0) 06/21/21 17:30 ABG O2 Content 15.1 (0.0-44) 06/21/21 17:30 ABG Base Excess -3.9 mmol/L (-2.0-3.0) L 06/21/21 17:30 ABG Hemoglobin 11.2 gm/dl (12.0-16.0) L 06/21/21 17:30 ABG Carboxyhemoglobin 1.1 % (0.0-5.0) 06/21/21 17:30 ABG Methemoglobin 0.5 % (0.0-1.5) 06/21/21 17:30 Oxyhemoglobin 95.4 % (95.0-99.0) 06/21/21 17:30 FiO2 100 % 06/21/21 17:30 Sodium 137 mmol/L (137-145) 06/23/21 04:44 Potassium 3.7 mmol/L (3.6-5.0) 06/23/21 04:44 Chloride 94.7 mmol/L (98-107) L 06/23/21 04:44 Carbon Dioxide 20 mmol/L (22-30) L 06/23/21 04:44 Anion Gap 26 mmol/L 06/23/21 04:44 BUN 61 mg/dL (7-17) H 06/23/21 04:44 Creatinine 10.2 mg/dL (0.6-1.2) H 06/23/21 04:44 Estimated GFR 5 ml/min 06/23/21 04:44 BUN/Creatinine Ratio 6 % 06/23/21 04:44 Glucose 138 mg/dL (65-100) H 06/23/21 04:44 POC Glucose 168 mg/dL (70-105) H 06/24/21 09:12 Calcium 8.6 mg/dL (8.4-10.2) 06/23/21 04:44 Ferritin 1625.0 ng/mL (10.0-200.0) H 06/21/21 20:58 Total Bilirubin 0.20 mg/dL (0.1-1.2) 06/22/21 08:29 Direct Bilirubin < 0.2 mg/dL (0-0.2) 06/18/21 03:10 Indirect Bilirubin 0.1 mg/dL 06/18/21 03:10 AST 32 units/L (5-40) 06/22/21 08:29 ALT 11 units/L (7-56) 06/22/21 08:29 Alkaline Phosphatase 53 units/L (35-129) 06/22/21 08:29 Lactate Dehydrogenase 939 units/L (91-180) H 06/21/21 20:58 C-Reactive Protein 26.70 mg/dL (0.00-1.30) H 06/21/21 20:58 Total Protein 5.6 g/dL (6.3-8.2) L 06/22/21 08:29 Albumin 1.8 g/dL (3.9-5) L 06/22/21 08:29 Albumin/Globulin Ratio 0.5 % 06/22/21 08:29 Lipase 199 units/L (13-60) H 06/18/21 03:10 Procalcitonin 24.59 ng/mL (<0.15) 06/21/21 20:58 Urine Color Jessy (Yellow) 06/19/21 05:27 Urine Turbidity Cloudy (Clear) 06/19/21 05:27 Urine pH 5.0 (5.0-7.0) 06/19/21 05:27 Ur Specific [place] 1.025 (1.003-1.030) 06/19/21 05:27 Urine Protein >500 mg/dL (Negative) 06/19/21 05:27 Urine Glucose (UA) 50 mg/dL (Negative) 06/19/21 05:27 Urine Ketones Neg mg/dL (Negative) 06/19/21 05:27 Urine Blood Lg (Negative) 06/19/21 05:27 Urine Nitrite Neg (Negative) 06/19/21 05:27 Urine Bilirubin Neg (Negative) 06/19/21 05:27 Urine Urobilinogen < 2.0 mg/dL (<2.0) 06/19/21 05:27 Ur Leukocyte Esterase Mod (Negative) 06/19/21 05:27 Urine WBC (Auto) > 182.0 /HPF (0.0-6.0) H 06/19/21 05:27 Urine RBC (Auto) 35.0 /HPF (0.0-6.0) 06/19/21 05:27 U Epithel Cells (Auto) 1.0 /HPF (0-13.0) 06/19/21 05:27 Urine WBC Clumps 3+ /HPF 06/19/21 05:27 Urine Mucus Few /HPF 06/19/21 05:27 Urine Yeast (Budding) 3+ /HPF 06/18/21 04:55 Urine Creatinine 132.3 mg/dL (0.1-20.0) H 06/19/21 05:27 Urine Creatinine 132.5 mg/dL (0.1-20.0) H 06/19/21 05:27 Protein/Creatinin Ratio 1.48 06/19/21 05:27 Urine Sodium 26 mmol/L 06/19/21 05:27 Urine Chloride 25.9 mmolL (110-250) L 06/19/21 05:27 Urine Total Protein 196 mg/dL (5-11.8) H 06/19/21 05:27 Urine HCG, Qual Negative (Negative) 06/19/21 05:27 RAFAEL Screen Negative (Negative) 06/18/21 13:49 Double Strand DNA Ab <1 IU/mL (<=4) 06/18/21 13:49 Complement C3 168 mg/dL (83-193) 06/18/21 13:49 Complement C4 70 mg/dL (15-57) H 06/18/21 13:49 Coronavirus (PCR) Positive (Negative) A 06/22/21 09:00 Hepatitis A IgM Ab Non-reactive (NonReactive) 06/21/21 04:20 Hep Bs Antigen Nonreactive (Negative) 06/21/21 04:20 Hep B Core IgM Ab Non-reactive (NonReactive) 06/21/21 04:20 Hepatitis C Antibody Non-reactive (NonReactive) 06/21/21 04:20 Microbiology: Microbiology 06/21/21 10:47 Peripheral/Venous Blood Culture - Preliminary NO GROWTH AFTER 48 HOURS 06/21/21 11:57 Peripheral/Venous Blood Culture - Preliminary NO GROWTH AFTER 48 HOURS Forman/IV: Voiding Method Indwelling Catheter Active Medications - Current Medications Current Medications: Generic Name Dose Route Start Last Admin Trade Name Freq PRN Reason Stop Dose Admin Acetaminophen 650 mg 06/18/21 06:25 06/21/21 23:41 Acetaminophen 325 Mg Tab PO 650 mg Q4H PRN Administration Pain MILD(1-3)/Fever >100.5/ANDUJAR Ascorbic Acid 500 mg 06/21/21 22:00 06/24/21 10:21 Ascorbic Acid 500 Mg Tab PO 500 mg BID DEBORA Administration Cholecalciferol 1,000 unit 06/22/21 10:00 06/24/21 10:22 Cholecalciferol (Vit D3) 400 Unit Tab PO 1,000 unit QDAY DEBORA Administration Dextrose 50 ml 06/18/21 06:25 Dextrose 50% In Water (25gm) 50 Ml Syringe IV Q30MIN PRN Hypoglycemia Protocol Heparin Sodium (Porcine) 5,000 unit 06/21/21 22:00 06/24/21 10:22 Heparin 5,000 Unit/1 Ml Vial SUB-Q 5,000 unit Q12HR DEBORA Administration Hydralazine HCl 10 mg 06/21/21 17:04 06/24/21 01:20 Hydralazine 20 Mg/1 Ml Inj IV 10 mg Q6HR PRN Administration Hypertension Sodium Chloride 1,000 mls @ 125 mls/hr 06/18/21 06:30 06/21/21 07:45 Nacl 0.9% 1000 Ml IV 125 mls/hr DIRECT DEBORA Administration Azithromycin 500 mg in 250 mls @ 250 mls/hr 06/21/21 18:07 06/23/21 17:48 Zithromax/Ns IV 250 mls/hr Q24H DEBORA Administration Protocol Sodium Chloride 100 mls @ 999 mls/hr 06/23/21 10:17 Nacl 0.9% IV ASHLEIGH PRN Hypotension Ceftriaxone Sodium 1 gm in 50 mls @ 100 mls/hr 06/23/21 12:00 06/23/21 12:13 Rocephin/Ns 1 Gm/50 Ml IV 100 mls/hr Q24H DEBORA Administration Protocol Insulin Human Lispro 0 unit 06/18/21 07:30 06/24/21 10:22 Insulin Lispro 100 Unit/Ml SUB-Q 1 unit ACHS DEBORA Administration Protocol Magnesium Hydroxide 30 ml 06/18/21 06:25 Magnesium Hydroxide (Mom) Oral Liqd Udc PO Q4H PRN Constipation Melatonin 5 mg 06/24/21 01:11 06/24/21 01:19 Melatonin 5 Mg Tab PO 5 mg QHS PRN Administration Sleep Methylprednisolone Sodium Succinate 40 mg 06/21/21 22:00 06/24/21 05:20 Methylprednisolone Sod Succinate 40 Mg/1 Ml Inj IV 07/01/21 14:01 40 mg Q8HR DEBORA Administration Morphine Sulfate 2 mg 06/18/21 06:25 06/20/21 15:32 Morphine 2 Mg/1 Ml Inj IV 2 mg Q4H PRN Administration Pain, Moderate (4-6) Morphine Sulfate 4 mg 06/18/21 06:25 Morphine 4 Mg/1 Ml Inj IV Q4H PRN Pain , Severe (7-10) Ondansetron HCl 4 mg 06/18/21 06:25 Ondansetron 4 Mg/2 Ml Inj IV Q8H PRN Nausea And Vomiting Sodium Chloride 10 ml 06/18/21 10:00 06/24/21 10:22 Sodium Chloride 0.9% 10 Ml Flush Syringe IV 10 ml BID DEBORA Administration Sodium Chloride 10 ml 06/18/21 06:25 Sodium Chloride 0.9% 10 Ml Flush Syringe IV PRN PRN LINE FLUSH Zinc Sulfate 220 mg 06/21/21 22:00 06/24/21 10:21 Zinc Sulfate 220 Mg Cap PO 220 mg BID DEBORA Administration Nutrition/Malnutrition Assess - Dietary Evaluation Nutrition/Malnutrition Findings: Nutrition Notes Start: 06/18/21 15:35 Freq: Status: Active Protocol: Document 06/19/21 14:16 CHARY (Rec: 06/19/21 14:26 CHARY [email or web address]) Nutrition Notes 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 Current Diet Cardiac/Consistent Carbohydrate Diet (since B ). Labs/Tests 06/19: Na 135, CO2 14, BUN 102 , Cr 14.7. Pertinent Medications 06/19: Nutritionally unremarkable. Height 5 ft 2 in Weight 92.99 kg [place] Body Weight (kg) 50.00 BMI 37.5 Weight Status Obese Percent of energy/protein needs met: Prescribed C/CC Diet provides with energy/protein needs (1, 977/86 g) during LOS. Burn Absent Trauma Absent GI Symptoms None Food Allergy No Skin Integrity/Comment Integumentary; clear, warm, dry. Current % PO Negligible Minimum of two criteria No physical signs of malnutrition #2 Nutrition Diagnosis No nutrition diagnosis at this time Comments: Pt shows no integumentary risk at the time. As per Progress Notes. #1 Nutrition Diagnosis Food and nutrition-related knowledge deficit Comments: Pt could banefit from nutrition education material to elicit behavioral changes towards a healthy lifestyle. Etiology Concomitant chronic metabolic conditions As Evidenced by Signs and Symptoms Abnormal chemistry lab values, MD diagnosis. Is patient on ventilator? No Is Patient Ambulatory and/or Out of Bed Yes REE-([facility]-ambulatory/OOB) [ 2019.095 [id number]] Kcal/Kg value to use for calculation 22 Approximate Energy Requirements Using 6 kcal/Kg Calculation Used for Recommendations Kcal/kg Additional Notes Protein: 0.8-1.0 g/Kg/day; 40- 50 g/day; 160-200 Kcal/day ( fromIBW). Fluids: 1.0 ml/Kcal/day, or as oer MD. Nutrition Intervention Change Diet Order: Continue Cardiac/Consistent Carbohydrate Diet. Teaching Recipient Patient Learning Readiness Good Teaching Methods Handout Response to Teaching Verbalize understanding Education Handouts Provided AND: Hypertension Nutrition Therapy, and Chronic Kidney Disease Stage 3-5 Nutrition Therapy. Barriers to Learning No Barriers RD phone number provided Yes Patient aware of follow up options Yes Goal #1 Pt could benefit from nutrition education material to elicit behavioral changes towards a healthy lifestyle. Goal #2 Maintain body weight within +/ -3% of current BWt during LOS. Goal #3 Reach and maintain acceptable chemistry lab values during LOS. Follow-Up By: 06/25/21 Additional Comments Continue monitoring acceptance of food, % PO intake of meals , Hydration, and BM.
--- NOTE | 2021-06-24 11:39 | Consultation ---
History of Present Illness - Reason for Consult Consult date: 06/24/21 COVID-19 pneumonia Requesting physician: SHITAL PIRES - History of Present Illness The patient is a 41-year-old female with FSGS was admitted with acute renal failure. Also complaining of abdominal pain. She was initiated on dialysis after a PermCath was placed on 06/21/2021. Patient had some low-grade fever yesterday and also spiked a fever of 102 F on 06/22/2021. COVID-19 PCR was done and came back positive. Infectious diseases has been consulted for additional evaluation. Severely hypoxic requiring NRB. Review of Systems: reviewed in the chart, unable to obtain, minimize risk of transmission Past History Past Medical History: diabetes, DVT, hypertension, renal failure Past Surgical History: No surgical history Social history: no significant social history Family history: CAD, hypertension Medications and Allergies Allergies Allergy/AdvReac Type Severity Reaction Status Date / Time No Known Allergies Allergy Verified 08/19/19 15:08 Home Medications Medication Instructions Recorded Confirmed Last Taken Type Pnv No.95/Ferrous Fum/Folic AC 1 each PO QDAY 04/10/17 12/31/19 12/30/19 10:30 History [ [place]] Famotidine [Pepcid] 20 mg PO DAILY #14 tablet 04/13/17 12/31/19 12/30/19 10:30 Rx hydrALAZINE [Apresoline TAB] 100 mg PO TID #90 tab 04/13/17 12/31/19 Unknown Rx Nitrofurantoin [place]/M-Cryst 100 mg PO Q12HR #14 capsule 08/19/19 12/31/19 Unknown Rx [Macrobid CAP] Aspirin BABY CHEW TAB 80 mg PO DAILY 12/31/19 12/31/19 12/30/19 10:30 History Enoxaparin 40 mg SUB-Q DAILY 12/31/19 12/31/19 12/30/19 10:30 History labetaloL [Labetalol 200mg TAB] 400 mg PO BID 12/31/19 12/31/19 12/30/19 10:30 History HYDROcodone/APAP 5-325 [[place] 1 - 2 each PO Q4HR PRN #30 tablet 01/05/20 Unknow n Rx 5/325] Active Meds: Active Medications Acetaminophen (Acetaminophen 325 Mg Tab) 650 mg PO Q4H PRN PRN Reason: Pain MILD(1-3)/Fever >100.5/ANDUJAR Last Admin: 06/21/21 23:41 Dose: 650 mg Documented by: Ascorbic Acid (Ascorbic Acid 500 Mg Tab) 500 mg PO BID DEBORA Last Admin: 06/24/21 10:21 Dose: 500 mg Documented by: Cholecalciferol (Cholecalciferol (Vit D3) 400 Unit Tab) 1,000 unit PO QDAY DEBORA Last Admin: 06/24/21 10:22 Dose: 1,000 unit Documented by: Dextrose (Dextrose 50% In Water (25gm) 50 Ml Syringe) 50 ml IV Q30MIN PRN; Protocol PRN Reason: Hypoglycemia Heparin Sodium (Porcine) (Heparin 5,000 Unit/1 Ml Vial) 5,000 unit SUB-Q Q12HR DEBORA Last Admin: 06/24/21 10:22 Dose: 5,000 unit Documented by: Hydralazine HCl (Hydralazine 20 Mg/1 Ml Inj) 10 mg IV Q6HR PRN PRN Reason: Hypertension Last Admin: 06/24/21 01:20 Dose: 10 mg Documented by: Sodium Chloride (Nacl 0.9% 1000 Ml) 1,000 mls @ 125 mls/hr IV DIRECT DEBORA Last Admin: 06/21/21 07:45 Dose: 125 mls/hr Documented by: Azithromycin (Zithromax/Ns) 500 mg in 250 mls @ 250 mls/hr IV Q24H DEBORA; Protocol Last Admin: 06/23/21 17:48 Dose: 250 mls/hr Documented by: Sodium Chloride (Nacl 0.9%) 100 mls @ 999 mls/hr IV ASHLEIGH PRN PRN Reason: Hypotension Ceftriaxone Sodium (Rocephin/Ns 1 Gm/50 Ml) 1 gm in 50 mls @ 100 mls/hr IV Q24H DEBORA; Protocol Last Admin: 06/23/21 12:13 Dose: 100 mls/hr Documented by: Insulin Human Lispro (Insulin Lispro 100 Unit/Ml) 0 unit SUB-Q ACHS DEBORA; Protocol Last Admin: 06/24/21 10:22 Dose: 1 unit Documented by: Magnesium Hydroxide (Magnesium Hydroxide (Mom) Oral Liqd Udc) 30 ml PO Q4H PRN PRN Reason: Constipation Melatonin (Melatonin 5 Mg Tab) 5 mg PO QHS PRN PRN Reason: Sleep Last Admin: 06/24/21 01:19 Dose: 5 mg Documented by: Methylprednisolone Sodium Succinate (Methylprednisolone Sod Succinate 40 Mg/1 Ml Inj) 40 mg IV Q8HR [facility] Stop: 07/01/21 14:01 Last Admin: 06/24/21 05:20 Dose: 40 mg Documented by: Morphine Sulfate (Morphine 2 Mg/1 Ml Inj) 2 mg IV Q4H PRN PRN Reason: Pain, Moderate (4-6) Last Admin: 06/20/21 15:32 Dose: 2 mg Documented by: Morphine Sulfate (Morphine 4 Mg/1 Ml Inj) 4 mg IV Q4H PRN PRN Reason: Pain , Severe (7-10) Ondansetron HCl (Ondansetron 4 Mg/2 Ml Inj) 4 mg IV Q8H PRN PRN Reason: Nausea And Vomiting Sodium Chloride (Sodium Chloride 0.9% 10 Ml Flush Syringe) 10 ml IV BID [facility] Last Admin: 06/24/21 10:22 Dose: 10 ml Documented by: Sodium Chloride (Sodium Chloride 0.9% 10 Ml Flush Syringe) 10 ml IV PRN PRN PRN Reason: LINE FLUSH Zinc Sulfate (Zinc Sulfate 220 Mg Cap) 220 mg PO BID [facility] Last Admin: 06/24/21 10:21 Dose: 220 mg Documented by: Physical Examination - Physical Exam Narrative exam: Physical Exam (reviewed in chart to minimize risk of transmission) Constitutional: deferred Head, Ears, Nose: deferred Eyes: deferred Neck: deferred Oral: deferred Cardiovascular: deferred Respiratory: deferred GI: deferred Musculoskeletal: deferred Skin: deferred Hem/Lymphatic: deferred Psych: deferred Neurological: deferred - Constitutional Vitals: Vital Signs Temp Pulse Resp BP Pulse Ox 97.3 F L 104 H 16 177/107 94 06/24/21 08:30 06/24/21 05:00 06/24/21 05:00 06/24/21 06:00 06/24/21 06:00 Temperature -Last 24 Hours Temperature 97.3 F Temperature 98.7 F Temperature 98.7 F Temperature 98.0 F Results - Labs CBC & Chem 7: 06/23/21 04:44 06/23/21 04:44 Labs: Abnormal lab results 06/23/21 06/23/2106/23/21 Range/Units 11:49 17:47 21:45 POC Glucose 148 H 148 H 154 H (70-105) mg/dL 06/24/21 Range/Units 09:12 POC Glucose 168 H (70-105) mg/dL - Imaging and Cardiology Chest x-ray: report reviewed, image reviewed (b/l diffuse airspace disease) Assessment and Plan Cultures: SARS CoV2 PCR: Positive 06/18/2021 urine culture: E. 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 Severe disease. #Acute hypoxic respiratory failure: On NRB #ESRD secondary to FSGS, now initiated on dialysis #Positive urine culture, likely asymptomatic bacteriuria #Leukopenia: Secondary to COVID-19 Recs: -Continue steroids, complete 10 days -Not a candidate for remdesivir due to renal failure -On NRB, CRP >7.5, candidate for Actemra (depending on availability), order placed -prophylactic anticoagulation based on d-dimer per hospital protocol -Complete 3 days of empiric antibiotics although procalcitonin elevation is likely due to renal failure -trend d-dimer, CRP every 2-3 days -Guarded prognosis Kendell Pacheco MD, FACP [facility] O: [phone] F: [phone]
--- NOTE | 2021-06-24 11:46 | Progress Note ---
Assessment and Plan - Patient Problems (1) Acute kidney injury superimposed on chronic kidney disease Current Visit: No Status: Acute Plan to address problem: pt was intiated on HD since no signs of renal recovery seen. Cont HD on MWF schedule. Will need to be placed at an outpatient facility for HD once discharged. Will need assistance from case management (2) Pneumonia due to COVID-19 virus Current Visit: Yes Status: Acute Plan to address problem: Started on IV solumedrol regimen. Not a candidate for remdesivir given poor renal function. Management per ID/primary team recommendations. Hold off on planned renal biopsy at present time given COVID-19 pneumonia. (3) Abdominal pain Current Visit: Yes Status: Acute Plan to address problem: CT of the abdomen did not show any acute pathology. concerned whether her symptoms are more indicative of progressive kidney disease and underlying uremia. (4) Hypertensive chronic kidney disease with stage 1 through stage 4 chronic kidney disease, or unspecified chronic kidney disease Current Visit: Yes Status: Acute Plan to address problem: Elevated blood pressure readings noted over the last 24 hours. Will try to optimize volume status with UF during HD. (5) Type 2 diabetes mellitus with diabetic chronic kidney disease Current Visit: Yes Status: Chronic Plan to address problem: diabetes management per primary attending. (6) Acute respiratory failure Current Visit: Yes Status: Acute Plan to address problem: on HFNC 40% Fio2 and stable on current settings per nursing staff. Management per ICU/pulmonary recommendations. (7) Urinary tract infection Current Visit: Yes Status: Acute Plan to address problem: Started on rocephin Subjective Date of service: 06/24/21 Principal diagnosis: SHANON Objective - Vital Signs Vital signs: Vital Signs - 12hr 06/24/21 06/24/21 06/24/21 00:00 00:06 01:01 Temperature 98.7 F Pulse Rate 121 H 118 H Respiratory 26 H 22 Rate Blood Pressure 174/112 203/125 O2 Sat by Pulse 93 94 Oximetry 06/24/21 06/24/21 06/24/21 02:01 03:01 03:16 Temperature Pulse Rate 113 H 114 H Respiratory 21 19 Rate Blood Pressure O2 Sat by Pulse 97 100 99 Oximetry 06/24/21 06/24/21 06/24/21 03:46 04:00 05:00 Temperature 98.7 F Pulse Rate 107 H 104 H Respiratory 27 H 16 Rate Blood Pressure 144/87 152/91 O2 Sat by Pulse 97 96 Oximetry 06/24/21 06/24/21 06:00 08:30 Temperature 97.3 F L Pulse Rate Respiratory Rate Blood Pressure 177/107 O2 Sat by Pulse 94 Oximetry - Lab 06/23/21 04:44 06/23/21 04:44 Most recent lab results ABG pH 7.492 pH Units (7.350-7.450) H 06/21/21 17:30 ABG pCO2 24.1 mm Hg 06/21/21 17:30 ABG pO2 79.9 mm Hg (80.0-90.0) L 06/21/21 17:30 ABG HCO3 18.0 mmol/L (20.0-26.0) L 06/21/21 17:30 ABG O2 Saturation 97.0 % (95.0-99.0) 06/21/21 17:30 Calcium 8.6 mg/dL (8.4-10.2) 06/23/21 04:44 Urine Creatinine 132.3 mg/dL (0.1-20.0) H 06/19/21 05:27 Urine Creatinine 132.5 mg/dL (0.1-20.0) H 06/19/21 05:27 Urine Sodium 26 mmol/L 06/19/21 05:27 Urine Total Protein 196 mg/dL (5-11.8) H 06/19/21 05:27 Medications & Allergies - Medications Allergies/Adverse Reactions: Allergies No Known Allergies Allergy (Verified 08/19/19 15:08) Home Medications: Home Medications Medication Instructions Recorded Confirmed Last Taken Type Pnv No.95/Ferrous Fum/Folic AC 1 each PO QDAY 04/10/17 12/31/19 12/30/19 10:30 History [ Caplet] Famotidine [Pepcid] 20 mg PO DAILY #14 tablet 04/13/17 12/31/19 12/30/19 10:30 Rx hydrALAZINE [Apresoline TAB] 100 mg PO TID #90 tab 04/13/17 12/31/19 Unknown Rx Nitrofurantoin [place]/M-Cryst 100 mg PO Q12HR #14 capsule 08/19/19 12/31/19 Unknown Rx [Macrobid CAP] Aspirin BABY CHEW TAB 80 mg PO DAILY 12/31/19 12/31/1920 10:30 History Enoxaparin 40 mg SUB-Q DAILY 12/31/19 12/31/19 12/30/19 10:30 History labetaloL [Labetalol 200mg TAB] 400 mg PO BID 12/31/19 12/31/19 12/30/19 10:30 History HYDROcodone/APAP 5-325 [[place] 1 - 2 each PO Q4HR PRN #30 tablet 01/05/20 Unknown Rx 5/325] Active Medications: Generic Name Dose Route Start Last Admin Trade Name Freq PRN Reason Stop Dose Admin Acetaminophen 650 mg 06/18/21 06:25 06/21/21 23:41 Acetaminophen 325 Mg Tab PO 650 mg Q4H PRN Administration Pain MILD(1-3)/Fever >100.5/ANDUJAR Ascorbic Acid 500 mg 06/21/21 22:00 06/24/21 10:21 Ascorbic Acid 500 Mg Tab PO 500 mg BID DEBORA Administration Cholecalciferol 1,000 unit 06/22/21 10:00 06/24/21 10:22 Cholecalciferol (Vit D3) 400 Unit Tab PO 1,000 unit QDAY DEBORA Administration Dextrose 50 ml 06/18/21 06:25 Dextrose 50% In Water (25gm) 50 Ml Syringe IV Q30MIN PRN Hypoglycemia Protocol Heparin Sodium (Porcine) 5,000 unit 06/21/21 22:00 06/24/21 10:22 Heparin 5,000 Unit/1 Ml Vial SUB-Q 5,000 unit Q12HR DEBORA Administration Hydralazine HCl 10 mg 06/21/21 17:04 06/24/21 01:20 Hydralazine 20 Mg/1 Ml Inj IV 10 mg Q6HR PRN Administration Hypertension Sodium Chloride 1,000 mls @ 125 mls/hr 06/18/21 06:30 06/21/21 07:45 Nacl 0.9% 1000 Ml IV 125 mls/hr DIRECT DEBORA Administration Azithromycin 500 mg in 250 mls @ 250 mls/hr 06/21/21 18:07 06/23/21 17:48 Zithromax/Ns IV 250 mls/hr Q24H DEBORA Administration Protocol Sodium Chloride 100 mls @ 999 mls/hr 06/23/21 10:17 Nacl 0.9% IV ASHLEIGH PRN Hypotension Ceftriaxone Sodium 1 gm in 50 mls @ 100 mls/hr 06/23/21 12:00 06/23/21 12:13 Rocephin/Ns 1 Gm/50 Ml IV 100 mls/hr Q24H DEBORA Administration Protocol TOCILIZUMAB 600 mg/ Sodium 130 mls @ 120 mls/hr 06/24/21 11:37 Chloride IV 06/24/21 12:41 ONCE ONE Insulin Human Lispro 0 unit 06/18/21 07:30 06/24/21 10:22 Insulin Lispro 100 Unit/Ml SUB-Q 1 unit ACHS DEBORA Administration Protocol Magnesium Hydroxide 30 ml 06/18/21 06:25 Magnesium Hydroxide (Mom) Oral Liqd Udc PO Q4H PRN Constipation Melatonin 5 mg 06/24/21 01:11 06/24/21 01:19 Melatonin 5 Mg Tab PO 5 mg QHS PRN Administration Sleep Methylprednisolone Sodium Succinate 40 mg 06/21/21 22:00 06/24/21 05:20 Methylprednisolone Sod Succinate 40 Mg/1 Ml Inj IV 07/01/21 14:01 40 mg Q8HR DEBORA Administration Morphine Sulfate 2 mg 06/18/21 06:25 06/20/21 15:32 Morphine 2 Mg/1 Ml Inj IV 2 mg Q4H PRN Administration Pain, Moderate (4-6) Morphine Sulfate 4 mg 06/18/21 06:25 Morphine 4 Mg/1 Ml Inj IV Q4H PRN Pain , Severe (7-10) Ondansetron HCl 4 mg 06/18/21 06:25 Ondansetron 4 Mg/2 Ml Inj IV Q8H PRN Nausea And Vomiting Sodium Chloride 10 ml 06/18/21 10:00 06/24/21 10:22 Sodium Chloride 0.9% 10 Ml Flush Syringe IV 10 ml BID DEBORA Administration Sodium Chloride 10 ml 06/18/21 06:25 Sodium Chloride 0.9% 10 Ml Flush Syringe IV PRN PRN LINE FLUSH Zinc Sulfate 220 mg 06/21/21 22:00 06/24/21 10:21 Zinc Sulfate 220 Mg Cap PO 220 mg BID DEBORA Administration
[2021-06-24] MEDS ORDERED: TOCILIZUMAB 600 MG in SODIUM CHLORIDE 0.9% 100 ML IV SCH (12:15)
[2021-06-25] MEDS: cefTRIAXone/NS 1 GM/50 ML 1 GM/50 ML BAG IV SCH (00:15)
[2021-06-25 05:03] LABS: Hematocrit 30.3 % (30.3-42.9); Hemoglobin 10.1 gm/dl (10.1-14.3); Mean Corpuscular HGB Conc 34 % (30-34); Mean Corpuscular Volume 91 fl (79-97); Platelet Count 215 K/mm3 (140-440); Red Blood Count 3.32 M/mm3 (3.65-5.03); Red Cell Distribution Width 14.6 % (13.2-15.2)
[2021-06-25 05:26] LABS: Calcium 8.6 mg/dL (8.4-10.2)
[2021-06-25] MEDS: methylPREDNISolone Sod Succinate 40 MG/1 ML INJ IV SCH ×3 (06:24→22:49)
--- NOTE | 2021-06-25 08:28 | XRay Report ---
CHEST 1 VIEW INDICATION / CLINICAL INFORMATION: for VQ chest scan to compare. COMPARISON: 06/22/2021, 12/21/2019. FINDINGS: SUPPORT DEVICES: Stable right-sided dialysis catheter. HEART / MEDIASTINUM: Stable mildly enlarged cardiac silhouette. LUNGS / PLEURA: Persistent bilateral lower lobe predominant airspace disease most consistent with inf ection. No definite pleural effusion. No pneumothorax. ADDITIONAL FINDINGS: No significant additional findings. IMPRESSION: Stable appearance of the chest with persistent lower lobe predominant bilateral airspace disease most consistent with infection. Signer Name: Solo Schultz MD Signed: 06/25/2021 8:24 AM Workstation Name: [id number]
[2021-06-25] MEDS ORDERED: SODIUM CHLORIDE 0.9% 100 ML IV PRN (09:17)
--- NOTE | 2021-06-25 09:42 | Progress Note ---
Assessment and Plan - Patient Problems (1) Acute kidney injury superimposed on chronic kidney disease Current Visit: No Status: Acute Plan to address problem: pt was intiated on HD since no signs of renal recovery seen. incomplete HD treatment yesterday due to tachycardia, will arrange another HD today for solute clearance and volume control and cont TTS inpatient schedule. Will need to be placed at an outpatient facility for HD once discharged. Will need assistance from case management (2) Pneumonia due to COVID-19 virus Current Visit: Yes Status: Acute Plan to address problem: Started on IV solumedrol regimen. Not a candidate for remdesivir given poor renal function. Management per ID/primary team recommendations. Hold off on planned renal biopsy at present time given COVID-19 pneumonia. (3) Abdominal pain Current Visit: Yes Status: Acute Plan to address problem: CT of the abdomen did not show any acute pathology. concerned whether her symptoms are more indicative of progressive kidney disease and underlying uremia. (4) Hypertensive chronic kidney disease with stage 1 through stage 4 chronic kidney disease, or unspecified chronic kidney disease Current Visit: Yes Status: Acute Plan to address problem: Elevated blood pressure readings noted over the last 24 hours. Will try to optimize volume status with UF during HD. (5) Type 2 diabetes mellitus with diabetic chronic kidney disease Current Visit: Yes Status: Chronic Plan to address problem: diabetes management per primary attending. (6) Acute respiratory failure Current Visit: Yes Status: Acute Plan to address problem: on HFNC 40% Fio2 and stable on current settings per nursing staff. Management per ICU/pulmonary recommendations. (7) Urinary tract infection Current Visit: Yes Status: Acute Plan to address problem: Started on rocephin Subjective Date of service: 06/25/21 Principal diagnosis: SHANON Interval history: (+) COVID-19 pneumonia. On isolate protocol. Remains on HFNC could not complete HD yesterday due to tachycardia, worsening azotemia on repeat labs this AM. Arranged another HD today for solute clearance and volume control. Objective - Exam Narrative Exam: Not directly examined in order to preserve PPE. She is under investigation for COVID-19 infection. Physical examination by primary team reviewed. - Vital Signs Vital signs: Vital Signs - 12hr 06/24/21 06/24/21 06/24/21 22:00 23:00 23:56 Temperature 98.2 F Pulse Rate 112 H 103 H Pulse Rate [ From Monitor] Respiratory 26 H 20 Rate Blood Pressure 142/89 162/100 O2 Sat by Pulse Oximetry 06/25/21 06/25/21 06/25/21 00:00 00:10 01:00 Temperature Pulse Rate 116 H 114 H 115 H Pulse Rate [ 116 H From Monitor] Respiratory 32 H 25 H Rate Blood Pressure 156/102 150/97 O2 Sat by Pulse 96 98 Oximetry 06/25/21 06/25/21 06/25/21 02:00 03:00 04:00 Temperature Pulse Rate 101 H 95 H 103 H Pulse Rate [ From Monitor] Respiratory 17 26 H 30 H Rate Blood Pressure 131/87 133/84 162/108 O2 Sat by Pulse 97 Oximetry 06/25/21 06/25/21 06/25/21 04:05 05:00 06:00 Temperature 97.2 F L Pulse Rate 106 H 99 H 92 H Pulse Rate [ From Monitor] Respiratory 22 38 H Rate Blood Pressure 162/88 149/94 O2 Sat by Pulse 97 Oximetry 06/25/21 06/25/21 07:00 08:06 Temperature Pulse Rate 96 H Pulse Rate [ From Monitor] Respiratory 39 H Rate Blood Pressure 153/95 O2 Sat by Pulse 99 Oximetry - Lab 06/25/21 04:42 06/25/21 04:42 Most recent lab results ABG pH 7.492 pH Units (7.350-7.450) H 06/21/21 17:30 ABG pCO2 24.1 mm Hg 06/21/21 17:30 ABG pO2 79.9 mm Hg (80.0-90.0) L 06/21/21 17:30 ABG HCO3 18.0 mmol/L (20.0-26.0) L 06/21/21 17:30 ABG O2 Saturation 97.0 % (95.0-99.0) 06/21/21 17:30 Calcium 8.6 mg/dL (8.4-10.2) 06/25/21 04:42 Urine Creatinine 132.3 mg/dL (0.1-20.0) H 06/19/21 05:27 Urine Creatinine 132.5 mg/dL (0.1-20.0) H 06/19/21 05:27 Urine Sodium 26 mmol/L 06/19/21 05:27 Urine Total Protein 196 mg/dL (5-11.8) H 06/19/21 05:27 Medications & Allergies - Medications Allergies/Adverse Reactions: Allergies No Known Allergies Allergy (Verified 08/19/19 15:08) Home Medications: Home Medications Medication Instructions Recorded Confirmed Last Taken Type Pnv No.95/Ferrous Fum/Folic AC 1 each PO QDAY 04/10/17 12/31/19 12/30/19 10:30 History [ Caplet] Famotidine [Pepcid] 20 mg PO DAILY #14 tablet 04/13/17 12/31/19 12/30/19 10:30 Rx hydrALAZINE [Apresoline TAB] 100 mg PO TID #90 tab 04/13/17 12/31/19 Unknown Rx Nitrofurantoin [place]/M-Cryst 100 mg PO Q12HR #14 capsule 08/19/19 12/31/19 Unknown Rx [Macrobid CAP] Aspirin BABY CHEW TAB 80 mg PO DAILY 12/31/19 12/31/19 12/30/19 10:30 History Enoxaparin 40 mg SUB-Q DAILY 12/31/19 12/31/19 12/30/19 10:30 History labetaloL [Labetalol 200mg TAB] 400 mg PO BID 12/31/19 12/31/19 12/30/19 10:30 History HYDROcodone/APAP 5-325 [[place] 1 - 2 each PO Q4HR PRN #30 tablet 01/05/20 Unknown Rx 5/325] Active Medications: Generic Name Dose Route Start Last Admin Trade Name Freq PRN Reason Stop Dose Admin Acetaminophen 650 mg 06/18/21 06:25 06/21/21 23:41 Acetaminophen 325 Mg Tab PO 650 mg Q4H PRN Administration Pain MILD(1-3)/Fever >100.5/ANDUJAR Ascorbic Acid 500 mg 06/21/21 22:00 06/24/21 23:01 Ascorbic Acid 500 Mg Tab PO 500 mg BID DEBORA Administration Cholecalciferol 1,000 unit 06/22/21 10:00 06/24/21 10:22 Cholecalciferol (Vit D3) 400 Unit Tab PO 1,000 unit QDAY DEBORA Administration Dextrose 50 ml 06/18/21 06:25 Dextrose 50% In Water (25gm) 50 Ml Syringe IV Q30MIN PRN Hypoglycemia Protocol Heparin Sodium (Porcine) 5,000 unit 06/21/21 22:00 06/24/21 23:00 Heparin 5,000 Unit/1 Ml Vial SUB-Q 5,000 unit Q12HR DEBORA Administration Hydralazine HCl 10 mg 06/21/21 17:04 06/24/21 12:30 Hydralazine 20 Mg/1 Ml Inj IV 10 mg Q6HR PRN Administration Hypertension Sodium Chloride 1,000 mls @ 125 mls/hr 06/18/21 06:30 06/21/21 07:45 Nacl 0.9% 1000 Ml IV 125 mls/hr DIRECT DEBORA Administration Sodium Chloride 100 mls @ 999 mls/hr 06/23/21 10:17 Nacl 0.9% IV ASHLEIGH PRN Hypotension Sodium Chloride 100 mls @ 999 mls/hr 06/25/21 09:17 Nacl 0.9% IV ASHLEIGH PRN Hypotension Insulin Human Lispro 0 unit 06/18/21 07:30 06/24/21 23:01 Insulin Lispro 100 Unit/Ml SUB-Q Not Given ACHS DEBORA Protocol Magnesium Hydroxide 30 ml 06/18/21 06:25 Magnesium Hydroxide (Mom) Oral Liqd Udc PO Q4H PRN Constipation Melatonin 5 mg 06/24/21 01:11 06/24/21 23:03 Melatonin 5 Mg Tab PO 5 mg QHS PRN Administration Sleep Methylprednisolone Sodium Succinate 40 mg 06/21/21 22:00 06/25/21 06:24 Methylprednisolone Sod Succinate 40 Mg/1 Ml Inj IV 07/01/21 14:01 40 mg Q8HR DEBORA Administration Morphine Sulfate 2 mg 06/18/21 06:25 06/20/21 15:32 Morphine 2 Mg/1 Ml Inj IV 2 mg Q4H PRN Administration Pain, Moderate (4-6) Morphine Sulfate 4 mg 06/18/21 06:25 Morphine 4 Mg/1 Ml Inj IV Q4H PRN Pain , Severe (7-10) Ondansetron HCl 4 mg 06/18/21 06:25 Ondansetron 4 Mg/2 Ml Inj IV Q8H PRN Nausea And Vomiting Sodium Chloride 10 ml 06/18/21 10:00 06/24/21 23:02 Sodium Chloride 0.9% 10 Ml Flush Syringe IV 10 ml BID DEBORA Administration Sodium Chloride 10 ml 06/18/21 06:25 Sodium Chloride 0.9% 10 Ml Flush Syringe IV PRN PRN LINE FLUSH Zinc Sulfate 220 mg 06/21/21 22:00 06/24/21 23:01 Zinc Sulfate 220 Mg Cap PO 220 mg BID DEBORA Administration
[2021-06-25] MEDS: ASCORBIC ACID 500 MG TAB PO SCH ×2 (11:39→22:53)
[2021-06-25] MEDS: HEPARIN 5,000 UNIT/1 ML VIAL SUB-Q SCH ×2 (11:39→22:05)
[2021-06-25] MEDS: CHOLECALCIFEROL (VIT D3) 400 UNIT TAB PO SCH (11:39)
[2021-06-25] MEDS: ZINC SULFATE 220 MG CAP PO SCH ×2 (11:39→22:52)
[2021-06-25] MEDS: INSULIN LISPRO 100 UNIT/ML SUB-Q SCH ×3 (11:40→22:52)
--- NOTE | 2021-06-25 12:30 | Progress Note ---
Assessment and Plan Cultures: SARS CoV2 PCR: Positive 06/18/2021 urine culture: E. 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 Severe disease. #Acute hypoxic respiratory failure: On NRB/HFNC. #ESRD secondary to FSGS, initiated on dialysis #Positive urine culture, likely asymptomatic bacteriuria #Leukopenia: Secondary to COVID-19 Recs: -Continue steroids, complete 10 days -Not a candidate for remdesivir due to renal failure -s/p Actemra 06/24/2021 -prophylactic anticoagulation based on d-dimer per hospital protocol -Completed course of empiric antibiotics although procalcitonin elevation is likely due to renal failure -trend d-dimer, CRP every 2-3 days -Guarded prognosis Kendell Pacheco MD, FACP [facility] O: [phone] F: [phone] Subjective Date of service: 06/25/21 Principal diagnosis: SHANON Interval history: No fever. Remains on HFNC. Objective - Exam Narrative Exam: Physical Exam (reviewed in chart to minimize risk of transmission) Constitutional: deferred Head, Ears, Nose: deferred Eyes: deferred Neck: deferred Oral: deferred Cardiovascular: deferred Respiratory: deferred GI: deferred Musculoskeletal: deferred Skin: deferred Hem/Lymphatic: deferred Psych: deferred Neurological: deferred - Constitutional Vitals: Vital Signs Temp Pulse Resp BP Pulse Ox 98.4 F 96 H 39 H 153/95 99 06/25/21 08:00 06/25/21 07:00 06/25/21 07:00 06/25/21 07:00 06/25/21 08:06 Temperature -Last 24 Hours Temperature 98.4 F Temperature 97.2 F Temperature 98.2 F Temperature 98.2 F Temperature 97.6 F Temperature 97.3 F - Labs CBC & Chem 7: 06/25/21 04:42 06/25/21 04:42 Labs: Abnormal lab results 06/24/21 06/24/21 06/24/21 Range/Units 12:28 16:37 18:13 RBC (3.65-5.03) M/mm3 D-Dimer (0-234) ng/mlDDU Sodium (137-145) mmol/L Chloride (98-107) mmol/L Carbon Dioxide (22-30) mmol/L BUN (7-17) mg/dL Creatinine (0.6-1.2) mg/dL Glucose (65-100) mg/dL POC Glucose 141 H 138 H 198 H (70-105) mg/dL Ferritin (10.0-200.0) ng/mL Lactate Dehydrogenase (91-180) units/L 06/24/21 06/25/21 06/25/21 Range/Units 22:56 04:42 04:42 RBC 3.32 L (3.65-5.03) M/mm3 D-Dimer 450.53 H (0-234) ng/mlDDU Sodium (137-145) mmol/L Chloride (98-107) mmol/L Carbon Dioxide (22-30) mmol/L BUN (7-17) mg/dL Creatinine (0.6-1.2) mg/dL Glucose (65-100) mg/dL POC Glucose 147 H (70-105) mg/dL Ferritin (10.0-200.0) ng/mL Lactate Dehydrogenase (91-180) units/L 06/25/21 06/25/21 06/25/21 Range/Units 04:42 04:42 08:41 RBC (3.65-5.03) M/mm3 D-Dimer (0-234) ng/mlDDU Sodium 134 L (137-145) mmol/L Chloride 92.9 L (98-107) mmol/L Carbon Dioxide 21 L (22-30) mmol/L BUN 88 H (7-17) mg/dL Creatinine 11.7 H (0.6-1.2) mg/dL Glucose 206 H (65-100) mg/dL POC Glucose 138 H (70-105) mg/dL Ferritin 1456.0 H (10.0-200.0) ng/mL Lactate Dehydrogenase 677 H (91-180) units/L 06/25/21 Range/Units 11:45 RBC (3.65-5.03) M/mm3 D-Dimer (0-234) ng/mlDDU Sodium (137-145) mmol/L Chloride (98-107) mmol/L Carbon Dioxide (22-30) mmol/L BUN (7-17) mg/dL Creatinine (0.6-1.2) mg/dL Glucose (65-100) mg/dL POC Glucose 154 H (70-105) mg/dL Ferritin (10.0-200.0) ng/mL Lactate Dehydrogenase (91-180) units/L
--- NOTE | 2021-06-25 13:14 | Nuclear Medicine Report ---
Perfusion Scan HISTORY: evaluate for PE. TECHNIQUE: Patient was given 5.2 mCi of technetium MAA. COMPARISON: Chest x-ray from today FINDINGS: No photopenic defect identified. Symmetric diffuse greater tracer uptake in the lungs. IMPRESSION: Unremarkable exam. Signer Name: Gil Duran MD Signed: 06/25/2021 1:09 PM Workstation Name: [id number]
--- NOTE | 2021-06-25 14:55 | Progress Note ---
Assessment and Plan Assessment and plan: Patient is a 41-year-old lady with past medical history of focal segmental glomerulosclerosis lost to follow-up who presented with malaise and abdominal pain. Found to be in acute renal failure. Patient was also septic and began to have respiratory failure. Covid PCR was positive. Currently patient is undergoing hemodialysis on MWF schedule. High flow nasal cannula. Awaiting the V/Q scan to rule out PE. #Acute on chronic kidney injury -History of CKD stage IIIb -proteinuria -Nephrology following, will hold off renal biopsy given new COVID PNA -permacath placement 06/21 -HD initiation 06/21, continue with MWF schedule -CM consult for outpatient HD #Sepsis -Fever, tachycardia -blood cultures NGTD -COVID PCR positive -CXR with bilateral pneumonia -likely 2/2 to respiratory failure vs COVID PNA vs PE #Acute hypoxic respiratory failure -HFNC @ 30LPM, FIO2 80% -will wean as tolerated, goal SpO2 >92% -will continue steroids and empiric CAP coverage for now -COVID PCR positive -CXR showing bilateral PNA, will continue CAP coverage with Azithromycin and rocephin x 5 days total #COVID-Pneumonia #COVID-19 infection -COVID PCR positive -d-dimer 1290, CRP 26.7, LDH 939, ferritin 1625 -ID consulted, assistance appreciated #Elevated D-dimer -patient persistently tachycardic and with oxygen requirement, V/Q scan ordered to rule out PE. If unable to perform VQ scan, ordering bilateral lower extremity venous Dopplers -could be 2/2 to COVID infection #Abdominal pain -resolved, likely 2/2 to renal failure -CT scan negative for acute abnormalities #Type 2 Diabetes -Glucose control with sliding scale, will continue -continue accuchecks for now #Hypertension -elevated BP -if persistently elevated, will start antihypertensives #Asymptomatic bacteriuria -Urine culture grew [id number] E. coli sensitive to Rocephin -treated with rocephin Disposition Plan: Continue medical management Total Time Spent with Patient (Minutes): 30 History Interval history: No acute overnight events. Hospitalist Physical - Constitutional Vitals: Temp Pulse Resp BP Pulse Ox 97.8 F 133 H 25 H 150/101 85 06/25/21 13:30 06/25/21 14:45 06/25/21 13:30 06/25/21 14:45 06/25/21 13:30 General appearance: Present: no acute distress, well-nourished, obese - EENT Eyes: Present: PERRL, EOM intact ENT: hearing intact, clear oral mucosa, dentition normal - Neck Neck: Present: supple, normal ROM - Respiratory Respiratory effort: normal (Currently on high flow 30 L 80% FiO2) Respiratory: bilateral: diminished, rhonchi, negative: CTA, rales, wheezing - Cardiovascular Rhythm: regular Heart Sounds: Present: S1 & S2 - Extremities Extremities: no ischemia, pulses intact, pulses symmetrical, No edema, normal temperature, normal color Peripheral Pulses: within normal limits - Abdominal General gastrointestinal: soft, non-tender, non-distended, normal bowel sounds - Integumentary Integumentary: Present: clear, warm, dry - Psychiatric Psychiatric: appropriate mood/affect, cooperative, other (Limited insight on current medical condition) - Neurologic Neurologic: CNII-XII intact, moves all extremities - Allied Health Allied health notes reviewed: nursing Results - Labs CBC & Chem 7: 06/25/21 04:42 06/25/21 04:42 Labs: Laboratory Last Values WBC 9.2 K/mm3 (4.5-11.0) 06/25/21 04:42 RBC 3.32 M/mm3 (3.65-5.03) L 06/25/21 04:42 Hgb 10.1 gm/dl (10.1-14.3) 06/25/21 04:42 Hct 30.3 % (30.3-42.9) 06/25/21 04:42 MCV 91 fl (79-97) 06/25/21 04:42 MCH 31 pg (28-32) 06/25/21 04:42 MCHC 34 % (30-34) 06/25/21 04:42 RDW 14.6 % (13.2-15.2) 06/25/21 04:42 Plt Count 215 K/mm3 (140-440) 06/25/21 04:42 Lymph % (Auto) 5.6 % (13.4-35.0) L 06/22/21 08:29 Mclean % (Auto) 10.7 % (0.0-7.3) H 06/22/21 08:29 Eos % (Auto) 0.0 % (0.0-4.3) 06/22/21 08:29 Baso % (Auto) 0.1 % (0.0-1.8) 06/22/21 08:29 Lymph # (Auto) 0.2 K/mm3 (1.2-5.4) L 06/22/21 08:29 Mclean # (Auto) 0.3 K/mm3 (0.0-0.8) 06/22/21 08:29 Eos # (Auto) 0.0 K/mm3 (0.0-0.4) 06/22/21 08:29 Baso # (Auto) 0.0 K/mm3 (0.0-0.1) 06/22/21 08:29 Seg Neutrophils % 83.6 % (40.0-70.0) H 06/22/21 08:29 Seg Neutrophils # 2.6 K/mm3 (1.8-7.7) 06/22/21 08:29 PT 14.4 Sec. (12.2-14.9) 06/19/21 05:00 INR 1.01 (0.87-1.13) 06/19/21 05:00 D-Dimer 450.53 ng/mlDDU (0-234) H 06/25/21 04:42 ABG pH 7.492 pH Units (7.350-7.450) H 06/21/21 17:30 ABG pCO2 24.1 mm Hg 06/21/21 17:30 ABG pO2 79.9 mm Hg (80.0-90.0) L 06/21/21 17:30 ABG HCO3 18.0 mmol/L (20.0-26.0) L 06/21/21 17:30 ABG O2 Saturation 97.0 % (95.0-99.0) 06/21/21 17:30 ABG O2 Content 15.1 (0.0-44) 06/21/21 17:30 ABG Base Excess -3.9 mmol/L (-2.0-3.0) L 06/21/21 17:30 ABG Hemoglobin 11.2 gm/dl (12.0-16.0) L 06/21/21 17:30 ABG Carboxyhemoglobin 1.1 % (0.0-5.0) 06/21/21 17:30 ABG Methemoglobin 0.5 % (0.0-1.5) 06/21/21 17:30 Oxyhemoglobin 95.4 % (95.0-99.0) 06/21/21 17:30 FiO2 100 % 06/21/21 17:30 Sodium 134 mmol/L (137-145) L 06/25/21 04:42 Potassium 4.3 mmol/L (3.6-5.0) 06/25/21 04:42 Chloride 92.9 mmol/L (98-107) L 06/25/21 04:42 Carbon Dioxide 21 mmol/L (22-30) L 06/25/21 04:42 Anion Gap 24 mmol/L 06/25/21 04:42 BUN 88 mg/dL (7-17) H 06/25/21 04:42 Creatinine 11.7 mg/dL (0.6-1.2) H 06/25/21 04:42 Estimated GFR 4 ml/min 06/25/21 04:42 BUN/Creatinine Ratio 8 % 06/25/21 04:42 Glucose 206 mg/dL (65-100) H 06/25/21 04:42 POC Glucose 154 mg/dL (70-105) H 06/25/21 11:45 Calcium 8.6 mg/dL (8.4-10.2) 06/25/21 04:42 Ferritin 1456.0 ng/mL (10.0-200.0) H 06/25/21 04:42 Total Bilirubin 0.20 mg/dL (0.1-1.2) 06/22/21 08:29 Direct Bilirubin < 0.2 mg/dL (0-0.2) 06/18/21 03:10 Indirect Bilirubin 0.1 mg/dL 06/18/21 03:10 AST 32 units/L (5-40) 06/22/21 08:29 ALT 11 units/L (7-56) 06/22/21 08:29 Alkaline Phosphatase 53 units/L (35-129) 06/22/21 08:29 Lactate Dehydrogenase 677 units/L (91-180) H 06/25/21 04:42 C-Reactive Protein 26.70 mg/dL (0.00-1.30) H 06/21/21 20:58 Total Protein 5.6 g/dL (6.3-8.2) L 06/22/21 08:29 Albumin 1.8 g/dL (3.9-5) L 06/22/21 08:29 Albumin/Globulin Ratio 0.5 % 06/22/21 08:29 Lipase 199 units/L (13-60) H 06/18/21 03:10 Procalcitonin 24.59 ng/mL (<0.15) 06/21/21 20:58 Urine Color Jessy (Yellow) 06/19/21 05:27 Urine Turbidity Cloudy (Clear) 06/19/21 05:27 Urine pH 5.0 (5.0-7.0) 06/19/21 05:27 Ur Specific Organ 1.025 (1.003-1.030) 06/19/21 05:27 Urine Protein >500 mg/dL (Negative) 06/19/21 05:27 Urine Glucose (UA) 50 mg/dL (Negative) 06/19/21 05:27 Urine Ketones Neg mg/dL (Negative) 06/19/21 05:27 Urine Blood Lg (Negative) 06/19/21 05:27 Urine Nitrite Neg (Negative) 06/19/21 05:27 Urine Bilirubin Neg (Negative) 06/19/21 05:27 Urine Urobilinogen < 2.0 mg/dL (<2.0) 06/19/21 05:27 Ur Leukocyte Esterase Mod (Negative) 06/19/21 05:27 Urine WBC (Auto) > 182.0 /HPF (0.0-6.0) H 06/19/21 05:27 Urine RBC (Auto) 35.0 /HPF (0.0-6.0) 06/19/21 05:27 U Epithel Cells (Auto) 1.0 /HPF (0-13.0) 06/19/21 05:27 Urine WBC Clumps 3+ /HPF 06/19/21 05:27 Urine Mucus Few /HPF 06/19/21 05:27 Urine Yeast (Budding) 3+ /HPF 06/18/21 04:55 Urine Creatinine 132.3 mg/dL (0.1-20.0) H 06/19/21 05:27 Urine Creatinine 132.5 mg/dL (0.1-20.0) H 06/19/21 05:27 Protein/Creatinin Ratio 1.48 06/19/21 05:27 Urine Sodium 26 mmol/L 06/19/21 05:27 Urine Chloride 25.9 mmolL (110-250) L 06/19/21 05:27 Urine Total Protein 196 mg/dL (5-11.8) H 06/19/21 05:27 Urine HCG, Qual Negative (Negative) 06/19/21 05:27 RAFAEL Screen Negative (Negative) 06/18/21 13:49 Double Strand DNA Ab <1 IU/mL (<=4) 06/18/21 13:49 Complement C3 168 mg/dL (83-193) 06/18/21 13:49 Complement C4 70 mg/dL (15-57) H 06/18/21 13:49 Coronavirus (PCR) Positive (Negative) A 06/22/21 09:00 Hepatitis A IgM Ab Non-reactive (NonReactive) 06/21/21 04:20 Hep Bs Antigen Nonreactive (Negative) 06/21/21 04:20 Hep B Core IgM Ab Non-reactive (NonReactive) 06/21/21 04:20 Hepatitis C Antibody Non-reactive (NonReactive) 06/21/21 04:20 Microbiology: Microbiology 06/21/21 10:47 Peripheral/Venous Blood Culture - Preliminary NO GROWTH AFTER 4 DAYS 06/21/21 11:57 Peripheral/Venous Blood Culture - Preliminary NO GROWTH AFTER 4 DAYS Forman/IV: Voiding Method External Female Catheter Active Medications - Current Medications Current Medications: Generic Name Dose Route Start Last Admin Trade Name Freq PRN Reason Stop Dose Admin Acetaminophen 650 mg 06/18/21 06:25 06/21/21 23:41 Acetaminophen 325 Mg Tab PO 650 mg Q4H PRN Administration Pain MILD(1-3)/Fever >100.5/ANDUJAR Ascorbic Acid 500 mg 06/21/21 22:00 06/25/21 11:39 Ascorbic Acid 500 Mg Tab PO 500 mg BID DEBORA Administration Cholecalciferol 1,000 unit 06/22/21 10:00 06/25/21 11:39 Cholecalciferol (Vit D3) 400 Unit Tab PO 1,000 unit QDAY DEBORA Administration Dextrose 50 ml 06/18/21 06:25 Dextrose 50% In Water (25gm) 50 Ml Syringe IV Q30MIN PRN Hypoglycemia Protocol Heparin Sodium (Porcine) 5,000 unit 06/21/21 22:00 06/25/21 11:39 Heparin 5,000 Unit/1 Ml Vial SUB-Q 5,000 unit Q12HR DEBORA Administration Hydralazine HCl 10 mg 06/21/21 17:04 06/24/21 12:30 Hydralazine 20 Mg/1 Ml Inj IV 10 mg Q6HR PRN Administration Hypertension Sodium Chloride 1,000 mls @ 125 mls/hr 06/18/21 06:30 06/21/21 07:45 Nacl 0.9% 1000 Ml IV 125 mls/hr DIRECT DEBORA Administration Sodium Chloride 100 mls @ 999 mls/hr 06/25/21 09:17 Nacl 0.9% IV ASHLEIGH PRN Hypotension Insulin Human Lispro 0 unit 06/18/21 07:30 06/25/21 11:40 Insulin Lispro 100 Unit/Ml SUB-Q Not Given ACHS DEBORA Protocol Magnesium Hydroxide 30 ml 06/18/21 06:25 Magnesium Hydroxide (Mom) Oral Liqd Udc PO Q4H PRN Constipation Melatonin 5 mg 06/24/21 01:11 06/24/21 23:03 Melatonin 5 Mg Tab PO 5 mg QHS PRN Administration Sleep Methylprednisolone Sodium Succinate 40 mg 06/21/21 22:00 06/25/21 06:24 Methylprednisolone Sod Succinate 40 Mg/1 Ml Inj IV 07/01/21 14:01 40 mg Q8HR DEBORA Administration Morphine Sulfate 2 mg 06/18/21 06:25 06/20/21 15:32 Morphine 2 Mg/1 Ml Inj IV 2 mg Q4H PRN Administration Pain, Moderate (4-6) Morphine Sulfate 4 mg 06/18/21 06:25 Morphine 4 Mg/1 Ml Inj IV Q4H PRN Pain , Severe (7-10) Ondansetron HCl 4 mg 06/18/21 06:25 Ondansetron 4 Mg/2 Ml Inj IV Q8H PRN Nausea And Vomiting Sodium Chloride 10 ml 06/18/21 10:00 06/25/21 11:40 Sodium Chloride 0.9% 10 Ml Flush Syringe IV 10 ml BID DEBORA Administration Sodium Chloride 10 ml 06/18/21 06:25 Sodium Chloride 0.9% 10 Ml Flush Syringe IV PRN PRN LINE FLUSH Zinc Sulfate 220 mg 06/21/21 22:00 06/25/21 11:39 Zinc Sulfate 220 Mg Cap PO 220 mg BID DEBORA Administration Nutrition/Malnutrition Assess - Dietary Evaluation Nutrition/Malnutrition Findings: Nutrition Notes Start: 06/18/21 15:35 Freq: Status: Active Protocol: Document 06/25/21 12:16 GB (Rec: 06/25/21 12:27 GB [id number]) Nutrition Notes Initial or Follow up Reassessment Current Diagnosis CKD(stage I-IV),Hypertension Other Pertinent Diagnosis Abdominal pain, nausea. Current Diet Renal Labs/Tests 06/25: Na 134, BUN 88, Cr 11.7 , glucose 206 Pertinent Medications Vit C, Vit D3, NaCl 125ml/hr, Zn Sulfate Height 5 ft 2 in Weight 87.4 kg [place] Body Weight (kg) 50.00 BMI 35.2 Weight change and time frame 06/18: 92.986kg 06/24: 87.4kg change of -5.586kg for -6% significance. Pt is now receiving HD, weight change can be related to fluid removal. Weight Status Obese Subjective/Other Information MD notes: New to HD. HD did not finish yesterday, scheduled for another HD treatment today. PO intakes vary, RN's document meal tolerated well. Last BM: 06/24 Percent of energy/protein needs met: PO intake of meals at 50% or greater will meet 100% minimal EEN. Burn Absent Trauma Absent GI Symptoms None Food Allergy No Skin Integrity/Comment No complications reported Current % PO Other Minimum of two criteria No physical signs of malnutrition #2 Nutrition Diagnosis Inadequate energy intake Etiology New to HD As Evidenced by Signs and Symptoms Start of HD, recorded PO intake 0-50%. Diagnosis Progress(for reassessment Continues documentation) Is patient on ventilator? No Is Patient Ambulatory and/or Out of Bed Yes REE-([facility]-ambulatory/OOB) [ 1946.425 [id number]] Kcal/Kg value to use for calculation 20 Approximate Energy Requirements Using 1748 kcal/Kg Calculation Used for Recommendations Kcal/kg Additional Notes Protein: 0.8-1.0 g/Kg@ 87k-87g Fluids: 1.0 ml/Kcal/day, or per MD. Nutrition Intervention Change Diet Order: Continue Renal Nutrition Support: n/a Add Supplement/Snack (indicate name/kcal Nepro once daily /protein ) Provides kCal: 425 Provides Protein (gm) 19 Goal #1 PO intake of meals to improve to 50% or greater daily for LOS Goal #2 Maintain body weight within +/ -3% of current BWt during LOS. Goal #3 PO intake of nutritional supplement 50% or greater daily during LOS Follow-Up By: 07/02/21 Additional Comments f/u: po intake meals/ supplement, labs
[2021-06-26 05:41] LABS: Hematocrit 30.6 % (30.3-42.9); Hemoglobin 9.8 gm/dl (10.1-14.3); Mean Corpuscular HGB Conc 32 % (30-34); Mean Corpuscular Volume 89 fl (79-97); Platelet Count 226 K/mm3 (140-440); Red Blood Count 3.43 M/mm3 (3.65-5.03); Red Cell Distribution Width 14.7 % (13.2-15.2)
[2021-06-26 05:59] LABS: Calcium 8.5 mg/dL (8.4-10.2)
[2021-06-26 06:50] LABS: Band Neutrophils # (Manual) 0.1 K/mm3; Total Cells Counted 100
[2021-06-26 06:53] LABS: Platelet Estimate Consistent w Auto; RBC Morphology Normal
[2021-06-26] MEDS: methylPREDNISolone Sod Succinate 40 MG/1 ML INJ IV SCH ×3 (06:58→22:49)
[2021-06-26] MEDS: ASCORBIC ACID 500 MG TAB PO SCH ×2 (09:54→22:50)
[2021-06-26] MEDS: HEPARIN 5,000 UNIT/1 ML VIAL SUB-Q SCH ×2 (09:54→22:49)
[2021-06-26] MEDS: ZINC SULFATE 220 MG CAP PO SCH ×2 (09:54→22:50)
[2021-06-26] MEDS: CHOLECALCIFEROL (VIT D3) 400 UNIT TAB PO SCH (09:54)
[2021-06-26] MEDS: INSULIN LISPRO 100 UNIT/ML SUB-Q SCH ×5 (09:55→22:50)
--- NOTE | 2021-06-26 12:05 | Progress Note ---
Assessment and Plan - Patient Problems (1) Acute kidney injury superimposed on chronic kidney disease Current Visit: No Status: Acute Plan to address problem: pt was intiated on HD since no signs of renal recovery seen. cont TTS inpatient schedule for solute clearance and volume control Will need to be placed at an outpatient facility for HD once discharged. Will need assistance from case management (2) Pneumonia due to COVID-19 virus Current Visit: Yes Status: Acute Plan to address problem: Started on IV solumedrol regimen. Not a candidate for remdesivir given poor renal function. Management per ID/primary team recommendations. Hold off on planned renal biopsy at present time given COVID-19 pneumonia. (3) Abdominal pain Current Visit: Yes Status: Acute Plan to address problem: CT of the abdomen did not show any acute pathology. concerned whether her symptoms are more indicative of progressive kidney disease and underlying uremia. (4) Hypertensive chronic kidney disease with stage 1 through stage 4 chronic kidney disease, or unspecified chronic kidney disease Current Visit: Yes Status: Acute Plan to address problem: Elevated blood pressure readings noted over the last 24 hours. Will try to optimize volume status with UF during HD. (5) Type 2 diabetes mellitus with diabetic chronic kidney disease Current Visit: Yes Status: Chronic Plan to address problem: diabetes management per primary attending. (6) Acute respiratory failure Current Visit: Yes Status: Acute Plan to address problem: on HFNC 40% Fio2 and stable on current settings per nursing staff. Management per ICU/pulmonary recommendations. (7) Urinary tract infection Current Visit: Yes Status: Acute Plan to address problem: cont rocephin Subjective Date of service: 06/26/21 Principal diagnosis: SHANON Interval history: (+) COVID-19 pneumonia. On isolate protocol. Remains on HFNC, tolerated HD well yesterday without acute issues. Objective - Exam Narrative Exam: Not directly examined in order to preserve PPE. She is under investigation for COVID-19 infection. Physical examination by primary team reviewed. - Vital Signs Vital signs: Vital Signs - 12hr 06/26/21 06/26/21 06/26/21 01:00 02:00 02:10 Temperature Pulse Rate 100 H 95 H Pulse Rate [ From Monitor] Respiratory 23 23 Rate Blood Pressure 119/77 O2 Sat by Pulse 96 98 95 Oximetry 06/26/21 06/26/21 06/26/21 03:00 03:47 04:00 Temperature 97.6 F Pulse Rate 94 H 105 H Pulse Rate [ 98 H From Monitor] Respiratory 22 25 H Rate Blood Pressure 124/80 134/85 O2 Sat by Pulse 96 Oximetry 06/26/21 06/26/21 06/26/21 05:00 06:00 07:00 Temperature 97.6 F Pulse Rate 99 H 93 H 95 H Pulse Rate [ From Monitor] Respiratory 23 21 26 H Rate Blood Pressure 135/84 120/77 99/69 O2 Sat by Pulse 94 95 96 Oximetry 06/26/21 08:34 Temperature Pulse Rate Pulse Rate [ From Monitor] Respiratory Rate Blood Pressure O2 Sat by Pulse 93 Oximetry - Lab 06/26/21 04:52 06/26/21 04:52 Most recent lab results ABG pH 7.492 pH Units (7.350-7.450) H 06/21/21 17:30 ABG pCO2 24.1 mm Hg 06/21/21 17:30 ABG pO2 79.9 mm Hg (80.0-90.0) L 06/21/21 17:30 ABG HCO3 18.0 mmol/L (20.0-26.0) L 06/21/21 17:30 ABG O2 Saturation 97.0 % (95.0-99.0) 06/21/21 17:30 Calcium 8.5 mg/dL (8.4-10.2) 06/26/21 04:52 Phosphorus 6.00 mg/dL (2.5-4.5) H 06/26/21 04:52 Magnesium 2.20 mg/dL (1.7-2.3) 06/26/21 04:52 Urine Creatinine 132.3 mg/dL (0.1-20.0) H 06/19/21 05:27 Urine Creatinine 132.5 mg/dL (0.1-20.0) H 06/19/21 05:27 Urine Sodium 26 mmol/L 06/19/21 05:27 Urine Total Protein 196 mg/dL (5-11.8) H 06/19/21 05:27 Medications & Allergies - Medications Allergies/Adverse Reactions: Allergies No Known Allergies Allergy (Verified 08/19/19 15:08) Home Medications: Home Medications Medication Instructions Recorded Confirmed Last Taken Type Pnv No.95/Ferrous Fum/Folic AC 1 each PO QDAY 08/0412/31/19 12/30/19 10:30 History [ Caplet] Famotidine [Pepcid] 20 mg PO DAILY #14 tablet 04/13/17 12/31/19 12/30/19 10:30 Rx hydrALAZINE [Apresoline TAB] 100 mg PO TID #90 tab 04/13/17 12/31/19 Unknown Rx Nitrofurantoin Worth/M-Cryst 100 mg PO Q12HR #14 capsule 08/19/19 12/31/19 Unknown Rx [Macrobid CAP] Aspirin BABY CHEW TAB 80 mg PO DAILY 12/31/19 12/31/19 12/30/19 10:30 History Enoxaparin 40 mg SUB-Q DAILY 12/31/19 12/31/19 12/30/19 10:30 History labetaloL [Labetalol 200mg TAB] 400 mg PO BID 12/31/19 12/31/19 12/30/19 10:30 History HYDROcodone/APAP 5-325 [Sanders 1 - 2 each PO Q4HR PRN #30 tablet 01/05/20 Unknown Rx 5/325] Active Medications: Generic Name Dose Route Start Last Admin Trade Name Freq PRN Reason Stop Dose Admin Acetaminophen 650 mg 06/18/21 06:25 06/21/21 23:41 Acetaminophen 325 Mg Tab PO 650 mg Q4H PRN Administration Pain MILD(1-3)/Fever >100.5/ANDUJAR Ascorbic Acid 500 mg 06/21/21 22:00 06/26/21 09:54 Ascorbic Acid 500 Mg Tab PO 500 mg BID DEBORA Administration Cholecalciferol 1,000 unit 06/22/21 10:00 06/26/21 09:54 Cholecalciferol (Vit D3) 400 Unit Tab PO 1,000 unit QDAY DEBORA Administration Dextrose 50 ml 06/18/21 06:25 Dextrose 50% In Water (25gm) 50 Ml Syringe IV Q30MIN PRN Hypoglycemia Protocol Heparin Sodium (Porcine) 5,000 unit 06/21/21 22:00 06/26/21 09:54 Heparin 5,000 Unit/1 Ml Vial SUB-Q 5,000 unit Q12HR DEBORA Administration Hydralazine HCl 10 mg 06/21/21 17:04 06/24/21 12:30 Hydralazine 20 Mg/1 Ml Inj IV 10 mg Q6HR PRN Administration Hypertension Sodium Chloride 100 mls @ 999 mls/hr 06/25/21 09:17 Nacl 0.9% IV ASHLEIGH PRN Hypotension Insulin Human Lispro 0 unit 06/18/21 07:30 06/26/21 09:55 Insulin Lispro 100 Unit/Ml SUB-Q 1 unit ACHS DEBORA Administration Protocol Magnesium Hydroxide 30 ml 06/18/21 06:25 Magnesium Hydroxide (Mom) Oral Liqd Udc PO Q4H PRN Constipation Melatonin 5 mg 06/24/21 01:11 06/24/21 23:03 Melatonin 5 Mg Tab PO 5 mg QHS PRN Administration Sleep Methylprednisolone Sodium Succinate 40 mg 06/21/21 22:00 06/26/21 06:58 Methylprednisolone Sod Succinate 40 Mg/1 Ml Inj IV 07/01/21 14:01 40 mg Q8HR DEBORA Administration Morphine Sulfate 2 mg 06/18/21 06:25 06/20/21 15:32 Morphine 2 Mg/1 Ml Inj IV 2 mg Q4H PRN Administration Pain, Moderate (4-6) Morphine Sulfate 4 mg 06/18/21 06:25 Morphine 4 Mg/1 Ml Inj IV Q4H PRN Pain , Severe (7-10) Ondansetron HCl 4 mg 06/18/21 06:25 Ondansetron 4 Mg/2 Ml Inj IV Q8H PRN Nausea And Vomiting Sodium Chloride 10 ml 06/18/21 10:00 06/26/21 09:55 Sodium Chloride 0.9% 10 Ml Flush Syringe IV 10 ml BID DEBORA Administration Sodium Chloride 10 ml 06/18/21 06:25 Sodium Chloride 0.9% 10 Ml Flush Syringe IV PRN PRN LINE FLUSH Zinc Sulfate 220 mg 06/21/21 22:00 06/26/21 09:54 Zinc Sulfate 220 Mg Cap PO 220 mg BID DEBORA Administration
--- NOTE | 2021-06-26 12:34 | Progress Note ---
Assessment and Plan Cultures: SARS CoV2 PCR: Positive 06/18/2021 urine culture: E. 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 Severe disease. Not a candidate for remdesivir due to renal failure. S/P empiric abx. #Acute hypoxic respiratory failure: On NRB/HFNC. #ESRD secondary to FSGS, initiated on dialysis #Positive urine culture, likely asymptomatic bacteriuria #Leukopenia: Secondary to COVID-19 Recs: -Continue steroids, complete 10 days -s/p Actemra 06/24/2021 -prophylactic anticoagulation based on d-dimer per hospital protocol -trend d-dimer, CRP every 2-3 days -Guarded prognosis Kendell Pacheco MD, FACP [facility] ([facility] O: [phone] F: [phone] Subjective Date of service: 06/26/21 Principal diagnosis: SHANON Interval history: No fever. Remains on HFNC. Objective - Exam Narrative Exam: Physical Exam (reviewed in chart to minimize risk of transmission) Constitutional: deferred Head, Ears, Nose: deferred Eyes: deferred Neck: deferred Oral: deferred Cardiovascular: deferred Respiratory: deferred GI: deferred Musculoskeletal: deferred Skin: deferred Hem/Lymphatic: deferred Psych: deferred Neurological: deferred - Constitutional Vitals: Vital Signs Temp Pulse Resp BP Pulse Ox 98.1 F 95 H 26 H 99/69 93 06/26/21 12:20 06/26/21 07:00 06/26/21 07:00 06/26/21 07:00 06/26/21 08:34 Temperature -Last 24 Hours Temperature 98.1 F Temperature 97.6 F Temperature 97.6 F Temperature 97.5 F Temperature 97.4 F Temperature 97.8 F Temperature 97.8 F - Labs CBC & Chem 7: 06/26/21 04:52 06/26/21 04:52 Labs: Abnormal lab results 06/25/21 06/25/21 06/26/21 Range/Units 18:43 21:26 04:52 WBC 13.4 H (4.5-11.0) K/mm3 RBC 3.43 L (3.65-5.03) M/mm3 Hgb 9.8 L (10.1-14.3) gm/dl Seg Neuts % (Manual) 92.0 H (40.0-70.0) % Lymphocytes % (Manual) 6.0 L (13.4-35.0) % Seg Neutrophils # Man 12.3 H (1.8-7.7) K/mm3 Lymphocytes # (Manual) 0.8 L (1.2-5.4) K/mm3 Sodium (137-145) mmol/L Chloride (98-107) mmol/L BUN (7-17) mg/dL Creatinine (0.6-1.2) mg/dL Glucose (65-100) mg/dL POC Glucose 156 H 222 H (70-105) mg/dL Phosphorus (2.5-4.5) mg/dL 06/26/21 06/26/21 06/26/21 Range/Units 04:52 07:16 11:38 WBC (4.5-11.0) K/mm3 RBC (3.65-5.03) M/mm3 Hgb (10.1-14.3) gm/dl Seg Neuts % (Manual) (40.0-70.0) % Lymphocytes % (Manual) (13.4-35.0) % Seg Neutrophils # Man (1.8-7.7) K/mm3 Lymphocytes # (Manual) (1.2-5.4) K/mm3 Sodium 135 L (137-145) mmol/L Chloride 95.0 L (98-107) mmol/L BUN 55 H (7-17) mg/dL Creatinine 7.6 H (0.6-1.2) mg/dL Glucose 171 H (65-100) mg/dL POC Glucose 161 H 188 H (70-105) mg/dL Phosphorus 6.00 H (2.5-4.5) mg/dL
--- NOTE | 2021-06-26 16:39 | Progress Note ---
Assessment and Plan Assessment and plan: Patient is a 41-year-old lady with past medical history of focal segmental glomerulosclerosis lost to follow-up who presented with malaise and abdominal pain. Found to be in acute renal failure. Patient was also septic and began to have respiratory failure. Covid PCR was positive. Currently patient is undergoing hemodialysis on MWF schedule. High flow nasal cannula. Awaiting the V/Q scan to rule out PE. #Acute on chronic kidney injury -History of CKD stage IIIb -proteinuria -Nephrology following, will hold off renal biopsy given new COVID PNA -permacath placement 06/21 -HD initiation 06/21, continue with MWF schedule -CM consult for outpatient HD #Sepsis -Fever, tachycardia -blood cultures NGTD -COVID PCR positive -CXR with bilateral pneumonia -likely 2/2 to respiratory failure vs COVID PNA vs PE #Acute hypoxic respiratory failure -HFNC @ 40LPM, FIO2 80% -will wean as tolerated, goal SpO2 >92% -will continue steroids and empiric CAP coverage for now -COVID PCR positive -CXR showing bilateral PNA, completed CAP coverage with Azithromycin and rocephin (completed 5 days total) #COVID-Pneumonia #COVID-19 infection -COVID PCR positive -d-dimer 1290, CRP 26.7, LDH 939, ferritin 1625 -ID consulted, assistance appreciated #Elevated D-dimer -patient persistently tachycardic and with oxygen requirement, V/Q scan negative (06/25/2021) -could be 2/2 to COVID infection #Abdominal pain -resolved, likely 2/2 to renal failure -CT scan negative for acute abnormalities #Type 2 Diabetes -Glucose control with sliding scale, will continue -continue accuchecks for now #Hypertension -elevated BP -if persistently elevated, will start antihypertensives #Asymptomatic bacteriuria -Urine culture grew [id number] E. coli sensitive to Rocephin -treated with rocephin Disposition Plan: Continue medical management Total Time Spent with Patient (Minutes): 30 History Interval history: No acute events overnight. Hospitalist Physical - Constitutional Vitals: Temp Pulse Resp BP Pulse Ox 98.4 F 105 H 23 131/86 95 06/26/21 15:58 06/26/21 16:00 06/26/21 16:00 06/26/21 10:00 06/26/21 16:00 General appearance: Present: no acute distress, well-nourished, obese - EENT Eyes: Present: PERRL, EOM intact ENT: hearing intact, clear oral mucosa, dentition normal - Neck Neck: Present: supple, normal ROM - Respiratory Respiratory effort: normal - Cardiovascular Heart rate: 122 Rhythm: regular Heart Sounds: Present: S1 & S2 - Extremities Extremities: no ischemia, pulses intact, pulses symmetrical, No edema, normal temperature, normal color Peripheral Pulses: within normal limits - Abdominal General gastrointestinal: soft, non-tender, non-distended, normal bowel sounds - Integumentary Integumentary: Present: clear, warm, dry - Psychiatric Psychiatric: appropriate mood/affect, memory intact, cooperative - Neurologic Neurologic: CNII-XII intact, moves all extremities - Allied Health Allied health notes reviewed: nursing Results - Labs CBC & Chem 7: 06/26/21 04:52 06/26/21 04:52 Labs: Laboratory Last Values WBC 13.4 K/mm3 (4.5-11.0) H 06/26/21 04:52 RBC 3.43 M/mm3 (3.65-5.03) L 06/26/21 04:52 Hgb 9.8 gm/dl (10.1-14.3) L 06/26/21 04:52 Hct 30.6 % (30.3-42.9) 06/26/21 04:52 MCV 89 fl (79-97) 06/26/21 04:52 MCH 29 pg (28-32) 06/26/21 04:52 MCHC 32 % (30-34) 06/26/21 04:52 RDW 14.7 % (13.2-15.2) 06/26/21 04:52 Plt Count 226 K/mm3 (140-440) 06/26/21 04:52 Lymph % (Auto) 5.6 % (13.4-35.0) L 06/22/21 08:29 Andrew % (Auto) 10.7 % (0.0-7.3) H 06/22/21 08:29 Eos % (Auto) 0.0 % (0.0-4.3) 06/22/21 08:29 Baso % (Auto) 0.1 % (0.0-1.8) 06/22/21 08:29 Lymph # (Auto) 0.2 K/mm3 (1.2-5.4) L 06/22/21 08:29 Andrew # (Auto) 0.3 K/mm3 (0.0-0.8) 06/22/21 08:29 Eos # (Auto) 0.0 K/mm3 (0.0-0.4) 06/22/21 08:29 Baso # (Auto) 0.0 K/mm3 (0.0-0.1) 06/22/21 08:29 Add Manual Diff Complete 06/26/21 04:52 Total Counted 100 06/26/21 04:52 Seg Neutrophils % Docketing Specialist 06/26/21 04:52 Seg Neuts % (Manual) 92.0 % (40.0-70.0) H 06/26/21 04:52 Band Neutrophils % 1.0 % 06/26/21 04:52 Lymphocytes % (Manual) 6.0 % (13.4-35.0) L 06/26/21 04:52 Monocytes % (Manual) 1.0 % (0.0-7.3) 06/26/21 04:52 Nucleated RBC % Not Reportable 06/26/21 04:52 Seg Neutrophils # 2.6 K/mm3 (1.8-7.7) 06/22/21 08:29 Seg Neutrophils # Man 12.3 K/mm3 (1.8-7.7) H 06/26/21 04:52 Band Neutrophils # 0.1 K/mm3 06/26/21 04:52 Lymphocytes # (Manual) 0.8 K/mm3 (1.2-5.4) L 06/26/21 04:52 Abs React Lymphs (Man) 0.0 K/mm3 06/26/21 04:52 Monocytes # (Manual) 0.1 K/mm3 (0.0-0.8) 06/26/21 04:52 Eosinophils # (Manual) 0.0 K/mm3 (0.0-0.4) 06/26/21 04:52 Basophils # (Manual) 0.0 K/mm3 (0.0-0.1) 06/26/21 04:52 Metamyelocytes # 0.0 K/mm3 06/26/21 04:52 Myelocytes # 0.0 K/mm3 06/26/21 04:52 Promyelocytes # 0.0 K/mm3 06/26/21 04:52 Blast Cells # 0.0 K/mm3 06/26/21 04:52 WBC Morphology Not Reportable 06/26/21 04:52 Hypersegmented Neuts Not Reportable 06/26/21 04:52 Hyposegmented Neuts Not Reportable 06/26/21 04:52 Hypogranular Neuts Not Reportable 06/26/21 04:52 Smudge Cells Not Reportable 06/26/21 04:52 Toxic Granulation Not Reportable 06/26/21 04:52 Toxic Vacuolation Not Reportable 06/26/21 04:52 Dohle Bodies Not Reportable 06/26/21 04:52 Pelger-Huet Anomaly Not Reportable 06/26/21 04:52 Michael Rods Not Reportable 06/26/21 04:52 Platelet Estimate Consistent w auto 06/26/21 04:52 Clumped Platelets Not Reportable 06/26/21 04:52 Plt Clumps, EDTA Not Reportable 06/26/21 04:52 Large Platelets Not Reportable 06/26/21 04:52 Giant Platelets Not Reportable 06/26/21 04:52 Platelet Satelliting Not Reportable 06/26/21 04:52 Plt Morphology Comment Not Reportable 06/26/21 04:52 RBC Morphology Normal 06/26/21 04:52 Dimorphic RBCs Not Reportable 06/26/21 04:52 Polychromasia Not Reportable 06/26/21 04:52 Hypochromasia Not Reportable 06/26/21 04:52 Poikilocytosis Not Reportable 06/26/21 04:52 Anisocytosis Not Reportable 06/26/21 04:52 Microcytosis Not Reportable 06/26/21 04:52 Macrocytosis Not Reportable 06/26/21 04:52 Spherocytes Not Reportable 06/26/21 04:52 Pappenheimer Bodies Not Reportable 06/26/21 04:52 Sickle Cells Not Reportable 06/26/21 04:52 Target Cells Not Reportable 06/26/21 04:52 Tear Drop Cells Not Reportable 06/26/21 04:52 Ovalocytes Not Reportable 06/26/21 04:52 Helmet Cells Not Reportable 06/26/21 04:52 [place] Bodies Not Reportable 06/26/21 04:52 [place] Rings Not Reportable 06/26/21 04:52 Em Cells Not Reportable 06/26/21 04:52 Bite Cells Not Reportable 06/26/21 04:52 Crenated Cell Not Reportable 06/26/21 04:52 Elliptocytes Not Reportable 06/26/21 04:52 Acanthocytes (Spur) Not Reportable 06/26/21 04:52 Rouleaux Not Reportable 06/26/21 04:52 Hemoglobin C Crystals Not Reportable 06/26/21 04:52 Schistocytes Not Reportable 06/26/21 04:52 Malaria parasites Not Reportable 06/26/21 04:52 Jules Bodies Not Reportable 06/26/21 04:52 Hem Pathologist Commnt No 06/26/21 04:52 PT 14.4 Sec. (12.2-14.9) 06/19/21 05:00 INR 1.01 (0.87-1.13) 06/19/21 05:00 D-Dimer 450.53 ng/mlDDU (0-234) H 06/25/21 04:42 ABG pH 7.492 pH Units (7.350-7.450) H 06/21/21 17:30 ABG pCO2 24.1 mm Hg 06/21/21 17:30 ABG pO2 79.9 mm Hg (80.0-90.0) L 06/21/21 17:30 ABG HCO3 18.0 mmol/L (20.0-26.0) L 06/21/21 17:30 ABG O2 Saturation 97.0 % (95.0-99.0) 06/21/21 17:30 ABG O2 Content 15.1 (0.0-44) 06/21/21 17:30 ABG Base Excess -3.9 mmol/L (-2.0-3.0) L 06/21/21 17:30 ABG Hemoglobin 11.2 gm/dl (12.0-16.0) L 06/21/21 17:30 ABG Carboxyhemoglobin 1.1 % (0.0-5.0) 06/21/21 17:30 ABG Methemoglobin 0.5 % (0.0-1.5) 06/21/21 17:30 Oxyhemoglobin 95.4 % (95.0-99.0) 06/21/21 17:30 FiO2 100 % 06/21/21 17:30 Sodium 135 mmol/L (137-145) L 06/26/21 04:52 Potassium 4.3 mmol/L (3.6-5.0) 06/26/21 04:52 Chloride 95.0 mmol/L (98-107) L 06/26/21 04:52 Carbon Dioxide 24 mmol/L (22-30) 06/26/21 04:52 Anion Gap 20 mmol/L 06/26/21 04:52 BUN 55 mg/dL (7-17) H 06/26/21 04:52 Creatinine 7.6 mg/dL (0.6-1.2) H 06/26/21 04:52 Estimated GFR 7 ml/min 06/26/21 04:52 BUN/Creatinine Ratio 7 % 06/26/21 04:52 Glucose 171 mg/dL (65-100) H 06/26/21 04:52 POC Glucose 166 mg/dL (70-105) H 06/26/21 15:46 Calcium 8.5 mg/dL (8.4-10.2) 06/26/21 04:52 Phosphorus 6.00 mg/dL (2.5-4.5) H 06/26/21 04:52 Magnesium 2.20 mg/dL (1.7-2.3) 06/26/21 04:52 Ferritin 1456.0 ng/mL (10.0-200.0) H 06/25/21 04:42 Total Bilirubin 0.20 mg/dL (0.1-1.2) 06/22/21 08:29 Direct Bilirubin < 0.2 mg/dL (0-0.2) 06/18/21 03:10 Indirect Bilirubin 0.1 mg/dL 06/18/21 03:10 AST 32 units/L (5-40) 06/22/21 08:29 ALT 11 units/L (7-56) 06/22/21 08:29 Alkaline Phosphatase 53 units/L (35-129) 06/22/21 08:29 Lactate Dehydrogenase 677 units/L (91-180) H 06/25/21 04:42 C-Reactive Protein 26.70 mg/dL (0.00-1.30) H 10/15/21 20:58 Total Protein 5.6 g/dL (6.3-8.2) L 06/22/21 08:29 Albumin 1.8 g/dL (3.9-5) L 06/22/21 08:29 Albumin/Globulin Ratio 0.5 % 06/22/21 08:29 Lipase 199 units/L (13-60) H 06/18/21 03:10 Procalcitonin 24.59 ng/mL (<0.15) 06/21/21 20:58 Urine Color Jessy (Yellow) 06/19/21 05:27 Urine Turbidity Cloudy (Clear) 06/19/21 05:27 Urine pH 5.0 (5.0-7.0) 06/19/21 05:27 Ur Specific [place] 1.025 (1.003-1.030) 06/19/21 05:27 Urine Protein >500 mg/dL (Negative) 06/19/21 05:27 Urine Glucose (UA) 50 mg/dL (Negative) 06/19/21 05:27 Urine Ketones Neg mg/dL (Negative) 06/19/21 05:27 Urine Blood Lg (Negative) 06/19/21 05:27 Urine Nitrite Neg (Negative) 06/19/21 05:27 Urine Bilirubin Neg (Negative) 06/19/21 05:27 Urine Urobilinogen < 2.0 mg/dL (<2.0) 06/19/21 05:27 Ur Leukocyte Esterase Mod (Negative) 06/19/21 05:27 Urine WBC (Auto) > 182.0 /HPF (0.0-6.0) H 06/19/21 05:27 Urine RBC (Auto) 35.0 /HPF (0.0-6.0) 06/19/21 05:27 U Epithel Cells (Auto) 1.0 /HPF (0-13.0) 06/19/21 05:27 Urine WBC Clumps 3+ /HPF 06/19/21 05:27 Urine Mucus Few /HPF 06/19/21 05:27 Urine Yeast (Budding) 3+ /HPF 06/18/21 04:55 Urine Creatinine 132.3 mg/dL (0.1-20.0) H 06/19/21 05:27 Urine Creatinine 132.5 mg/dL (0.1-20.0) H 06/19/21 05:27 Protein/Creatinin Ratio 1.48 06/19/21 05:27 Urine Sodium 26 mmol/L 06/19/21 05:27 Urine Chloride 25.9 mmolL (110-250) L 06/19/21 05:27 Urine Total Protein 196 mg/dL (5-11.8) H 06/19/21 05:27 Urine HCG, Qual Negative (Negative) 06/19/21 05:27 RAFAEL Screen Negative (Negative) 06/18/21 13:49 Double Strand DNA Ab <1 IU/mL (<=4) 06/18/21 13:49 Complement C3 168 mg/dL (83-193) 06/18/21 13:49 Complement C4 70 mg/dL (15-57) H 06/18/21 13:49 Coronavirus (PCR) Positive (Negative) A 06/22/21 09:00 Hepatitis A IgM Ab Non-reactive (NonReactive) 06/21/21 04:20 Hep Bs Antigen Nonreactive (Negative) 06/21/21 04:20 Hep B Core IgM Ab Non-reactive (NonReactive) 06/21/21 04:20 Hepatitis C Antibody Non-reactive (NonReactive) 06/21/21 04:20 Microbiology: Microbiology 06/21/21 10:47 Peripheral/Venous Blood Culture - Final NO GROWTH AFTER 5 DAYS 06/21/21 11:57 Peripheral/Venous Blood Culture - Final NO GROWTH AFTER 5 DAYS Forman/IV: Voiding Method External Female Catheter Active Medications - Current Medications Current Medications: Generic Name Dose Route Start Last Admin Trade Name Freq PRN Reason Stop Dose Admin Acetaminophen 650 mg 06/18/21 06:25 06/21/21 23:41 Acetaminophen 325 Mg Tab PO 650 mg Q4H PRN Administration Pain MILD(1-3)/Fever >100.5/ANDUJAR Ascorbic Acid 500 mg 06/21/21 22:00 06/26/21 09:54 Ascorbic Acid 500 Mg Tab PO 500 mg BID DEBORA Administration Cholecalciferol 1,000 unit 06/22/21 10:00 06/26/21 09:54 Cholecalciferol (Vit D3) 400 Unit Tab PO 1,000 unit QDAY DEBORA Administration Dextrose 50 ml 06/18/21 06:25 Dextrose 50% In Water (25gm) 50 Ml Syringe IV Q30MIN PRN Hypoglycemia Protocol Heparin Sodium (Porcine) 5,000 unit 06/21/21 22:00 06/26/21 09:54 Heparin 5,000 Unit/1 Ml Vial SUB-Q 5,000 unit Q12HR DEBORA Administration Hydralazine HCl 10 mg 06/21/21 17:04 06/24/21 12:30 Hydralazine 20 Mg/1 Ml Inj IV 10 mg Q6HR PRN Administration Hypertension Sodium Chloride 100 mls @ 999 mls/hr 06/25/21 09:17 Nacl 0.9% IV ASHLEIGH PRN Hypotension Insulin Human Lispro 0 unit 06/18/21 07:30 06/26/21 12:12 Insulin Lispro 100 Unit/Ml SUB-Q 1 unit ACHS DEBORA Administration Protocol Magnesium Hydroxide 30 ml 06/18/21 06:25 Magnesium Hydroxide (Mom) Oral Liqd Udc PO Q4H PRN Constipation Melatonin 5 mg 06/24/21 01:11 06/24/21 23:03 Melatonin 5 Mg Tab PO 5 mg QHS PRN Administration Sleep Methylprednisolone Sodium Succinate 40 mg 06/21/21 22:00 06/26/21 15:00 Methylprednisolone Sod Succinate 40 Mg/1 Ml Inj IV 07/01/21 14:01 40 mg Q8HR DEBORA Administration Morphine Sulfate 2 mg 06/18/21 06:25 06/20/21 15:32 Morphine 2 Mg/1 Ml Inj IV 2 mg Q4H PRN Administration Pain, Moderate (4-6) Morphine Sulfate 4 mg 06/18/21 06:25 Morphine 4 Mg/1 Ml Inj IV Q4H PRN Pain , Severe (7-10) Ondansetron HCl 4 mg 06/18/21 06:25 Ondansetron 4 Mg/2 Ml Inj IV Q8H PRN Nausea And Vomiting Sodium Chloride 10 ml 06/18/21 10:00 06/26/21 09:55 Sodium Chloride 0.9% 10 Ml Flush Syringe IV 10 ml BID DEBORA Administration Sodium Chloride 10 ml 06/18/21 06:25 Sodium Chloride 0.9% 10 Ml Flush Syringe IV PRN PRN LINE FLUSH Zinc Sulfate 220 mg 06/21/21 22:00 06/26/21 09:54 Zinc Sulfate 220 Mg Cap PO 220 mg BID DEBORA Administration Nutrition/Malnutrition Assess - Dietary Evaluation Nutrition/Malnutrition Findings: Nutrition Notes Start: 06/18/21 15:35 Freq: Status: Active Protocol: Document 10/19/21 12:16 GB (Rec: 06/25/21 12:27 GB [id number]) Nutrition Notes Initial or Follow up Reassessment Current Diagnosis CKD(stage I-IV),Hypertension Other Pertinent Diagnosis Abdominal pain, nausea. Current Diet Renal Labs/Tests 06/25: Na 134, BUN 88, Cr 11.7 , glucose 206 Pertinent Medications Vit C, Vit D3, NaCl 125ml/hr, Zn Sulfate Height 5 ft 2 in Weight 87.4 kg [place] Body Weight (kg) 50.00 BMI 35.2 Weight change and time frame 06/18: 92.986kg 06/24: 87.4kg change of -5.586kg for -6% significance. Pt is now receiving HD, weight change can be related to fluid removal. Weight Status Obese Subjective/Other Information MD notes: New to HD. HD did not finish yesterday, scheduled for another HD treatment today. PO intakes vary, RN's document meal tolerated well. Last BM: 06/24 Percent of energy/protein needs met: PO intake of meals at 50% or greater will meet 100% minimal EEN. Burn Absent Trauma Absent GI Symptoms None Food Allergy No Skin Integrity/Comment No complications reported Current % PO Other Minimum of two criteria No physical signs of malnutrition #2 Nutrition Diagnosis Inadequate energy intake Etiology New to HD As Evidenced by Signs and Symptoms Start of HD, recorded PO intake 0-50%. Diagnosis Progress(for reassessment Continues documentation) Is patient on ventilator? No Is Patient Ambulatory and/or Out of Bed Yes REE-([facility]-ambulatory/OOB) [ 1946.425 [id number]] Kcal/Kg value to use for calculation 20 Approximate Energy Requirements Using 1748 kcal/Kg Calculation Used for Recommendations Kcal/kg Additional Notes Protein: 0.8-1.0 g/Kg@ 87k-87g Fluids: 1.0 ml/Kcal/day, or per MD. Nutrition Intervention Change Diet Order: Continue Renal Nutrition Support: n/a Add Supplement/Snack (indicate name/kcal Nepro once daily /protein ) Provides kCal: 425 Provides Protein (gm) 19 Goal #1 PO intake of meals to improve to 50% or greater daily for LOS Goal #2 Maintain body weight within +/ -3% of current BWt during LOS. Goal #3 PO intake of nutritional supplement 50% or greater daily during LOS Follow-Up By: 07/02/21 Additional Comments f/u: po intake meals/ supplement, labs - Attestation Statement I have reviewed and agreed w/ Malnutrition eval & tx plan: Yes
[2021-06-27 05:29] LABS: Hematocrit 28.4 % (30.3-42.9); Hemoglobin 8.9 gm/dl (10.1-14.3); Mean Corpuscular HGB Conc 31 % (30-34); Mean Corpuscular Volume 91 fl (79-97); Platelet Count 193 K/mm3 (140-440); Red Blood Count 3.12 M/mm3 (3.65-5.03); Red Cell Distribution Width 14.4 % (13.2-15.2)
[2021-06-27] MEDS: methylPREDNISolone Sod Succinate 40 MG/1 ML INJ IV SCH ×3 (06:32→22:44)
[2021-06-27 07:02] LABS: Calcium 8.3 mg/dL (8.4-10.2)
[2021-06-27] MEDS: INSULIN LISPRO 100 UNIT/ML SUB-Q SCH ×4 (09:51→22:45)
--- NOTE | 2021-06-27 09:51 | Electrocardiograph Report ---
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
[2021-06-27] MEDS: HEPARIN 5,000 UNIT/1 ML VIAL SUB-Q SCH ×2 (09:52→22:45)
[2021-06-27] MEDS: ASCORBIC ACID 500 MG TAB PO SCH ×2 (09:52→22:44)
[2021-06-27] MEDS: ZINC SULFATE 220 MG CAP PO SCH ×2 (09:52→22:44)
[2021-06-27] MEDS: CHOLECALCIFEROL (VIT D3) 400 UNIT TAB PO SCH (09:52)
[2021-06-27] MEDS ORDERED: LACTATED RINGERS 1,000 ML IV ONE (11:57)
--- NOTE | 2021-06-27 11:57 | Progress Note ---
Assessment and Plan Assessment and plan: Patient is a 41-year-old lady with past medical history of focal segmental glomerulosclerosis lost to follow-up who presented with malaise and abdominal pain. Found to be in acute renal failure. Patient was also septic and began to have respiratory failure. Covid PCR was positive. Currently patient is undergoing hemodialysis on MWF schedule. High flow nasal cannula. #Acute on chronic kidney injury -History of CKD stage IIIb with proteinuria -Nephrology following, will hold off renal biopsy given new COVID PNA -permacath placement 06/21 -HD initiation 06/21, continue with MWF schedule - consult for outpatient HD #Tachycardia -Heart rate 130 -Possibly in the setting of patient being volume down. Will administer 1 L lactated Ringer's and reassess. #Sepsis-resolved -Fever, tachycardia -blood cultures NGTD -COVID PCR positive -CXR with bilateral pneumonia -likely 2/2 to respiratory failure vs COVID PNA vs PE #Acute hypoxic respiratory failure -HFNC @ 35LPM, FIO2 75% -will wean as tolerated, goal SpO2 >92% -will continue steroids and empiric CAP coverage for now -COVID PCR positive -CXR showing bilateral PNA, completed CAP coverage with Azithromycin and rocephin (completed 5 days total) #COVID-Pneumonia #COVID-19 infection -COVID PCR positive -d-dimer 1290, CRP 26.7, LDH 939, ferritin 1625 -ID consulted, assistance appreciated #Elevated D-dimer -patient persistently tachycardic and with oxygen requirement, V/Q scan negative (06/25/2021) -could be 2/2 to COVID infection #Abdominal pain -resolved, likely 2/2 to renal failure -CT scan negative for acute abnormalities #Type 2 Diabetes -Glucose control with sliding scale, will continue -continue accuchecks for now #Hypertension -elevated BP -if persistently elevated, will start antihypertensives #Asymptomatic bacteriuria -Urine culture grew [id number] E. coli sensitive to Rocephin -treated with rocephin Disposition Plan: Continue medical management Total Time Spent with Patient (Minutes): 30 History Interval history: No acute events overnight. Hospitalist Physical - Constitutional Vitals: Temp Pulse Resp BP Pulse Ox 97.9 F 89 19 151/86 96 06/27/21 07:20 06/27/21 06:00 06/27/21 06:00 06/27/21 06:00 06/27/21 08:00 General appearance: Present: no acute distress, well-nourished, obese - EENT Eyes: Present: PERRL, EOM intact ENT: hearing intact, clear oral mucosa, dentition normal - Neck Neck: Present: supple, normal ROM - Respiratory Respiratory effort: normal (Currently on high flow nasal cannula 35 L 75% FiO2) - Cardiovascular Heart rate: 130 Rhythm: regular Heart Sounds: Present: S1 & S2 - Extremities Extremities: no ischemia, pulses intact, pulses symmetrical, No edema, normal temperature, normal color Peripheral Pulses: within normal limits - Abdominal General gastrointestinal: soft, non-tender, non-distended, normal bowel sounds - Integumentary Integumentary: Present: clear, warm, dry - Psychiatric Psychiatric: appropriate mood/affect, memory intact, cooperative - Neurologic Neurologic: CNII-XII intact, moves all extremities - Allied Health Allied health notes reviewed: nursing Results - Labs CBC & Chem 7: 06/27/21 05:06 06/27/21 05:06 Labs: Laboratory Last Values WBC 14.2 K/mm3 (4.5-11.0) H 06/27/21 05:06 RBC 3.12 M/mm3 (3.65-5.03) L 06/27/21 05:06 Hgb 8.9 gm/dl (10.1-14.3) L 06/27/21 05:06 Hct 28.4 % (30.3-42.9) L 06/27/21 05:06 MCV 91 fl (79-97) 06/27/21 05:06 MCH 28 pg (28-32) 06/27/21 05:06 MCHC 31 % (30-34) 06/27/21 05:06 RDW 14.4 % (13.2-15.2) 06/27/21 05:06 Plt Count 193 K/mm3 (140-440) 06/27/21 05:06 Lymph % (Auto) 5.6 % (13.4-35.0) L 06/22/21 08:29 [place] % (Auto) 10.7 % (0.0-7.3) H 06/22/21 08:29 Eos % (Auto) 0.0 % (0.0-4.3) 06/22/21 08:29 Baso % (Auto) 0.1 % (0.0-1.8) 06/22/21 08:29 Lymph # (Auto) 0.2 K/mm3 (1.2-5.4) L 06/22/21 08:29 [place] # (Auto) 0.3 K/mm3 (0.0-0.8) 06/22/21 08:29 Eos # (Auto) 0.0 K/mm3 (0.0-0.4) 06/22/21 08:29 Baso # (Auto) 0.0 K/mm3 (0.0-0.1) 06/22/21 08:29 Add Manual Diff Complete 06/26/21 04:52 Total Counted 100 06/26/21 04:52 Seg Neutrophils % Assistant Bookkeeper 06/27/21 05:06 Seg Neuts % (Manual) 92.0 % (40.0-70.0) H 06/26/21 04:52 Band Neutrophils % 1.0 % 06/26/21 04:52 Lymphocytes % (Manual) 6.0 % (13.4-35.0) L 06/26/21 04:52 Monocytes % (Manual) 1.0 % (0.0-7.3) 06/26/21 04:52 Nucleated RBC % Not Reportable 06/26/21 04:52 Seg Neutrophils # 2.6 K/mm3 (1.8-7.7) 06/22/21 08:29 Seg Neutrophils # Man 12.3 K/mm3 (1.8-7.7) H 06/26/21 04:52 Band Neutrophils # 0.1 K/mm3 06/26/21 04:52 Lymphocytes # (Manual) 0.8 K/mm3 (1.2-5.4) L 06/26/21 04:52 Abs React Lymphs (Man) 0.0 K/mm3 06/26/21 04:52 Monocytes # (Manual) 0.1 K/mm3 (0.0-0.8) 06/26/21 04:52 Eosinophils # (Manual) 0.0 K/mm3 (0.0-0.4) 06/26/21 04:52 Basophils # (Manual) 0.0 K/mm3 (0.0-0.1) 06/26/21 04:52 Metamyelocytes # 0.0 K/mm3 06/26/21 04:52 Myelocytes # 0.0 K/mm3 06/26/21 04:52 Promyelocytes # 0.0 K/mm3 06/26/21 04:52 Blast Cells # 0.0 K/mm3 06/26/21 04:52 WBC Morphology Not Reportable 06/26/21 04:52 Hypersegmented Neuts Not Reportable 06/26/21 04:52 Hyposegmented Neuts Not Reportable 06/26/21 04:52 Hypogranular Neuts Not Reportable 06/26/21 04:52 Smudge Cells Not Reportable 06/26/21 04:52 Toxic Granulation Not Reportable 06/26/21 04:52 Toxic Vacuolation Not Reportable 06/26/21 04:52 Dohle Bodies Not Reportable 06/26/21 04:52 Pelger-Huet Anomaly Not Reportable 06/26/21 04:52 Michael Rods Not Reportable 06/26/21 04:52 Platelet Estimate Consistent w auto 06/26/21 04:52 Clumped Platelets Not Reportable 06/26/21 04:52 Plt Clumps, EDTA Not Reportable 06/26/21 04:52 Large Platelets Not Reportable 06/26/21 04:52 Giant Platelets Not Reportable 06/26/21 04:52 Platelet Satelliting Not Reportable 06/26/21 04:52 Plt Morphology Comment Not Reportable 06/26/21 04:52 RBC Morphology Normal 06/26/21 04:52 Dimorphic RBCs Not Reportable 06/26/21 04:52 Polychromasia Not Reportable 06/26/21 04:52 Hypochromasia Not Reportable 06/26/21 04:52 Poikilocytosis Not Reportable 06/26/21 04:52 Anisocytosis Not Reportable 06/26/21 04:52 Microcytosis Not Reportable 06/26/21 04:52 Macrocytosis Not Reportable 06/26/21 04:52 Spherocytes Not Reportable 06/26/21 04:52 Pappenheimer Bodies Not Reportable 06/26/21 04:52 Sickle Cells Not Reportable 06/26/21 04:52 Target Cells Not Reportable 06/26/21 04:52 Tear Drop Cells Not Reportable 06/26/21 04:52 Ovalocytes Not Reportable 06/26/21 04:52 Helmet Cells Not Reportable 06/26/21 04:52 [place] Bodies Not Reportable 06/26/21 04:52 [place] Rings Not Reportable 06/26/21 04:52 [place] Cells Not Reportable 06/26/21 04:52 Bite Cells Not Reportable 06/26/21 04:52 Crenated Cell Not Reportable 06/26/21 04:52 Elliptocytes Not Reportable 06/26/21 04:52 Acanthocytes (Spur) Not Reportable 06/26/21 04:52 Rouleaux Not Reportable 06/26/21 04:52 Hemoglobin C Crystals Not Reportable 06/26/21 04:52 Schistocytes Not Reportable 06/26/21 04:52 Malaria parasites Not Reportable 06/26/21 04:52 Jules Bodies Not Reportable 06/26/21 04:52 Hem Pathologist Commnt No 06/26/21 04:52 PT 14.4 Sec. (12.2-14.9) 06/19/21 05:00 INR 1.01 (0.87-1.13) 06/19/21 05:00 D-Dimer 450.53 ng/mlDDU (0-234) H 06/25/21 04:42 ABG pH 7.492 pH Units (7.350-7.450) H 06/21/21 17:30 ABG pCO2 24.1 mm Hg 06/21/21 17:30 ABG pO2 79.9 mm Hg (80.0-90.0) L 06/21/21 17:30 ABG HCO3 18.0 mmol/L (20.0-26.0) L 06/21/21 17:30 ABG O2 Saturation 97.0 % (95.0-99.0) 06/21/21 17:30 ABG O2 Content 15.1 (0.0-44) 06/21/21 17:30 ABG Base Excess -3.9 mmol/L (-2.0-3.0) L 06/21/21 17:30 ABG Hemoglobin 11.2 gm/dl (12.0-16.0) L 06/21/21 17:30 ABG Carboxyhemoglobin 1.1 % (0.0-5.0) 06/21/21 17:30 ABG Methemoglobin 0.5 % (0.0-1.5) 06/21/21 17:30 Oxyhemoglobin 95.4 % (95.0-99.0) 06/21/21 17:30 FiO2 100 % 06/21/21 17:30 Sodium 137 mmol/L (137-145) 06/27/21 05:06 Potassium 5.5 mmol/L (3.6-5.0) H D 06/27/21 05:06 Chloride 93.8 mmol/L (98-107) L 06/27/21 05:06 Carbon Dioxide 17 mmol/L (22-30) L D 06/27/21 05:06 Anion Gap 32 mmol/L 06/27/21 05:06 BUN 104 mg/dL (7-17) H 06/27/21 05:06 Creatinine 10.6 mg/dL (0.6-1.2) H 06/27/21 05:06 Estimated GFR 5 ml/min 06/27/21 05:06 BUN/Creatinine Ratio 10 % 06/27/21 05:06 Glucose 167 mg/dL (65-100) H 06/27/21 05:06 POC Glucose 143 mg/dL (70-105) H 06/27/21 07:09 Calcium 8.3 mg/dL (8.4-10.2) L 06/27/21 05:06 Phosphorus 10.00 mg/dL (2.5-4.5) H D 06/27/21 05:06 Magnesium 2.80 mg/dL (1.7-2.3) H 06/27/21 05:06 Ferritin 1456.0 ng/mL (10.0-200.0) H 06/25/21 04:42 Total Bilirubin 0.20 mg/dL (0.1-1.2) 06/22/21 08:29 Direct Bilirubin < 0.2 mg/dL (0-0.2) 06/18/21 03:10 Indirect Bilirubin 0.1 mg/dL 06/18/21 03:10 AST 32 units/L (5-40) 06/22/21 08:29 ALT 11 units/L (7-56) 06/22/21 08:29 Alkaline Phosphatase 53 units/L (35-129) 06/22/21 08:29 Lactate Dehydrogenase 677 units/L (91-180) H 06/25/21 04:42 C-Reactive Protein 26.70 mg/dL (0.00-1.30) H 06/21/21 20:58 Total Protein 5.6 g/dL (6.3-8.2) L 06/22/21 08:29 Albumin 1.8 g/dL (3.9-5) L 06/22/21 08:29 Albumin/Globulin Ratio 0.5 % 06/22/21 08:29 Lipase 199 units/L (13-60) H 06/18/21 03:10 Procalcitonin 24.59 ng/mL (<0.15) 06/21/21 20:58 Urine Color Jessy (Yellow) 06/19/21 05:27 Urine Turbidity Cloudy (Clear) 06/19/21 05:27 Urine pH 5.0 (5.0-7.0) 06/19/21 05:27 Ur Specific [place] 1.025 (1.003-1.030) 06/19/21 05:27 Urine Protein >500 mg/dL (Negative) 06/19/21 05:27 Urine Glucose (UA) 50 mg/dL (Negative) 06/19/21 05:27 Urine Ketones Neg mg/dL (Negative) 06/19/21 05:27 Urine Blood Lg (Negative) 06/19/21 05:27 Urine Nitrite Neg (Negative) 06/19/21 05:27 Urine Bilirubin Neg (Negative) 06/19/21 05:27 Urine Urobilinogen < 2.0 mg/dL (<2.0) 06/19/21 05:27 Ur Leukocyte Esterase Mod (Negative) 06/19/21 05:27 Urine WBC (Auto) > 182.0 /HPF (0.0-6.0) H 06/19/21 05:27 Urine RBC (Auto) 35.0 /HPF (0.0-6.0) 06/19/21 05:27 U Epithel Cells (Auto) 1.0 /HPF (0-13.0) 06/19/21 05:27 Urine WBC Clumps 3+ /HPF 06/19/21 05:27 Urine Mucus Few /HPF 06/19/21 05:27 Urine Yeast (Budding) 3+ /HPF 06/18/21 04:55 Urine Creatinine 132.3 mg/dL (0.1-20.0) H 06/19/21 05:27 Urine Creatinine 132.5 mg/dL (0.1-20.0) H 06/19/21 05:27 Protein/Creatinin Ratio 1.48 06/19/21 05:27 Urine Sodium 26 mmol/L 06/19/21 05:27 Urine Chloride 25.9 mmolL (110-250) L 06/19/21 05:27 Urine Total Protein 196 mg/dL (5-11.8) H 06/19/21 05:27 Urine HCG, Qual Negative (Negative) 06/19/21 05:27 RAFAEL Screen Negative (Negative) 06/18/21 13:49 Double Strand DNA Ab <1 IU/mL (<=4) 06/18/21 13:49 Complement C3 168 mg/dL (83-193) 06/18/21 13:49 Complement C4 70 mg/dL (15-57) H 06/18/21 13:49 Coronavirus (PCR) Positive (Negative) A 06/22/21 09:00 Hepatitis A IgM Ab Non-reactive (NonReactive) 06/21/21 04:20 Hep Bs Antigen Nonreactive (Negative) 06/21/21 04:20 Hep B Core IgM Ab Non-reactive (NonReactive) 06/21/21 04:20 Hepatitis C Antibody Non-reactive (NonReactive) 06/21/21 04:20 Microbiology: Microbiology 06/21/21 10:47 Peripheral/Venous Blood Culture - Final NO GROWTH AFTER 5 DAYS 06/21/21 11:57 Peripheral/Venous Blood Culture - Final NO GROWTH AFTER 5 DAYS Forman/IV: Voiding Method External Female Catheter Active Medications - Current Medications Current Medications: Generic Name Dose Route Start Last Admin Trade Name Freq PRN Reason Stop Dose Admin Acetaminophen 650 mg 06/18/21 06:25 06/21/21 23:41 Acetaminophen 325 Mg Tab PO 650 mg Q4H PRN Administration Pain MILD(1-3)/Fever >100.5/ANDUJAR Ascorbic Acid 500 mg 06/21/21 22:00 06/27/21 09:52 Ascorbic Acid 500 Mg Tab PO 500 mg BID DEBORA Administration Cholecalciferol 1,000 unit 06/22/21 10:00 06/27/21 09:52 Cholecalciferol (Vit D3) 400 Unit Tab PO 1,000 unit QDAY DEBORA Administration Dextrose 50 ml 06/18/21 06:25 Dextrose 50% In Water (25gm) 50 Ml Syringe IV Q30MIN PRN Hypoglycemia Protocol Heparin Sodium (Porcine) 5,000 unit 06/21/21 22:00 06/27/21 09:52 Heparin 5,000 Unit/1 Ml Vial SUB-Q 5,000 unit Q12HR DEBORA Administration Hydralazine HCl 10 mg 06/21/21 17:04 06/24/21 12:30 Hydralazine 20 Mg/1 Ml Inj IV 10 mg Q6HR PRN Administration Hypertension Sodium Chloride 100 mls @ 999 mls/hr 06/25/21 09:17 Nacl 0.9% IV ASHLEIGH PRN Hypotension Insulin Human Lispro 0 unit 06/18/21 07:30 06/27/21 09:51 Insulin Lispro 100 Unit/Ml SUB-Q Not Given [facility] Protocol Magnesium Hydroxide 30 ml 06/18/21 06:25 Magnesium Hydroxide (Mom) Oral Liqd Udc PO Q4H PRN Constipation Melatonin 5 mg 06/24/21 01:11 06/24/21 23:03 Melatonin 5 Mg Tab PO 5 mg QHS PRN Administration Sleep Methylprednisolone Sodium Succinate 40 mg 06/21/21 22:00 06/27/21 06:32 Methylprednisolone Sod Succinate 40 Mg/1 Ml Inj IV 07/01/21 14:01 40 mg Q8HR DEBORA Administration Morphine Sulfate 2 mg 06/18/21 06:25 06/20/21 15:32 Morphine 2 Mg/1 Ml Inj IV 2 mg Q4H PRN Administration Pain, Moderate (4-6) Morphine Sulfate 4 mg 06/18/21 06:25 Morphine 4 Mg/1 Ml Inj IV Q4H PRN Pain , Severe (7-10) Ondansetron HCl 4 mg 06/18/21 06:25 Ondansetron 4 Mg/2 Ml Inj IV Q8H PRN Nausea And Vomiting Sevelamer Carbonate 800 mg 06/27/21 11:30 Sevelamer Carbonate 800 Mg Tab PO AC DEBORA Sodium Chloride 10 ml 06/18/21 10:00 06/27/21 09:52 Sodium Chloride 0.9% 10 Ml Flush Syringe IV 10 ml BID DEBORA Administration Sodium Chloride 10 ml 06/18/21 06:25 Sodium Chloride 0.9% 10 Ml Flush Syringe IV PRN PRN LINE FLUSH Zinc Sulfate 220 mg 06/21/21 22:00 06/27/21 09:52 Zinc Sulfate 220 Mg Cap PO 220 mg BID DEBORA Administration Nutrition/Malnutrition Assess - Dietary Evaluation Nutrition/Malnutrition Findings: Nutrition Notes Start: 06/18/21 15:35 Freq: Status: Active Protocol: Document 06/25/21 12:16 GB (Rec: 06/25/21 12:27 GB [id number]) Nutrition Notes Initial or Follow up Reassessment Current Diagnosis CKD(stage I-IV),Hypertension Other Pertinent Diagnosis Abdominal pain, nausea. Current Diet Renal Labs/Tests 06/25: Na 134, BUN 88, Cr 11.7 , glucose 206 Pertinent Medications Vit C, Vit D3, NaCl 125ml/hr, Zn Sulfate Height 5 ft 2 in Weight 87.4 kg [place] Body Weight (kg) 50.00 BMI 35.2 Weight change and time frame 06/18: 92.986kg 06/24: 87.4kg change of -5.586kg for -6% significance. Pt is now receiving HD, weight change can be related to fluid removal. Weight Status Obese Subjective/Other Information MD notes: New to HD. HD did not finish yesterday, scheduled for another HD treatment today. PO intakes vary, RN's document meal tolerated well. Last BM: 06/24 Percent of energy/protein needs met: PO intake of meals at 50% or greater will meet 100% minimal EEN. Burn Absent Trauma Absent GI Symptoms None Food Allergy No Skin Integrity/Comment No complications reported Current % PO Other Minimum of two criteria No physical signs of malnutrition #2 Nutrition Diagnosis Inadequate energy intake Etiology New to HD As Evidenced by Signs and Symptoms Start of HD, recorded PO intake 0-50%. Diagnosis Progress(for reassessment Continues documentation) Is patient on ventilator? No Is Patient Ambulatory and/or Out of Bed Yes REE-([place] [facility]-ambulatory/OOB) [ 1946.425 [id number]] Kcal/Kg value to use for calculation 20 Approximate Energy Requirements Using 1748 kcal/Kg Calculation Used for Recommendations Kcal/kg Additional Notes Protein: 0.8-1.0 g/Kg@ 87k-87g Fluids: 1.0 ml/Kcal/day, or per MD. Nutrition Intervention Change Diet Order: Continue Renal Nutrition Support: n/a Add Supplement/Snack (indicate name/kcal Nepro once daily /protein ) Provides kCal: 425 Provides Protein (gm) 19 Goal #1 PO intake of meals to improve to 50% or greater daily for LOS Goal #2 Maintain body weight within +/ -3% of current BWt during LOS. Goal #3 PO intake of nutritional supplement 50% or greater daily during LOS Follow-Up By: 07/02/21 Additional Comments f/u: po intake meals/ supplement, labs
--- NOTE | 2021-06-27 12:01 | Progress Note ---
Assessment and Plan Cultures: SARS CoV2 PCR: Positive 06/18/2021 urine culture: E. 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 Severe disease. Not a candidate for remdesivir due to renal failure. S/P empiric abx. #Acute hypoxic respiratory failure: On NRB/HFNC. #ESRD secondary to FSGS, initiated on dialysis #Positive urine culture, likely asymptomatic bacteriuria #Leukopenia: Secondary to COVID-19 Recs: -Continue steroids, complete 10 days -s/p Actemra 06/24/2021 -prophylactic anticoagulation based on d-dimer per hospital protocol -monitor d-dimer, CRP every 2-3 days -Guarded prognosis Kendell Pacheco MD, FACP [facility] ([facility] O: [phone] F: [phone] Subjective Date of service: 06/27/21 Principal diagnosis: SHANON Interval history: No fever. Remains on HFNC. Objective - Exam Narrative Exam: Physical Exam (reviewed in chart to minimize risk of transmission) Constitutional: deferred Head, Ears, Nose: deferred Eyes: deferred Neck: deferred Oral: deferred Cardiovascular: deferred Respiratory: deferred GI: deferred Musculoskeletal: deferred Skin: deferred Hem/Lymphatic: deferred Psych: deferred Neurological: deferred - Constitutional Vitals: Vital Signs Temp Pulse Resp BP Pulse Ox 97.9 F 89 19 151/86 96 06/27/21 07:20 06/27/21 06:00 06/27/21 06:00 06/27/21 06:00 06/27/21 08:00 Temperature -Last 24 Hours Temperature 97.9 F Temperature 97.4 F Temperature 97.7 F Temperature 97.5 F Temperature 98.4 F Temperature 98.1 F - Labs CBC & Chem 7: 06/27/21 05:06 06/27/21 05:06 Labs: Abnormal lab results 06/26/21 06/26/21 06/27/21 Range/Units 15:46 21:48 05:06 WBC 14.2 H (4.5-11.0) K/mm3 RBC 3.12 L (3.65-5.03) M/mm3 Hgb 8.9 L (10.1-14.3) gm/dl Hct 28.4 L (30.3-42.9) % Potassium (3.6-5.0) mmol/L Chloride (98-107) mmol/L Carbon Dioxide (22-30) mmol/L BUN (7-17) mg/dL Creatinine (0.6-1.2) mg/dL Glucose (65-100) mg/dL POC Glucose 166 H 194 H (70-105) mg/dL Calcium (8.4-10.2) mg/dL Phosphorus (2.5-4.5) mg/dL Magnesium (1.7-2.3) mg/dL 06/27/21 06/27/21 06/27/21 Range/Units 05:06 07:09 11:51 WBC (4.5-11.0) K/mm3 RBC (3.65-5.03) M/mm3 Hgb (10.1-14.3) gm/dl Hct (30.3-42.9) % Potassium 5.5 H D (3.6-5.0) mmol/L Chloride 93.8 L (98-107) mmol/L Carbon Dioxide 17 L D (22-30) mmol/L BUN 104 H (7-17) mg/dL Creatinine 10.6 H (0.6-1.2) mg/dL Glucose 167 H (65-100) mg/dL POC Glucose 143 H 258 H (70-105) mg/dL Calcium 8.3 L (8.4-10.2) mg/dL Phosphorus 10.00 H D (2.5-4.5) mg/dL Magnesium 2.80 H (1.7-2.3) mg/dL
[2021-06-27] MEDS: SEVELAMER CARBONATE 800 MG TAB PO SCH ×2 (12:37→16:32)
--- NOTE | 2021-06-27 12:54 | Progress Note ---
Assessment and Plan - Patient Problems (1) Acute kidney injury superimposed on chronic kidney disease Current Visit: No Status: Acute Plan to address problem: pt without signs of renal recovery. cont TTS inpatient schedule for solute clearance and volume control Will need to be placed at an outpatient facility for HD once discharged. Will need assistance from case management (2) Pneumonia due to COVID-19 virus Current Visit: Yes Status: Acute Plan to address problem: Started on IV solumedrol regimen. Not a candidate for remdesivir given poor sangeetha l function. Management per ID/primary team recommendations. Hold off on planned renal biopsy at present time given COVID-19 pneumonia. (3) Abdominal pain Current Visit: Yes Status: Acute Plan to address problem: CT of the abdomen did not show any acute pathology. concerned whether her symptoms are more indicative of progressive kidney disease and underlying uremia. (4) Hypertensive chronic kidney disease with stage 1 through stage 4 chronic kidney disease, or unspecified chronic kidney disease Current Visit: Yes Status: Acute Plan to address problem: Elevated blood pressure readings noted over the last 24 hours. Will try to optimize volume status with UF during HD. (5) Type 2 diabetes mellitus with diabetic chronic kidney disease Current Visit: Yes Status: Chronic Plan to address problem: diabetes management per primary attending. (6) Acute respiratory failure Current Visit: Yes Status: Acute Plan to address problem: on HFNC 40% Fio2 and stable on current settings per nursing staff. Management per ICU/pulmonary recommendations. (7) Urinary tract infection Current Visit: Yes Status: Acute Plan to address problem: cont rocephin Subjective Date of service: 06/27/21 Principal diagnosis: SHANON Interval history: (+) COVID-19 pneumonia. On isolate protocol. Remains on HFNC, plan for HD today Objective - Exam Narrative Exam: Not directly examined in order to preserve PPE. She is under investigation for COVID-19 infection. Physical examination by primary team reviewed. - Vital Signs Vital signs: Vital Signs - 12hr 06/27/21 06/27/21 06/27/21 01:00 02:00 02:25 Temperature Pulse Rate 99 H 102 H Pulse Rate [ From Monitor] Respiratory 22 22 Rate Blood Pressure 157/95 150/99 O2 Sat by Pulse 95 96 94 Oximetry 06/27/21 06/27/21 06/27/21 03:00 04:00 05:00 Temperature 97.4 F L Pulse Rate 88 95 H 88 Pulse Rate [ 92 H From Monitor] Respiratory 20 16 20 Rate Blood Pressure 157/100 151/95 137/91 O2 Sat by Pulse 95 99 93 Oximetry 06/27/21 06/27/21 06/27/21 06:00 07:20 08:00 Temperature 97.9 F Pulse Rate 89 Pulse Rate [ From Monitor] Respiratory 19 Rate Blood Pressure 151/86 O2 Sat by Pulse 93 96 Oximetry 06/27/21 12:00 Temperature 97.8 F Pulse Rate Pulse Rate [ From Monitor] Respiratory Rate Blood Pressure O2 Sat by Pulse Oximetry - Lab 06/27/21 05:06 06/27/21 05:06 Most recent lab results ABG pH 7.492 pH Units (7.350-7.450) H 06/21/21 17:30 ABG pCO2 24.1 mm Hg 06/21/21 17:30 ABG pO2 79.9 mm Hg (80.0-90.0) L 06/21/21 17:30 ABG HCO3 18.0 mmol/L (20.0-26.0) L 06/21/21 17:30 ABG O2 Saturation 97.0 % (95.0-99.0) 06/21/21 17:30 Calcium 8.3 mg/dL (8.4-10.2) L 06/27/21 05:06 Phosphorus 10.00 mg/dL (2.5-4.5) H D 06/27/21 05:06 Magnesium 2.80 mg/dL (1.7-2.3) H 06/27/21 05:06 Urine Creatinine 132.3 mg/dL (0.1-20.0) H 06/19/21 05:27 Urine Creatinine 132.5 mg/dL (0.1-20.0) H 06/19/21 05:27 Urine Sodium 26 mmol/L 06/19/21 05:27 Urine Total Protein 196 mg/dL (5-11.8) H 06/19/21 05:27 Medications & Allergies - Medications Allergies/Adverse Reactions: Allergies No Known Allergies Allergy (Verified 08/19/19 15:08) Home Medications: Home Medications Medication Instructions Recorded Confirmed Last Taken Type RX: Pnv No.95/Ferrous Fum/Folic AC 1 each PO QDAY 04/10/17 12/31/19 12/30/19 10:30 History [ Caplet] RX: Famotidine [Pepcid] 20 mg PO DAILY #14 tablet 04/13/17 12/31/19 12/30/19 10:30 Rx RX: hydrALAZINE [Apresoline TAB] 100 mg PO TID #90 tab 04/13/17 12/31/19 Unknown Rx RX: Nitrofurantoin [place]/M-Cryst 100 mg PO Q12HR #14 capsule 08/19/19 12/31/19 Unknown Rx [Macrobid CAP] Aspirin BABY CHEW TAB 80 mg PO DAILY 12/31/19 12/31/19 12/30/19 10:30 History RX: Enoxaparin 40 mg SUB-Q DAILY 12/31/19 12/31/19 12/30/19 10:30 History labetaloL [Labetalol 200mg TAB] 400 mg PO BID 12/31/19 12/31/19 12/30/19 10:30 History HYDROcodone/APAP 5-325 [[place] 1 - 2 each PO Q4HR PRN #30 tablet 01/05/20 Unknown Rx 5/325] Active Medications: Generic Name Dose Route Start Last Admin Trade Name Freq PRN Reason Stop Dose Admin Acetaminophen 650 mg 06/18/21 06:25 06/21/21 23:41 Acetaminophen 325 Mg Tab PO 650 mg Q4H PRN Administration Pain MILD(1-3)/Fever >100.5/ANDUJAR Ascorbic Acid 500 mg 06/21/21 22:00 06/27/21 09:52 Ascorbic Acid 500 Mg Tab PO 500 mg BID DEBORA Administration Cholecalciferol 1,000 unit 06/22/21 10:00 06/27/21 09:52 Cholecalciferol (Vit D3) 400 Unit Tab PO 1,000 unit QDAY DEBORA Administration Dextrose 50 ml 06/18/21 06:25 Dextrose 50% In Water (25gm) 50 Ml Syringe IV Q30MIN PRN Hypoglycemia Protocol Heparin Sodium (Porcine) 5,000 unit 06/21/21 22:00 06/27/21 09:52 Heparin 5,000 Unit/1 Ml Vial SUB-Q 5,000 unit Q12HR DEBORA Administration Hydralazine HCl 10 mg 06/21/21 17:04 06/24/21 12:30 Hydralazine 20 Mg/1 Ml Inj IV 10 mg Q6HR PRN Administration Hypertension Sodium Chloride 100 mls @ 999 mls/hr 06/25/21 09:17 Nacl 0.9% IV ASHLEIGH PRN Hypotension Lactated Ringer's 1,000 mls @ 500 mls/hr 06/27/21 11:57 06/27/21 12:37 Lactated Ringers IV 06/27/21 13:56 500 mls/hr BOLUS ONE Administration Insulin Human Lispro 0 unit 06/18/21 07:30 06/27/21 12:35 Insulin Lispro 100 Unit/Ml SUB-Q 3 unit ACHS DEBORA Administration Protocol Magnesium Hydroxide 30 ml 06/18/21 06:25 Magnesium Hydroxide (Mom) Oral Liqd Udc PO Q4H PRN Constipation Melatonin 5 mg 06/24/21 01:11 06/24/21 23:03 Melatonin 5 Mg Tab PO 5 mg QHS PRN Administration Sleep Methylprednisolone Sodium Succinate 40 mg 06/21/21 22:00 06/27/21 06:32 Methylprednisolone Sod Succinate 40 Mg/1 Ml Inj IV 07/01/21 14:01 40 mg Q8HR DEBORA Administration Morphine Sulfate 2 mg 06/18/21 06:25 06/20/21 15:32 Morphine 2 Mg/1 Ml Inj IV 2 mg Q4H PRN Administration Pain, Moderate (4-6) Morphine Sulfate 4 mg 06/18/21 06:25 Morphine 4 Mg/1 Ml Inj IV Q4H PRN Pain , Severe (7-10) Ondansetron HCl 4 mg 06/18/21 06:25 Ondansetron 4 Mg/2 Ml Inj IV Q8H PRN Nausea And Vomiting Sevelamer Carbonate 800 mg 06/27/21 11:30 06/27/21 12:37 Sevelamer Carbonate 800 Mg Tab PO 800 mg AC DEBORA Administration Sodium Chloride 10 ml 06/18/21 10:00 06/27/21 09:52 Sodium Chloride 0.9% 10 Ml Flush Syringe IV 10 ml BID DEBORA Administration Sodium Chloride 10 ml 06/18/21 06:25 Sodium Chloride 0.9% 10 Ml Flush Syringe IV PRN PRN LINE FLUSH Zinc Sulfate 220 mg 06/21/21 22:00 06/27/21 09:52 Zinc Sulfate 220 Mg Cap PO 220 mg BID DEBORA Administration
[2021-06-27 18:23] LABS: Band Neutrophils # (Manual) 0.1 K/mm3; Myelocytes # (Manual) 0.7 K/mm3; Total Cells Counted 100
[2021-06-27 18:24] LABS: Platelet Estimate Consistent w Auto
[2021-06-27] MEDS: MELATONIN 5 MG TAB PO PRN (22:44)
[2021-06-28 06:29] LABS: Hematocrit 28.6 % (30.3-42.9); Hemoglobin 9.3 gm/dl (10.1-14.3); Mean Corpuscular HGB Conc 32 % (30-34); Mean Corpuscular Volume 90 fl (79-97); Platelet Count 199 K/mm3 (140-440); Red Blood Count 3.17 M/mm3 (3.65-5.03); Red Cell Distribution Width 14.2 % (13.2-15.2)
[2021-06-28] MEDS: methylPREDNISolone Sod Succinate 40 MG/1 ML INJ IV SCH ×3 (06:31→21:13)
[2021-06-28 06:54] LABS: C-Reactive Protein 0.8 mg/dL (0.00-1.30); Calcium 8.1 mg/dL (8.4-10.2)
[2021-06-28] MEDS: ASCORBIC ACID 500 MG TAB PO SCH ×2 (09:21→21:13)
[2021-06-28] MEDS: SEVELAMER CARBONATE 800 MG TAB PO SCH ×3 (09:22→18:00)
[2021-06-28] MEDS: HEPARIN 5,000 UNIT/1 ML VIAL SUB-Q SCH ×2 (09:22→23:59)
[2021-06-28] MEDS: CHOLECALCIFEROL (VIT D3) 400 UNIT TAB PO SCH (09:22)
[2021-06-28] MEDS: ZINC SULFATE 220 MG CAP PO SCH ×2 (09:22→21:13)
[2021-06-28] MEDS: INSULIN LISPRO 100 UNIT/ML SUB-Q SCH ×4 (09:23→22:00)
--- NOTE | 2021-06-28 10:19 | Progress Note ---
Assessment and Plan Cultures: SARS CoV2 PCR: Positive 06/18/2021 urine culture: E. 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 Severe disease. Not a candidate for remdesivir due to renal failure. S/P empiric abx. #Acute hypoxic respiratory failure: On NRB/HFNC. #ESRD secondary to FSGS, initiated on dialysis #Positive urine culture, likely asymptomatic bacteriuria #Leukopenia: Secondary to COVID-19 Recs: -Continue steroids, complete 10 days -s/p Actemra 06/24/2021 -prophylactic anticoagulation based on d-dimer per hospital protocol -monitor d-dimer, CRP every 2-3 days -Guarded prognosis Kendell Pacheco MD, FACP [facility] O: [phone] F: [phone] Subjective Date of service: 06/28/21 Principal diagnosis: SHANON Interval history: No fever. Remains on high flow nasal cannula. D-dimer 1832, creatinine 6.3, CRP 0.8 Objective - Exam Narrative Exam: Physical Exam (reviewed in chart to minimize risk of transmission) Constitutional: deferred Head, Ears, Nose: deferred Eyes: deferred Neck: deferred Oral: deferred Cardiovascular: deferred Respiratory: deferred GI: deferred Musculoskeletal: deferred Skin: deferred Hem/Lymphatic: deferred Psych: deferred Neurological: deferred - Constitutional Vitals: Vital Signs Temp Pulse Resp BP Pulse Ox 97.7 F 89 22 130/84 95 06/28/21 07:00 06/28/21 09:00 06/28/21 09:00 06/28/21 09:00 06/28/21 08:34 Temperature -Last 24 Hours Temperature 97.7 F Temperature 98.4 F Temperature 97.6 F Temperature 98.7 F Temperature 97.6 F Temperature 98.0 F Temperature 97.8 F Temperature 97.8 F - Labs CBC & Chem 7: 06/28/21 05:52 06/28/21 05:52 Labs: Abnormal lab results 10/21/21 10/21/21 10/21/21 Range/Units 05:06 11:51 16:31 WBC (4.5-11.0) K/mm3 RBC (3.65-5.03) M/mm3 Hgb (10.1-14.3) gm/dl Hct (30.3-42.9) % Seg Neuts % (Manual) 87.0 H (40.0-70.0) % Lymphocytes % (Manual) 3.0 L (13.4-35.0) % Seg Neutrophils # Man 12.4 H (1.8-7.7) K/mm3 Lymphocytes # (Manual) 0.4 L (1.2-5.4) K/mm3 D-Dimer (0-234) ng/mlDDU Potassium (3.6-5.0) mmol/L Chloride (98-107) mmol/L BUN (7-17) mg/dL Creatinine (0.6-1.2) mg/dL Glucose (65-100) mg/dL POC Glucose 258 H 169 H (70-105) mg/dL Calcium (8.4-10.2) mg/dL Phosphorus (2.5-4.5) mg/dL 06/27/21 06/28/21 06/28/21 Range/Units 22:14 05:52 05:52 WBC 14.3 H (4.5-11.0) K/mm3 RBC 3.17 L (3.65-5.03) M/mm3 Hgb 9.3 L (10.1-14.3) gm/dl Hct 28.6 L (30.3-42.9) % Seg Neuts % (Manual) (40.0-70.0) % Lymphocytes % (Manual) (13.4-35.0) % Seg Neutrophils # Man (1.8-7.7) K/mm3 Lymphocytes # (Manual) (1.2-5.4) K/mm3 D-Dimer (0-234) ng/mlDDU Potassium 5.7 H (3.6-5.0) mmol/L Chloride 96.4 L (98-107) mmol/L BUN 66 H (7-17) mg/dL Creatinine 6.3 H (0.6-1.2) mg/dL Glucose 187 H (65-100) mg/dL POC Glucose 168 H (70-105) mg/dL Calcium 8.1 L (8.4-10.2) mg/dL Phosphorus 7.20 H D (2.5-4.5) mg/dL 06/28/21 06/28/21 Range/Units 05:52 07:11 WBC (4.5-11.0) K/mm3 RBC (3.65-5.03) M/mm3 Hgb (10.1-14.3) gm/dl Hct (30.3-42.9) % Seg Neuts % (Manual) (40.0-70.0) % Lymphocytes % (Manual) (13.4-35.0) % Seg Neutrophils # Man (1.8-7.7) K/mm3 Lymphocytes # (Manual) (1.2-5.4) K/mm3 D-Dimer 1832.29 H (0-234) ng/mlDDU Potassium (3.6-5.0) mmol/L Chloride (98-107) mmol/L BUN (7-17) mg/dL Creatinine (0.6-1.2) mg/dL Glucose (65-100) mg/dL POC Glucose 161 H (70-105) mg/dL Calcium (8.4-10.2) mg/dL Phosphorus (2.5-4.5) mg/dL
[2021-06-28 10:32] LABS: Eosinophils % (Auto) 0.1 % (0.0-4.3); Monocytes # (Auto) 0.7 K/mm3 (0.0-0.8); Monocytes % (Auto) 5.4 % (0.0-7.3)
--- NOTE | 2021-06-28 11:29 | Progress Note ---
Assessment and Plan - Patient Problems (1) Acute kidney injury superimposed on chronic kidney disease Current Visit: No Status: Acute Plan to address problem: pt without signs of renal recovery. cont TTS inpatient schedule for solute clearance and volume control Will need to be placed at an outpatient facility for HD once discharged. Will need assistance from case management (2) Pneumonia due to COVID-19 virus Current Visit: Yes Status: Acute Plan to address problem: Started on IV solumedrol regimen. Not a candidate for remdesivir given poor sangeetha l function. Management per ID/primary team recommendations. Hold off on planned renal biopsy at present time given COVID-19 pneumonia. (3) Abdominal pain Current Visit: Yes Status: Acute Plan to address problem: CT of the abdomen did not show any acute pathology. concerned whether her symptoms are more indicative of progressive kidney disease and underlying uremia. (4) Hypertensive chronic kidney disease with stage 1 through stage 4 chronic kidney disease, or unspecified chronic kidney disease Current Visit: Yes Status: Acute Plan to address problem: Elevated blood pressure readings noted over the last 24 hours. Will try to optimize volume status with UF during HD. (5) Type 2 diabetes mellitus with diabetic chronic kidney disease Current Visit: Yes Status: Chronic Plan to address problem: diabetes management per primary attending. (6) Acute respiratory failure Current Visit: Yes Status: Acute Plan to address problem: on HFNC 40% Fio2 and stable on current settings per nursing staff. Management per ICU/pulmonary recommendations. (7) Urinary tract infection Current Visit: Yes Status: Acute Plan to address problem: cont rocephin Subjective Date of service: 06/28/21 Principal diagnosis: SHANON Interval history: (+) COVID-19 pneumonia. On isolate protocol. Remains on HFNC Objective - Exam Narrative Exam: Not directly examined in order to preserve PPE. She is under investigation for COVID-19 infection. Physical examination by primary team reviewed. - Vital Signs Vital signs: Vital Signs - 12hr 06/28/21 06/28/21 06/28/21 00:00 00:05 00:34 Temperature 97.6 F Pulse Rate 99 H 97 H Respiratory 24 Rate Blood Pressure 110/67 O2 Sat by Pulse 97 Oximetry 06/28/21 06/28/21 06/28/21 01:01 02:00 03:00 Temperature Pulse Rate 98 H 91 H 99 H Respiratory 24 24 26 H Rate Blood Pressure 119/76 115/77 123/77 O2 Sat by Pulse 94 98 93 Oximetry 06/28/21 06/28/21 06/28/21 03:27 04:00 04:30 Temperature 98.4 F Pulse Rate 90 90 Respiratory 21 Rate Blood Pressure 133/87 O2 Sat by Pulse Oximetry 06/28/21 06/28/21 06/28/21 05:00 06:00 07:00 Temperature 97.7 F Pulse Rate 87 94 H 98 H Respiratory 20 24 21 Rate Blood Pressure 137/88 144/91 133/93 O2 Sat by Pulse 97 98 98 Oximetry 06/28/21 06/28/21 06/28/21 08:00 08:34 09:00 Temperature Pulse Rate 85 89 Respiratory 20 22 Rate Blood Pressure 131/83 130/84 O2 Sat by Pulse 95 95 Oximetry - Lab 06/28/21 05:52 06/28/21 05:52 Most recent lab results ABG pH 7.492 pH Units (7.350-7.450) H 06/21/21 17:30 ABG pCO2 24.1 mm Hg 06/21/21 17:30 ABG pO2 79.9 mm Hg (80.0-90.0) L 06/21/21 17:30 ABG HCO3 18.0 mmol/L (20.0-26.0) L 06/21/21 17:30 ABG O2 Saturation 97.0 % (95.0-99.0) 06/21/21 17:30 Calcium 8.1 mg/dL (8.4-10.2) L 06/28/21 05:52 Phosphorus 7.20 mg/dL (2.5-4.5) H D 06/28/21 05:52 Magnesium 2.30 mg/dL (1.7-2.3) 06/28/21 05:52 Urine Creatinine 132.3 mg/dL (0.1-20.0) H 06/19/21 05:27 Urine Creatinine 132.5 mg/dL (0.1-20.0) H 06/19/21 05:27 Urine Sodium 26 mmol/L 06/19/21 05:27 Urine Total Protein 196 mg/dL (5-11.8) H 06/19/21 05:27 Medications & Allergies - Medications Allergies/Adverse Reactions: Allergies No Known Allergies Allergy (Verified 08/19/19 15:08) Home Medications: Home Medications Medication Instructions Recorded Confirmed Last Taken Type Pnv No.95/Ferrous Fum/Folic AC 1 each PO QDAY 04/10/17 12/31/19 12/30/19 10:30 History [ Caplet] Famotidine [Pepcid] 20 mg PO DAILY #14 tablet 04/13/17 12/31/19 12/30/19 10:30 Rx hydrALAZINE [Apresoline TAB] 100 mg PO TID #90 tab 04/13/17 12/31/19 Unknown Rx Nitrofurantoin [place]/M-Cryst 100 mg PO Q12HR #14 capsule 08/19/19 12/31/19 Unknown Rx [Macrobid CAP] Aspirin BABY CHEW TAB 80 mg PO DAILY 12/31/19 12/31/19 12/30/19 10:30 History Enoxaparin 40 mg SUB-Q DAILY 12/31/19 12/31/19 12/30/19 10:30 History labetaloL [Labetalol 200mg TAB] 400 mg PO BID 12/31/19 12/31/19 12/30/19 10:30 History HYDROcodone/APAP 5-325 [[place] 1 - 2 each PO Q4HR PRN #30 tablet 01/05/20 Unknown Rx 5/325] Active Medications: Generic Name Dose Route Start Last Admin Trade Name Freq PRN Reason Stop Dose Admin Acetaminophen 650 mg 06/18/21 06:25 06/21/21 23:41 Acetaminophen 325 Mg Tab PO 650 mg Q4H PRN Administration Pain MILD(1-3)/Fever >100.5/ANDUJAR Ascorbic Acid 500 mg 06/21/21 22:00 06/28/21 09:21 Ascorbic Acid 500 Mg Tab PO 500 mg BID DEBORA Administration Cholecalciferol 1,000 unit 06/22/21 10:00 06/28/21 09:22 Cholecalciferol (Vit D3) 400 Unit Tab PO 1,000 unit QDAY DEBORA Administration Dextrose 50 ml 06/18/21 06:25 Dextrose 50% In Water (25gm) 50 Ml Syringe IV Q30MIN PRN Hypoglycemia Protocol Heparin Sodium (Porcine) 5,000 unit 06/21/21 22:00 06/28/21 09:22 Heparin 5,000 Unit/1 Ml Vial SUB-Q 5,000 unit Q12HR DEBORA Administration Hydralazine HCl 10 mg 06/21/21 17:04 06/24/21 12:30 Hydralazine 20 Mg/1 Ml Inj IV 10 mg Q6HR PRN Administration Hypertension Sodium Chloride 100 mls @ 999 mls/hr 06/25/21 09:17 Nacl 0.9% IV ASHLEIGH PRN Hypotension Insulin Human Lispro 0 unit 06/18/21 07:30 06/28/21 09:23 Insulin Lispro 100 Unit/Ml SUB-Q 1 unit ACHS DEBORA Administration Protocol Magnesium Hydroxide 30 ml 06/18/21 06:25 Magnesium Hydroxide (Mom) Oral Liqd Udc PO Q4H PRN Constipation Melatonin 5 mg 06/24/21 01:11 06/27/21 22:44 Melatonin 5 Mg Tab PO 5 mg QHS PRN Administration Sleep Methylprednisolone Sodium Succinate 40 mg 06/21/21 22:00 06/28/21 06:31 Methylprednisolone Sod Succinate 40 Mg/1 Ml Inj IV 07/01/21 14:01 40 mg Q8HR DEBORA Administration Morphine Sulfate 2 mg 06/18/21 06:25 06/20/21 15:32 Morphine 2 Mg/1 Ml Inj IV 2 mg Q4H PRN Administration Pain, Moderate (4-6) Morphine Sulfate 4 mg 06/18/21 06:25 Morphine 4 Mg/1 Ml Inj IV Q4H PRN Pain , Severe (7-10) Ondansetron HCl 4 mg 06/18/21 06:25 Ondansetron 4 Mg/2 Ml Inj IV Q8H PRN Nausea And Vomiting Sevelamer Carbonate 800 mg 06/27/21 11:30 06/28/21 09:22 Sevelamer Carbonate 800 Mg Tab PO 800 mg AC DEBORA Administration Sodium Chloride 10 ml 06/18/21 10:00 06/27/21 22:45 Sodium Chloride 0.9% 10 Ml Flush Syringe IV 10 ml BID DEBORA Administration Sodium Chloride 10 ml 06/18/21 06:25 Sodium Chloride 0.9% 10 Ml Flush Syringe IV PRN PRN LINE FLUSH Sodium Polystyrene Sulfonate 30 gm 06/28/21 11:27 Sodium Polystyrene 15 Gm/60 Ml Oral Liqd PO 06/28/21 11:28 ONCE ONE Zinc Sulfate 220 mg 06/21/21 22:00 06/28/21 09:22 Zinc Sulfate 220 Mg Cap PO 220 mg BID DEBORA Administration
[2021-06-28] MEDS ORDERED: SODIUM POLYSTYRENE 15 GM/60 ML ORAL LIQD PO ONE (12:00)
--- NOTE | 2021-06-28 14:55 | Progress Note ---
Assessment and Plan Assessment and plan: Patient is a 41-year-old lady with past medical history of focal segmental glomerulosclerosis lost to follow-up who presented with malaise and abdominal pain. Found to be in acute renal failure. Patient was also septic and began to have respiratory failure. Covid PCR was positive. Currently patient is undergoing hemodialysis on MWF schedule. High flow nasal cannula. #Acute on chronic kidney injury -History of CKD stage IIIb with proteinuria -Nephrology following, will hold off renal biopsy given new COVID PNA -permacath placement 06/21 -HD initiation 06/21, continue with MWF schedule - consult for outpatient HD #Tachycardia-improved -Heart rate 130 -Possibly in the setting of patient being volume down. Will administer 1 L lactated Ringer's and reassess. #Sepsis-resolved -Fever, tachycardia -blood cultures NGTD -COVID PCR positive -CXR with bilateral pneumonia -likely 2/2 to respiratory failure vs COVID PNA vs PE #Acute hypoxic respiratory failure -HFNC @ 35LPM, FIO2 75% -will wean as tolerated, goal SpO2 >92% -will continue steroids and empiric CAP coverage for now -COVID PCR positive -CXR showing bilateral PNA, completed CAP coverage with Azithromycin and rocephin (completed 5 days total) #COVID-Pneumonia #COVID-19 infection -COVID PCR positive -d-dimer 1290, CRP 26.7, LDH 939, ferritin 1625 -ID consulted, assistance appreciated -S/p Actemra on 06/24/2021 #Elevated D-dimer -patient persistently tachycardic and with oxygen requirement, V/Q scan negative (06/25/2021) -could be 2/2 to COVID infection #Abdominal pain -resolved, likely 2/2 to renal failure -CT scan negative for acute abnormalities #Type 2 Diabetes -Glucose control with sliding scale, will continue -continue accuchecks for now #Hypertension -elevated BP -if persistently elevated, will start antihypertensives #Asymptomatic bacteriuria -Urine culture grew [id number] E. coli sensitive to Rocephin -treated with rocephin Disposition Plan: Continue medical management Total Time Spent with Patient (Minutes): 30 History Interval history: No acute events overnight. Hospitalist Physical - Constitutional Vitals: Temp Pulse Resp BP Pulse Ox 97.8 F 110 H 28 H 126/71 94 06/28/21 11:30 06/28/21 13:00 06/28/21 13:00 06/28/21 13:00 06/28/21 13:06 General appearance: Present: no acute distress, well-nourished, obese - EENT Eyes: Present: PERRL, EOM intact ENT: hearing intact, clear oral mucosa, dentition normal - Neck Neck: Present: supple, normal ROM - Respiratory Respiratory effort: normal (Currently on high flow 35 L 75% FiO2) - Cardiovascular Rhythm: regular Heart Sounds: Present: S1 & S2 Details: Vas-Cath in upper right chest - Extremities Extremities: no ischemia, pulses intact, pulses symmetrical, No edema, normal temperature, normal color Peripheral Pulses: within normal limits - Abdominal General gastrointestinal: soft, non-tender, non-distended, normal bowel sounds - Integumentary Integumentary: Present: clear, warm, dry - Psychiatric Psychiatric: appropriate mood/affect, intact judgment & insight, memory intact, cooperative - Neurologic Neurologic: CNII-XII intact, moves all extremities - Allied Health Allied health notes reviewed: nursing Results - Labs CBC & Chem 7: 06/28/21 05:52 06/28/21 05:52 Labs: Laboratory Last Values WBC 14.3 K/mm3 (4.5-11.0) H 06/28/21 05:52 RBC 3.17 M/mm3 (3.65-5.03) L 06/28/21 05:52 Hgb 9.3 gm/dl (10.1-14.3) L 06/28/21 05:52 Hct 28.6 % (30.3-42.9) L 06/28/21 05:52 MCV 90 fl (79-97) 06/28/21 05:52 MCH 29 pg (28-32) 06/28/21 05:52 MCHC 32 % (30-34) 06/28/21 05:52 RDW 14.2 % (13.2-15.2) 06/28/21 05:52 Plt Count 199 K/mm3 (140-440) 06/28/21 05:52 Lymph % (Auto) 5.6 % (13.4-35.0) L 06/22/21 08:29 Stone % (Auto) 5.4 % (0.0-7.3) 06/28/21 05:52 Eos % (Auto) 0.1 % (0.0-4.3) 06/28/21 05:52 Baso % (Auto) 0.1 % (0.0-1.8) 06/22/21 08:29 Lymph # (Auto) 0.2 K/mm3 (1.2-5.4) L 06/22/21 08:29 Stone # (Auto) 0.7 K/mm3 (0.0-0.8) 06/28/21 05:52 Eos # (Auto) 0.0 K/mm3 (0.0-0.4) 06/28/21 05:52 Baso # (Auto) 0.0 K/mm3 (0.0-0.1) 06/28/21 05:52 Add Manual Diff Complete 06/27/21 05:06 Total Counted 100 06/27/21 05:06 Seg 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 06/28/21 05:52 Seg Neuts % (Manual) 87.0 % (40.0-70.0) H 06/27/21 05:06 Band Neutrophils % 1.0 % 06/27/21 05:06 Lymphocytes % (Manual) 3.0 % (13.4-35.0) L 06/27/21 05:06 Monocytes % (Manual) 4.0 % (0.0-7.3) 06/27/21 05:06 Myelocytes % 5.0 % 06/27/21 05:06 Nucleated RBC % Not Reportable 06/27/21 05:06 Seg Neutrophils # 12.8 K/mm3 (1.8-7.7) H 06/28/21 05:52 Seg Neutrophils # Man 12.4 K/mm3 (1.8-7.7) H 06/27/21 05:06 Band Neutrophils # 0.1 K/mm3 06/27/21 05:06 Lymphocytes # (Manual) 0.4 K/mm3 (1.2-5.4) L 06/27/21 05:06 Abs React Lymphs (Man) 0.0 K/mm3 06/27/21 05:06 Monocytes # (Manual) 0.6 K/mm3 (0.0-0.8) 06/27/21 05:06 Eosinophils # (Manual) 0.0 K/mm3 (0.0-0.4) 06/27/21 05:06 Basophils # (Manual) 0.0 K/mm3 (0.0-0.1) 06/27/21 05:06 Metamyelocytes # 0.0 K/mm3 06/27/21 05:06 Myelocytes # 0.7 K/mm3 06/27/21 05:06 Promyelocytes # 0.0 K/mm3 06/27/21 05:06 Blast Cells # 0.0 K/mm3 06/27/21 05:06 WBC Morphology Not Reportable 06/27/21 05:06 Hypersegmented Neuts Not Reportable 06/27/21 05:06 Hyposegmented Neuts Not Reportable 06/27/21 05:06 Hypogranular Neuts Not Reportable 06/27/21 05:06 Smudge Cells Not Reportable 06/27/21 05:06 Toxic Granulation Not Reportable 06/27/21 05:06 Toxic Vacuolation Not Reportable 06/27/21 05:06 Dohle Bodies Not Reportable 06/27/21 05:06 Pelger-Huet Anomaly Not Reportable 06/27/21 05:06 Michael Rods Not Reportable 06/27/21 05:06 Platelet Estimate Consistent w auto 06/27/21 05:06 Clumped Platelets Not Reportable 06/27/21 05:06 Plt Clumps, EDTA Not Reportable 06/27/21 05:06 Large Platelets Not Reportable 06/27/21 05:06 Giant Platelets Not Reportable 06/27/21 05:06 Platelet Satelliting Not Reportable 06/27/21 05:06 Plt Morphology Comment Not Reportable 06/27/21 05:06 RBC Morphology Not Reportable 06/27/21 05:06 Dimorphic RBCs Not Reportable 06/27/21 05:06 Polychromasia Not Reportable 06/27/21 05:06 Hypochromasia Not Reportable 06/27/21 05:06 Poikilocytosis Not Reportable 06/27/21 05:06 Anisocytosis Not Reportable 06/27/21 05:06 Microcytosis Not Reportable 06/27/21 05:06 Macrocytosis Not Reportable 06/27/21 05:06 Spherocytes Not Reportable 06/27/21 05:06 Pappenheimer Bodies Not Reportable 06/27/21 05:06 Sickle Cells Not Reportable 06/27/21 05:06 Target Cells Not Reportable 06/27/21 05:06 Tear Drop Cells Not Reportable 06/27/21 05:06 Ovalocytes Not Reportable 06/27/21 05:06 Helmet Cells Not Reportable 06/27/21 05:06 [place] Bodies Not Reportable 06/27/21 05:06 Parachute Rings Not Reportable 06/27/21 05:06 [place] Cells Not Reportable 06/27/21 05:06 Bite Cells Not Reportable 06/27/21 05:06 Crenated Cell Not Reportable 06/27/21 05:06 Elliptocytes Not Reportable 06/27/21 05:06 Acanthocytes (Spur) Not Reportable 06/27/21 05:06 Rouleaux Not Reportable 06/27/21 05:06 Hemoglobin C Crystals Not Reportable 06/27/21 05:06 Schistocytes Not Reportable 06/27/21 05:06 Malaria parasites Not Reportable 06/27/21 05:06 Jules Bodies Not Reportable 06/27/21 05:06 Hem Pathologist Commnt No 06/27/21 05:06 PT 14.4 Sec. (12.2-14.9) 06/19/21 05:00 INR 1.01 (0.87-1.13) 06/19/21 05:00 D-Dimer 1832.29 ng/mlDDU (0-234) H 06/28/21 05:52 ABG pH 7.492 pH Units (7.350-7.450) H 06/21/21 17:30 ABG pCO2 24.1 mm Hg 06/21/21 17:30 ABG pO2 79.9 mm Hg (80.0-90.0) L 06/21/21 17:30 ABG HCO3 18.0 mmol/L (20.0-26.0) L 06/21/21 17:30 ABG O2 Saturation 97.0 % (95.0-99.0) 06/21/21 17:30 ABG O2 Content 15.1 (0.0-44) 06/21/21 17:30 ABG Base Excess -3.9 mmol/L (-2.0-3.0) L 06/21/21 17:30 ABG Hemoglobin 11.2 gm/dl (12.0-16.0) L 06/21/21 17:30 ABG Carboxyhemoglobin 1.1 % (0.0-5.0) 06/21/21 17:30 ABG Methemoglobin 0.5 % (0.0-1.5) 06/21/21 17:30 Oxyhemoglobin 95.4 % (95.0-99.0) 06/21/21 17:30 FiO2 100 % 06/21/21 17:30 Sodium 137 mmol/L (137-145) 06/28/21 05:52 Potassium 5.7 mmol/L (3.6-5.0) H 06/28/21 05:52 Chloride 96.4 mmol/L (98-107) L 06/28/21 05:52 Carbon Dioxide 24 mmol/L (22-30) D 06/28/21 05:52 Anion Gap 22 mmol/L 06/28/21 05:52 BUN 66 mg/dL (7-17) H 06/28/21 05:52 Creatinine 6.3 mg/dL (0.6-1.2) H 06/28/21 05:52 Estimated GFR 9 ml/min 06/28/21 05:52 BUN/Creatinine Ratio 10 % 06/28/21 05:52 Glucose 187 mg/dL (65-100) H 06/28/21 05:52 POC Glucose 173 mg/dL (70-105) H 06/28/21 11:39 Calcium 8.1 mg/dL (8.4-10.2) L 06/28/21 05:52 Phosphorus 7.20 mg/dL (2.5-4.5) H D 06/28/21 05:52 Magnesium 2.30 mg/dL (1.7-2.3) 06/28/21 05:52 Ferritin 1456.0 ng/mL (10.0-200.0) H 06/25/21 04:42 Total Bilirubin 0.20 mg/dL (0.1-1.2) 06/22/21 08:29 Direct Bilirubin < 0.2 mg/dL (0-0.2) 06/18/21 03:10 Indirect Bilirubin 0.1 mg/dL 06/18/21 03:10 AST 32 units/L (5-40) 06/22/21 08:29 ALT 11 units/L (7-56) 06/22/21 08:29 Alkaline Phosphatase 53 units/L (35-129) 06/22/21 08:29 Lactate Dehydrogenase 677 units/L (91-180) H 06/25/21 04:42 C-Reactive Protein 0.80 mg/dL (0.00-1.30) 06/28/21 05:52 Total Protein 5.6 g/dL (6.3-8.2) L 06/22/21 08:29 Albumin 1.8 g/dL (3.9-5) L 06/22/21 08:29 Albumin/Globulin Ratio 0.5 % 06/22/21 08:29 Lipase 199 units/L (13-60) H 06/18/21 03:10 Procalcitonin 24.59 ng/mL (<0.15) 06/21/21 20:58 Urine Color Jessy (Yellow) 06/19/21 05:27 Urine Turbidity Cloudy (Clear) 06/19/21 05:27 Urine pH 5.0 (5.0-7.0) 06/19/21 05:27 Ur Specific [place] 1.025 (1.003-1.030) 06/19/21 05:27 Urine Protein >500 mg/dL (Negative) 06/19/21 05:27 Urine Glucose (UA) 50 mg/dL (Negative) 06/19/21 05:27 Urine Ketones Neg mg/dL (Negative) 06/19/21 05:27 Urine Blood Lg (Negative) 06/19/21 05:27 Urine Nitrite Neg (Negative) 06/19/21 05:27 Urine Bilirubin Neg (Negative) 06/19/21 05:27 Urine Urobilinogen < 2.0 mg/dL (<2.0) 06/19/21 05:27 Ur Leukocyte Esterase Mod (Negative) 06/19/21 05:27 Urine WBC (Auto) > 182.0 /HPF (0.0-6.0) H 06/19/21 05:27 Urine RBC (Auto) 35.0 /HPF (0.0-6.0) 06/19/21 05:27 U Epithel Cells (Auto) 1.0 /HPF (0-13.0) 06/19/21 05:27 Urine WBC Clumps 3+ /HPF 06/19/21 05:27 Urine Mucus Few /HPF 06/19/21 05:27 Urine Yeast (Budding) 3+ /HPF 06/18/21 04:55 Urine Creatinine 132.3 mg/dL (0.1-20.0) H 06/19/21 05:27 Urine Creatinine 132.5 mg/dL (0.1-20.0) H 06/19/21 05:27 Protein/Creatinin Ratio 1.48 06/19/21 05:27 Urine Sodium 26 mmol/L 06/19/21 05:27 Urine Chloride 25.9 mmolL (110-250) L 06/19/21 05:27 Urine Total Protein 196 mg/dL (5-11.8) H 06/19/21 05:27 Urine HCG, Qual Negative (Negative) 06/19/21 05:27 RAFAEL Screen Negative (Negative) 06/18/21 13:49 Double Strand DNA Ab <1 IU/mL (<=4) 06/18/21 13:49 Complement C3 168 mg/dL (83-193) 06/18/21 13:49 Complement C4 70 mg/dL (15-57) H 06/18/21 13:49 Coronavirus (PCR) Positive (Negative) A 06/22/21 09:00 Hepatitis A IgM Ab Non-reactive (NonReactive) 06/21/21 04:20 Hep Bs Antigen Nonreactive (Negative) 06/21/21 04:20 Hep B Core IgM Ab Non-reactive (NonReactive) 06/21/21 04:20 Hepatitis C Antibody Non-reactive (NonReactive) 06/21/21 04:20 [place]/IV: Voiding Method External Female Catheter Active Medications - Current Medications Current Medications: Generic Name Dose Route Start Last Admin Trade Name Freq PRN Reason Stop Dose Admin Acetaminophen 650 mg 06/18/21 06:25 06/21/21 23:41 Acetaminophen 325 Mg Tab PO 650 mg Q4H PRN Administration Pain MILD(1-3)/Fever >100.5/ANDUJAR Ascorbic Acid 500 mg 06/21/21 22:00 06/28/21 09:21 Ascorbic Acid 500 Mg Tab PO 500 mg BID DEBORA Administration Cholecalciferol 1,000 unit 06/22/21 10:00 06/28/21 09:22 Cholecalciferol (Vit D3) 400 Unit Tab PO 1,000 unit QDAY DEBORA Administration Dextrose 50 ml 10/12/21 06:25 Dextrose 50% In Water (25gm) 50 Ml Syringe IV Q30MIN PRN Hypoglycemia Protocol Heparin Sodium (Porcine) 5,000 unit 06/21/21 22:00 06/28/21 09:22 Heparin 5,000 Unit/1 Ml Vial SUB-Q 5,000 unit Q12HR DEBORA Administration Hydralazine HCl 10 mg 06/21/21 17:04 06/24/21 12:30 Hydralazine 20 Mg/1 Ml Inj IV 10 mg Q6HR PRN Administration Hypertension Sodium Chloride 100 mls @ 999 mls/hr 06/25/21 09:17 Nacl 0.9% IV ASHLEIGH PRN Hypotension Insulin Human Lispro 0 unit 06/18/21 07:30 06/28/21 12:27 Insulin Lispro 100 Unit/Ml SUB-Q 1 unit ACHS DEBORA Administration Protocol Magnesium Hydroxide 30 ml 06/18/21 06:25 Magnesium Hydroxide (Mom) Oral Liqd Udc PO Q4H PRN Constipation Melatonin 5 mg 06/24/21 01:11 06/27/21 22:44 Melatonin 5 Mg Tab PO 5 mg QHS PRN Administration Sleep Methylprednisolone Sodium Succinate 40 mg 06/21/21 22:00 06/28/21 13:48 Methylprednisolone Sod Succinate 40 Mg/1 Ml Inj IV 07/01/21 14:01 40 mg Q8HR DEBORA Administration Morphine Sulfate 2 mg 06/18/21 06:25 06/20/21 15:32 Morphine 2 Mg/1 Ml Inj IV 2 mg Q4H PRN Administration Pain, Moderate (4-6) Morphine Sulfate 4 mg 06/18/21 06:25 Morphine 4 Mg/1 Ml Inj IV Q4H PRN Pain , Severe (7-10) Ondansetron HCl 4 mg 06/18/21 06:25 Ondansetron 4 Mg/2 Ml Inj IV Q8H PRN Nausea And Vomiting Sevelamer Carbonate 800 mg 06/27/21 11:30 06/28/21 12:26 Sevelamer Carbonate 800 Mg Tab PO 800 mg AC DEBORA Administration Sodium Chloride 10 ml 06/18/21 10:00 06/28/21 09:22 Sodium Chloride 0.9% 10 Ml Flush Syringe IV 10 ml BID DEBORA Administration Sodium Chloride 10 ml 06/18/21 06:25 Sodium Chloride 0.9% 10 Ml Flush Syringe IV PRN PRN LINE FLUSH Zinc Sulfate 220 mg 06/21/21 22:00 06/28/21 09:22 Zinc Sulfate 220 Mg Cap PO 220 mg BID DEBORA Administration Nutrition/Malnutrition Assess - Dietary Evaluation Nutrition/Malnutrition Findings: Nutrition Notes Start: 06/18/21 15:35 Freq: Status: Active Protocol: Document 06/25/21 12:16 GB (Rec: 06/25/21 12:27 GB [id number]) Nutrition Notes Initial or Follow up Reassessment Current Diagnosis CKD(stage I-IV),Hypertension Other Pertinent Diagnosis Abdominal pain, nausea. Current Diet Renal Labs/Tests 06/25: Na 134, BUN 88, Cr 11.7 , glucose 206 Pertinent Medications Vit C, Vit D3, NaCl 125ml/hr, Zn Sulfate Height 5 ft 2 in Weight 87.4 kg [place] Body Weight (kg) 50.00 BMI 35.2 Weight change and time frame 06/18: 92.986kg 06/24: 87.4kg change of -5.586kg for -6% significance. Pt is now receiving HD, weight change can be related to fluid removal. Weight Status Obese Subjective/Other Information MD notes: New to HD. HD did not finish yesterday, scheduled for another HD treatment today. PO intakes vary, RN's document meal tolerated well. Last BM: 06/24 Percent of energy/protein needs met: PO intake of meals at 50% or greater will meet 100% minimal EEN. Burn Absent Trauma Absent GI Symptoms None Food Allergy No Skin Integrity/Comment No complications reported Current % PO Other Minimum of two criteria No physical signs of malnutrition #2 Nutrition Diagnosis Inadequate energy intake Etiology New to HD As Evidenced by Signs and Symptoms Start of HD, recorded PO intake 0-50%. Diagnosis Progress(for reassessment Continues documentation) Is patient on ventilator? No Is Patient Ambulatory and/or Out of Bed Yes REE-(Jones-St. Jeor-ambulatory/OOB) [ 1946.425 [id number]] Kcal/Kg value to use for calculation 20 Approximate Energy Requirements Using 1748 kcal/Kg Calculation Used for Recommendations Kcal/kg Additional Notes Protein: 0.8-1.0 g/Kg@ 87k-87g Fluids: 1.0 ml/Kcal/day, or per MD. Nutrition Intervention Change Diet Order: Continue Renal Nutrition Support: n/a Add Supplement/Snack (indicate name/kcal Nepro once daily /protein ) Provides kCal: 425 Provides Protein (gm) 19 Goal #1 PO intake of meals to improve to 50% or greater daily for LOS Goal #2 Maintain body weight within +/ -3% of current BWt during LOS. Goal #3 PO intake of nutritional supplement 50% or greater daily during LOS Follow-Up By: 07/02/21 Additional Comments f/u: po intake meals/ supplement, labs - Attestation Statement I have reviewed and agreed w/ Malnutrition eval & tx plan: Yes
[2021-06-28 17:18] LABS: Myelocytes # (Manual) 0.1 K/mm3; Platelet Estimate Consistent w Auto; Total Cells Counted 100
[2021-06-29 04:58] LABS: Hematocrit 28.5 % (30.3-42.9); Hemoglobin 9.1 gm/dl (10.1-14.3); Mean Corpuscular HGB Conc 32 % (30-34); Mean Corpuscular Volume 91 fl (79-97); Platelet Count 187 K/mm3 (140-440); Red Blood Count 3.12 M/mm3 (3.65-5.03); Red Cell Distribution Width 14.7 % (13.2-15.2)
[2021-06-29 05:22] LABS: Calcium 8.4 mg/dL (8.4-10.2)
[2021-06-29] MEDS: methylPREDNISolone Sod Succinate 40 MG/1 ML INJ IV SCH ×3 (05:45→21:55)
[2021-06-29 08:04] LABS: Band Neutrophils # (Manual) 0.7 K/mm3; Total Cells Counted 100
[2021-06-29 08:05] LABS: Anisocytosis Few
[2021-06-29] MEDS: INSULIN LISPRO 100 UNIT/ML SUB-Q SCH ×4 (10:00→21:51)
[2021-06-29] MEDS: SEVELAMER CARBONATE 800 MG TAB PO SCH ×3 (10:00→18:48)
[2021-06-29] MEDS: ASCORBIC ACID 500 MG TAB PO SCH ×2 (13:21→21:55)
[2021-06-29] MEDS: CHOLECALCIFEROL (VIT D3) 400 UNIT TAB PO SCH (13:21)
[2021-06-29] MEDS: HEPARIN 5,000 UNIT/1 ML VIAL SUB-Q SCH ×2 (13:21→21:55)
[2021-06-29] MEDS: ZINC SULFATE 220 MG CAP PO SCH ×2 (13:21→21:55)
--- NOTE | 2021-06-29 15:43 | Progress Note ---
Assessment and Plan Assessment and plan: Patient is a 41-year-old lady with past medical history of focal segmental glomerulosclerosis lost to follow-up who presented with malaise and abdominal pain. Found to be in acute renal failure. Patient was also septic and began to have respiratory failure. Covid PCR was positive. Currently patient is undergoing hemodialysis on MWF schedule. High flow nasal cannula. #Acute on chronic kidney injury -History of CKD stage IIIb with proteinuria -Nephrology following, will hold off renal biopsy given new COVID PNA -permacath placement 06/21 -HD initiation 06/21, continue with MWF schedule - consult for outpatient HD #Tachycardia-improved -Heart rate 130 -Possibly in the setting of patient being volume down. Will administer 1 L lactated Ringer's and reassess. #Sepsis-resolved -Fever, tachycardia -blood cultures NGTD -COVID PCR positive -CXR with bilateral pneumonia -likely 2/2 to respiratory failure vs COVID PNA vs PE #Acute hypoxic respiratory failure -HFNC @ 35LPM, FIO2 70% -will wean as tolerated, goal SpO2 >92% -will continue steroids and empiric CAP coverage for now -COVID PCR positive -CXR showing bilateral PNA, completed CAP coverage with Azithromycin and rocephin (completed 5 days total) #COVID-Pneumonia #COVID-19 infection -COVID PCR positive -d-dimer 1290, CRP 26.7, LDH 939, ferritin 1625 -ID consulted, assistance appreciated -S/p Actemra on 06/24/2021 #Elevated D-dimer -patient persistently tachycardic and with oxygen requirement, V/Q scan negative (06/25/2021) -could be 2/2 to COVID infection #Abdominal pain -resolved, likely 2/2 to renal failure -CT scan negative for acute abnormalities #Type 2 Diabetes -Glucose control with sliding scale, will continue -continue accuchecks for now #Hypertension -elevated BP -if persistently elevated, will start antihypertensives #Asymptomatic bacteriuria -Urine culture grew [id number] E. coli sensitive to Rocephin -treated with rocephin Disposition Plan: Continue medical management Total Time Spent with Patient (Minutes): 30 History Interval history: No acute events over night. The patient denies fevers, chills, nausea, vomiting, abdominal pain, chest pain/pressure, shortness of breath, urinary symptoms, weakness, or confusion. Hospitalist Physical - Constitutional Vitals: Temp Pulse Resp BP Pulse Ox 98.2 F 118 H 28 H 120/69 92 06/29/21 13:15 06/29/21 13:15 06/29/21 13:15 06/29/21 13:15 06/29/21 13:15 General appearance: Present: no acute distress, well-nourished, obese - EENT Eyes: Present: PERRL, EOM intact ENT: hearing intact, clear oral mucosa, dentition normal - Neck Neck: Present: supple, normal ROM - Respiratory Respiratory effort: normal - Cardiovascular Heart rate: 115 Rhythm: regular Heart Sounds: Present: S1 & S2 - Extremities Extremities: no ischemia, pulses intact, pulses symmetrical, No edema, normal temperature, normal color Peripheral Pulses: within normal limits - Abdominal General gastrointestinal: soft, non-tender, non-distended, normal bowel sounds - Integumentary Integumentary: Present: clear, warm, dry - Psychiatric Psychiatric: appropriate mood/affect, memory intact, cooperative, other (Limited insight.) - Neurologic Neurologic: CNII-XII intact, moves all extremities - Allied Health Allied health notes reviewed: nursing Results - Labs CBC & Chem 7: 06/29/21 04:30 06/29/21 04:30 Labs: Laboratory Last Values WBC 16.4 K/mm3 (4.5-11.0) H 06/29/21 04:30 RBC 3.12 M/mm3 (3.65-5.03) L 06/29/21 04:30 Hgb 9.1 gm/dl (10.1-14.3) L 06/29/21 04:30 Hct 28.5 % (30.3-42.9) L 06/29/21 04:30 MCV 91 fl (79-97) 06/29/21 04:30 MCH 29 pg (28-32) 06/29/21 04:30 MCHC 32 % (30-34) 06/29/21 04:30 RDW 14.7 % (13.2-15.2) 06/29/21 04:30 Plt Count 187 K/mm3 (140-440) 06/29/21 04:30 Lymph % (Auto) 5.6 % (13.4-35.0) L 06/22/21 08:29 [place] % (Auto) 5.4 % (0.0-7.3) 06/28/21 05:52 Eos % (Auto) 0.1 % (0.0-4.3) 06/28/21 05:52 Baso % (Auto) 0.1 % (0.0-1.8) 06/22/21 08:29 Lymph # (Auto) 0.2 K/mm3 (1.2-5.4) L 06/22/21 08:29 [place] # (Auto) 0.7 K/mm3 (0.0-0.8) 06/28/21 05:52 Eos # (Auto) 0.0 K/mm3 (0.0-0.4) 06/28/21 05:52 Baso # (Auto) 0.0 K/mm3 (0.0-0.1) 06/28/21 05:52 Add Manual Diff Complete 06/29/21 04:30 Total Counted 100 06/29/21 04:30 Seg Neutrophils % Logging Superintendent 06/29/21 04:30 Seg Neuts % (Manual) 92.0 % (40.0-70.0) H 06/29/21 04:30 Band Neutrophils % 4.0 % 06/29/21 04:30 Lymphocytes % (Manual) 3.0 % (13.4-35.0) L 06/29/21 04:30 Monocytes % (Manual) 1.0 % (0.0-7.3) 06/29/21 04:30 Eosinophils % (Manual) 1.0 % (0.0-4.3) 06/28/21 05:52 Myelocytes % 1.0 % 06/28/21 05:52 Nucleated RBC % 1.0 % (0.0-0.9) H 06/29/21 04:30 Seg Neutrophils # 12.8 K/mm3 (1.8-7.7) H 06/28/21 05:52 Seg Neutrophils # Man 15.1 K/mm3 (1.8-7.7) H 06/29/21 04:30 Band Neutrophils # 0.7 K/mm3 06/29/21 04:30 Lymphocytes # (Manual) 0.5 K/mm3 (1.2-5.4) L 06/29/21 04:30 Abs React Lymphs (Man) 0.0 K/mm3 06/29/21 04:30 Monocytes # (Manual) 0.2 K/mm3 (0.0-0.8) 06/29/21 04:30 Eosinophils # (Manual) 0.0 K/mm3 (0.0-0.4) 06/29/21 04:30 Basophils # (Manual) 0.0 K/mm3 (0.0-0.1) 06/29/21 04:30 Metamyelocytes # 0.0 K/mm3 06/29/21 04:30 Myelocytes # 0.0 K/mm3 06/29/21 04:30 Promyelocytes # 0.0 K/mm3 06/29/21 04:30 Blast Cells # 0.0 K/mm3 06/29/21 04:30 WBC Morphology Not Reportable 06/29/21 04:30 Hypersegmented Neuts Not Reportable 06/29/21 04:30 Hyposegmented Neuts Not Reportable 06/29/21 04:30 Hypogranular Neuts Not Reportable 06/29/21 04:30 Smudge Cells Not Reportable 06/29/21 04:30 Toxic Granulation Not Reportable 06/29/21 04:30 Toxic Vacuolation Not Reportable 06/29/21 04:30 Dohle Bodies Not Reportable 06/29/21 04:30 Pelger-Huet Anomaly Not Reportable 06/29/21 04:30 Michael Rods Not Reportable 06/29/21 04:30 Platelet Estimate Not Reportable 06/29/21 04:30 Clumped Platelets Not Reportable 06/29/21 04:30 Plt Clumps, EDTA Not Reportable 06/29/21 04:30 Large Platelets Not Reportable 06/29/21 04:30 Giant Platelets Not Reportable 06/29/21 04:30 Platelet Satelliting Not Reportable 06/29/21 04:30 Plt Morphology Comment Not Reportable 06/29/21 04:30 RBC Morphology Not Reportable 06/29/21 04:30 Dimorphic RBCs Not Reportable 06/29/21 04:30 Polychromasia Not Reportable 06/29/21 04:30 Hypochromasia Not Reportable 06/29/21 04:30 Poikilocytosis Not Reportable 06/29/21 04:30 Anisocytosis Few 06/29/21 04:30 Microcytosis Not Reportable 06/29/21 04:30 Macrocytosis Not Reportable 06/29/21 04:30 Spherocytes Not Reportable 06/29/21 04:30 Pappenheimer Bodies Not Reportable 06/29/21 04:30 Sickle Cells Not Reportable 06/29/21 04:30 Target Cells Not Reportable 06/29/21 04:30 Tear Drop Cells Not Reportable 06/29/21 04:30 Ovalocytes Not Reportable 06/29/21 04:30 Helmet Cells Not Reportable 06/29/21 04:30 [place] Bodies Not Reportable 06/29/21 04:30 [place] Rings Not Reportable 06/29/21 04:30 Em Cells Not Reportable 06/29/21 04:30 Bite Cells Not Reportable 06/29/21 04:30 Crenated Cell Not Reportable 06/29/21 04:30 Elliptocytes Not Reportable 06/29/21 04:30 Acanthocytes (Spur) Not Reportable 06/29/21 04:30 Rouleaux Not Reportable 06/29/21 04:30 Hemoglobin C Crystals Not Reportable 06/29/21 04:30 Schistocytes Not Reportable 06/29/21 04:30 Malaria parasites Not Reportable 06/29/21 04:30 Jules Bodies Not Reportable 06/29/21 04:30 Hem Pathologist Commnt No 06/29/21 04:30 PT 14.4 Sec. (12.2-14.9) 06/19/21 05:00 INR 1.01 (0.87-1.13) 06/19/21 05:00 D-Dimer 1832.29 ng/mlDDU (0-234) H 06/28/21 05:52 ABG pH 7.492 pH Units (7.350-7.450) H 06/21/21 17:30 ABG pCO2 24.1 mm Hg 06/21/21 17:30 ABG pO2 79.9 mm Hg (80.0-90.0) L 06/21/21 17:30 ABG HCO3 18.0 mmol/L (20.0-26.0) L 06/21/21 17:30 ABG O2 Saturation 97.0 % (95.0-99.0) 06/21/21 17:30 ABG O2 Content 15.1 (0.0-44) 06/21/21 17:30 ABG Base Excess -3.9 mmol/L (-2.0-3.0) L 06/21/21 17:30 ABG Hemoglobin 11.2 gm/dl (12.0-16.0) L 06/21/21 17:30 ABG Carboxyhemoglobin 1.1 % (0.0-5.0) 06/21/21 17:30 ABG Methemoglobin 0.5 % (0.0-1.5) 06/21/21 17:30 Oxyhemoglobin 95.4 % (95.0-99.0) 06/21/21 17:30 FiO2 100 % 06/21/21 17:30 Sodium 136 mmol/L (137-145) L 06/29/21 04:30 Potassium 5.9 mmol/L (3.6-5.0) H 06/29/21 04:30 Chloride 94.6 mmol/L (98-107) L 06/29/21 04:30 Carbon Dioxide 20 mmol/L (22-30) L 06/29/21 04:30 Anion Gap 27 mmol/L 06/29/21 04:30 BUN 117 mg/dL (7-17) H 06/29/21 04:30 Creatinine 9.8 mg/dL (0.6-1.2) H D 06/29/21 04:30 Estimated GFR 5 ml/min 06/29/21 04:30 BUN/Creatinine Ratio 12 % 06/29/21 04:30 Glucose 179 mg/dL (65-100) H 06/29/21 04:30 POC Glucose 211 mg/dL (70-105) H 06/29/21 12:01 Calcium 8.4 mg/dL (8.4-10.2) 06/29/21 04:30 Phosphorus 9.00 mg/dL (2.5-4.5) H D 06/29/21 04:30 Magnesium 2.50 mg/dL (1.7-2.3) H 06/29/21 04:30 Ferritin 1456.0 ng/mL (10.0-200.0) H 06/25/21 04:42 Total Bilirubin 0.20 mg/dL (0.1-1.2) 06/22/21 08:29 Direct Bilirubin < 0.2 mg/dL (0-0.2) 06/18/21 03:10 Indirect Bilirubin 0.1 mg/dL 06/18/21 03:10 AST 32 units/L (5-40) 06/22/21 08:29 ALT 11 units/L (7-56) 06/22/21 08:29 Alkaline Phosphatase 53 units/L (35-129) 06/22/21 08:29 Lactate Dehydrogenase 677 units/L (91-180) H 06/25/21 04:42 C-Reactive Protein 0.80 mg/dL (0.00-1.30) 06/28/21 05:52 Total Protein 5.6 g/dL (6.3-8.2) L 06/22/21 08:29 Albumin 1.8 g/dL (3.9-5) L 06/22/21 08:29 Albumin/Globulin Ratio 0.5 % 06/22/21 08:29 Lipase 199 units/L (13-60) H 06/18/21 03:10 Procalcitonin 24.59 ng/mL (<0.15) 06/21/21 20:58 Urine Color Jessy (Yellow) 06/19/21 05:27 Urine Turbidity Cloudy (Clear) 06/19/21 05:27 Urine pH 5.0 (5.0-7.0) 06/19/21 05:27 Ur Specific [place] 1.025 (1.003-1.030) 06/19/21 05:27 Urine Protein >500 mg/dL (Negative) 06/19/21 05:27 Urine Glucose (UA) 50 mg/dL (Negative) 06/19/21 05:27 Urine Ketones Neg mg/dL (Negative) 06/19/21 05:27 Urine Blood Lg (Negative) 06/19/21 05:27 Urine Nitrite Neg (Negative) 06/19/21 05:27 Urine Bilirubin Neg (Negative) 06/19/21 05:27 Urine Urobilinogen < 2.0 mg/dL (<2.0) 06/19/21 05:27 Ur Leukocyte Esterase Mod (Negative) 06/19/21 05:27 Urine WBC (Auto) > 182.0 /HPF (0.0-6.0) H 06/19/21 05:27 Urine RBC (Auto) 35.0 /HPF (0.0-6.0) 06/19/21 05:27 U Epithel Cells (Auto) 1.0 /HPF (0-13.0) 06/19/21 05:27 Urine WBC Clumps 3+ /HPF 06/19/21 05:27 Urine Mucus Few /HPF 06/19/21 05:27 Urine Yeast (Budding) 3+ /HPF 06/18/21 04:55 Urine Creatinine 132.3 mg/dL (0.1-20.0) H 06/19/21 05:27 Urine Creatinine 132.5 mg/dL (0.1-20.0) H 06/19/21 05:27 Protein/Creatinin Ratio 1.48 06/19/21 05:27 Urine Sodium 26 mmol/L 06/19/21 05:27 Urine Chloride 25.9 mmolL (110-250) L 06/19/21 05:27 Urine Total Protein 196 mg/dL (5-11.8) H 06/19/21 05:27 Urine HCG, Qual Negative (Negative) 06/19/21 05:27 RAFAEL Screen Negative (Negative) 06/18/21 13:49 Double Strand DNA Ab <1 IU/mL (<=4) 06/18/21 13:49 Complement C3 168 mg/dL (83-193) 06/18/21 13:49 Complement C4 70 mg/dL (15-57) H 06/18/21 13:49 Coronavirus (PCR) Positive (Negative) A 06/22/21 09:00 Hepatitis A IgM Ab Non-reactive (NonReactive) 06/21/21 04:20 Hep Bs Antigen Nonreactive (Negative) 06/21/21 04:20 Hep B Core IgM Ab Non-reactive (NonReactive) 06/21/21 04:20 Hepatitis C Antibody Non-reactive (NonReactive) 06/21/21 04:20 [place]/IV: Voiding Method External Female Catheter Active Medications - Current Medications Current Medications: Generic Name Dose Route Start Last Admin Trade Name Freq PRN Reason Stop Dose Admin Acetaminophen 650 mg 06/18/21 06:25 06/21/21 23:41 Acetaminophen 325 Mg Tab PO 650 mg Q4H PRN Administration Pain MILD(1-3)/Fever >100.5/ANDUJAR Ascorbic Acid 500 mg 06/21/21 22:00 06/29/21 13:21 Ascorbic Acid 500 Mg Tab PO 500 mg BID DEBORA Administration Cholecalciferol 1,000 unit 06/22/21 10:00 06/29/21 13:21 Cholecalciferol (Vit D3) 400 Unit Tab PO 1,000 unit QDAY DEBORA Administration Dextrose 50 ml 06/18/21 06:25 Dextrose 50% In Water (25gm) 50 Ml Syringe IV Q30MIN PRN Hypoglycemia Protocol Heparin Sodium (Porcine) 5,000 unit 06/21/21 22:00 06/29/21 13:21 Heparin 5,000 Unit/1 Ml Vial SUB-Q 5,000 unit Q12HR DEBORA Administration Hydralazine HCl 10 mg 06/21/21 17:04 06/24/21 12:30 Hydralazine 20 Mg/1 Ml Inj IV 10 mg Q6HR PRN Administration Hypertension Sodium Chloride 100 mls @ 999 mls/hr 06/25/21 09:17 Nacl 0.9% IV ASHLEIGH PRN Hypotension Insulin Human Lispro 0 unit 06/18/21 07:30 06/29/21 13:21 Insulin Lispro 100 Unit/Ml SUB-Q 2 unit ACHS DEBORA Administration Protocol Magnesium Hydroxide 30 ml 06/18/21 06:25 Magnesium Hydroxide (Mom) Oral Liqd Udc PO Q4H PRN Constipation Melatonin 5 mg 06/24/21 01:11 06/27/21 22:44 Melatonin 5 Mg Tab PO 5 mg QHS PRN Administration Sleep Methylprednisolone Sodium Succinate 40 mg 06/21/21 22:00 06/29/21 13:21 Methylprednisolone Sod Succinate 40 Mg/1 Ml Inj IV 07/01/21 14:01 40 mg Q8HR DEBORA Administration Morphine Sulfate 2 mg 06/18/21 06:25 06/20/21 15:32 Morphine 2 Mg/1 Ml Inj IV 2 mg Q4H PRN Administration Pain, Moderate (4-6) Morphine Sulfate 4 mg 06/18/21 06:25 Morphine 4 Mg/1 Ml Inj IV Q4H PRN Pain , Severe (7-10) Ondansetron HCl 4 mg 06/18/21 06:25 Ondansetron 4 Mg/2 Ml Inj IV Q8H PRN Nausea And Vomiting Sevelamer Carbonate 800 mg 06/27/21 11:30 06/29/21 13:20 Sevelamer Carbonate 800 Mg Tab PO 800 mg AC DEBORA Administration Sodium Chloride 10 ml 06/18/21 10:00 06/29/21 13:37 Sodium Chloride 0.9% 10 Ml Flush Syringe IV 10 ml BID DEBORA Administration Sodium Chloride 10 ml 06/18/21 06:25 Sodium Chloride 0.9% 10 Ml Flush Syringe IV PRN PRN LINE FLUSH Zinc Sulfate 220 mg 06/21/21 22:00 06/29/21 13:21 Zinc Sulfate 220 Mg Cap PO 220 mg BID DEBORA Administration Nutrition/Malnutrition Assess - Dietary Evaluation Nutrition/Malnutrition Findings: Nutrition Notes Start: 06/18/21 15:35 Freq: Status: Active Protocol: Document 06/25/21 12:16 GB (Rec: 06/25/21 12:27 GB [id number]) Nutrition Notes Initial or Follow up Reassessment Current Diagnosis CKD(stage I-IV),Hypertension Other Pertinent Diagnosis Abdominal pain, nausea. Current Diet Renal Labs/Tests 06/25: Na 134, BUN 88, Cr 11.7 , glucose 206 Pertinent Medications Vit C, Vit D3, NaCl 125ml/hr, Zn Sulfate Height 5 ft 2 in Weight 87.4 kg [place] Body Weight (kg) 50.00 BMI 35.2 Weight change and time frame 06/18: 92.986kg 06/24: 87.4kg change of -5.586kg for -6% significance. Pt is now receiving HD, weight change can be related to fluid removal. Weight Status Obese Subjective/Other Information MD notes: New to HD. HD did not finish yesterday, scheduled for another HD treatment today. PO intakes vary, RN's document meal tolerated well. Last BM: 06/24 Percent of energy/protein needs met: PO intake of meals at 50% or greater will meet 100% minimal EEN. Burn Absent Trauma Absent GI Symptoms None Food Allergy No Skin Integrity/Comment No complications reported Current % PO Other Minimum of two criteria No physical signs of malnutrition #2 Nutrition Diagnosis Inadequate energy intake Etiology New to HD As Evidenced by Signs and Symptoms Start of HD, recorded PO intake 0-50%. Diagnosis Progress(for reassessment Continues documentation) Is patient on ventilator? No Is Patient Ambulatory and/or Out of Bed Yes REE-([place] Jeor-ambulatory/OOB) [ 1946.425 [id number]] Kcal/Kg value to use for calculation 20 Approximate Energy Requirements Using 1748 kcal/Kg Calculation Used for Recommendations Kcal/kg Additional Notes Protein: 0.8-1.0 g/Kg@ 87k-87g Fluids: 1.0 ml/Kcal/day, or per MD. Nutrition Intervention Change Diet Order: Continue Renal Nutrition Support: n/a Add Supplement/Snack (indicate name/kcal Nepro once daily /protein ) Provides kCal: 425 Provides Protein (gm) 19 Goal #1 PO intake of meals to improve to 50% or greater daily for LOS Goal #2 Maintain body weight within +/ -3% of current BWt during LOS. Goal #3 PO intake of nutritional supplement 50% or greater daily during LOS Follow-Up By: 07/02/21 Additional Comments f/u: po intake meals/ supplement, labs - Attestation Statement I have reviewed and agreed w/ Malnutrition eval & tx plan: Yes
--- NOTE | 2021-06-29 15:47 | Progress Note ---
Assessment and Plan - Patient Problems (1) Acute kidney injury superimposed on chronic kidney disease Current Visit: No Status: Acute Plan to address problem: Patient remains dialysis dependent. Continue hemodialysis on a Thursday, and Thursday schedule. manager athletics to assist with placement at outpatient dialysis clinic. (2) Pneumonia due to COVID-19 virus Current Visit: Yes Status: Acute Plan to address problem: Continue supplemental oxygen/Respiratory support as needed Prophylactic anticoagulation Trend inflammatory markers to assess disease progression and prognosis Continue management per infectious disease/primary attending (3) Hypertensive chronic kidney disease with stage 1 through stage 4 chronic kidney disease, or unspecified chronic kidney disease Current Visit: Yes Status: Acute Plan to address problem: Follow-up blood pressure on current medications (4) Type 2 diabetes mellitus with diabetic chronic kidney disease Current Visit: Yes Status: Chronic Plan to address problem: Blood sugar management by primary attending Subjective Date of service: 06/29/21 Principal diagnosis: Acute kidney injury/COVID associated nephropathy Interval history: Patient was not evaluated at the bedside today due to the COVID-19 status to limit exposure of the consulting live in caregiver and also for PPE preservation during the COVID-19 pandemic. I reviewed multidisciplinary notes and discussed with staff and physicians as needed. Patient is on oxygen via nasal cannula. Urine growing E. coli Objective - Exam Narrative Exam: Patient was not examined at the bedside today due to personal protective equipment preservation during the COVID-19 pandemic - Vital Signs Vital signs: Vital Signs - 12hr 06/29/21 06/29/21 06/29/21 04:00 04:34 05:00 Temperature Pulse Rate 87 87 Pulse Rate [ From Monitor] Respiratory 20 25 H Rate Blood Pressure 151/91 128/84 O2 Sat by Pulse 98 98 Oximetry O2 Sat by Pulse Oximetry [ Anterior Bilateral] 06/29/21 06/29/21 06/29/21 06:00 07:00 08:00 Temperature Pulse Rate 86 88 87 Pulse Rate [ 87 From Monitor] Respiratory 22 20 Rate Blood Pressure 136/79 141/90 O2 Sat by Pulse 95 94 Oximetry O2 Sat by Pulse Oximetry [ Anterior Bilateral] 06/29/21 06/29/21 06/29/21 08:01 09:00 09:30 Temperature Pulse Rate 109 H 110 H 117 H Pulse Rate [ From Monitor] Respiratory Rate Blood Pressure 157/98 132/91 166/94 O2 Sat by Pulse 80 L 92 Oximetry O2 Sat by Pulse Oximetry [ Anterior Bilateral] 06/29/21 06/29/21 06/29/21 09:45 10:00 10:15 Temperature Pulse Rate 119 H 113 H 114 H Pulse Rate [ From Monitor] Respiratory 24 Rate Blood Pressure 134/83 124/78 128/87 O2 Sat by Pulse 90 Oximetry O2 Sat by Pulse Oximetry [ Anterior Bilateral] 06/29/21 06/29/21 06/29/21 10:45 11:00 11:15 Temperature Pulse Rate 119 H 116 H 119 H Pulse Rate [ From Monitor] Respiratory 31 H Rate Blood Pressure 113/65 122/68 119/66 O2 Sat by Pulse 91 Oximetry O2 Sat by Pulse Oximetry [ Anterior Bilateral] 06/29/21 06/29/21 06/29/21 11:30 11:31 11:45 Temperature 97.6 F Pulse Rate 115 H 111 H 123 H Pulse Rate [ From Monitor] Respiratory 27 H Rate Blood Pressure 109/61 145/94 106/65 O2 Sat by Pulse Oximetry O2 Sat by Pulse 92 Oximetry [ Anterior Bilateral] 06/29/21 06/29/21 06/29/21 12:00 12:15 12:30 Temperature 98.2 F Pulse Rate 127 H 123 H 119 H Pulse Rate [ From Monitor] Respiratory Rate Blood Pressure 120/63 118/61 119/60 O2 Sat by Pulse Oximetry O2 Sat by Pulse Oximetry [ Anterior Bilateral] 06/29/21 06/29/21 06/29/21 12:45 13:00 13:15 Temperature 98.2 F Pulse Rate 116 H 110 H 118 H Pulse Rate [ From Monitor] Respiratory 28 H Rate Blood Pressure 116/62 107/56 120/69 O2 Sat by Pulse Oximetry O2 Sat by Pulse 92 Oximetry [ Anterior Bilateral] - Lab 06/29/21 04:30 06/29/21 04:30 Most recent lab results ABG pH 7.492 pH Units (7.350-7.450) H 06/21/21 17:30 ABG pCO2 24.1 mm Hg 06/21/21 17:30 ABG pO2 79.9 mm Hg (80.0-90.0) L 06/21/21 17:30 ABG HCO3 18.0 mmol/L (20.0-26.0) L 06/21/21 17:30 ABG O2 Saturation 97.0 % (95.0-99.0) 06/21/21 17:30 Calcium 8.4 mg/dL (8.4-10.2) 06/29/21 04:30 Phosphorus 9.00 mg/dL (2.5-4.5) H D 06/29/21 04:30 Magnesium 2.50 mg/dL (1.7-2.3) H 06/29/21 04:30 Urine Creatinine 132.3 mg/dL (0.1-20.0) H 06/19/21 05:27 Urine Creatinine 132.5 mg/dL (0.1-20.0) H 06/19/21 05:27 Urine Sodium 26 mmol/L 06/19/21 05:27 Urine Total Protein 196 mg/dL (5-11.8) H 06/19/21 05:27 Medications & Allergies - Medications Allergies/Adverse Reactions: Allergies No Known Allergies Allergy (Verified 08/19/19 15:08) Home Medications: Home Medications Medication Instructions Recorded Confirmed Last Taken Type Pnv No.95/Ferrous Fum/Folic AC 1 each PO QDAY 04/10/17 12/31/19 12/30/19 10:30 History [ [place]] Famotidine [Pepcid] 20 mg PO DAILY #14 tablet 04/13/17 12/31/19 12/30/19 10:30 Rx hydrALAZINE [Apresoline TAB] 100 mg PO TID #90 tab 04/13/17 12/31/19 Unknown Rx Nitrofurantoin [place]/M-Cryst 100 mg PO Q12HR #14 capsule 08/19/19 12/31/19 Unknown Rx [Macrobid CAP] Aspirin BABY CHEW TAB 80 mg PO DAILY 12/31/19 12/31/19 12/30/19 10:30 History Enoxaparin 40 mg SUB-Q DAILY 12/31/19 12/31/19 12/30/19 10:30 History labetaloL [Labetalol 200mg TAB] 400 mg PO BID 12/31/19 12/31/19 12/30/19 10:30 History HYDROcodone/APAP 5-325 [[place] 1 - 2 each PO Q4HR PRN #30 tablet 01/05/20 Unknown Rx 5/325] Active Medications: Generic Name Dose Route Start Last Admin Trade Name Freq PRN Reason Stop Dose Admin Acetaminophen 650 mg 06/18/21 06:25 06/21/21 23:41 Acetaminophen 325 Mg Tab PO 650 mg Q4H PRN Administration Pain MILD(1-3)/Fever >100.5/ANDUJAR Ascorbic Acid 500 mg 06/21/21 22:00 06/29/21 13:21 Ascorbic Acid 500 Mg Tab PO 500 mg BID DEBROA Administration Cholecalciferol 1,000 unit 06/22/21 10:00 06/29/21 13:21 Cholecalciferol (Vit D3) 400 Unit Tab PO 1,000 unit QDAY DEBORA Administration Dextrose 50 ml 06/18/21 06:25 Dextrose 50% In Water (25gm) 50 Ml Syringe IV Q30MIN PRN Hypoglycemia Protocol Heparin Sodium (Porcine) 5,000 unit 06/21/21 22:00 06/29/21 13:21 Heparin 5,000 Unit/1 Ml Vial SUB-Q 5,000 unit Q12HR DEBORA Administration Hydralazine HCl 10 mg 06/21/21 17:04 06/24/21 12:30 Hydralazine 20 Mg/1 Ml Inj IV 10 mg Q6HR PRN Administration Hypertension Sodium Chloride 100 mls @ 999 mls/hr 06/25/21 09:17 Nacl 0.9% IV ASHLEIGH PRN Hypotension Insulin Human Lispro 0 unit 06/18/21 07:30 06/29/21 13:21 Insulin Lispro 100 Unit/Ml SUB-Q 2 unit ACHS DEBORA Administration Protocol Magnesium Hydroxide 30 ml 06/18/21 06:25 Magnesium Hydroxide (Mom) Oral Liqd Udc PO Q4H PRN Constipation Melatonin 5 mg 06/24/21 01:11 06/27/21 22:44 Melatonin 5 Mg Tab PO 5 mg QHS PRN Administration Sleep Methylprednisolone Sodium Succinate 40 mg 06/21/21 22:00 06/29/21 13:21 Methylprednisolone Sod Succinate 40 Mg/1 Ml Inj IV 07/01/21 14:01 40 mg Q8HR DEBORA Administration Morphine Sulfate 2 mg 06/18/21 06:25 06/20/21 15:32 Morphine 2 Mg/1 Ml Inj IV 2 mg Q4H PRN Administration Pain, Moderate (4-6) Morphine Sulfate 4 mg 06/18/21 06:25 Morphine 4 Mg/1 Ml Inj IV Q4H PRN Pain , Severe (7-10) Ondansetron HCl 4 mg 06/18/21 06:25 Ondansetron 4 Mg/2 Ml Inj IV Q8H PRN Nausea And Vomiting Sevelamer Carbonate 800 mg 06/27/21 11:30 06/29/21 13:20 Sevelamer Carbonate 800 Mg Tab PO 800 mg AC DEBORA Administration Sodium Chloride 10 ml 06/18/21 10:00 06/29/21 13:37 Sodium Chloride 0.9% 10 Ml Flush Syringe IV 10 ml BID DEBORA Administration Sodium Chloride 10 ml 06/18/21 06:25 Sodium Chloride 0.9% 10 Ml Flush Syringe IV PRN PRN LINE FLUSH Zinc Sulfate 220 mg 06/21/21 22:00 06/29/21 13:21 Zinc Sulfate 220 Mg Cap PO 220 mg BID DEBORA Administration
[2021-06-30 06:43] LABS: Calcium 8.7 mg/dL (8.4-10.2)
[2021-06-30 06:47] LABS: Hematocrit 31.3 % (30.3-42.9); Hemoglobin 9.8 gm/dl (10.1-14.3); Mean Corpuscular HGB Conc 31 % (30-34); Mean Corpuscular Volume 91 fl (79-97); Platelet Count 253 K/mm3 (140-440); Red Blood Count 3.43 M/mm3 (3.65-5.03); Red Cell Distribution Width 14.5 % (13.2-15.2)
[2021-06-30] MEDS: methylPREDNISolone Sod Succinate 40 MG/1 ML INJ IV SCH ×3 (08:07→22:50)
[2021-06-30] MEDS: INSULIN LISPRO 100 UNIT/ML SUB-Q SCH ×4 (08:08→22:51)
--- NOTE | 2021-06-30 09:26 | Progress Note ---
Assessment and Plan - Patient Problems (1) Acute kidney injury superimposed on chronic kidney disease Current Visit: No Status: Acute Plan to address problem: Patient remains dialysis dependent. Continue hemodialysis on a Thursday, and Thursday schedule. manager of security to assist with placement at outpatient dialysis clinic. (2) Hyperkalemia Current Visit: Yes Status: Acute Plan to address problem: Dialysis was abbreviated yesterday due to tachycardia. Potassium still high this morning. Repeat Potasssium stat. If still high, will dialyze on a low K bath and avoid UFR (3) Pneumonia due to COVID-19 virus Current Visit: Yes Status: Acute Plan to address problem: Continue supplemental oxygen/Respiratory support as needed Prophylactic anticoagulation Trend inflammatory markers to assess disease progression and prognosis Continue management per infectious disease/primary attending (4) Hypertensive chronic kidney disease with stage 1 through stage 4 chronic kidney disease, or unspecified chronic kidney disease Current Visit: Yes Status: Acute Plan to address problem: Follow-up blood pressure on current medications (5) Type 2 diabetes mellitus with diabetic chronic kidney disease Current Visit: Yes Status: Chronic Plan to address problem: Blood sugar management by primary attending Subjective Date of service: 06/30/21 Principal diagnosis: Acute kidney injury/COVID associated nephropathy Interval history: Patient was not evaluated at the bedside today due to the COVID-19 status to limit 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 I reviewed multidisciplinary notes and discussed with staff and physicians as needed. Patient is on oxygen via nasal cannula. Objective - Exam Narrative Exam: Patient was not examined at the bedside today due to personal protective equipment preservation during the COVID-19 pandemic - Vital Signs Vital signs: Vital Signs - 12hr 06/29/21 06/29/21 06/29/21 22:00 23:00 23:21 Temperature 97.6 F Pulse Rate 99 H 91 H Pulse Rate [ From Monitor] Respiratory 23 22 Rate Blood Pressure 132/84 144/89 O2 Sat by Pulse 97 97 Oximetry 06/29/21 06/30/21 06/30/21 23:38 00:00 00:01 Temperature Pulse Rate 87 100 H Pulse Rate [ 87 From Monitor] Respiratory 16 22 Rate Blood Pressure 143/92 O2 Sat by Pulse 97 96 93 Oximetry 06/30/21 06/30/21 06/30/21 01:00 02:00 03:00 Temperature Pulse Rate 84 88 83 Pulse Rate [ From Monitor] Respiratory 22 19 22 Rate Blood Pressure 155/101 159/90 128/84 O2 Sat by Pulse 95 94 96 Oximetry 06/30/21 06/30/21 06/30/21 04:00 04:28 05:00 Temperature 97.3 F L Pulse Rate 85 85 Pulse Rate [ 87 From Monitor] Respiratory 20 23 Rate Blood Pressure 126/75 119/73 O2 Sat by Pulse 97 97 98 Oximetry 06/30/21 06/30/21 06:01 08:00 Temperature 97.3 F L Pulse Rate 133 H Pulse Rate [ From Monitor] Respiratory 22 Rate Blood Pressure 123/96 O2 Sat by Pulse 89 Oximetry - Lab 06/30/21 06:09 06/30/21 06:09 Most recent lab results ABG pH 7.492 pH Units (7.350-7.450) H 06/21/21 17:30 ABG pCO2 24.1 mm Hg 06/21/21 17:30 ABG pO2 79.9 mm Hg (80.0-90.0) L 06/21/21 17:30 ABG HCO3 18.0 mmol/L (20.0-26.0) L 06/21/21 17:30 ABG O2 Saturation 97.0 % (95.0-99.0) 06/21/21 17:30 Calcium 8.7 mg/dL (8.4-10.2) 06/30/21 06:09 Phosphorus 9.00 mg/dL (2.5-4.5) H D 06/29/21 04:30 Magnesium 2.50 mg/dL (1.7-2.3) H 06/29/21 04:30 Urine Creatinine 132.3 mg/dL (0.1-20.0) H 06/19/21 05:27 Urine Creatinine 132.5 mg/dL (0.1-20.0) H 06/19/21 05:27 Urine Sodium 26 mmol/L 06/19/21 05:27 Urine Total Protein 196 mg/dL (5-11.8) H 06/19/21 05:27 Medications & Allergies - Medications Allergies/Adverse Reactions: Allergies No Known Allergies Allergy (Verified 08/19/19 15:08) Home Medications: Home Medications Medication Instructions Recorded Confirmed Last Taken Type Pnv No.95/Ferrous Fum/Folic AC 1 each PO QDAY 04/10/17 12/31/19 12/30/19 10:30 History [ Caplet] Famotidine [Pepcid] 20 mg PO DAILY #14 tablet 04/13/17 12/31/19 12/30/19 10:30 Rx hydrALAZINE [Apresoline TAB] 100 mg PO TID #90 tab 04/13/17 12/31/19 Unknown Rx Nitrofurantoin Price/M-Cryst 100 mg PO Q12HR #14 capsule 08/19/19 12/31/19 Unknown Rx [Macrobid CAP] Aspirin BABY CHEW TAB 80 mg PO DAILY 12/31/19 12/31/19 12/30/19 10:30 History Enoxaparin 40 mg SUB-Q DAILY 12/31/19 12/31/19 12/30/19 10:30 History labetaloL [Labetalol 200mg TAB] 400 mg PO BID 12/31/19 12/31/19 12/30/19 10:30 History HYDROcodone/APAP 5-325 [[place] 1 - 2 each PO Q4HR PRN #30 tablet 01/05/20 Unknown Rx 5/325] Active Medications: Generic Name Dose Route Start Last Admin Trade Name Freq PRN Reason Stop Dose Admin Acetaminophen 650 mg 06/18/21 06:25 06/21/21 23:41 Acetaminophen 325 Mg Tab PO 650 mg Q4H PRN Administration Pain MILD(1-3)/Fever >100.5/ANDUJAR Ascorbic Acid 500 mg 06/21/21 22:00 06/29/21 21:55 Ascorbic Acid 500 Mg Tab PO 500 mg BID DEBORA Administration Cholecalciferol 1,000 unit 06/22/21 10:00 06/29/21 13:21 Cholecalciferol (Vit D3) 400 Unit Tab PO 1,000 unit QDAY DEBORA Administration Dextrose 50 ml 06/18/21 06:25 Dextrose 50% In Water (25gm) 50 Ml Syringe IV Q30MIN PRN Hypoglycemia Protocol Heparin Sodium (Porcine) 5,000 unit 06/21/21 22:00 06/29/21 21:55 Heparin 5,000 Unit/1 Ml Vial SUB-Q 5,000 unit Q12HR DEBORA Administration Hydralazine HCl 10 mg 06/21/21 17:04 06/24/21 12:30 Hydralazine 20 Mg/1 Ml Inj IV 10 mg Q6HR PRN Administration Hypertension Sodium Chloride 100 mls @ 999 mls/hr 06/25/21 09:17 Nacl 0.9% IV ASHLEIGH PRN Hypotension Insulin Human Lispro 0 unit 06/18/21 07:30 06/30/21 08:08 Insulin Lispro 100 Unit/Ml SUB-Q Not Given ACHS DEBORA Protocol Magnesium Hydroxide 30 ml 06/18/21 06:25 Magnesium Hydroxide (Mom) Oral Liqd Udc PO Q4H PRN Constipation Melatonin 5 mg 06/24/21 01:11 06/27/21 22:44 Melatonin 5 Mg Tab PO 5 mg QHS PRN Administration Sleep Methylprednisolone Sodium Succinate 40 mg 06/21/21 22:00 06/30/21 08:07 Methylprednisolone Sod Succinate 40 Mg/1 Ml Inj IV 07/01/21 14:01 40 mg Q8HR DEBORA Administration Morphine Sulfate 2 mg 06/18/21 06:25 06/20/21 15:32 Morphine 2 Mg/1 Ml Inj IV 2 mg Q4H PRN Administration Pain, Moderate (4-6) Morphine Sulfate 4 mg 06/18/21 06:25 Morphine 4 Mg/1 Ml Inj IV Q4H PRN Pain , Severe (7-10) Ondansetron HCl 4 mg 06/18/21 06:25 Ondansetron 4 Mg/2 Ml Inj IV Q8H PRN Nausea And Vomiting Sevelamer Carbonate 800 mg 06/27/21 11:30 06/29/21 18:48 Sevelamer Carbonate 800 Mg Tab PO 800 mg AC DEBORA Administration Sodium Chloride 10 ml 06/18/21 10:00 06/29/21 21:56 Sodium Chloride 0.9% 10 Ml Flush Syringe IV 10 ml BID DEBORA Administration Sodium Chloride 10 ml 06/18/21 06:25 Sodium Chloride 0.9% 10 Ml Flush Syringe IV PRN PRN LINE FLUSH Zinc Sulfate 220 mg 06/21/21 22:00 06/29/21 21:55 Zinc Sulfate 220 Mg Cap PO 220 mg BID DEBORA Administration
[2021-06-30 09:57] LABS: Myeloperoxidase Antibody <1.0 AI (<1.0)
[2021-06-30] MEDS: HEPARIN 5,000 UNIT/1 ML VIAL SUB-Q SCH ×2 (10:00→22:54)
[2021-06-30] MEDS: ASCORBIC ACID 500 MG TAB PO SCH ×2 (10:00→22:50)
[2021-06-30] MEDS: ZINC SULFATE 220 MG CAP PO SCH ×2 (10:00→22:50)
[2021-06-30] MEDS: SEVELAMER CARBONATE 800 MG TAB PO SCH ×3 (10:51→17:48)
[2021-06-30] MEDS: CHOLECALCIFEROL (VIT D3) 1000 UNIT (25 mcg) TAB PO SCH (10:51)
--- NOTE | 2021-06-30 14:07 | Progress Note ---
Assessment and Plan Assessment and plan: Patient is a 41-year-old lady with past medical history of focal segmental glomerulosclerosis lost to follow-up who presented with malaise and abdominal pain. Found to be in acute renal failure. Patient was also septic and began to have respiratory failure. Covid PCR was positive. Currently patient is undergoing hemodialysis on MWF schedule. High flow nasal cannula. #Acute on chronic kidney injury -History of CKD stage IIIb with proteinuria -Nephrology following, will hold off renal biopsy given new COVID PNA -permacath placement 06/21 -HD initiation 06/21, continue with MWF schedule -CM consult for outpatient HD #Tachycardia-improved -Heart rate 130 -Possibly in the setting of patient being volume down. Will administer 1 L lactated Ringer's and reassess. #Sepsis-resolved -Fever, tachycardia -blood cultures NGTD -COVID PCR positive -CXR with bilateral pneumonia -likely 2/2 to respiratory failure vs COVID PNA vs PE #Acute hypoxic respiratory failure -HFNC @ 30LPM, FIO2 70%. Patient can be transferred to the floor when high flow nasal cannula is that 30 L 50% FiO2 -will wean as tolerated, goal SpO2 >92% -will continue steroids and empiric CAP coverage for now -COVID PCR positive -CXR showing bilateral PNA, completed CAP coverage with Azithromycin and rocephin (completed 5 days total) #COVID-Pneumonia #COVID-19 infection -COVID PCR positive -d-dimer 1290, CRP 26.7, LDH 939, ferritin 1625 -ID consulted, assistance appreciated -S/p Actemra on 06/24/2021 #Elevated D-dimer -patient persistently tachycardic and with oxygen requirement, V/Q scan negative (06/25/2021) -could be 2/2 to COVID infection #Abdominal pain -resolved, likely 2/2 to renal failure -CT scan negative for acute abnormalities #Type 2 Diabetes -Glucose control with sliding scale, will continue -continue accuchecks for now #Hypertension -elevated BP -if persistently elevated, will start antihypertensives #Asymptomatic bacteriuria -Urine culture grew [id number] E. coli sensitive to Rocephin -treated with rocephin #Discharge planning -Consulting PT/OT for evaluation -Given extended hospital stay, patient should be evaluated for possible deconditioning. Physical assessment will be performed once oxygen requirements decreased. Disposition Plan: Continue medical management Total Time Spent with Patient (Minutes): 30 History Interval history: No acute events overnight. Hospitalist Physical - Constitutional Vitals: Temp Pulse Resp BP Pulse Ox 97.3 F L 133 H 22 123/96 94 06/30/21 08:00 06/30/21 06:01 06/30/21 06:01 06/30/21 06:01 06/30/21 08:00 General appearance: Present: no acute distress (Asleep in bed), well-nourished, obese - EENT Eyes: Present: PERRL, EOM intact ENT: hearing intact, clear oral mucosa, dentition normal - Neck Neck: Present: supple, normal ROM - Respiratory Respiratory effort: normal (Currently on high flow 30 L 70% FiO2) - Cardiovascular Rhythm: regular Heart Sounds: Present: S1 & S2 - Extremities Extremities: no ischemia, pulses intact, pulses symmetrical, No edema, normal temperature, normal color Peripheral Pulses: within normal limits - Abdominal General gastrointestinal: soft, non-tender, non-distended, normal bowel sounds - Integumentary Integumentary: Present: clear, warm, dry - Psychiatric Psychiatric: appropriate mood/affect, memory intact, cooperative - Neurologic Neurologic: CNII-XII intact, moves all extremities Results - Labs CBC & Chem 7: 06/30/21 06:09 06/30/21 10:19 Labs: Laboratory Last Values WBC 27.9 K/mm3 (4.5-11.0) H 06/30/21 06:09 RBC 3.43 M/mm3 (3.65-5.03) L 06/30/21 06:09 Hgb 9.8 gm/dl (10.1-14.3) L 06/30/21 06:09 Hct 31.3 % (30.3-42.9) 06/30/21 06:09 MCV 91 fl (79-97) 06/30/21 06:09 MCH 29 pg (28-32) 06/30/21 06:09 MCHC 31 % (30-34) 06/30/21 06:09 RDW 14.5 % (13.2-15.2) 06/30/21 06:09 Plt Count 253 K/mm3 (140-440) 06/30/21 06:09 Lymph % (Auto) 5.6 % (13.4-35.0) L 06/22/21 08:29 [place] % (Auto) 5.4 % (0.0-7.3) 06/28/21 05:52 Eos % (Auto) 0.1 % (0.0-4.3) 06/28/21 05:52 Baso % (Auto) 0.1 % (0.0-1.8) 06/22/21 08:29 Lymph # (Auto) 0.2 K/mm3 (1.2-5.4) L 06/22/21 08:29 [place] # (Auto) 0.7 K/mm3 (0.0-0.8) 06/28/21 05:52 Eos # (Auto) 0.0 K/mm3 (0.0-0.4) 06/28/21 05:52 Baso # (Auto) 0.0 K/mm3 (0.0-0.1) 06/28/21 05:52 Add Manual Diff Complete 06/29/21 04:30 Total Counted 100 06/29/21 04:30 Seg Neutrophils % Direct Support Professional Caregiver 06/29/21 04:30 Seg Neuts % (Manual) 92.0 % (40.0-70.0) H 06/29/21 04:30 Band Neutrophils % 4.0 % 06/29/21 04:30 Lymphocytes % (Manual) 3.0 % (13.4-35.0) L 06/29/21 04:30 Monocytes % (Manual) 1.0 % (0.0-7.3) 06/29/21 04:30 Eosinophils % (Manual) 1.0 % (0.0-4.3) 06/28/21 05:52 Myelocytes % 1.0 % 06/28/21 05:52 Nucleated RBC % 1.0 % (0.0-0.9) H 06/29/21 04:30 Seg Neutrophils # 12.8 K/mm3 (1.8-7.7) H 06/28/21 05:52 Seg Neutrophils # Man 15.1 K/mm3 (1.8-7.7) H 06/29/21 04:30 Band Neutrophils # 0.7 K/mm3 06/29/21 04:30 Lymphocytes # (Manual) 0.5 K/mm3 (1.2-5.4) L 06/29/21 04:30 Abs React Lymphs (Man) 0.0 K/mm3 06/29/21 04:30 Monocytes # (Manual) 0.2 K/mm3 (0.0-0.8) 06/29/21 04:30 Eosinophils # (Manual) 0.0 K/mm3 (0.0-0.4) 06/29/21 04:30 Basophils # (Manual) 0.0 K/mm3 (0.0-0.1) 06/29/21 04:30 Metamyelocytes # 0.0 K/mm3 06/29/21 04:30 Myelocytes # 0.0 K/mm3 06/29/21 04:30 Promyelocytes # 0.0 K/mm3 06/29/21 04:30 Blast Cells # 0.0 K/mm3 06/29/21 04:30 WBC Morphology Not Reportable 06/29/21 04:30 Hypersegmented Neuts Not Reportable 06/29/21 04:30 Hyposegmented Neuts Not Reportable 06/29/21 04:30 Hypogranular Neuts Not Reportable 06/29/21 04:30 Smudge Cells Not Reportable 06/29/21 04:30 Toxic Granulation Not Reportable 06/29/21 04:30 Toxic Vacuolation Not Reportable 06/29/21 04:30 Dohle Bodies Not Reportable 06/29/21 04:30 Pelger-Huet Anomaly Not Reportable 06/29/21 04:30 Michael Rods Not Reportable 06/29/21 04:30 Platelet Estimate Not Reportable 06/29/21 04:30 Clumped Platelets Not Reportable 06/29/21 04:30 Plt Clumps, EDTA Not Reportable 06/29/21 04:30 Large Platelets Not Reportable 06/29/21 04:30 Giant Platelets Not Reportable 06/29/21 04:30 Platelet Satelliting Not Reportable 06/29/21 04:30 Plt Morphology Comment Not Reportable 06/29/21 04:30 RBC Morphology Not Reportable 06/29/21 04:30 Dimorphic RBCs Not Reportable 06/29/21 04:30 Polychromasia Not Reportable 06/29/21 04:30 Hypochromasia Not Reportable 06/29/21 04:30 Poikilocytosis Not Reportable 06/29/21 04:30 Anisocytosis Few 06/29/21 04:30 Microcytosis Not Reportable 06/29/21 04:30 Macrocytosis Not Reportable 06/29/21 04:30 Spherocytes Not Reportable 06/29/21 04:30 Pappenheimer Bodies Not Reportable 06/29/21 04:30 Sickle Cells Not Reportable 06/29/21 04:30 Target Cells Not Reportable 06/29/21 04:30 Tear Drop Cells Not Reportable 06/29/21 04:30 Ovalocytes Not Reportable 06/29/21 04:30 Helmet Cells Not Reportable 06/29/21 04:30 [place] Bodies Not Reportable 06/29/21 04:30 [place] Rings Not Reportable 06/29/21 04:30 Em Cells Not Reportable 06/29/21 04:30 Bite Cells Not Reportable 06/29/21 04:30 Crenated Cell Not Reportable 06/29/21 04:30 Elliptocytes Not Reportable 06/29/21 04:30 Acanthocytes (Spur) Not Reportable 06/29/21 04:30 Rouleaux Not Reportable 06/29/21 04:30 Hemoglobin C Crystals Not Reportable 06/29/21 04:30 Schistocytes Not Reportable 06/29/21 04:30 Malaria parasites Not Reportable 06/29/21 04:30 Jules Bodies Not Reportable 06/29/21 04:30 Hem Pathologist Commnt No 06/29/21 04:30 PT 14.4 Sec. (12.2-14.9) 06/19/21 05:00 INR 1.01 (0.87-1.13) 06/19/21 05:00 D-Dimer 1832.29 ng/mlDDU (0-234) H 06/28/21 05:52 ABG pH 7.492 pH Units (7.350-7.450) H 06/21/21 17:30 ABG pCO2 24.1 mm Hg 06/21/21 17:30 ABG pO2 79.9 mm Hg (80.0-90.0) L 06/21/21 17:30 ABG HCO3 18.0 mmol/L (20.0-26.0) L 06/21/21 17:30 ABG O2 Saturation 97.0 % (95.0-99.0) 06/21/21 17:30 ABG O2 Content 15.1 (0.0-44) 06/21/21 17:30 ABG Base Excess -3.9 mmol/L (-2.0-3.0) L 06/21/21 17:30 ABG Hemoglobin 11.2 gm/dl (12.0-16.0) L 06/21/21 17:30 ABG Carboxyhemoglobin 1.1 % (0.0-5.0) 06/21/21 17:30 ABG Methemoglobin 0.5 % (0.0-1.5) 06/21/21 17:30 Oxyhemoglobin 95.4 % (95.0-99.0) 06/21/21 17:30 FiO2 100 % 06/21/21 17:30 Sodium 135 mmol/L (137-145) L 06/30/21 06:09 Potassium 5.3 mmol/L (3.6-5.0) H 06/30/21 10:19 Chloride 92.2 mmol/L (98-107) L 06/30/21 06:09 Carbon Dioxide 22 mmol/L (22-30) 06/30/21 06:09 Anion Gap 27 mmol/L 06/30/21 06:09 BUN 84 mg/dL (7-17) H 06/30/21 06:09 Creatinine 6.8 mg/dL (0.6-1.2) H 06/30/21 06:09 Estimated GFR 8 ml/min 06/30/21 06:09 BUN/Creatinine Ratio 12 % 06/30/21 06:09 Glucose 134 mg/dL (65-100) H 06/30/21 06:09 POC Glucose 182 mg/dL (70-105) H 06/30/21 11:12 Calcium 8.7 mg/dL (8.4-10.2) 06/30/21 06:09 Phosphorus 9.00 mg/dL (2.5-4.5) H D 06/29/21 04:30 Magnesium 2.50 mg/dL (1.7-2.3) H 06/29/21 04:30 Ferritin 1456.0 ng/mL (10.0-200.0) H 06/25/21 04:42 Total Bilirubin 0.20 mg/dL (0.1-1.2) 06/22/21 08:29 Direct Bilirubin < 0.2 mg/dL (0-0.2) 06/18/21 03:10 Indirect Bilirubin 0.1 mg/dL 06/18/21 03:10 AST 32 units/L (5-40) 06/22/21 08:29 ALT 11 units/L (7-56) 06/22/21 08:29 Alkaline Phosphatase 53 units/L (35-129) 06/22/21 08:29 Lactate Dehydrogenase 677 units/L (91-180) H 06/25/21 04:42 C-Reactive Protein 0.80 mg/dL (0.00-1.30) 06/28/21 05:52 Total Protein 5.6 g/dL (6.3-8.2) L 06/22/21 08:29 Albumin 1.8 g/dL (3.9-5) L 06/22/21 08:29 Albumin/Globulin Ratio 0.5 % 06/22/21 08:29 Lipase 199 units/L (13-60) H 06/18/21 03:10 Procalcitonin 24.59 ng/mL (<0.15) 06/21/21 20:58 Urine Color Jessy (Yellow) 06/19/21 05:27 Urine Turbidity Cloudy (Clear) 06/19/21 05:27 Urine pH 5.0 (5.0-7.0) 06/19/21 05:27 Ur Specific [place] 1.025 (1.003-1.030) 06/19/21 05:27 Urine Protein >500 mg/dL (Negative) 06/19/21 05:27 Urine Glucose (UA) 50 mg/dL (Negative) 06/19/21 05:27 Urine Ketones Neg mg/dL (Negative) 06/19/21 05:27 Urine Blood Lg (Negative) 06/19/21 05:27 Urine Nitrite Neg (Negative) 06/19/21 05:27 Urine Bilirubin Neg (Negative) 06/19/21 05:27 Urine Urobilinogen < 2.0 mg/dL (<2.0) 06/19/21 05:27 Ur Leukocyte Esterase Mod (Negative) 06/19/21 05:27 Urine WBC (Auto) > 182.0 /HPF (0.0-6.0) H 06/19/21 05:27 Urine RBC (Auto) 35.0 /HPF (0.0-6.0) 06/19/21 05:27 U Epithel Cells (Auto) 1.0 /HPF (0-13.0) 06/19/21 05:27 Urine WBC Clumps 3+ /HPF 06/19/21 05:27 Urine Mucus Few /HPF 06/19/21 05:27 Urine Yeast (Budding) 3+ /HPF 06/18/21 04:55 Urine Creatinine 132.3 mg/dL (0.1-20.0) H 06/19/21 05:27 Urine Creatinine 132.5 mg/dL (0.1-20.0) H 06/19/21 05:27 Protein/Creatinin Ratio 1.48 06/19/21 05:27 Urine Sodium 26 mmol/L 06/19/21 05:27 Urine Chloride 25.9 mmolL (110-250) L 06/19/21 05:27 Urine Total Protein 196 mg/dL (5-11.8) H 06/19/21 05:27 Urine HCG, Qual Negative (Negative) 06/19/21 05:27 RAFAEL Screen Negative (Negative) 06/18/21 13:49 Proteinase 3 (PR3) Ab <1.0 AI (<1.0) 06/18/21 13:49 Myeloperoxidase Ab <1.0 AI (<1.0) 06/18/21 13:49 Double Strand DNA Ab <1 IU/mL (<=4) 06/18/21 13:49 Complement C3 168 mg/dL (83-193) 06/18/21 13:49 Complement C4 70 mg/dL (15-57) H 06/18/21 13:49 Coronavirus (PCR) Positive (Negative) A 06/22/21 09:00 Hepatitis A IgM Ab Non-reactive (NonReactive) 06/21/21 04:20 Hep Bs Antigen Nonreactive (Negative) 06/21/21 04:20 Hep B Core IgM Ab Non-reactive (NonReactive) 06/21/21 04:20 Hepatitis C Antibody Non-reactive (NonReactive) 06/21/21 04:20 [place]/IV: Voiding Method External Female Catheter Active Medications - Current Medications Current Medications: Generic Name Dose Route Start Last Admin Trade Name Freq PRN Reason Stop Dose Admin Acetaminophen 650 mg 06/18/21 06:25 06/21/21 23:41 Acetaminophen 325 Mg Tab PO 650 mg Q4H PRN Administration Pain MILD(1-3)/Fever >100.5/ANDUJAR Ascorbic Acid 500 mg 06/21/21 22:00 06/30/21 10:00 Ascorbic Acid 500 Mg Tab PO 500 mg BID DEBORA Administration Cholecalciferol 1,000 unit 06/30/21 10:00 06/30/21 10:51 Cholecalciferol (Vit D3) 1000 Unit (25 Mcg) Tab PO 1,000 unit QDAY DEBORA Administration Dextrose 50 ml 06/18/21 06:25 Dextrose 50% In Water (25gm) 50 Ml Syringe IV Q30MIN PRN Hypoglycemia Protocol Heparin Sodium (Porcine) 5,000 unit 06/21/21 22:00 06/30/21 10:00 Heparin 5,000 Unit/1 Ml Vial SUB-Q 5,000 unit Q12HR DEBORA Administration Hydralazine HCl 10 mg 06/21/21 17:04 06/24/21 12:30 Hydralazine 20 Mg/1 Ml Inj IV 10 mg Q6HR PRN Administration Hypertension Sodium Chloride 100 mls @ 999 mls/hr 06/25/21 09:17 Nacl 0.9% IV ASHLEIGH PRN Hypotension Insulin Human Lispro 0 unit 06/18/21 07:30 06/30/21 13:43 Insulin Lispro 100 Unit/Ml SUB-Q 1 unit ACHS DEBORA Administration Protocol Magnesium Hydroxide 30 ml 06/18/21 06:25 Magnesium Hydroxide (Mom) Oral Liqd Udc PO Q4H PRN Constipation Melatonin 5 mg 06/24/21 01:11 06/27/21 22:44 Melatonin 5 Mg Tab PO 5 mg QHS PRN Administration Sleep Methylprednisolone Sodium Succinate 40 mg 06/21/21 22:00 06/30/21 13:44 Methylprednisolone Sod Succinate 40 Mg/1 Ml Inj IV 07/01/21 14:01 40 mg Q8HR DEBORA Administration Morphine Sulfate 2 mg 06/18/21 06:25 06/20/21 15:32 Morphine 2 Mg/1 Ml Inj IV 2 mg Q4H PRN Administration Pain, Moderate (4-6) Morphine Sulfate 4 mg 06/18/21 06:25 Morphine 4 Mg/1 Ml Inj IV Q4H PRN Pain , Severe (7-10) Ondansetron HCl 4 mg 06/18/21 06:25 Ondansetron 4 Mg/2 Ml Inj IV Q8H PRN Nausea And Vomiting Sevelamer Carbonate 800 mg 06/27/21 11:30 06/30/21 13:52 Sevelamer Carbonate 800 Mg Tab PO 800 mg AC DEBORA Administration Sodium Chloride 10 ml 06/18/21 10:00 06/30/21 10:00 Sodium Chloride 0.9% 10 Ml Flush Syringe IV 10 ml BID DEBORA Administration Sodium Chloride 10 ml 06/18/21 06:25 Sodium Chloride 0.9% 10 Ml Flush Syringe IV PRN PRN LINE FLUSH Zinc Sulfate 220 mg 06/21/21 22:00 06/30/21 10:00 Zinc Sulfate 220 Mg Cap PO 220 mg BID DEBORA Administration Nutrition/Malnutrition Assess - Dietary Evaluation Nutrition/Malnutrition Findings: Nutrition Notes Start: 06/18/21 15:35 Freq: Status: Active Protocol: Document 06/25/21 12:16 GB (Rec: 06/25/21 12:27 GB [id number]) Nutrition Notes Initial or Follow up Reassessment Current Diagnosis CKD(stage I-IV),Hypertension Other Pertinent Diagnosis Abdominal pain, nausea. Current Diet Renal Labs/Tests 06/25: Na 134, BUN 88, Cr 11.7 , glucose 206 Pertinent Medications Vit C, Vit D3, NaCl 125ml/hr, Zn Sulfate Height 5 ft 2 in Weight 87.4 kg [place] Body Weight (kg) 50.00 BMI 35.2 Weight change and time frame 06/18: 92.986kg 06/24: 87.4kg change of -5.586kg for -6% significance. Pt is now receiving HD, weight change can be related to fluid removal. Weight Status Obese Subjective/Other Information MD notes: New to HD. HD did not finish yesterday, scheduled for another HD treatment today. PO intakes vary, RN's document meal tolerated well. Last BM: 06/24 Percent of energy/protein needs met: PO intake of meals at 50% or greater will meet 100% minimal EEN. Burn Absent Trauma Absent GI Symptoms None Food Allergy No Skin Integrity/Comment No complications reported Current % PO Other Minimum of two criteria No physical signs of malnutrition #2 Nutrition Diagnosis Inadequate energy intake Etiology New to HD As Evidenced by Signs and Symptoms Start of HD, recorded PO intake 0-50%. Diagnosis Progress(for reassessment Continues documentation) Is patient on ventilator? No Is Patient Ambulatory and/or Out of Bed Yes REE-([place]-St. Jeor-ambulatory/OOB) [ 1946.425 [id number]] Kcal/Kg value to use for calculation 20 Approximate Energy Requirements Using 1748 kcal/Kg Calculation Used for Recommendations Kcal/kg Additional Notes Protein: 0.8-1.0 g/Kg@ 87k-87g Fluids: 1.0 ml/Kcal/day, or per MD. Nutrition Intervention Change Diet Order: Continue Renal Nutrition Support: n/a Add Supplement/Snack (indicate name/kcal Nepro once daily /protein ) Provides kCal: 425 Provides Protein (gm) 19 Goal #1 PO intake of meals to improve to 50% or greater daily for LOS Goal #2 Maintain body weight within +/ -3% of current BWt during LOS. Goal #3 PO intake of nutritional supplement 50% or greater daily during LOS Follow-Up By: 07/02/21 Additional Comments f/u: po intake meals/ supplement, labs - Attestation Statement I have reviewed and agreed w/ Malnutrition eval & tx plan: Yes
[2021-06-30] MEDS ORDERED: SODIUM POLYSTYRENE 15 GM/60 ML ORAL LIQD PO ONE (15:15)
[2021-07-01 05:06] LABS: Hematocrit 28.3 % (30.3-42.9); Mean Corpuscular HGB Conc 32 % (30-34); Mean Corpuscular Volume 91 fl (79-97); Platelet Count 207 K/mm3 (140-440); Red Cell Distribution Width 14.3 % (13.2-15.2)
[2021-07-01 05:19] LABS: Calcium 8.6 mg/dL (8.4-10.2)
[2021-07-01 06:07] LABS: Band Neutrophils # (Manual) 1.4 K/mm3; Platelet Estimate Consistent w Auto; RBC Morphology Normal; Total Cells Counted 100
[2021-07-01] MEDS: methylPREDNISolone Sod Succinate 40 MG/1 ML INJ IV SCH ×2 (06:56→13:24)
--- NOTE | 2021-07-01 07:54 | Progress Note ---
Assessment and Plan - Patient Problems (1) Acute kidney injury superimposed on chronic kidney disease Current Visit: No Status: Acute Plan to address problem: Patient remains dialysis dependent. Continue hemodialysis on a Thursday, Thursday and Thursday schedule this week. solar installation manager to assist with placement at outpatient dialysis clinic. (2) Hyperkalemia Current Visit: Yes Status: Acute Plan to address problem: Dialysis was abbreviated on Thursday due to tachycardia. Hyperkalemia was treated with Kayexalate yesterday. We will dialyze this morning on a low potassium bath since potassium is 6.3 (3) Pneumonia due to COVID-19 virus Current Visit: Yes Status: Acute Plan to address problem: Continue supplemental oxygen/Respiratory support as needed Prophylactic anticoagulation Trend inflammatory markers to assess disease progression and prognosis Continue management per infectious disease/primary attending (4) Hypertensive chronic kidney disease with stage 1 through stage 4 chronic kidney disease, or unspecified chronic kidney disease Current Visit: Yes Status: Acute Plan to address problem: Follow-up blood pressure on current medications (5) Type 2 diabetes mellitus with diabetic chronic kidney disease Current Visit: Yes Status: Chronic Plan to address problem: Blood sugar management by primary attending Subjective Date of service: 07/01/21 Principal diagnosis: Acute kidney injury/COVID associated nephropathy Interval history: Patient was not evaluated at the bedside today due to the COVID-19 status to limit exposure of the consulting datastage architect and also for PPE preservation during the COVID-19 pandemic. I reviewed multidisciplinary notes and discussed with staff and physicians as needed. Patient is on oxygen via nasal cannula. Potassium is high this morning at 6.3 mmol/L Objective - Exam Narrative Exam: Patient was not examined at the bedside today due to personal protective equipment preservation during the COVID-19 pandemic - Vital Signs Vital signs: Vital Signs - 12hr 06/30/21 06/30/21 06/30/21 20:00 21:00 21:57 Temperature 98.1 F Pulse Rate 139 H 101 H 108 H Pulse Rate [ 139 H From Monitor] Respiratory 22 23 23 Rate Blood Pressure 144/102 134/83 136/78 O2 Sat by Pulse 98 97 98 Oximetry 06/30/21 06/30/21 06/30/21 22:00 23:00 23:39 Temperature Pulse Rate 91 H 91 H Pulse Rate [ From Monitor] Respiratory 20 22 Rate Blood Pressure 136/79 145/102 O2 Sat by Pulse 98 98 96 Oximetry 06/30/21 07/01/21 07/01/21 23:52 00:00 01:00 Temperature 97.7 F Pulse Rate 90 83 Pulse Rate [ 103 H From Monitor] Respiratory 21 21 Rate Blood Pressure 145/84 167/105 O2 Sat by Pulse 95 94 Oximetry 07/01/21 07/01/21 07/01/21 02:00 03:00 03:44 Temperature Pulse Rate 92 H 86 Pulse Rate [ From Monitor] Respiratory 29 H 20 Rate Blood Pressure 149/92 169/94 O2 Sat by Pulse 96 94 95 Oximetry 07/01/21 07/01/21 07/01/21 03:45 04:00 05:00 Temperature 97.8 F Pulse Rate 92 H 89 Pulse Rate [ 91 H From Monitor] Respiratory 27 H 26 H Rate Blood Pressure 150/90 145/94 O2 Sat by Pulse 95 95 Oximetry 07/01/21 06:01 Temperature Pulse Rate 94 H Pulse Rate [ From Monitor] Respiratory 19 Rate Blood Pressure 154/90 O2 Sat by Pulse 96 Oximetry - Lab 07/01/21 04:36 07/01/21 04:36 Most recent lab results ABG pH 7.492 pH Units (7.350-7.450) H 06/21/21 17:30 ABG pCO2 24.1 mm Hg 06/21/21 17:30 ABG pO2 79.9 mm Hg (80.0-90.0) L 06/21/21 17:30 ABG HCO3 18.0 mmol/L (20.0-26.0) L 06/21/21 17:30 ABG O2 Saturation 97.0 % (95.0-99.0) 06/21/21 17:30 Calcium 8.6 mg/dL (8.4-10.2) 07/01/21 04:36 Phosphorus 11.30 mg/dL (2.5-4.5) H 07/01/21 04:36 Magnesium 2.70 mg/dL (1.7-2.3) H 07/01/21 04:36 Urine Creatinine 132.3 mg/dL (0.1-20.0) H 06/19/21 05:27 Urine Creatinine 132.5 mg/dL (0.1-20.0) H 06/19/21 05:27 Urine Sodium 26 mmol/L 06/19/21 05:27 Urine Total Protein 196 mg/dL (5-11.8) H 06/19/21 05:27 Medications & Allergies - Medications Allergies/Adverse Reactions: Allergies No Known Allergies Allergy (Verified 08/19/19 15:08) Home Medications: Home Medications Medication Instructions Recorded Confirmed Last Taken Type Pnv No.95/Ferrous Fum/Folic AC 1 each PO QDAY 04/10/17 12/31/19 12/30/19 10:30 History [ Caplet] Famotidine [Pepcid] 20 mg PO DAILY #14 tablet 04/13/17 12/31/19 12/30/19 10:30 Rx hydrALAZINE [Apresoline TAB] 100 mg PO TID #90 tab 04/13/17 12/31/19 Unknown Rx Nitrofurantoin Boundary/M-Cryst 100 mg PO Q12HR #14 capsule 08/19/19 12/31/19 Unknown Rx [Macrobid CAP] Aspirin BABY CHEW TAB 80 mg PO DAILY 12/31/19 12/31/19 12/30/19 10:30 History Enoxaparin 40 mg SUB-Q DAILY 12/31/19 12/31/19 12/30/19 10:30 History labetaloL [Labetalol 200mg TAB] 400 mg PO BID 12/31/19 12/31/19 12/30/19 10:30 History HYDROcodone/APAP 5-325 [Otis 1 - 2 each PO Q4HR PRN #30 tablet 01/05/20 Unknown Rx 5/325] Active Medications: Generic Name Dose Route Start Last Admin Trade Name Freq PRN Reason Stop Dose Admin Acetaminophen 650 mg 06/18/21 06:25 06/21/21 23:41 Acetaminophen 325 Mg Tab PO 650 mg Q4H PRN Administration Pain MILD(1-3)/Fever >100.5/ANDUJAR Ascorbic Acid 500 mg 06/21/21 22:00 06/30/21 22:50 Ascorbic Acid 500 Mg Tab PO 500 mg BID DEBORA Administration Cholecalciferol 1,000 unit 06/30/21 10:00 06/30/21 10:51 Cholecalciferol (Vit D3) 1000 Unit (25 Mcg) Tab PO 1,000 unit QDAY DEBORA Administration Dextrose 50 ml 06/18/21 06:25 Dextrose 50% In Water (25gm) 50 Ml Syringe IV Q30MIN PRN Hypoglycemia Protocol Dextrose 25 ml 07/01/21 07:47 Dextrose 50% In Water (25gm) 50 Ml Syringe IV 07/01/21 07:48 ONCE ONE Protocol Heparin Sodium (Porcine) 5,000 unit 06/21/21 22:00 06/30/21 22:54 Heparin 5,000 Unit/1 Ml Vial SUB-Q 5,000 unit Q12HR DEBORA Administration Hydralazine HCl 10 mg 06/21/21 17:04 06/24/21 12:30 Hydralazine 20 Mg/1 Ml Inj IV 10 mg Q6HR PRN Administration Hypertension Sodium Chloride 100 mls @ 999 mls/hr 06/25/21 09:17 Nacl 0.9% IV ASHLEIGH PRN Hypotension Insulin Human Lispro 0 unit 06/18/21 07:30 06/30/21 22:51 Insulin Lispro 100 Unit/Ml SUB-Q Not Given ACHS DEBORA Protocol Insulin Human Regular 5 units 07/01/21 07:47 Insulin Regular, Human 100 Units/1 Ml IV 07/01/21 07:48 ONCE ONE Magnesium Hydroxide 30 ml 06/18/21 06:25 Magnesium Hydroxide (Mom) Oral Liqd Udc PO Q4H PRN Constipation Melatonin 5 mg 06/24/21 01:11 06/27/21 22:44 Melatonin 5 Mg Tab PO 5 mg QHS PRN Administration Sleep Methylprednisolone Sodium Succinate 40 mg 06/21/21 22:00 07/01/21 06:56 Methylprednisolone Sod Succinate 40 Mg/1 Ml Inj IV 07/01/21 14:01 40 mg Q8HR DEBORA Administration Morphine Sulfate 2 mg 06/18/21 06:25 06/20/21 15:32 Morphine 2 Mg/1 Ml Inj IV 2 mg Q4H PRN Administration Pain, Moderate (4-6) Morphine Sulfate 4 mg 06/18/21 06:25 Morphine 4 Mg/1 Ml Inj IV Q4H PRN Pain , Severe (7-10) Nifedipine 30 mg 07/01/21 10:00 Nifedipine Xl 30 Mg Tab PO DAILY DEBORA Ondansetron HCl 4 mg 06/18/21 06:25 Ondansetron 4 Mg/2 Ml Inj IV Q8H PRN Nausea And Vomiting Sevelamer Carbonate 800 mg 06/27/21 11:30 06/30/21 17:48 Sevelamer Carbonate 800 Mg Tab PO 800 mg AC DEBORA Administration Sodium Chloride 10 ml 06/18/21 10:00 06/30/21 22:51 Sodium Chloride 0.9% 10 Ml Flush Syringe IV 10 ml BID DEBORA Administration Sodium Chloride 10 ml 06/18/21 06:25 Sodium Chloride 0.9% 10 Ml Flush Syringe IV PRN PRN LINE FLUSH Zinc Sulfate 220 mg 06/21/21 22:00 06/30/21 22:50 Zinc Sulfate 220 Mg Cap PO 220 mg BID DEBORA Administration
[2021-07-01] MEDS ORDERED: DEXTROSE 50% IN WATER (25GM) 50 ML SYRINGE IV SCH (08:30)
[2021-07-01] MEDS ORDERED: INSULIN REGULAR, HUMAN 100 UNITS/1 ML IV SCH (08:30)
[2021-07-01] MEDS: INSULIN LISPRO 100 UNIT/ML SUB-Q SCH ×4 (09:01→22:17)
[2021-07-01] MEDS: ZINC SULFATE 220 MG CAP PO SCH ×2 (09:16→22:15)
[2021-07-01] MEDS: CHOLECALCIFEROL (VIT D3) 1000 UNIT (25 mcg) TAB PO SCH (09:16)
[2021-07-01] MEDS: HEPARIN 5,000 UNIT/1 ML VIAL SUB-Q SCH ×2 (09:17→22:15)
[2021-07-01] MEDS: ASCORBIC ACID 500 MG TAB PO SCH ×2 (09:24→22:15)
[2021-07-01] MEDS: SEVELAMER CARBONATE 800 MG TAB PO SCH ×3 (09:24→17:06)
--- NOTE | 2021-07-01 13:58 | Progress Note ---
Assessment and Plan Assessment and plan: Patient is a 41-year-old lady with past medical history of focal segmental glomerulosclerosis lost to follow-up who presented with malaise and abdominal pain. Found to be in acute renal failure. Patient was also septic and began to have respiratory failure. Covid PCR was positive. Currently patient is undergoing hemodialysis on MWF schedule. High flow nasal cannula. #Acute on chronic kidney injury -History of CKD stage IIIb with proteinuria -Nephrology following, will hold off renal biopsy given new COVID PNA -permacath placement 06/21 -HD initiation 06/21, continue with MWF schedule -CM consult for outpatient HD #Tachycardia-improved -Heart rate 114 -Possibly in the setting of patient being volume down. Status post volume resuscitation and tachycardia resumed. Unsure if tachycardia is related to COVID-19 infection. #Sepsis-resolved -Fever, tachycardia -blood cultures NGTD -COVID PCR positive -CXR with bilateral pneumonia -likely 2/2 to respiratory failure vs COVID PNA vs PE #Acute hypoxic respiratory failure -HFNC @ 30LPM, FIO2 70%. Patient can be transferred to the floor when high flow nasal cannula is that 30 L 50% FiO2 -will wean as tolerated, goal SpO2 >92% -will continue steroids and empiric CAP coverage for now -COVID PCR positive -CXR showing bilateral PNA, completed CAP coverage with Azithromycin and rocephin (completed 5 days total) #COVID-Pneumonia #COVID-19 infection -COVID PCR positive -d-dimer 1290, CRP 26.7, LDH 939, ferritin 1625 -ID consulted, assistance appreciated -S/p Actemra on 06/24/2021 #Elevated D-dimer -patient persistently tachycardic and with oxygen requirement, V/Q scan negative (06/25/2021) -could be 2/2 to COVID infection #Abdominal pain -resolved, likely 2/2 to renal failure -CT scan negative for acute abnormalities #Type 2 Diabetes -Glucose control with sliding scale, will continue -continue accuchecks for now #Hypertension -elevated BP -if persistently elevated, will start antihypertensives #Asymptomatic bacteriuria -Urine culture grew [id number] E. coli sensitive to Rocephin -treated with rocephin #Discharge planning -Consulting PT/OT for evaluation -Given extended hospital stay, patient should be evaluated for possible de conditioning. Physical assessment will be performed once oxygen requirements decreased. #Advanced care planning -Disease education conducted, care plan discussed, diagnoses discussed, prognosis discussed, and patient acknowledges understanding with care plan -Time: +20 minutes Disposition Plan: Continue medical management Total Time Spent with Patient (Minutes): 30 History Interval history: No acute events over night. The patient denies fevers, chills, nausea, vomiting, abdominal pain, chest pain/pressure, acute shortness of breath, urinary symptoms, weakness, or confusion. Hospitalist Physical - Constitutional Vitals: Temp Pulse Resp BP Pulse Ox 98 F 117 H 18 131/79 93 07/01/21 12:00 07/01/21 13:00 07/01/21 09:30 07/01/21 13:00 07/01/21 09:38 General appearance: Present: no acute distress (Asleep in bed), well-nourished, obese - EENT Eyes: Present: PERRL, EOM intact ENT: hearing intact, clear oral mucosa, dentition normal - Neck Neck: Present: supple, normal ROM - Respiratory Respiratory effort: normal (On high flow nasal cannula 30 L 70% FiO2) - Cardiovascular Rhythm: regular Heart Sounds: Present: S1 & S2 - Extremities Extremities: no ischemia, pulses intact, pulses symmetrical, No edema, normal temperature, normal color Peripheral Pulses: within normal limits - Abdominal General gastrointestinal: soft, non-tender, non-distended, normal bowel sounds - Integumentary Integumentary: Present: clear, warm, dry - Psychiatric Psychiatric: appropriate mood/affect, intact judgment & insight, memory intact, cooperative - Neurologic Neurologic: CNII-XII intact Results - Labs CBC & Chem 7: 07/01/21 04:36 07/01/21 04:36 Labs: Laboratory Last Values WBC 23.2 K/mm3 (4.5-11.0) H 07/01/21 04:36 RBC 3.10 M/mm3 (3.65-5.03) L 07/01/21 04:36 Hgb 9.0 gm/dl (10.1-14.3) L 07/01/21 04:36 Hct 28.3 % (30.3-42.9) L 07/01/21 04:36 MCV 91 fl (79-97) 07/01/21 04:36 MCH 29 pg (28-32) 07/01/21 04:36 MCHC 32 % (30-34) 07/01/21 04:36 RDW 14.3 % (13.2-15.2) 07/01/21 04:36 Plt Count 207 K/mm3 (140-440) 07/01/21 04:36 Lymph % (Auto) 5.6 % (13.4-35.0) L 06/22/21 08:29 Glynn % (Auto) 5.4 % (0.0-7.3) 06/28/21 05:52 Eos % (Auto) 0.1 % (0.0-4.3) 06/28/21 05:52 Baso % (Auto) 0.1 % (0.0-1.8) 06/22/21 08:29 Lymph # (Auto) 0.2 K/mm3 (1.2-5.4) L 06/22/21 08:29 Glynn # (Auto) 0.7 K/mm3 (0.0-0.8) 06/28/21 05:52 Eos # (Auto) 0.0 K/mm3 (0.0-0.4) 06/28/21 05:52 Baso # (Auto) 0.0 K/mm3 (0.0-0.1) 06/28/21 05:52 Add Manual Diff Complete 07/01/21 04:36 Total Counted 100 07/01/21 04:36 Seg Neutrophils % Manager Content 07/01/21 04:36 Seg Neuts % (Manual) 85.0 % (40.0-70.0) H 07/01/21 04:36 Band Neutrophils % 6.0 % 07/01/21 04:36 Lymphocytes % (Manual) 5.0 % (13.4-35.0) L 07/01/21 04:36 Monocytes % (Manual) 4.0 % (0.0-7.3) 07/01/21 04:36 Eosinophils % (Manual) 1.0 % (0.0-4.3) 06/28/21 05:52 Myelocytes % 1.0 % 06/28/21 05:52 Nucleated RBC % Not Reportable 07/01/21 04:36 Seg Neutrophils # 12.8 K/mm3 (1.8-7.7) H 06/28/21 05:52 Seg Neutrophils # Man 19.7 K/mm3 (1.8-7.7) H 07/01/21 04:36 Band Neutrophils # 1.4 K/mm3 07/01/21 04:36 Lymphocytes # (Manual) 1.2 K/mm3 (1.2-5.4) 07/01/21 04:36 Abs React Lymphs (Man) 0.0 K/mm3 07/01/21 04:36 Monocytes # (Manual) 0.9 K/mm3 (0.0-0.8) H 07/01/21 04:36 Eosinophils # (Manual) 0.0 K/mm3 (0.0-0.4) 07/01/21 04:36 Basophils # (Manual) 0.0 K/mm3 (0.0-0.1) 07/01/21 04:36 Metamyelocytes # 0.0 K/mm3 07/01/21 04:36 Myelocytes # 0.0 K/mm3 07/01/21 04:36 Promyelocytes # 0.0 K/mm3 07/01/21 04:36 Blast Cells # 0.0 K/mm3 07/01/21 04:36 WBC Morphology Not Reportable 07/01/21 04:36 Hypersegmented Neuts Not Reportable 07/01/21 04:36 Hyposegmented Neuts Not Reportable 07/01/21 04:36 Hypogranular Neuts Not Reportable 07/01/21 04:36 Smudge Cells Not Reportable 07/01/21 04:36 Toxic Granulation Not Reportable 07/01/21 04:36 Toxic Vacuolation Not Reportable 07/01/21 04:36 Dohle Bodies Not Reportable 07/01/21 04:36 Pelger-Huet Anomaly Not Reportable 07/01/21 04:36 Michael Rods Not Reportable 07/01/21 04:36 Platelet Estimate Consistent w auto 07/01/21 04:36 Clumped Platelets Not Reportable 07/01/21 04:36 Plt Clumps, EDTA Not Reportable 07/01/21 04:36 Large Platelets Not Reportable 07/01/21 04:36 Giant Platelets Not Reportable 07/01/21 04:36 Platelet Satelliting Not Reportable 07/01/21 04:36 Plt Morphology Comment Not Reportable 07/01/21 04:36 RBC Morphology Normal 07/01/21 04:36 Dimorphic RBCs Not Reportable 07/01/21 04:36 Polychromasia Not Reportable 07/01/21 04:36 Hypochromasia Not Reportable 07/01/21 04:36 Poikilocytosis Not Reportable 07/01/21 04:36 Anisocytosis Not Reportable 07/01/21 04:36 Microcytosis Not Reportable 07/01/21 04:36 Macrocytosis Not Reportable 07/01/21 04:36 Spherocytes Not Reportable 07/01/21 04:36 Pappenheimer Bodies Not Reportable 07/01/21 04:36 Sickle Cells Not Reportable 07/01/21 04:36 Target Cells Not Reportable 07/01/21 04:36 Tear Drop Cells Not Reportable 07/01/21 04:36 Ovalocytes Not Reportable 07/01/21 04:36 Helmet Cells Not Reportable 07/01/21 04:36 Croft-[place] Bodies Not Reportable 07/01/21 04:36 [place] Rings Not Reportable 07/01/21 04:36 Em Cells Not Reportable 07/01/21 04:36 Bite Cells Not Reportable 07/01/21 04:36 Crenated Cell Not Reportable 07/01/21 04:36 Elliptocytes Not Reportable 07/01/21 04:36 Acanthocytes (Spur) Not Reportable 07/01/21 04:36 Rouleaux Not Reportable 07/01/21 04:36 Hemoglobin C Crystals Not Reportable 07/01/21 04:36 Schistocytes Not Reportable 07/01/21 04:36 Malaria parasites Not Reportable 07/01/21 04:36 Jules Bodies Not Reportable 07/01/21 04:36 Hem Pathologist Commnt No 07/01/21 04:36 PT 14.4 Sec. (12.2-14.9) 06/19/21 05:00 INR 1.01 (0.87-1.13) 06/19/21 05:00 D-Dimer 1832.29 ng/mlDDU (0-234) H 06/28/21 05:52 ABG pH 7.492 pH Units (7.350-7.450) H 06/21/21 17:30 ABG pCO2 24.1 mm Hg 06/21/21 17:30 ABG pO2 79.9 mm Hg (80.0-90.0) L 06/21/21 17:30 ABG HCO3 18.0 mmol/L (20.0-26.0) L 06/21/21 17:30 ABG O2 Saturation 97.0 % (95.0-99.0) 06/21/21 17:30 ABG O2 Content 15.1 (0.0-44) 06/21/21 17:30 ABG Base Excess -3.9 mmol/L (-2.0-3.0) L 06/21/21 17:30 ABG Hemoglobin 11.2 gm/dl (12.0-16.0) L 06/21/21 17:30 ABG Carboxyhemoglobin 1.1 % (0.0-5.0) 06/21/21 17:30 ABG Methemoglobin 0.5 % (0.0-1.5) 06/21/21 17:30 Oxyhemoglobin 95.4 % (95.0-99.0) 06/21/21 17:30 FiO2 100 % 06/21/21 17:30 Sodium 135 mmol/L (137-145) L 07/01/21 04:36 Potassium 6.3 mmol/L (3.6-5.0) H* 07/01/21 04:36 Chloride 92.1 mmol/L (98-107) L 07/01/21 04:36 Carbon Dioxide 18 mmol/L (22-30) L 07/01/21 04:36 Anion Gap 31 mmol/L 07/01/21 04:36 BUN 133 mg/dL (7-17) H 07/01/21 04:36 Creatinine 9.0 mg/dL (0.6-1.2) H 07/01/21 04:36 Estimated GFR 6 ml/min 07/01/21 04:36 BUN/Creatinine Ratio 15 % 07/01/21 04:36 Glucose 139 mg/dL (65-100) H 07/01/21 04:36 POC Glucose 161 mg/dL (70-105) H 07/01/21 11:33 Calcium 8.6 mg/dL (8.4-10.2) 07/01/21 04:36 Phosphorus 11.30 mg/dL (2.5-4.5) H 07/01/21 04:36 Magnesium 2.70 mg/dL (1.7-2.3) H 07/01/21 04:36 Ferritin 1456.0 ng/mL (10.0-200.0) H 06/25/21 04:42 Total Bilirubin 0.20 mg/dL (0.1-1.2) 06/22/21 08:29 Direct Bilirubin < 0.2 mg/dL (0-0.2) 06/18/21 03:10 Indirect Bilirubin 0.1 mg/dL 06/18/21 03:10 AST 32 units/L (5-40) 06/22/21 08:29 ALT 11 units/L (7-56) 06/22/21 08:29 Alkaline Phosphatase 53 units/L (35-129) 06/22/21 08:29 Lactate Dehydrogenase 677 units/L (91-180) H 06/25/21 04:42 C-Reactive Protein 0.80 mg/dL (0.00-1.30) 06/28/21 05:52 Total Protein 5.6 g/dL (6.3-8.2) L 06/22/21 08:29 Albumin 1.8 g/dL (3.9-5) L 06/22/21 08:29 Albumin/Globulin Ratio 0.5 % 06/22/21 08:29 Lipase 199 units/L (13-60) H 06/18/21 03:10 Procalcitonin 24.59 ng/mL (<0.15) 06/21/21 20:58 Urine Color Jessy (Yellow) 06/19/21 05:27 Urine Turbidity Cloudy (Clear) 06/19/21 05:27 Urine pH 5.0 (5.0-7.0) 06/19/21 05:27 Ur Specific [place] 1.025 (1.003-1.030) 06/19/21 05:27 Urine Protein >500 mg/dL (Negative) 06/19/21 05:27 Urine Glucose (UA) 50 mg/dL (Negative) 06/19/21 05:27 Urine Ketones Neg mg/dL (Negative) 06/19/21 05:27 Urine Blood Lg (Negative) 06/19/21 05:27 Urine Nitrite Neg (Negative) 06/19/21 05:27 Urine Bilirubin Neg (Negative) 06/19/21 05:27 Urine Urobilinogen < 2.0 mg/dL (<2.0) 06/19/21 05:27 Ur Leukocyte Esterase Mod (Negative) 06/19/21 05:27 Urine WBC (Auto) > 182.0 /HPF (0.0-6.0) H 06/19/21 05:27 Urine RBC (Auto) 35.0 /HPF (0.0-6.0) 06/19/21 05:27 U Epithel Cells (Auto) 1.0 /HPF (0-13.0) 06/19/21 05:27 Urine WBC Clumps 3+ /HPF 06/19/21 05:27 Urine Mucus Few /HPF 06/19/21 05:27 Urine Yeast (Budding) 3+ /HPF 06/18/21 04:55 Urine Creatinine 132.3 mg/dL (0.1-20.0) H 06/19/21 05:27 Urine Creatinine 132.5 mg/dL (0.1-20.0) H 06/19/21 05:27 Protein/Creatinin Ratio 1.48 06/19/21 05:27 Urine Sodium 26 mmol/L 06/19/21 05:27 Urine Chloride 25.9 mmolL (110-250) L 06/19/21 05:27 Urine Total Protein 196 mg/dL (5-11.8) H 06/19/21 05:27 Urine HCG, Qual Negative (Negative) 06/19/21 05:27 RAFAEL Screen Negative (Negative) 06/18/21 13:49 Proteinase 3 (PR3) Ab <1.0 AI (<1.0) 06/18/21 13:49 Myeloperoxidase Ab <1.0 AI (<1.0) 06/18/21 13:49 Double Strand DNA Ab <1 IU/mL (<=4) 06/18/21 13:49 Complement C3 168 mg/dL (83-193) 06/18/21 13:49 Complement C4 70 mg/dL (15-57) H 06/18/21 13:49 Coronavirus (PCR) Positive (Negative) A 06/22/21 09:00 Hepatitis A IgM Ab Non-reactive (NonReactive) 06/21/21 04:20 Hep Bs Antigen Nonreactive (Negative) 06/21/21 04:20 Hep B Core IgM Ab Non-reactive (NonReactive) 06/21/21 04:20 Hepatitis C Antibody Non-reactive (NonReactive) 06/21/21 04:20 Forman/IV: Voiding Method External Female Catheter Active Medications - Current Medications Current Medications: Generic Name Dose Route Start Last Admin Trade Name Freq PRN Reason Stop Dose Admin Acetaminophen 650 mg 06/18/21 06:25 06/21/21 23:41 Acetaminophen 325 Mg Tab PO 650 mg Q4H PRN Administration Pain MILD(1-3)/Fever >100.5/ANDUJRA Ascorbic Acid 500 mg 06/21/21 22:00 07/01/21 09:24 Ascorbic Acid 500 Mg Tab PO 500 mg BID DEBORA Administration Cholecalciferol 1,000 unit 06/30/21 10:00 07/01/21 09:16 Cholecalciferol (Vit D3) 1000 Unit (25 Mcg) Tab PO 1,000 unit QDAY DEBORA Administration Dextrose 50 ml 06/18/21 06:25 Dextrose 50% In Water (25gm) 50 Ml Syringe IV Q30MIN PRN Hypoglycemia Protocol Heparin Sodium (Porcine) 5,000 unit 06/21/21 22:00 07/01/21 09:17 Heparin 5,000 Unit/1 Ml Vial SUB-Q 5,000 unit Q12HR DEBORA Administration Hydralazine HCl 10 mg 06/21/21 17:04 06/24/21 12:30 Hydralazine 20 Mg/1 Ml Inj IV 10 mg Q6HR PRN Administration Hypertension Sodium Chloride 100 mls @ 999 mls/hr 06/25/21 09:17 Nacl 0.9% IV ASHLEIGH PRN Hypotension Insulin Human Lispro 0 unit 06/18/21 07:30 07/01/21 12:35 Insulin Lispro 100 Unit/Ml SUB-Q 1 unit ACHS DEBORA Administration Protocol Magnesium Hydroxide 30 ml 06/18/21 06:25 Magnesium Hydroxide (Mom) Oral Liqd Udc PO Q4H PRN Constipation Melatonin 5 mg 06/24/21 01:11 06/27/21 22:44 Melatonin 5 Mg Tab PO 5 mg QHS PRN Administration Sleep Methylprednisolone Sodium Succinate 40 mg 06/21/21 22:00 07/01/21 13:24 Methylprednisolone Sod Succinate 40 Mg/1 Ml Inj IV 07/01/21 14:01 40 mg Q8HR DEBORA Administration Morphine Sulfate 2 mg 06/18/21 06:25 06/20/21 15:32 Morphine 2 Mg/1 Ml Inj IV 2 mg Q4H PRN Administration Pain, Moderate (4-6) Morphine Sulfate 4 mg 06/18/21 06:25 Morphine 4 Mg/1 Ml Inj IV Q4H PRN Pain , Severe (7-10) Nifedipine 30 mg 07/01/21 10:00 Nifedipine Xl 30 Mg Tab PO DAILY DEBORA Ondansetron HCl 4 mg 06/18/21 06:25 Ondansetron 4 Mg/2 Ml Inj IV Q8H PRN Nausea And Vomiting Sevelamer Carbonate 800 mg 06/27/21 11:30 07/01/21 12:36 Sevelamer Carbonate 800 Mg Tab PO 800 mg AC DEBORA Administration Sodium Chloride 10 ml 06/18/21 10:00 07/01/21 09:17 Sodium Chloride 0.9% 10 Ml Flush Syringe IV 10 ml BID DEBORA Administration Sodium Chloride 10 ml 06/18/21 06:25 Sodium Chloride 0.9% 10 Ml Flush Syringe IV PRN PRN LINE FLUSH Zinc Sulfate 220 mg 06/21/21 22:00 07/01/21 09:16 Zinc Sulfate 220 Mg Cap PO 220 mg BID DEBORA Administration Nutrition/Malnutrition Assess - Dietary Evaluation Nutrition/Malnutrition Findings: Nutrition Notes Start: 06/18/21 15:35 Freq: Status: Active Protocol: Document 06/25/21 12:16 GB (Rec: 06/25/21 12:27 GB [id number]) Nutrition Notes Initial or Follow up Reassessment Current Diagnosis CKD(stage I-IV),Hypertension Other Pertinent Diagnosis Abdominal pain, nausea. Current Diet Renal Labs/Tests 06/25: Na 134, BUN 88, Cr 11.7 , glucose 206 Pertinent Medications Vit C, Vit D3, NaCl 125ml/hr, Zn Sulfate Height 5 ft 2 in Weight 87.4 kg [place] Body Weight (kg) 50.00 BMI 35.2 Weight change and time frame 06/18: 92.986kg 06/24: 87.4kg change of -5.586kg for -6% significance. Pt is now receiving HD, weight change can be related to fluid removal. Weight Status Obese Subjective/Other Information MD notes: New to HD. HD did not finish yesterday, scheduled for another HD treatment today. PO intakes vary, RN's document meal tolerated well. Last BM: 06/24 Percent of energy/protein needs met: PO intake of meals at 50% or greater will meet 100% minimal EEN. Burn Absent Trauma Absent GI Symptoms None Food Allergy No Skin Integrity/Comment No complications reported Current % PO Other Minimum of two criteria No physical signs of malnutrition #2 Nutrition Diagnosis Inadequate energy intake Etiology New to HD As Evidenced by Signs and Symptoms Start of HD, recorded PO intake 0-50%. Diagnosis Progress(for reassessment Continues documentation) Is patient on ventilator? No Is Patient Ambulatory and/or Out of Bed Yes REE-(Wake-St. Jeor-ambulatory/OOB) [ 1946.425 NUTR.MSJOOB] Kcal/Kg value to use for calculation 20 Approximate Energy Requirements Using 1748 kcal/Kg Calculation Used for Recommendations Kcal/kg Additional Notes Protein: 0.8-1.0 g/Kg@ 87k-87g Fluids: 1.0 ml/Kcal/day, or per MD. Nutrition Intervention Change Diet Order: Continue Renal Nutrition Support: n/a Add Supplement/Snack (indicate name/kcal Nepro once daily /protein ) Provides kCal: 425 Provides Protein (gm) 19 Goal #1 PO intake of meals to improve to 50% or greater daily for LOS Goal #2 Maintain body weight within +/ -3% of current BWt during LOS. Goal #3 PO intake of nutritional supplement 50% or greater daily during LOS Follow-Up By: 07/02/21 Additional Comments f/u: po intake meals/ supplement, labs - Attestation Statement I have reviewed and agreed w/ Malnutrition eval & tx plan: Yes
--- NOTE | 2021-07-01 15:16 | Progress Note ---
Assessment and Plan Cultures: SARS CoV2 PCR: Positive 06/18/2021 urine culture: E. 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 Severe disease. Not a candidate for remdesivir due to renal failure. S/P empiric abx. #Acute hypoxic respiratory failure: On NRB/HFNC. #ESRD secondary to FSGS, initiated on dialysis by nephrology. #Positive urine culture, likely asymptomatic bacteriuria #Leukopenia: Secondary to COVID-19. Resolved. Now with leucocytosis. Recs: -completed 10 days of steroids -s/p Actemra 06/24/2021 -prophylactic anticoagulation based on d-dimer per hospital protocol -monitor d-dimer, CRP every 2-3 days -Guarded prognosis Kendell Pacheco MD, FACP [facility] ([facility] O: [phone] F: [phone] Subjective Date of service: 07/01/21 Principal diagnosis: Acute kidney injury/COVID associated nephropathy Interval history: No fever. Remains on high flow nasal cannula. Objective - Exam Narrative Exam: Physical Exam (reviewed in chart to minimize risk of transmission) Constitutional: deferred Head, Ears, Nose: deferred Eyes: deferred Neck: deferred Oral: deferred Cardiovascular: deferred Respiratory: deferred GI: deferred Musculoskeletal: deferred Skin: deferred Hem/Lymphatic: deferred Psych: deferred Neurological: deferred - Constitutional Vitals: Vital Signs Temp Pulse Resp BP Pulse Ox 97.8 F 127 H 33 H 122/72 93 07/01/21 13:15 07/01/21 15:00 07/01/21 15:00 07/01/21 15:00 07/01/21 14:00 Temperature -Last 24 Hours Temperature 97.8 F Temperature 98 F Temperature 97.8 F Temperature 97.8 F Temperature 97.7 F Temperature 98.1 F - Labs CBC & Chem 7: 07/01/21 04:36 07/01/21 04:36 Labs: Abnormal lab results 06/30/21 06/30/21 07/01/21 Range/Units 15:41 21:12 04:36 WBC 23.2 H (4.5-11.0) K/mm3 RBC 3.10 L (3.65-5.03) M/mm3 Hgb 9.0 L (10.1-14.3) gm/dl Hct 28.3 L (30.3-42.9) % Seg Neuts % (Manual) 85.0 H (40.0-70.0) % Lymphocytes % (Manual) 5.0 L (13.4-35.0) % Seg Neutrophils # Man 19.7 H (1.8-7.7) K/mm3 Monocytes # (Manual) 0.9 H (0.0-0.8) K/mm3 Sodium (137-145) mmol/L Potassium (3.6-5.0) mmol/L Chloride (98-107) mmol/L Carbon Dioxide (22-30) mmol/L BUN (7-17) mg/dL Creatinine (0.6-1.2) mg/dL Glucose (65-100) mg/dL POC Glucose 149 H 136 H (70-105) mg/dL Phosphorus (2.5-4.5) mg/dL Magnesium (1.7-2.3) mg/dL 07/01/21 07/01/21 Range/Units 04:36 11:33 WBC (4.5-11.0) K/mm3 RBC (3.65-5.03) M/mm3 Hgb (10.1-14.3) gm/dl Hct (30.3-42.9) % Seg Neuts % (Manual) (40.0-70.0) % Lymphocytes % (Manual) (13.4-35.0) % Seg Neutrophils # Man (1.8-7.7) K/mm3 Monocytes # (Manual) (0.0-0.8) K/mm3 Sodium 135 L (137-145) mmol/L Potassium 6.3 H* (3.6-5.0) mmol/L Chloride 92.1 L (98-107) mmol/L Carbon Dioxide 18 L (22-30) mmol/L BUN 133 H (7-17) mg/dL Creatinine 9.0 H (0.6-1.2) mg/dL Glucose 139 H (65-100) mg/dL POC Glucose 161 H (70-105) mg/dL Phosphorus 11.30 H (2.5-4.5) mg/dL Magnesium 2.70 H (1.7-2.3) mg/dL
[2021-07-01] MEDS: NIFEdipine XL 30 MG TAB PO SCH (15:57)
[2021-07-01 18:05] LABS: Calcium 8.5 mg/dL (8.4-10.2)
[2021-07-02 05:06] LABS: Hematocrit 28.8 % (30.3-42.9); Hemoglobin 9.2 gm/dl (10.1-14.3); Mean Corpuscular HGB Conc 32 % (30-34); Mean Corpuscular Volume 91 fl (79-97); Platelet Count 191 K/mm3 (140-440); Red Blood Count 3.18 M/mm3 (3.65-5.03); Red Cell Distribution Width 14.5 % (13.2-15.2)
[2021-07-02 05:27] LABS: Calcium 8.7 mg/dL (8.4-10.2)
[2021-07-02 06:24] LABS: Band Neutrophils # (Manual) 0.5 K/mm3; Total Cells Counted 100
[2021-07-02 06:25] LABS: Platelet Estimate Consistent w Auto; RBC Morphology Normal
[2021-07-02] MEDS: SEVELAMER CARBONATE 800 MG TAB PO SCH ×3 (09:00→16:37)
[2021-07-02] MEDS: INSULIN LISPRO 100 UNIT/ML SUB-Q SCH ×4 (09:02→22:44)
[2021-07-02] MEDS: ZINC SULFATE 220 MG CAP PO SCH ×2 (10:41→21:10)
[2021-07-02] MEDS: CHOLECALCIFEROL (VIT D3) 1000 UNIT (25 mcg) TAB PO SCH (10:41)
[2021-07-02] MEDS: ASCORBIC ACID 500 MG TAB PO SCH ×2 (10:43→21:10)
[2021-07-02] MEDS: HEPARIN 5,000 UNIT/1 ML VIAL SUB-Q SCH ×2 (10:43→21:10)
[2021-07-02] MEDS: NIFEdipine XL 30 MG TAB PO SCH (10:44)
--- NOTE | 2021-07-02 12:01 | Progress Note ---
Assessment and Plan Cultures: SARS CoV2 PCR: Positive 06/18/2021 urine culture: E. 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 Severe disease. Not a candidate for remdesivir due to renal failure. S/P empiric abx. #Acute hypoxic respiratory failure: On NRB/HFNC. #ESRD secondary to FSGS, initiated on dialysis by nephrology. #Positive urine culture, likely asymptomatic bacteriuria #Leukopenia: Secondary to COVID-19. Resolved. Now with leucocytosis. Recs: -completed 10 days of steroids -s/p Actemra 06/24/2021 -prophylactic anticoagulation based on d-dimer per hospital protocol -monitor d-dimer, CRP every 2-3 days -Guarded prognosis Kendell Pacheco MD, FACP [facility] [place] O: [phone] F: [phone] Subjective Date of service: 07/02/21 Principal diagnosis: Acute kidney injury/COVID associated nephropathy Interval history: No fever. Remains on high flow nasal cannula. Objective - Exam Narrative Exam: Physical Exam (reviewed in chart to minimize risk of transmission) Constitutional: deferred Head, Ears, Nose: deferred Eyes: deferred Neck: deferred Oral: deferred Cardiovascular: deferred Respiratory: deferred GI: deferred Musculoskeletal: deferred Skin: deferred Hem/Lymphatic: deferred Psych: deferred Neurological: deferred - Constitutional Vitals: Vital Signs Temp Pulse Resp BP Pulse Ox 97.8 F 97 H 19 115/74 97 07/01/21 13:15 07/02/21 07:00 07/02/21 07:00 07/02/21 07:00 07/02/21 09:04 Temperature -Last 24 Hours Temperature 97.8 F - Labs CBC & Chem 7: 07/02/21 04:32 07/02/21 04:32 Labs: Abnormal lab results 07/01/21 07/01/21 07/01/21 Range/Units 16:18 16:50 21:40 WBC (4.5-11.0) K/mm3 RBC (3.65-5.03) M/mm3 Hgb (10.1-14.3) gm/dl Hct (30.3-42.9) % Seg Neuts % (Manual) (40.0-70.0) % Lymphocytes % (Manual) (13.4-35.0) % Seg Neutrophils # Man (1.8-7.7) K/mm3 Lymphocytes # (Manual) (1.2-5.4) K/mm3 Potassium (3.6-5.0) mmol/L Chloride 92.0 L (98-107) mmol/L BUN 56 H (7-17) mg/dL Creatinine 4.8 H (0.6-1.2) mg/dL Glucose 182 H (65-100) mg/dL POC Glucose 214 H 149 H (70-105) mg/dL Phosphorus (2.5-4.5) mg/dL 07/02/21 07/02/21 07/02/21 Range/Units 04:32 04:32 11:13 WBC 22.7 H (4.5-11.0) K/mm3 RBC 3.18 L (3.65-5.03) M/mm3 Hgb 9.2 L (10.1-14.3) gm/dl Hct 28.8 L (30.3-42.9) % Seg Neuts % (Manual) 90.0 H (40.0-70.0) % Lymphocytes % (Manual) 5.0 L (13.4-35.0) % Seg Neutrophils # Man 20.4 H (1.8-7.7) K/mm3 Lymphocytes # (Manual) 1.1 L (1.2-5.4) K/mm3 Potassium 5.3 H (3.6-5.0) mmol/L Chloride 96.0 L (98-107) mmol/L BUN 81 H (7-17) mg/dL Creatinine 6.3 H (0.6-1.2) mg/dL Glucose (65-100) mg/dL POC Glucose 125 H (70-105) mg/dL Phosphorus 9.20 H (2.5-4.5) mg/dL
--- NOTE | 2021-07-02 12:40 | Progress Note ---
Assessment and Plan Assessment and plan: Patient is a 41-year-old lady with past medical history of focal segmental glomerulosclerosis lost to follow-up who presented with malaise and abdominal pain. Found to be in acute renal failure. Patient was also septic and began to have respiratory failure. Covid PCR was positive. Currently patient is undergoing hemodialysis on MWF schedule. Also on high flow nasal cannula, weaning as tolerated. #Acute on chronic kidney injury -History of CKD stage IIIb -proteinuria -Nephrology following, will hold off renal biopsy given new COVID PNA -permacath placement 06/21 -HD initiation 06/21, continue with MWF schedule - consult for outpatient HD #Acute hypoxic respiratory failure -HFNC @ 20LPM, FIO2 45% -will wean as tolerated, goal SpO2 >92% -will continue steroids -s/p completion of azithromycin and Rocephin (5 days total) -COVID PCR positive #Leukocytosis -downtrending to 22.7 -no identifiable source -will continue to monitor #Sepsis -Elevated WBC count + tachycardia -Afebrile -blood cultures this admission negative -COVID PCR positive -CXR with bilateral pneumonia -likely 2/2 to respiratory failure vs COVID PNA #COVID-Pneumonia #COVID-19 infection -COVID PCR positive -will continue to monitor d-dimer, CRP -s/p Actemra -ID following, assistance appreciated #Elevated D-dimer -V/Q scan negative -Likely 2/2 to COVID infection #Type 2 Diabetes -glucose control with sliding scale, will continue -continue accuchecks for now #Hypertension -normotensive to low BP -will continue to monitor Resolved issues #Asymptomatic bacteriuria #Abdominal pain Disposition Plan: Continue current medical management Total Time Spent with Patient (Minutes): 30 minutes History Interval history: No acute events overnight. Patient reports felling "alright". No complaints at this time. Hospitalist Physical - Physical exam Narrative exam: GENERAL: Well-developed well-nourished. Lying in bed HEENT: HFNC at 20L/min, FiO2 45% CHEST/LUNGS: Vas-Cath in right upper chest. Coarse breath sound bilaterally. HEART/CARDIOVASCULAR: Mildly tachycardic. No murmur, rubs or gallops appreciated. ABDOMEN: +BS. NT/ND. EXTREMITIES: No cyanosis, clubbing or edema. PSYCH: Cooperative. - Constitutional Vitals: Temp Pulse Resp BP Pulse Ox 97.8 F 110 H 12 108/55 94 07/01/21 13:15 07/02/21 12:00 07/02/21 12:00 07/02/21 12:00 07/02/21 12:00 General appearance: Present: no acute distress (Asleep in bed), well-nourished, obese Results - Labs CBC & Chem 7: 07/02/21 04:32 07/02/21 04:32 Labs: Laboratory Last Values WBC 22.7 K/mm3 (4.5-11.0) H 07/02/21 04:32 RBC 3.18 M/mm3 (3.65-5.03) L 07/02/21 04:32 Hgb 9.2 gm/dl (10.1-14.3) L 07/02/21 04:32 Hct 28.8 % (30.3-42.9) L 07/02/21 04:32 MCV 91 fl (79-97) 07/02/21 04:32 MCH 29 pg (28-32) 07/02/21 04:32 MCHC 32 % (30-34) 07/02/21 04:32 RDW 14.5 % (13.2-15.2) 07/02/21 04:32 Plt Count 191 K/mm3 (140-440) 07/02/21 04:32 Lymph % (Auto) 5.6 % (13.4-35.0) L 06/22/21 08:29 Henderson % (Auto) 5.4 % (0.0-7.3) 06/28/21 05:52 Eos % (Auto) 0.1 % (0.0-4.3) 06/28/21 05:52 Baso % (Auto) 0.1 % (0.0-1.8) 06/22/21 08:29 Lymph # (Auto) 0.2 K/mm3 (1.2-5.4) L 06/22/21 08:29 Henderson # (Auto) 0.7 K/mm3 (0.0-0.8) 06/28/21 05:52 Eos # (Auto) 0.0 K/mm3 (0.0-0.4) 06/28/21 05:52 Baso # (Auto) 0.0 K/mm3 (0.0-0.1) 06/28/21 05:52 Add Manual Diff Complete 07/02/21 04:32 Total Counted 100 07/02/21 04:32 Seg Neutrophils % [employer] 07/01/21 04:36 Seg Neuts % (Manual) 90.0 % (40.0-70.0) H 07/02/21 04:32 Band Neutrophils % 2.0 % 07/02/21 04:32 Lymphocytes % (Manual) 5.0 % (13.4-35.0) L 07/02/21 04:32 Monocytes % (Manual) 1.0 % (0.0-7.3) 07/02/21 04:32 Eosinophils % (Manual) 1.0 % (0.0-4.3) 06/28/21 05:52 Metamyelocytes % 2.0 % 07/02/21 04:32 Myelocytes % 1.0 % 06/28/21 05:52 Nucleated RBC % Not Reportable 07/02/21 04:32 Seg Neutrophils # 12.8 K/mm3 (1.8-7.7) H 06/28/21 05:52 Seg Neutrophils # Man 20.4 K/mm3 (1.8-7.7) H 07/02/21 04:32 Band Neutrophils # 0.5 K/mm3 07/02/21 04:32 Lymphocytes # (Manual) 1.1 K/mm3 (1.2-5.4) L 07/02/21 04:32 Abs React Lymphs (Man) 0.0 K/mm3 07/02/21 04:32 Monocytes # (Manual) 0.2 K/mm3 (0.0-0.8) 07/02/21 04:32 Eosinophils # (Manual) 0.0 K/mm3 (0.0-0.4) 07/02/21 04:32 Basophils # (Manual) 0.0 K/mm3 (0.0-0.1) 07/02/21 04:32 Metamyelocytes # 0.5 K/mm3 07/02/21 04:32 Myelocytes # 0.0 K/mm3 07/02/21 04:32 Promyelocytes # 0.0 K/mm3 07/02/21 04:32 Blast Cells # 0.0 K/mm3 07/02/21 04:32 WBC Morphology Not Reportable 07/02/21 04:32 Hypersegmented Neuts Not Reportable 07/02/21 04:32 Hyposegmented Neuts Not Reportable 07/02/21 04:32 Hypogranular Neuts Not Reportable 07/02/21 04:32 Smudge Cells Not Reportable 07/02/21 04:32 Toxic Granulation Not Reportable 07/02/21 04:32 Toxic Vacuolation Not Reportable 07/02/21 04:32 Dohle Bodies Not Reportable 07/02/21 04:32 Pelger-Huet Anomaly Not Reportable 07/02/21 04:32 Michael Rods Not Reportable 07/02/21 04:32 Platelet Estimate Consistent w auto 07/02/21 04:32 Clumped Platelets Not Reportable 07/02/21 04:32 Plt Clumps, EDTA Not Reportable 07/02/21 04:32 Large Platelets Not Reportable 07/02/21 04:32 Giant Platelets Not Reportable 07/02/21 04:32 Platelet Satelliting Not Reportable 07/02/21 04:32 Plt Morphology Comment Not Reportable 07/02/21 04:32 RBC Morphology Normal 07/02/21 04:32 Dimorphic RBCs Not Reportable 07/02/21 04:32 Polychromasia Not Reportable 07/02/21 04:32 Hypochromasia Not Reportable 07/02/21 04:32 Poikilocytosis Not Reportable 07/02/21 04:32 Anisocytosis Not Reportable 07/02/21 04:32 Microcytosis Not Reportable 07/02/21 04:32 Macrocytosis Not Reportable 07/02/21 04:32 Spherocytes Not Reportable 07/02/21 04:32 Pappenheimer Bodies Not Reportable 07/02/21 04:32 Sickle Cells Not Reportable 07/02/21 04:32 Target Cells Not Reportable 07/02/21 04:32 Tear Drop Cells Not Reportable 07/02/21 04:32 Ovalocytes Not Reportable 07/02/21 04:32 Helmet Cells Not Reportable 07/02/21 04:32 [place] Bodies Not Reportable 07/02/21 04:32 Dutton Rings Not Reportable 07/02/21 04:32 Em Cells Not Reportable 07/02/21 04:32 Bite Cells Not Reportable 07/02/21 04:32 Crenated Cell Not Reportable 07/02/21 04:32 Elliptocytes Not Reportable 07/02/21 04:32 Acanthocytes (Spur) Not Reportable 07/02/21 04:32 Rouleaux Not Reportable 07/02/21 04:32 Hemoglobin C Crystals Not Reportable 07/02/21 04:32 Schistocytes Not Reportable 07/02/21 04:32 Malaria parasites Not Reportable 07/02/21 04:32 Jules Bodies Not Reportable 07/02/21 04:32 Hem Pathologist Commnt No 07/02/21 04:32 PT 14.4 Sec. (12.2-14.9) 06/19/21 05:00 INR 1.01 (0.87-1.13) 06/19/21 05:00 D-Dimer 1832.29 ng/mlDDU (0-234) H 06/28/21 05:52 ABG pH 7.492 pH Units (7.350-7.450) H 06/21/21 17:30 ABG pCO2 24.1 mm Hg 06/21/21 17:30 ABG pO2 79.9 mm Hg (80.0-90.0) L 06/21/21 17:30 ABG HCO3 18.0 mmol/L (20.0-26.0) L 06/21/21 17:30 ABG O2 Saturation 97.0 % (95.0-99.0) 06/21/21 17:30 ABG O2 Content 15.1 (0.0-44) 06/21/21 17:30 ABG Base Excess -3.9 mmol/L (-2.0-3.0) L 06/21/21 17:30 ABG Hemoglobin 11.2 gm/dl (12.0-16.0) L 06/21/21 17:30 ABG Carboxyhemoglobin 1.1 % (0.0-5.0) 06/21/21 17:30 ABG Methemoglobin 0.5 % (0.0-1.5) 06/21/21 17:30 Oxyhemoglobin 95.4 % (95.0-99.0) 06/21/21 17:30 FiO2 100 % 06/21/21 17:30 Sodium 138 mmol/L (137-145) 07/02/21 04:32 Potassium 5.3 mmol/L (3.6-5.0) H 07/02/21 04:32 Chloride 96.0 mmol/L (98-107) L 07/02/21 04:32 Carbon Dioxide 24 mmol/L (22-30) 07/02/21 04:32 Anion Gap 23 mmol/L 07/02/21 04:32 BUN 81 mg/dL (7-17) H 07/02/21 04:32 Creatinine 6.3 mg/dL (0.6-1.2) H 07/02/21 04:32 Estimated GFR 9 ml/min 07/02/21 04:32 BUN/Creatinine Ratio 13 % 07/02/21 04:32 Glucose 85 mg/dL (65-100) 07/02/21 04:32 POC Glucose 125 mg/dL (70-105) H 07/02/21 11:13 Calcium 8.7 mg/dL (8.4-10.2) 07/02/21 04:32 Phosphorus 9.20 mg/dL (2.5-4.5) H 07/02/21 04:32 Magnesium 2.30 mg/dL (1.7-2.3) 07/02/21 04:32 Ferritin 1456.0 ng/mL (10.0-200.0) H 06/25/21 04:42 Total Bilirubin 0.20 mg/dL (0.1-1.2) 06/22/21 08:29 Direct Bilirubin < 0.2 mg/dL (0-0.2) 06/18/21 03:10 Indirect Bilirubin 0.1 mg/dL 06/18/21 03:10 AST 32 units/L (5-40) 06/22/21 08:29 ALT 11 units/L (7-56) 06/22/21 08:29 Alkaline Phosphatase 53 units/L (35-129) 06/22/21 08:29 Lactate Dehydrogenase 677 units/L (91-180) H 06/25/21 04:42 C-Reactive Protein 0.80 mg/dL (0.00-1.30) 06/28/21 05:52 Total Protein 5.6 g/dL (6.3-8.2) L 06/22/21 08:29 Albumin 1.8 g/dL (3.9-5) L 06/22/21 08:29 Albumin/Globulin Ratio 0.5 % 06/22/21 08:29 Lipase 199 units/L (13-60) H 06/18/21 03:10 Procalcitonin 24.59 ng/mL (<0.15) 06/21/21 20:58 Urine Color Jessy (Yellow) 06/19/21 05:27 Urine Turbidity Cloudy (Clear) 06/19/21 05:27 Urine pH 5.0 (5.0-7.0) 06/19/21 05:27 Ur Specific Garrison 1.025 (1.003-1.030) 06/19/21 05:27 Urine Protein >500 mg/dL (Negative) 06/19/21 05:27 Urine Glucose (UA) 50 mg/dL (Negative) 06/19/21 05:27 Urine Ketones Neg mg/dL (Negative) 06/19/21 05:27 Urine Blood Lg (Negative) 06/19/21 05:27 Urine Nitrite Neg (Negative) 06/19/21 05:27 Urine Bilirubin Neg (Negative) 06/19/21 05:27 Urine Urobilinogen < 2.0 mg/dL (<2.0) 06/19/21 05:27 Ur Leukocyte Esterase Mod (Negative) 06/19/21 05:27 Urine WBC (Auto) > 182.0 /HPF (0.0-6.0) H 06/19/21 05:27 Urine RBC (Auto) 35.0 /HPF (0.0-6.0) 06/19/21 05:27 U Epithel Cells (Auto) 1.0 /HPF (0-13.0) 06/19/21 05:27 Urine WBC Clumps 3+ /HPF 06/19/21 05:27 Urine Mucus Few /HPF 06/19/21 05:27 Urine Yeast (Budding) 3+ /HPF 06/18/21 04:55 Urine Creatinine 132.3 mg/dL (0.1-20.0) H 06/19/21 05:27 Urine Creatinine 132.5 mg/dL (0.1-20.0) H 06/19/21 05:27 Protein/Creatinin Ratio 1.48 06/19/21 05:27 Urine Sodium 26 mmol/L 06/19/21 05:27 Urine Chloride 25.9 mmolL (110-250) L 06/19/21 05:27 Urine Total Protein 196 mg/dL (5-11.8) H 06/19/21 05:27 Urine HCG, Qual Negative (Negative) 06/19/21 05:27 RAFAEL Screen Negative (Negative) 06/18/21 13:49 Proteinase 3 (PR3) Ab <1.0 AI (<1.0) 06/18/21 13:49 Myeloperoxidase Ab <1.0 AI (<1.0) 06/18/21 13:49 Double Strand DNA Ab <1 IU/mL (<=4) 06/18/21 13:49 Complement C3 168 mg/dL (83-193) 06/18/21 13:49 Complement C4 70 mg/dL (15-57) H 06/18/21 13:49 Coronavirus (PCR) Positive (Negative) A 06/22/21 09:00 Hepatitis A IgM Ab Non-reactive (NonReactive) 06/21/21 04:20 Hep Bs Antigen Nonreactive (Negative) 06/21/21 04:20 Hep B Core IgM Ab Non-reactive (NonReactive) 06/21/21 04:20 Hepatitis C Antibody Non-reactive (NonReactive) 06/21/21 04:20 Forman/IV: Voiding Method Bedside Commode Active Medications - Current Medications Current Medications: Generic Name Dose Route Start Last Admin Trade Name Freq PRN Reason Stop Dose Admin Acetaminophen 650 mg 06/18/21 06:25 06/21/21 23:41 Acetaminophen 325 Mg Tab PO 650 mg Q4H PRN Administration Pain MILD(1-3)/Fever >100.5/ANDUJAR Ascorbic Acid 500 mg 06/21/21 22:00 07/02/21 10:43 Ascorbic Acid 500 Mg Tab PO 500 mg BID DEBORA Administration Cholecalciferol 1,000 unit 06/30/21 10:00 07/02/21 10:41 Cholecalciferol (Vit D3) 1000 Unit (25 Mcg) Tab PO 1,000 unit QDAY DEBORA Administration Dextrose 50 ml 06/18/21 06:25 Dextrose 50% In Water (25gm) 50 Ml Syringe IV Q30MIN PRN Hypoglycemia Protocol Heparin Sodium (Porcine) 5,000 unit 06/21/21 22:00 07/02/21 10:43 Heparin 5,000 Unit/1 Ml Vial SUB-Q 5,000 unit Q12HR DEBORA Administration Hydralazine HCl 10 mg 06/21/21 17:04 06/24/21 12:30 Hydralazine 20 Mg/1 Ml Inj IV 10 mg Q6HR PRN Administration Hypertension Sodium Chloride 100 mls @ 999 mls/hr 06/25/21 09:17 Nacl 0.9% IV ASHLEIGH PRN Hypotension Insulin Human Lispro 0 unit 06/18/21 07:30 07/02/21 09:02 Insulin Lispro 100 Unit/Ml SUB-Q Not Given ACHS COUNTS INCLUDE 234 BEDS AT [facility] Protocol Magnesium Hydroxide 30 ml 06/18/21 06:25 Magnesium Hydroxide (Mom) Oral Liqd Udc PO Q4H PRN Constipation Melatonin 5 mg 06/24/21 01:11 06/27/21 22:44 Melatonin 5 Mg Tab PO 5 mg QHS PRN Administration Sleep Morphine Sulfate 2 mg 06/18/21 06:25 06/20/21 15:32 Morphine 2 Mg/1 Ml Inj IV 2 mg Q4H PRN Administration Pain, Moderate (4-6) Morphine Sulfate 4 mg 06/18/21 06:25 Morphine 4 Mg/1 Ml Inj IV Q4H PRN Pain , Severe (7-10) Nifedipine 30 mg 07/01/21 10:00 07/02/21 10:44 Nifedipine Xl 30 Mg Tab PO Not Given DAILY DEBORA Ondansetron HCl 4 mg 06/18/21 06:25 Ondansetron 4 Mg/2 Ml Inj IV Q8H PRN Nausea And Vomiting Sevelamer Carbonate 800 mg 06/27/21 11:30 07/02/21 09:00 Sevelamer Carbonate 800 Mg Tab PO 800 mg AC DEBORA Administration Sodium Chloride 10 ml 06/18/21 10:00 07/02/21 10:44 Sodium Chloride 0.9% 10 Ml Flush Syringe IV 10 ml BID DEBORA Administration Sodium Chloride 10 ml 06/18/21 06:25 Sodium Chloride 0.9% 10 Ml Flush Syringe IV PRN PRN LINE FLUSH Zinc Sulfate 220 mg 06/21/21 22:00 07/02/21 10:41 Zinc Sulfate 220 Mg Cap PO 220 mg BID DEBORA Administration Nutrition/Malnutrition Assess - Dietary Evaluation Nutrition/Malnutrition Findings: Nutrition Notes Start: 06/18/21 15:35 Freq: Status: Active Protocol: Document 06/25/21 12:16 GB (Rec: 06/25/21 12:27 GB [id number]) Nutrition Notes Initial or Follow up Reassessment Current Diagnosis CKD(stage I-IV),Hypertension Other Pertinent Diagnosis Abdominal pain, nausea. Current Diet Renal Labs/Tests 06/25: Na 134, BUN 88, Cr 11.7 , glucose 206 Pertinent Medications Vit C, Vit D3, NaCl 125ml/hr, Zn Sulfate Height 5 ft 2 in Weight 87.4 kg [place] Body Weight (kg) 50.00 BMI 35.2 Weight change and time frame 06/18: 92.986kg 06/24: 87.4kg change of -5.586kg for -6% significance. Pt is now receiving HD, weight change can be related to fluid removal. Weight Status Obese Subjective/Other Information MD notes: New to HD. HD did not finish yesterday, scheduled for another HD treatment today. PO intakes vary, RN's document meal tolerated well. Last BM: 06/24 Percent of energy/protein needs met: PO intake of meals at 50% or greater will meet 100% minimal EEN. Burn Absent Trauma Absent GI Symptoms None Food Allergy No Skin Integrity/Comment No complications reported Current % PO Other Minimum of two criteria No physical signs of malnutrition #2 Nutrition Diagnosis Inadequate energy intake Etiology New to HD As Evidenced by Signs and Symptoms Start of HD, recorded PO intake 0-50%. Diagnosis Progress(for reassessment Continues documentation) Is patient on ventilator? No Is Patient Ambulatory and/or Out of Bed Yes REE-([facility]-ambulatory/OOB) [ 1946.425 [id number]] Kcal/Kg value to use for calculation 20 Approximate Energy Requirements Using 1748 kcal/Kg Calculation Used for Recommendations Kcal/kg Additional Notes Protein: 0.8-1.0 g/Kg@ 87k-87g Fluids: 1.0 ml/Kcal/day, or per MD. Nutrition Intervention Change Diet Order: Continue Renal Nutrition Support: n/a Add Supplement/Snack (indicate name/kcal Nepro once daily /protein ) Provides kCal: 425 Provides Protein (gm) 19 Goal #1 PO intake of meals to improve to 50% or greater daily for LOS Goal #2 Maintain body weight within +/ -3% of current BWt during LOS. Goal #3 PO intake of nutritional supplement 50% or greater daily during LOS Follow-Up By: 07/02/21 Additional Comments f/u: po intake meals/ supplement, labs
--- NOTE | 2021-07-02 21:45 | Progress Note ---
Assessment and Plan - Patient Problems (1) Acute kidney injury superimposed on chronic kidney disease Current Visit: No Status: Acute Plan to address problem: Patient remains dialysis dependent. Continue hemodialysis on a Thursday, Thursday and Thursday schedule this week. manager of enterprise to assist with placement at outpatient dialysis clinic. (2) Hyperkalemia Current Visit: Yes Status: Acute Plan to address problem: Potassium is still high normal. Will dialyze again today (3) Pneumonia due to COVID-19 virus Current Visit: Yes Status: Acute Plan to address problem: Continue supplemental oxygen/Respiratory support as needed Prophylactic anticoagulation Trend inflammatory markers to assess disease progression and prognosis Continue management per infectious disease/primary attending (4) Hypertensive chronic kidney disease with stage 1 through stage 4 chronic kidney disease, or unspecified chronic kidney disease Current Visit: Yes Status: Acute Plan to address problem: Follow-up blood pressure on current medications (5) Type 2 diabetes mellitus with diabetic chronic kidney disease Current Visit: Yes Status: Chronic Plan to address problem: Blood sugar management by primary attending Subjective Date of service: 07/02/21 Principal diagnosis: Acute kidney injury/COVID associated nephropathy Interval history: 41 yo with 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 I reviewed multidisciplinary notes and discussed with staff and physicians as needed. Patient is on oxygen via HF nasal cannula. Objective - Exam Narrative Exam: Patient was not examined at the bedside today due to personal protective equipment preservation during the COVID-19 pandemic - Vital Signs Vital signs: Vital Signs - 12hr 07/02/21 07/02/21 07/02/21 10:00 10:45 10:59 Temperature 97.6 F Pulse Rate 112 H 110 H 112 H Pulse Rate [ From Monitor] Respiratory 18 19 Rate Blood Pressure 85/42 109/59 110/56 O2 Sat by Pulse 93 Oximetry O2 Sat by Pulse 96 Oximetry [ Anterior Bilateral] 07/02/21 07/02/21 07/02/21 11:00 11:15 11:30 Temperature Pulse Rate 119 H 115 H 115 H Pulse Rate [ From Monitor] Respiratory 26 H Rate Blood Pressure 116/69 109/57 107/53 O2 Sat by Pulse 91 Oximetry O2 Sat by Pulse Oximetry [ Anterior Bilateral] 07/02/21 07/02/21 07/02/21 11:45 12:00 12:15 Temperature Pulse Rate 114 H 115 H 106 H Pulse Rate [ 116 H From Monitor] Respiratory 22 Rate Blood Pressure 108/55 76/59 96/55 O2 Sat by Pulse 96 Oximetry O2 Sat by Pulse Oximetry [ Anterior Bilateral] 07/02/21 07/02/21 07/02/21 12:30 12:45 13:00 Temperature Pulse Rate 106 H 103 H 106 H Pulse Rate [ From Monitor] Respiratory 16 Rate Blood Pressure 105/53 112/66 94/57 O2 Sat by Pulse 97 Oximetry O2 Sat by Pulse Oximetry [ Anterior Bilateral] 07/02/21 07/02/21 07/02/21 13:15 13:30 13:45 Temperature Pulse Rate 115 H 110 H 109 H Pulse Rate [ From Monitor] Respiratory Rate Blood Pressure 101/50 99/51 95/46 O2 Sat by Pulse Oximetry O2 Sat by Pulse Oximetry [ Anterior Bilateral] 07/02/21 07/02/21 07/02/21 14:00 14:15 14:30 Temperature Pulse Rate 110 H 108 H 112 H Pulse Rate [ From Monitor] Respiratory 20 Rate Blood Pressure 98/48 96/46 95/48 O2 Sat by Pulse 99 Oximetry O2 Sat by Pulse Oximetry [ Anterior Bilateral] 07/02/21 07/02/21 07/02/21 15:00 16:00 16:32 Temperature 97.6 F Pulse Rate 111 H 115 H Pulse Rate [ 114 H From Monitor] Respiratory 23 18 Rate Blood Pressure 97/52 107/50 O2 Sat by Pulse 96 97 93 Oximetry O2 Sat by Pulse 95 Oximetry [ Anterior Bilateral] 07/02/21 07/02/21 07/02/21 17:01 18:00 19:00 Temperature Pulse Rate 135 H 114 H 113 H Pulse Rate [ From Monitor] Respiratory 33 H 24 25 H Rate Blood Pressure 128/85 100/59 107/63 O2 Sat by Pulse 80 L 94 95 Oximetry O2 Sat by Pulse Oximetry [ Anterior Bilateral] 07/02/21 20:04 Temperature 98.2 F Pulse Rate Pulse Rate [ From Monitor] Respiratory Rate Blood Pressure O2 Sat by Pulse Oximetry O2 Sat by Pulse Oximetry [ Anterior Bilateral] - Lab 07/02/21 04:32 07/02/21 04:32 Most recent lab results ABG pH 7.492 pH Units (7.350-7.450) H 06/21/21 17:30 ABG pCO2 24.1 mm Hg 06/21/21 17:30 ABG pO2 79.9 mm Hg (80.0-90.0) L 06/21/21 17:30 ABG HCO3 18.0 mmol/L (20.0-26.0) L 06/21/21 17:30 ABG O2 Saturation 97.0 % (95.0-99.0) 06/21/21 17:30 Calcium 8.7 mg/dL (8.4-10.2) 07/02/21 04:32 Phosphorus 9.20 mg/dL (2.5-4.5) H 07/02/21 04:32 Magnesium 2.30 mg/dL (1.7-2.3) 07/02/21 04:32 Urine Creatinine 132.3 mg/dL (0.1-20.0) H 06/19/21 05:27 Urine Creatinine 132.5 mg/dL (0.1-20.0) H 06/19/21 05:27 Urine Sodium 26 mmol/L 06/19/21 05:27 Urine Total Protein 196 mg/dL (5-11.8) H 06/19/21 05:27 Medications & Allergies - Medications Allergies/Adverse Reactions: Allergies No Known Allergies Allergy (Verified 08/19/19 15:08) Home Medications: Home Medications Medication Instructions Recorded Confirmed Last Taken Type Pnv No.95/Ferrous Fum/Folic AC 1 each PO QDAY 04/10/17 12/31/19 12/30/19 10:30 History [ Caplet] Famotidine [Pepcid] 20 mg PO DAILY #14 tablet 04/13/17 12/31/19 12/30/19 10:30 Rx hydrALAZINE [Apresoline TAB] 100 mg PO TID #90 tab 04/13/17 12/31/19 Unknown Rx Nitrofurantoin Barton/M-Cryst 100 mg PO Q12HR #14 capsule 08/19/19 12/31/19 Unknown Rx [Macrobid CAP] Aspirin BABY CHEW TAB 80 mg PO DAILY 12/31/19 12/31/19 12/30/19 10:30 History Enoxaparin 40 mg SUB-Q DAILY 12/31/19 12/31/19 12/30/19 10:30 History labetaloL [Labetalol 200mg TAB] 400 mg PO BID 12/31/19 12/31/19 12/30/19 10:30 History HYDROcodone/APAP 5-325 [[place] 1 - 2 each PO Q4HR PRN #30 tablet 01/05/20 Unknown Rx 5/325] Active Medications: Generic Name Dose Route Start Last Admin Trade Name Freq PRN Reason Stop Dose Admin Acetaminophen 650 mg 06/18/21 06:25 06/21/21 23:41 Acetaminophen 325 Mg Tab PO 650 mg Q4H PRN Administration Pain MILD(1-3)/Fever >100.5/ANDUJAR Ascorbic Acid 500 mg 06/21/21 22:00 07/02/21 21:10 Ascorbic Acid 500 Mg Tab PO 500 mg BID DEBORA Administration Cholecalciferol 1,000 unit 06/30/21 10:00 07/02/21 10:41 Cholecalciferol (Vit D3) 1000 Unit (25 Mcg) Tab PO 1,000 unit QDAY DEBORA Administration Dextrose 50 ml 06/18/21 06:25 Dextrose 50% In Water (25gm) 50 Ml Syringe IV Q30MIN PRN Hypoglycemia Protocol Heparin Sodium (Porcine) 5,000 unit 06/21/21 22:00 07/02/21 21:10 Heparin 5,000 Unit/1 Ml Vial SUB-Q 5,000 unit Q12HR DEBORA Administration Hydralazine HCl 10 mg 06/21/21 17:04 06/24/21 12:30 Hydralazine 20 Mg/1 Ml Inj IV 10 mg Q6HR PRN Administration Hypertension Sodium Chloride 100 mls @ 999 mls/hr 06/25/21 09:17 Nacl 0.9% IV ASHLEIGH PRN Hypotension Insulin Human Lispro 0 unit 06/18/21 07:30 07/02/21 16:45 Insulin Lispro 100 Unit/Ml SUB-Q Not Given ACHS DEBORA Protocol Magnesium Hydroxide 30 ml 06/18/21 06:25 Magnesium Hydroxide (Mom) Oral Liqd Udc PO Q4H PRN Constipation Melatonin 5 mg 06/24/21 01:11 06/27/21 22:44 Melatonin 5 Mg Tab PO 5 mg QHS PRN Administration Sleep Morphine Sulfate 2 mg 06/18/21 06:25 06/20/21 15:32 Morphine 2 Mg/1 Ml Inj IV 2 mg Q4H PRN Administration Pain, Moderate (4-6) Morphine Sulfate 4 mg 06/18/21 06:25 Morphine 4 Mg/1 Ml Inj IV Q4H PRN Pain , Severe (7-10) Nifedipine 30 mg 07/01/21 10:00 07/02/21 10:44 Nifedipine Xl 30 Mg Tab PO Not Given DAILY DEBORA Ondansetron HCl 4 mg 06/18/21 06:25 Ondansetron 4 Mg/2 Ml Inj IV Q8H PRN Nausea And Vomiting Sevelamer Carbonate 800 mg 06/27/21 11:30 07/02/21 16:37 Sevelamer Carbonate 800 Mg Tab PO 800 mg AC DEBORA Administration Sodium Chloride 10 ml 06/18/21 10:00 07/02/21 21:12 Sodium Chloride 0.9% 10 Ml Flush Syringe IV 10 ml BID DEBORA Administration Sodium Chloride 10 ml 06/18/21 06:25 Sodium Chloride 0.9% 10 Ml Flush Syringe IV PRN PRN LINE FLUSH Zinc Sulfate 220 mg 06/21/21 22:00 07/02/21 21:10 Zinc Sulfate 220 Mg Cap PO 220 mg BID DEBORA Administration
[2021-07-03 05:16] LABS: Hemoglobin 9.2 gm/dl (10.1-14.3); Mean Corpuscular HGB Conc 32 % (30-34); Mean Corpuscular Volume 92 fl (79-97); Platelet Count 158 K/mm3 (140-440); Red Blood Count 3.16 M/mm3 (3.65-5.03); Red Cell Distribution Width 14.4 % (13.2-15.2)
[2021-07-03 06:25] LABS: Calcium 8.4 mg/dL (8.4-10.2)
[2021-07-03] MEDS: SEVELAMER CARBONATE 800 MG TAB PO SCH ×3 (07:58→16:08)
[2021-07-03] MEDS: MAGNESIUM HYDROXIDE (MOM) ORAL LIQD UDC PO PRN ×3 (08:24→21:52)
--- NOTE | 2021-07-03 08:36 | Progress Note ---
Assessment and Plan Assessment and plan: Patient is a 41-year-old lady with past medical history of focal segmental glomerulosclerosis lost to follow-up who presented with malaise and abdominal pain. Found to be in acute renal failure. Patient was also septic and began to have respiratory failure. Covid PCR was positive. Currently patient is undergoing hemodialysis on MWF schedule. Weaning from HFNC to NC. #Acute on chronic kidney injury -History of CKD stage IIIb -proteinuria -Nephrology following, will hold off renal biopsy given new COVID PNA -permacath placement 06/21 -HD initiation 06/21, continue with MWF schedule - consult for outpatient HD #Acute hypoxic respiratory failure -transitioned from HFNC to NC (3LPM) -will wean as tolerated, goal SpO2 >92% -will continue steroids -s/p completion of azithromycin and Rocephin (5 days total) -COVID PCR positive #Leukocytosis -downtrending to 22.7 -> 13.1 -no identifiable source -will continue to monitor #Sepsis -Elevated WBC count + tachycardia -Afebrile -blood cultures this admission negative -COVID PCR positive -CXR with bilateral pneumonia -likely 2/2 to respiratory failure vs COVID PNA #COVID-Pneumonia #COVID-19 infection -COVID PCR positive -will continue to monitor d-dimer, CRP -s/p Actemra -ID following, assistance appreciated #Elevated D-dimer -V/Q scan negative -Likely 2/2 to COVID infection #Type 2 Diabetes -glucose control with sliding scale, will continue -continue accuchecks for now #Hypertension -normotensive to low BP -will continue to monitor Resolved issues #Asymptomatic bacteriuria #Abdominal pain Disposition Plan: Continue medical manage Total Time Spent with Patient (Minutes): 30 minutes History Interval history: No acute events overnight. Patient in great spirits. Was transitioned to regular nasal cannula. Reports shortness of breath with ambulation. Denies chest pain and cough. Hospitalist Physical - Physical exam Narrative exam: GENERAL: Well-developed well-nourished. Lying in bed HEENT: NC at 3LPM CHEST/LUNGS: Vas-Cath in right upper chest. Coarse breath sound bilaterally. HEART/CARDIOVASCULAR: Mildly tachycardic. No murmur, rubs or gallops appreciated. ABDOMEN: +BS. NT/ND. EXTREMITIES: No cyanosis, clubbing or edema. PSYCH: Cooperative. - Constitutional Vitals: Temp Pulse Resp BP Pulse Ox 98.5 F 99 H 19 96/59 100 07/03/21 07:10 07/03/21 06:00 07/03/21 06:00 07/03/21 06:00 07/03/21 06:00 General appearance: Present: no acute distress (Asleep in bed), well-nourished, obese Results - Labs CBC & Chem 7: 07/03/21 04:48 07/03/21 04:48 Labs: Laboratory Last Values WBC 13.1 K/mm3 (4.5-11.0) H 07/03/21 04:48 RBC 3.16 M/mm3 (3.65-5.03) L 07/03/21 04:48 Hgb 9.2 gm/dl (10.1-14.3) L 07/03/21 04:48 Hct 29.0 % (30.3-42.9) L 07/03/21 04:48 MCV 92 fl (79-97) 07/03/21 04:48 MCH 29 pg (28-32) 07/03/21 04:48 MCHC 32 % (30-34) 07/03/21 04:48 RDW 14.4 % (13.2-15.2) 07/03/21 04:48 Plt Count 158 K/mm3 (140-440) 07/03/21 04:48 Lymph % (Auto) 5.6 % (13.4-35.0) L 06/22/21 08:29 [place] % (Auto) 5.4 % (0.0-7.3) 06/28/21 05:52 Eos % (Auto) 0.1 % (0.0-4.3) 06/28/21 05:52 Baso % (Auto) 0.1 % (0.0-1.8) 06/22/21 08:29 Lymph # (Auto) 0.2 K/mm3 (1.2-5.4) L 06/22/21 08:29 [place] # (Auto) 0.7 K/mm3 (0.0-0.8) 06/28/21 05:52 Eos # (Auto) 0.0 K/mm3 (0.0-0.4) 06/28/21 05:52 Baso # (Auto) 0.0 K/mm3 (0.0-0.1) 06/28/21 05:52 Add Manual Diff Complete 07/02/21 04:32 Total Counted 100 07/02/21 04:32 Seg Neutrophils % Valve Repairer 07/01/21 04:36 Seg Neuts % (Manual) 90.0 % (40.0-70.0) H 07/02/21 04:32 Band Neutrophils % 2.0 % 07/02/21 04:32 Lymphocytes % (Manual) 5.0 % (13.4-35.0) L 07/02/21 04:32 Monocytes % (Manual) 1.0 % (0.0-7.3) 07/02/21 04:32 Eosinophils % (Manual) 1.0 % (0.0-4.3) 06/28/21 05:52 Metamyelocytes % 2.0 % 07/02/21 04:32 Myelocytes % 1.0 % 06/28/21 05:52 Nucleated RBC % Not Reportable 07/02/21 04:32 Seg Neutrophils # 12.8 K/mm3 (1.8-7.7) H 06/28/21 05:52 Seg Neutrophils # Man 20.4 K/mm3 (1.8-7.7) H 07/02/21 04:32 Band Neutrophils # 0.5 K/mm3 07/02/21 04:32 Lymphocytes # (Manual) 1.1 K/mm3 (1.2-5.4) L 07/02/21 04:32 Abs React Lymphs (Man) 0.0 K/mm3 07/02/21 04:32 Monocytes # (Manual) 0.2 K/mm3 (0.0-0.8) 07/02/21 04:32 Eosinophils # (Manual) 0.0 K/mm3 (0.0-0.4) 07/02/21 04:32 Basophils # (Manual) 0.0 K/mm3 (0.0-0.1) 07/02/21 04:32 Metamyelocytes # 0.5 K/mm3 07/02/21 04:32 Myelocytes # 0.0 K/mm3 07/02/21 04:32 Promyelocytes # 0.0 K/mm3 07/02/21 04:32 Blast Cells # 0.0 K/mm3 07/02/21 04:32 WBC Morphology Not Reportable 07/02/21 04:32 Hypersegmented Neuts Not Reportable 07/02/21 04:32 Hyposegmented Neuts Not Reportable 07/02/21 04:32 Hypogranular Neuts Not Reportable 07/02/21 04:32 Smudge Cells Not Reportable 07/02/21 04:32 Toxic Granulation Not Reportable 07/02/21 04:32 Toxic Vacuolation Not Reportable 07/02/21 04:32 Dohle Bodies Not Reportable 07/02/21 04:32 Pelger-Huet Anomaly Not Reportable 07/02/21 04:32 Michael Rods Not Reportable 07/02/21 04:32 Platelet Estimate Consistent w auto 07/02/21 04:32 Clumped Platelets Not Reportable 07/02/21 04:32 Plt Clumps, EDTA Not Reportable 07/02/21 04:32 Large Platelets Not Reportable 07/02/21 04:32 Giant Platelets Not Reportable 07/02/21 04:32 Platelet Satelliting Not Reportable 07/02/21 04:32 Plt Morphology Comment Not Reportable 07/02/21 04:32 RBC Morphology Normal 07/02/21 04:32 Dimorphic RBCs Not Reportable 07/02/21 04:32 Polychromasia Not Reportable 07/02/21 04:32 Hypochromasia Not Reportable 07/02/21 04:32 Poikilocytosis Not Reportable 07/02/21 04:32 Anisocytosis Not Reportable 07/02/21 04:32 Microcytosis Not Reportable 07/02/21 04:32 Macrocytosis Not Reportable 07/02/21 04:32 Spherocytes Not Reportable 07/02/21 04:32 Pappenheimer Bodies Not Reportable 07/02/21 04:32 Sickle Cells Not Reportable 07/02/21 04:32 Target Cells Not Reportable 07/02/21 04:32 Tear Drop Cells Not Reportable 07/02/21 04:32 Ovalocytes Not Reportable 07/02/21 04:32 Helmet Cells Not Reportable 07/02/21 04:32 [place] Bodies Not Reportable 07/02/21 04:32 [place] Rings Not Reportable 07/02/21 04:32 [place] Cells Not Reportable 07/02/21 04:32 Bite Cells Not Reportable 07/02/21 04:32 Crenated Cell Not Reportable 07/02/21 04:32 Elliptocytes Not Reportable 07/02/21 04:32 Acanthocytes (Spur) Not Reportable 07/02/21 04:32 Rouleaux Not Reportable 07/02/21 04:32 Hemoglobin C Crystals Not Reportable 07/02/21 04:32 Schistocytes Not Reportable 07/02/21 04:32 Malaria parasites Not Reportable 07/02/21 04:32 Jules Bodies Not Reportable 07/02/21 04:32 Hem Pathologist Commnt No 07/02/21 04:32 PT 14.4 Sec. (12.2-14.9) 06/19/21 05:00 INR 1.01 (0.87-1.13) 06/19/21 05:00 D-Dimer 1832.29 ng/mlDDU (0-234) H 06/28/21 05:52 ABG pH 7.492 pH Units (7.350-7.450) H 06/21/21 17:30 ABG pCO2 24.1 mm Hg 06/21/21 17:30 ABG pO2 79.9 mm Hg (80.0-90.0) L 06/21/21 17:30 ABG HCO3 18.0 mmol/L (20.0-26.0) L 06/21/21 17:30 ABG O2 Saturation 97.0 % (95.0-99.0) 06/21/21 17:30 ABG O2 Content 15.1 (0.0-44) 06/21/21 17:30 ABG Base Excess -3.9 mmol/L (-2.0-3.0) L 06/21/21 17:30 ABG Hemoglobin 11.2 gm/dl (12.0-16.0) L 06/21/21 17:30 ABG Carboxyhemoglobin 1.1 % (0.0-5.0) 06/21/21 17:30 ABG Methemoglobin 0.5 % (0.0-1.5) 06/21/21 17:30 Oxyhemoglobin 95.4 % (95.0-99.0) 06/21/21 17:30 FiO2 100 % 06/21/21 17:30 Sodium 140 mmol/L (137-145) 07/03/21 04:48 Potassium 4.4 mmol/L (3.6-5.0) 07/03/21 04:48 Chloride 98.9 mmol/L (98-107) 07/03/21 04:48 Carbon Dioxide 24 mmol/L (22-30) 07/03/21 04:48 Anion Gap 22 mmol/L 07/03/21 04:48 BUN 57 mg/dL (7-17) H 07/03/21 04:48 Creatinine 4.8 mg/dL (0.6-1.2) H 07/03/21 04:48 Estimated GFR 12 ml/min 07/03/21 04:48 BUN/Creatinine Ratio 12 % 07/03/21 04:48 Glucose 68 mg/dL (65-100) 07/03/21 04:48 POC Glucose 67 mg/dL (70-105) L 07/03/21 07:37 Calcium 8.4 mg/dL (8.4-10.2) 07/03/21 04:48 Phosphorus 9.20 mg/dL (2.5-4.5) H 07/02/21 04:32 Magnesium 2.30 mg/dL (1.7-2.3) 07/02/21 04:32 Ferritin 1456.0 ng/mL (10.0-200.0) H 06/25/21 04:42 Total Bilirubin 0.20 mg/dL (0.1-1.2) 06/22/21 08:29 Direct Bilirubin < 0.2 mg/dL (0-0.2) 06/18/21 03:10 Indirect Bilirubin 0.1 mg/dL 06/18/21 03:10 AST 32 units/L (5-40) 06/22/21 08:29 ALT 11 units/L (7-56) 06/22/21 08:29 Alkaline Phosphatase 53 units/L (35-129) 06/22/21 08:29 Lactate Dehydrogenase 677 units/L (91-180) H 06/25/21 04:42 C-Reactive Protein 0.80 mg/dL (0.00-1.30) 06/28/21 05:52 Total Protein 5.6 g/dL (6.3-8.2) L 06/22/21 08:29 Albumin 1.8 g/dL (3.9-5) L 06/22/21 08:29 Albumin/Globulin Ratio 0.5 % 06/22/21 08:29 Lipase 199 units/L (13-60) H 06/18/21 03:10 Procalcitonin 24.59 ng/mL (<0.15) 06/21/21 20:58 Urine Color Jessy (Yellow) 06/19/21 05:27 Urine Turbidity Cloudy (Clear) 06/19/21 05:27 Urine pH 5.0 (5.0-7.0) 06/19/21 05:27 Ur Specific [place] 1.025 (1.003-1.030) 06/19/21 05:27 Urine Protein >500 mg/dL (Negative) 06/19/21 05:27 Urine Glucose (UA) 50 mg/dL (Negative) 06/19/21 05:27 Urine Ketones Neg mg/dL (Negative) 06/19/21 05:27 Urine Blood Lg (Negative) 06/19/21 05:27 Urine Nitrite Neg (Negative) 06/19/21 05:27 Urine Bilirubin Neg (Negative) 06/19/21 05:27 Urine Urobilinogen < 2.0 mg/dL (<2.0) 06/19/21 05:27 Ur Leukocyte Esterase Mod (Negative) 06/19/21 05:27 Urine WBC (Auto) > 182.0 /HPF (0.0-6.0) H 06/19/21 05:27 Urine RBC (Auto) 35.0 /HPF (0.0-6.0) 06/19/21 05:27 U Epithel Cells (Auto) 1.0 /HPF (0-13.0) 06/19/21 05:27 Urine WBC Clumps 3+ /HPF 06/19/21 05:27 Urine Mucus Few /HPF 06/19/21 05:27 Urine Yeast (Budding) 3+ /HPF 06/18/21 04:55 Urine Creatinine 132.3 mg/dL (0.1-20.0) H 06/19/21 05:27 Urine Creatinine 132.5 mg/dL (0.1-20.0) H 06/19/21 05:27 Protein/Creatinin Ratio 1.48 06/19/21 05:27 Urine Sodium 26 mmol/L 06/19/21 05:27 Urine Chloride 25.9 mmolL (110-250) L 06/19/21 05:27 Urine Total Protein 196 mg/dL (5-11.8) H 06/19/21 05:27 Urine HCG, Qual Negative (Negative) 06/19/21 05:27 RAFAEL Screen Negative (Negative) 06/18/21 13:49 Proteinase 3 (PR3) Ab <1.0 AI (<1.0) 06/18/21 13:49 Myeloperoxidase Ab <1.0 AI (<1.0) 06/18/21 13:49 Double Strand DNA Ab <1 IU/mL (<=4) 06/18/21 13:49 Complement C3 168 mg/dL (83-193) 06/18/21 13:49 Complement C4 70 mg/dL (15-57) H 06/18/21 13:49 Coronavirus (PCR) Positive (Negative) A 06/22/21 09:00 Hepatitis A IgM Ab Non-reactive (NonReactive) 06/21/21 04:20 Hep Bs Antigen Nonreactive (Negative) 06/21/21 04:20 Hep B Core IgM Ab Non-reactive (NonReactive) 06/21/21 04:20 Hepatitis C Antibody Non-reactive (NonReactive) 06/21/21 04:20 Forman/IV: Voiding Method Bedside Commode Active Medications - Current Medications Current Medications: Generic Name Dose Route Start Last Admin Trade Name Freq PRN Reason Stop Dose Admin Acetaminophen 650 mg 06/18/21 06:25 06/21/21 23:41 Acetaminophen 325 Mg Tab PO 650 mg Q4H PRN Administration Pain MILD(1-3)/Fever >100.5/ANDUJAR Ascorbic Acid 500 mg 06/21/21 22:00 07/02/21 21:10 Ascorbic Acid 500 Mg Tab PO 500 mg BID DEBORA Administration Cholecalciferol 1,000 unit 06/30/21 10:00 07/02/21 10:41 Cholecalciferol (Vit D3) 1000 Unit (25 Mcg) Tab PO 1,000 unit QDAY DEBORA Administration Dextrose 50 ml 06/18/21 06:25 Dextrose 50% In Water (25gm) 50 Ml Syringe IV Q30MIN PRN Hypoglycemia Protocol Heparin Sodium (Porcine) 5,000 unit 06/21/21 22:00 07/02/21 21:10 Heparin 5,000 Unit/1 Ml Vial SUB-Q 5,000 unit Q12HR DEBORA Administration Hydralazine HCl 10 mg 06/21/21 17:04 06/24/21 12:30 Hydralazine 20 Mg/1 Ml Inj IV 10 mg Q6HR PRN Administration Hypertension Sodium Chloride 100 mls @ 999 mls/hr 06/25/21 09:17 Nacl 0.9% IV ASHLEIGH PRN Hypotension Sodium Chloride 250 mls @ 999 mls/hr 07/03/21 08:34 Nacl 0.9% 250ml IV 07/03/21 08:49 ONCE ONE Insulin Human Lispro 0 unit 06/18/21 07:30 07/02/21 22:44 Insulin Lispro 100 Unit/Ml SUB-Q Not Given ACHS [facility] Protocol Magnesium Hydroxide 30 ml 06/18/21 06:25 07/03/21 08:24 Magnesium Hydroxide (Mom) Oral Liqd Udc PO 30 ml Q4H PRN Administration Constipation Melatonin 5 mg 06/24/21 01:11 06/27/21 22:44 Melatonin 5 Mg Tab PO 5 mg QHS PRN Administration Sleep Morphine Sulfate 2 mg 06/18/21 06:25 06/20/21 15:32 Morphine 2 Mg/1 Ml Inj IV 2 mg Q4H PRN Administration Pain, Moderate (4-6) Morphine Sulfate 4 mg 06/18/21 06:25 Morphine 4 Mg/1 Ml Inj IV Q4H PRN Pain , Severe (7-10) Nifedipine 30 mg 07/01/21 10:00 07/02/21 10:44 Nifedipine Xl 30 Mg Tab PO Not Given DAILY DEBORA Ondansetron HCl 4 mg 06/18/21 06:25 Ondansetron 4 Mg/2 Ml Inj IV Q8H PRN Nausea And Vomiting Sevelamer Carbonate 800 mg 06/27/21 11:30 07/03/21 07:58 Sevelamer Carbonate 800 Mg Tab PO 800 mg AC DEBORA Administration Sodium Chloride 10 ml 06/18/21 10:00 07/02/21 21:12 Sodium Chloride 0.9% 10 Ml Flush Syringe IV 10 ml BID DEBORA Administration Sodium Chloride 10 ml 06/18/21 06:25 Sodium Chloride 0.9% 10 Ml Flush Syringe IV PRN PRN LINE FLUSH Zinc Sulfate 220 mg 06/21/21 22:00 07/02/21 21:10 Zinc Sulfate 220 Mg Cap PO 220 mg BID DEBORA Administration Nutrition/Malnutrition Assess - Dietary Evaluation Nutrition/Malnutrition Findings: Nutrition Notes Start: 06/18/21 15:35 Freq: Status: Active Protocol: Document 07/02/21 15:50 NHMARLENA (Rec: 07/02/21 15:58 NHALL [id number]) Nutrition Notes Initial or Follow up Reassessment Current Diagnosis CKD (stage V CKD),Diabetes, Hypertension,Respiratory Failure Other Pertinent Diagnosis COVID-19, bilat pneu Current Diet Renal + Nepro once daily Labs/Tests K 5.3 BUN 81 Cr 6.3 Phos 9.2 Pertinent Medications Renvela Height 5 ft 2 in Weight 89.6 kg [place] Body Weight (kg) 50.00 BMI 36.1 Weight Status Obese Subjective/Other Information Unable to reach pt via phone at 11:25 and 15:49. Pt has consumed average of 83% meals of those recorded. Percent of energy/protein needs met: 87% energy 76% pro (excludes ONS) Burn Absent Trauma Absent #2 Nutrition Diagnosis Inadequate energy intake As Evidenced by Signs and Symptoms current PO intake meeting >75% energy and pro needs Diagnosis Progress(for reassessment Resolved documentation) Is patient on ventilator? No Is Patient Ambulatory and/or Out of Bed Yes REE-([place] or-ambulatory/OOB) [ 1975.025 [id number]] Kcal/Kg value to use for calculation 17 Approximate Energy Requirements Using 1523 kcal/Kg Calculation Used for Recommendations Kcal/kg Additional Notes Pro needs >1.2g/kg adjBW: >84g /day Fluid needs 1-1.5L/day Nutrition Intervention Revisit per MD consult or patient Sign Off request:
[2021-07-03] MEDS ORDERED: SODIUM CHLORIDE 0.9% 250ML 250 ML IV SCH (09:00)
[2021-07-03] MEDS: HEPARIN 5,000 UNIT/1 ML VIAL SUB-Q SCH ×2 (09:46→21:31)
[2021-07-03] MEDS: CHOLECALCIFEROL (VIT D3) 1000 UNIT (25 mcg) TAB PO SCH (09:46)
[2021-07-03] MEDS: ASCORBIC ACID 500 MG TAB PO SCH ×2 (09:46→21:32)
[2021-07-03] MEDS: ZINC SULFATE 220 MG CAP PO SCH ×2 (09:46→21:31)
[2021-07-03] MEDS: NIFEdipine XL 30 MG TAB PO SCH ×2 (09:49→16:48)
[2021-07-03] MEDS: INSULIN LISPRO 100 UNIT/ML SUB-Q SCH ×4 (09:49→21:24)
--- NOTE | 2021-07-03 10:44 | Progress Note ---
Assessment and Plan - Patient Problems (1) Acute kidney injury superimposed on chronic kidney disease Current Visit: No Status: Acute Plan to address problem: Patient remains dialysis dependent. Continue hemodialysis on a Thursday, Thursday and Thursday schedule this week. monitoring manager to assist with placement at outpatient dialysis clinic. (2) Hyperkalemia Current Visit: Yes Status: Acute Plan to address problem: Potassium has improved to normal. Hemodialysis per schedule (3) Pneumonia due to COVID-19 virus Current Visit: Yes Status: Acute Plan to address problem: Continue supplemental oxygen/Respiratory support as needed Prophylactic anticoagulation Trend inflammatory markers to assess disease progression and prognosis Continue management per infectious disease/primary attending (4) Hypertensive chronic kidney disease with stage 1 through stage 4 chronic kidney disease, or unspecified chronic kidney disease Current Visit: Yes Status: Acute Plan to address problem: Follow-up blood pressure on current medications (5) Type 2 diabetes mellitus with diabetic chronic kidney disease Current Visit: Yes Status: Chronic Plan to address problem: Blood sugar management by primary attending Subjective Date of service: 07/03/21 Principal diagnosis: Acute kidney injury/COVID associated nephropathy Interval history: 41 yo with 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 I reviewed multidisciplinary notes and discussed with staff and physicians as needed. Patient is on oxygen via HF nasal cannula. She was sitting on the chair today Objective - Exam Narrative Exam: Patient was not examined at the bedside today due to personal protective equipment preservation during the COVID-19 pandemic - Vital Signs Vital signs: Vital Signs - 12hr 07/02/21 07/02/21 07/03/21 22:51 23:00 00:00 Temperature 98.2 F Pulse Rate 110 H 100 H Pulse Rate [ 108 H From Monitor] Respiratory 24 32 H Rate Blood Pressure 117/86 125/77 O2 Sat by Pulse 99 98 94 Oximetry 07/03/21 07/03/21 07/03/21 01:00 02:00 03:00 Temperature Pulse Rate 108 H 104 H 110 H Pulse Rate [ From Monitor] Respiratory 19 22 21 Rate Blood Pressure 128/78 103/59 123/72 O2 Sat by Pulse 86 99 Oximetry 07/03/21 07/03/21 07/03/21 04:00 05:00 06:00 Temperature 98.6 F Pulse Rate 100 H 102 H 99 H Pulse Rate [ 108 H From Monitor] Respiratory 21 20 19 Rate Blood Pressure 115/74 98/55 96/59 O2 Sat by Pulse 96 96 100 Oximetry 07/03/21 07/03/21 07/03/21 07:00 07:10 08:00 Temperature 98.5 F Pulse Rate 111 H 98 H Pulse Rate [ 117 H From Monitor] Respiratory 25 H 24 Rate Blood Pressure 114/72 111/75 O2 Sat by Pulse 97 97 Oximetry 07/03/21 07/03/21 09:00 10:00 Temperature Pulse Rate 112 H 113 H Pulse Rate [ From Monitor] Respiratory 25 H 23 Rate Blood Pressure 110/71 114/76 O2 Sat by Pulse 97 Oximetry - Lab 07/03/21 04:48 07/03/21 04:48 Most recent lab results ABG pH 7.492 pH Units (7.350-7.450) H 06/21/21 17:30 ABG pCO2 24.1 mm Hg 06/21/21 17:30 ABG pO2 79.9 mm Hg (80.0-90.0) L 06/21/21 17:30 ABG HCO3 18.0 mmol/L (20.0-26.0) L 06/21/21 17:30 ABG O2 Saturation 97.0 % (95.0-99.0) 06/21/21 17:30 Calcium 8.4 mg/dL (8.4-10.2) 07/03/21 04:48 Phosphorus 9.20 mg/dL (2.5-4.5) H 07/02/21 04:32 Magnesium 2.30 mg/dL (1.7-2.3) 07/02/21 04:32 Urine Creatinine 132.3 mg/dL (0.1-20.0) H 06/19/21 05:27 Urine Creatinine 132.5 mg/dL (0.1-20.0) H 06/19/21 05:27 Urine Sodium 26 mmol/L 06/19/21 05:27 Urine Total Protein 196 mg/dL (5-11.8) H 06/19/21 05:27 Medications & Allergies - Medications Allergies/Adverse Reactions: Allergies No Known Allergies Allergy (Verified 08/19/19 15:08) Home Medications: Home Medications Medication Instructions Recorded Confirmed Last Taken Type Famotidine [Pepcid] 20 mg PO DAILY #14 tablet 04/13/17 07/03/21 12/30/19 10:30 Rx hydrALAZINE [Apresoline TAB] 100 mg PO TID #90 tab 04/13/17 07/03/21 Unknown Rx labetaloL [Labetalol 200mg TAB] 400 mg PO BID 12/31/19 07/03/21 12/30/19 10:30 History Active Medications: Generic Name Dose Route Start Last Admin Trade Name Freq PRN Reason Stop Dose Admin Acetaminophen 650 mg 06/18/21 06:25 06/21/21 23:41 Acetaminophen 325 Mg Tab PO 650 mg Q4H PRN Administration Pain MILD(1-3)/Fever >100.5/ANDUJAR Ascorbic Acid 500 mg 06/21/21 22:00 07/03/21 09:46 Ascorbic Acid 500 Mg Tab PO 500 mg BID DEBORA Administration Cholecalciferol 1,000 unit 06/30/21 10:00 07/03/21 09:46 Cholecalciferol (Vit D3) 1000 Unit (25 Mcg) Tab PO 1,000 unit QDAY DEBORA Administration Dextrose 50 ml 06/18/21 06:25 Dextrose 50% In Water (25gm) 50 Ml Syringe IV Q30MIN PRN Hypoglycemia Protocol Heparin Sodium (Porcine) 5,000 unit 06/21/21 22:00 07/03/21 09:46 Heparin 5,000 Unit/1 Ml Vial SUB-Q 5,000 unit Q12HR DEBORA Administration Hydralazine HCl 10 mg 06/21/21 17:04 06/24/21 12:30 Hydralazine 20 Mg/1 Ml Inj IV 10 mg Q6HR PRN Administration Hypertension Sodium Chloride 100 mls @ 999 mls/hr 06/25/21 09:17 Nacl 0.9% IV ASHLEIGH PRN Hypotension Sodium Chloride 250 mls @ 999 mls/hr 07/03/21 09:00 07/03/21 09:47 Nacl 0.9% 250ml IV 07/03/21 14:00 999 mls/hr ONCE@0900 DEBORA Administration Insulin Human Lispro 0 unit 06/18/21 07:30 07/03/21 09:49 Insulin Lispro 100 Unit/Ml SUB-Q Not Given ACHS DEBORA Protocol Magnesium Hydroxide 30 ml 06/18/21 06:25 07/03/21 08:24 Magnesium Hydroxide (Mom) Oral Liqd Udc PO 30 ml Q4H PRN Administration Constipation Melatonin 5 mg 06/24/21 01:11 06/27/21 22:44 Melatonin 5 Mg Tab PO 5 mg QHS PRN Administration Sleep Morphine Sulfate 2 mg 06/18/21 06:25 06/20/21 15:32 Morphine 2 Mg/1 Ml Inj IV 2 mg Q4H PRN Administration Pain, Moderate (4-6) Morphine Sulfate 4 mg 06/18/21 06:25 Morphine 4 Mg/1 Ml Inj IV Q4H PRN Pain , Severe (7-10) Nifedipine 30 mg 07/01/21 10:00 07/03/21 09:49 Nifedipine Xl 30 Mg Tab PO Not Given DAILY DEBORA Ondansetron HCl 4 mg 06/18/21 06:25 Ondansetron 4 Mg/2 Ml Inj IV Q8H PRN Nausea And Vomiting Sevelamer Carbonate 800 mg 06/27/21 11:30 07/03/21 07:58 Sevelamer Carbonate 800 Mg Tab PO 800 mg AC DEBORA Administration Sodium Chloride 10 ml 06/18/21 10:00 07/03/21 09:48 Sodium Chloride 0.9% 10 Ml Flush Syringe IV 10 ml BID DEBORA Administration Sodium Chloride 10 ml 06/18/21 06:25 Sodium Chloride 0.9% 10 Ml Flush Syringe IV PRN PRN LINE FLUSH Zinc Sulfate 220 mg 06/21/21 22:00 07/03/21 09:46 Zinc Sulfate 220 Mg Cap PO 220 mg BID DEBORA Administration
--- NOTE | 2021-07-03 13:09 | Progress Note ---
Assessment and Plan Cultures: SARS CoV2 PCR: Positive 06/18/2021 urine culture: E. 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 Severe disease. Not a candidate for remdesivir due to renal failure. S/P empiric abx, steroid course and 1 dose of Actemra. #Acute hypoxic respiratory failure: was on NRB/HFNC. Weaned to NC. #ESRD secondary to FSGS, initiated on dialysis by nephrology. #Positive urine culture, likely asymptomatic bacteriuria #Leukopenia: Secondary to COVID-19. Resolved. Now with leucocytosis. Recs: -completed 10 days of steroids -s/p Actemra 06/24/2021 -prophylactic anticoagulation based on d-dimer per hospital protocol Kendell Pacheco MD, FACP [facility] ([facility] O: [phone] F: [phone] Subjective Date of service: 07/03/21 Principal diagnosis: Acute kidney injury/COVID associated nephropathy Interval history: No fever. Weaned to NC. Objective - Exam Narrative Exam: Physical Exam (reviewed in chart to minimize risk of transmission) Constitutional: deferred Head, Ears, Nose: deferred Eyes: deferred Neck: deferred Oral: deferred Cardiovascular: deferred Respiratory: deferred GI: deferred Musculoskeletal: deferred Skin: deferred Hem/Lymphatic: deferred Psych: deferred Neurological: deferred - Constitutional Vitals: Vital Signs Temp Pulse Resp BP Pulse Ox 97.7 F 123 H 30 H 123/85 100 07/03/21 11:56 07/03/21 12:00 07/03/21 12:00 07/03/21 12:00 07/03/21 12:00 Temperature -Last 24 Hours Temperature 97.7 F Temperature 98.5 F Temperature 98.6 F Temperature 98.2 F Temperature 98.2 F Temperature 97.6 F - Labs CBC & Chem 7: 07/03/21 04:48 07/03/21 04:48 Labs: Abnormal lab results 07/02/21 07/03/21 07/03/21 Range/Units 16:37 04:48 04:48 WBC 13.1 H (4.5-11.0) K/mm3 RBC 3.16 L (3.65-5.03) M/mm3 Hgb 9.2 L (10.1-14.3) gm/dl Hct 29.0 L (30.3-42.9) % BUN 57 H (7-17) mg/dL Creatinine 4.8 H (0.6-1.2) mg/dL POC Glucose 122 H (70-105) mg/dL 07/03/21 Range/Units 07:37 WBC (4.5-11.0) K/mm3 RBC (3.65-5.03) M/mm3 Hgb (10.1-14.3) gm/dl Hct (30.3-42.9) % BUN (7-17) mg/dL Creatinine (0.6-1.2) mg/dL POC Glucose 67 L (70-105) mg/dL
[2021-07-03] MEDS: hydrALAZINE 20 MG/1 ML INJ IV PRN ×2 (16:48→21:32)
[2021-07-03] MEDS: MELATONIN 5 MG TAB PO PRN (21:31)
[2021-07-03] MEDS: CHOLECALCIFEROL (VIT D3) 400 UNIT TAB PO SCH (22:28)
[2021-07-03] MEDS ORDERED: METOPROLOL TARTRATE 5 MG/5 ML INJ IV ONE (23:24)
[2021-07-04] MEDS: SEVELAMER CARBONATE 800 MG TAB PO SCH ×2 (08:30→12:30)
[2021-07-04] MEDS: NIFEdipine XL 30 MG TAB PO SCH (09:42)
[2021-07-04] MEDS: ASCORBIC ACID 500 MG TAB PO SCH (09:42)
[2021-07-04] MEDS: CHOLECALCIFEROL (VIT D3) 1000 UNIT (25 mcg) TAB PO SCH (09:42)
[2021-07-04] MEDS: ZINC SULFATE 220 MG CAP PO SCH (09:43)
[2021-07-04] MEDS: HEPARIN 5,000 UNIT/1 ML VIAL SUB-Q SCH (09:43)
--- NOTE | 2021-07-04 10:32 | Progress Note ---
Assessment and Plan - Patient Problems (1) Acute kidney injury superimposed on chronic kidney disease Status: Acute Plan to address problem: Patient remains dialysis dependent. Continue hemodialysis on a Thursday, Thursday and Thursday schedule this week. manager bridge to assist with placement at outpatient dialysis clinic. (2) Hyperkalemia Status: Acute Plan to address problem: Potassium has improved to normal. Hemodialysis per schedule (3) Pneumonia due to COVID-19 virus Status: Acute Plan to address problem: Continue supplemental oxygen/Respiratory support as needed Prophylactic anticoagulation Trend inflammatory markers to assess disease progression and prognosis Continue management per infectious disease/primary attending (4) Hypertensive chronic kidney disease with stage 1 through stage 4 chronic kidney disease, or unspecified chronic kidney disease Status: Acute Plan to address problem: Follow-up blood pressure on current medications (5) Type 2 diabetes mellitus with diabetic chronic kidney disease Status: Chronic Plan to address problem: Blood sugar management by primary attending Subjective Date of service: 07/04/21 Principal diagnosis: Acute kidney injury/COVID associated nephropathy Interval history: 41 yo with 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 I reviewed multidisciplinary notes and discussed with staff and physicians as needed. Patient was lying in bed receiving hemodialysis Objective - Exam Narrative Exam: Patient was not examined at the bedside today due to personal protective equipment preservation during the COVID-19 pandemic - Vital Signs Vital signs: Vital Signs - 12hr 07/03/21 07/03/21 07/03/21 23:00 23:15 23:19 Temperature Pulse Rate 133 H Pulse Rate [ From Monitor] Pulse Rate [ 132 H Left Radial] Respiratory 28 H 28 H Rate Blood Pressure 113/65 120/68 120/68 O2 Sat by Pulse 98 98 99 Oximetry O2 Sat by Pulse Oximetry [ Anterior Bilateral] 07/03/21 07/03/21 07/04/21 23:30 23:36 00:00 Temperature Pulse Rate 136 H 138 H 110 H Pulse Rate [ From Monitor] Pulse Rate [ Left Radial] Respiratory 24 14 Rate Blood Pressure 141/81 141/81 138/85 O2 Sat by Pulse 98 99 Oximetry O2 Sat by Pulse Oximetry [ Anterior Bilateral] 07/04/21 07/04/21 07/04/21 00:30 01:01 01:30 Temperature Pulse Rate 107 H 115 H 100 H Pulse Rate [ From Monitor] Pulse Rate [ Left Radial] Respiratory 20 25 H 24 Rate Blood Pressure 122/67 127/65 125/76 O2 Sat by Pulse 100 97 100 Oximetry O2 Sat by Pulse Oximetry [ Anterior Bilateral] 07/04/21 07/04/21 07/04/21 02:00 02:30 03:00 Temperature Pulse Rate 101 H 94 H 96 H Pulse Rate [ From Monitor] Pulse Rate [ Left Radial] Respiratory 22 22 23 Rate Blood Pressure 121/85 119/66 106/68 O2 Sat by Pulse 100 100 100 Oximetry O2 Sat by Pulse Oximetry [ Anterior Bilateral] 07/04/21 07/04/21 07/04/21 03:30 04:00 04:15 Temperature 97.4 F L Pulse Rate 94 H 96 H 120 H Pulse Rate [ 90 From Monitor] Pulse Rate [ Left Radial] Respiratory 22 23 Rate Blood Pressure 96/58 110/65 O2 Sat by Pulse 93 90 Oximetry O2 Sat by Pulse Oximetry [ Anterior Bilateral] 07/04/21 07/04/21 07/04/21 04:30 05:00 05:30 Temperature Pulse Rate 95 H 97 H 95 H Pulse Rate [ From Monitor] Pulse Rate [ Left Radial] Respiratory 22 19 22 Rate Blood Pressure 111/62 114/65 116/71 O2 Sat by Pulse 90 100 100 Oximetry O2 Sat by Pulse Oximetry [ Anterior Bilateral] 07/04/21 07/04/21 07/04/21 06:00 06:30 07:00 Temperature Pulse Rate 93 H 93 H 94 H Pulse Rate [ From Monitor] Pulse Rate [ Left Radial] Respiratory 22 22 19 Rate Blood Pressure 119/69 116/68 116/66 O2 Sat by Pulse 100 100 100 Oximetry O2 Sat by Pulse Oximetry [ Anterior Bilateral] 07/04/21 07/04/21 07/04/21 07:37 08:00 09:30 Temperature 97.6 F Pulse Rate 110 H Pulse Rate [ 117 H From Monitor] Pulse Rate [ Left Radial] Respiratory 26 H 33 H Rate Blood Pressure 116/67 O2 Sat by Pulse 100 91 Oximetry O2 Sat by Pulse 100 Oximetry [ Anterior Bilateral] 07/04/21 07/04/21 07/04/21 09:45 10:00 10:15 Temperature Pulse Rate 110 H 103 H 112 H Pulse Rate [ From Monitor] Pulse Rate [ Left Radial] Respiratory Rate Blood Pressure 116/67 114/71 116/68 O2 Sat by Pulse Oximetry O2 Sat by Pulse Oximetry [ Anterior Bilateral] 07/04/21 10:30 Temperature Pulse Rate 105 H Pulse Rate [ From Monitor] Pulse Rate [ Left Radial] Respiratory Rate Blood Pressure 99/63 O2 Sat by Pulse Oximetry O2 Sat by Pulse Oximetry [ Anterior Bilateral] - Lab 07/03/21 04:48 07/03/21 04:48 Most recent lab results ABG pH 7.492 pH Units (7.350-7.450) H 06/21/21 17:30 ABG pCO2 24.1 mm Hg 06/21/21 17:30 ABG pO2 79.9 mm Hg (80.0-90.0) L 06/21/21 17:30 ABG HCO3 18.0 mmol/L (20.0-26.0) L 06/21/21 17:30 ABG O2 Saturation 97.0 % (95.0-99.0) 06/21/21 17:30 Calcium 8.4 mg/dL (8.4-10.2) 07/03/21 04:48 Phosphorus 9.20 mg/dL (2.5-4.5) H 07/02/21 04:32 Magnesium 2.30 mg/dL (1.7-2.3) 07/02/21 04:32 Urine Creatinine 132.3 mg/dL (0.1-20.0) H 06/19/21 05:27 Urine Creatinine 132.5 mg/dL (0.1-20.0) H 06/19/21 05:27 Urine Sodium 26 mmol/L 06/19/21 05:27 Urine Total Protein 196 mg/dL (5-11.8) H 06/19/21 05:27 Medications & Allergies - Medications Allergies/Adverse Reactions: Allergies No Known Allergies Allergy (Verified 08/19/19 15:08) Home Medications: Home Medications Medication Instructions Recorded Confirmed Last Taken Type Acetaminophen [Acetaminophen TAB] 650 mg PO Q4H PRN tablet 07/04/21 Unknown Rx Ascorbic Acid [Vitamin C] 500 mg PO BID tablet 07/04/21 Unknown Rx Cholecalciferol Vit D3 [Vitamin D3 1,000 unit PO QDAY tablet 07/04/21 Unknown Rx 1,000 UNIT TAB] Dextrose 50% in Water [D50W (25GM) 50 ml IV Q30MIN PRN syringe 07/04/21 Unknown Rx Syringe] Lispro Insulin [HumaLOG] 0 unit SUB-Q ACHS units 07/04/21 Unknown Rx NIFEdipine XL [Procardia Xl] 30 mg PO DAILY tablet 07/04/21 Unknown Rx Sevelamer Carbonate [Renvela] 800 mg PO AC tablet 07/04/21 Unknown Rx Zinc Sulfate 220 mg PO BID capsule 07/04/21 Unknown Rx hydrALAZINE [Apresoline INJ] 10 mg IV Q6HR PRN vial 07/04/21 Unknown Rx Active Medications: Generic Name Dose Route Start Last Admin Trade Name Freq PRN Reason Stop Dose Admin Acetaminophen 650 mg 06/18/21 06:25 06/21/21 23:41 Acetaminophen 325 Mg Tab PO 650 mg Q4H PRN Administration Pain MILD(1-3)/Fever >100.5/ANDUJAR Ascorbic Acid 500 mg 06/21/21 22:00 07/04/21 09:42 Ascorbic Acid 500 Mg Tab PO 500 mg BID DEBORA Administration Cholecalciferol 1,000 unit 06/30/21 10:00 07/04/21 09:42 Cholecalciferol (Vit D3) 1000 Unit (25 Mcg) Tab PO 1,000 unit QDAY DEBORA Administration Dextrose 50 ml 06/18/21 06:25 Dextrose 50% In Water (25gm) 50 Ml Syringe IV Q30MIN PRN Hypoglycemia Protocol Heparin Sodium (Porcine) 5,000 unit 06/21/21 22:00 07/04/21 09:43 Heparin 5,000 Unit/1 Ml Vial SUB-Q 5,000 unit Q12HR DEBORA Administration Hydralazine HCl 10 mg 06/21/21 17:04 07/03/21 21:32 Hydralazine 20 Mg/1 Ml Inj IV 10 mg Q6HR PRN Administration Hypertension Sodium Chloride 100 mls @ 999 mls/hr 06/25/21 09:17 Nacl 0.9% IV ASHLEIGH PRN Hypotension Insulin Human Lispro 0 unit 06/18/21 07:30 07/03/21 21:24 Insulin Lispro 100 Unit/Ml SUB-Q Not Given ACHS DEBORA Protocol Magnesium Hydroxide 30 ml 06/18/21 06:25 07/03/21 21:52 Magnesium Hydroxide (Mom) Oral Liqd Udc PO 30 ml Q4H PRN Administration Constipation Melatonin 5 mg 06/24/21 01:11 07/03/21 21:31 Melatonin 5 Mg Tab PO 5 mg QHS PRN Administration Sleep Morphine Sulfate 2 mg 06/18/21 06:25 06/20/21 15:32 Morphine 2 Mg/1 Ml Inj IV 2 mg Q4H PRN Administration Pain, Moderate (4-6) Morphine Sulfate 4 mg 06/18/21 06:25 Morphine 4 Mg/1 Ml Inj IV Q4H PRN Pain , Severe (7-10) Nifedipine 30 mg 07/01/21 10:00 07/04/21 09:42 Nifedipine Xl 30 Mg Tab PO 30 mg DAILY DEBORA Administration Ondansetron HCl 4 mg 06/18/21 06:25 Ondansetron 4 Mg/2 Ml Inj IV Q8H PRN Nausea And Vomiting Sevelamer Carbonate 800 mg 06/27/21 11:30 07/04/21 08:30 Sevelamer Carbonate 800 Mg Tab PO 800 mg AC DEBORA Administration Sodium Chloride 10 ml 06/18/21 10:00 07/03/21 21:32 Sodium Chloride 0.9% 10 Ml Flush Syringe IV 10 ml BID DEBORA Administration Sodium Chloride 10 ml 06/18/21 06:25 07/03/21 23:37 Sodium Chloride 0.9% 10 Ml Flush Syringe IV 10 ml PRN PRN Administration LINE FLUSH Zinc Sulfate 220 mg 06/21/21 22:00 07/03/21 21:31 Zinc Sulfate 220 Mg Cap PO 220 mg BID DEBORA Administration
--- NOTE | 2021-07-04 11:04 | Discharge Summary ---
Providers - Providers Date of Admission: 06/18/21 09:16 Date of discharge: 07/04/21 Attending physician: SHITAL PIRES MD 06/18/21 06:25 Consult to Dietitian/Nutrition [CONS] Routine Physician Instructions: Reason For Exam: Reason for Consult: Diet education Consult to Physician [CONS] Routine Comment: LEXIE Greco spoke with Dr. Henry @ [phone] Consulting Provider: SARA LING Physician Instructions: Reason For Exam: SHANON 06/20/21 15:34 Consult to Physician [CONS] Routine Comment: Consulting Provider: LUISA GARCIA Physician Instructions: Reason For Exam: permcath placement 06/21/21 07:29 Consult to Case Management [CONS] Routine Services Needed at Discharge: Other Notified:: cm Additional Physician Instructions: Outpatient hemodialysis setup 06/24/21 08:31 Consult to Physician [CONS] Routine Comment: called office/ donna Consulting Provider: JONAH VARGAS Physician Instructions: Reason For Exam: COVID 06/30/21 14:07 Occupational Therapy Evaluate and Treat [CONS] Routine Comment: Reason For Exam: Possible deconditioning Physical Therapy Evaluation and Treat [CONS] Routine Comment: Reason For Exam: Possible deconditioning Primary care physician: AWARD CLERK Hospitalization Reason for admission: Malaise, SHANON on CKD Condition: Stable Disposition: [address] [place] [address] Final Discharge Diagnosis (Prints w/discharge instructions): Acute hypoxic respiratory failure. ESRD. COVID-19 pneumonia Time spent for discharge: 10 minutes Core Measure Documentation - Palliative Care Palliative Care/ Comfort Measures: Not Applicable - Core Measures Any of the following diagnoses?: none Exam - Physical Exam Narrative exam: GENERAL: Well-developed well-nourished. Lying in bed HEENT: NC at 3LPM CHEST/LUNGS: Vas-Cath in right upper chest. Coarse breath sound bilaterally. HEART/CARDIOVASCULAR: Mildly tachycardic. No murmur, rubs or gallops appreciated. ABDOMEN: +BS. NT/ND. EXTREMITIES: No cyanosis, clubbing or edema. PSYCH: Cooperative. - Constitutional Vitals: Temp Pulse Resp BP Pulse Ox 97.6 F 106 H 33 H 102/69 100 07/04/21 09:30 07/04/21 11:00 07/04/21 09:30 07/04/21 11:00 07/04/21 09:30 Plan Care Plan Goals: Discharge to LTACH. Continue hemodialysis. Assessment: Patient admitted initially with acute on chronic renal failure that progressed to ESRD. Hemodialysis was initiated. Patient became febrile and desaturated during initiation of dialysis. Covid PCR was positive. Patient was transferred to ICU for further care. Patient remained on high flow nasal cannula with prolonged weaning process. Patient remained stable and transferred to LTACH facility. Follow up with: PRIMARY MD KEV [Primary Care Provider] - 7 Days
--- NOTE | 2021-07-04 12:32 | Progress Note ---
Assessment and Plan Cultures: SARS CoV2 PCR: Positive 06/18/2021 urine culture: E. 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 Severe disease. Not a candidate for remdesivir due to renal failure. S/P empiric abx, steroid course and 1 dose of Actemra. #Acute hypoxic respiratory failure: was on NRB/HFNC. Weaned to NC. #ESRD secondary to FSGS, initiated on dialysis by nephrology. #Positive urine culture, likely asymptomatic bacteriuria #Leukopenia: Secondary to COVID-19. Resolved. Now with leucocytosis. Recs: -completed 10 days of steroids -s/p Actemra 06/24/2021 -possible d/c to LTACH Will sign off. Please call with questions. Kendell Pacheco MD, FACP [facility] O: [phone] F: [phone] Subjective Date of service: 07/04/21 Principal diagnosis: Acute kidney injury/COVID associated nephropathy Interval history: No fever. Weaned to NC, stable. Objective - Exam Narrative Exam: Physical Exam (reviewed in chart to minimize risk of transmission) Constitutional: deferred Head, Ears, Nose: deferred Eyes: deferred Neck: deferred Oral: deferred Cardiovascular: deferred Respiratory: deferred GI: deferred Musculoskeletal: deferred Skin: deferred Hem/Lymphatic: deferred Psych: deferred Neurological: deferred - Constitutional Vitals: Vital Signs Temp Pulse Resp BP Pulse Ox 98.2 F 115 H 33 H 132/79 100 07/04/21 12:00 07/04/21 12:15 07/04/21 09:30 07/04/21 12:15 07/04/21 09:30 Temperature -Last 24 Hours Temperature 98.2 F Temperature 97.6 F Temperature 97.4 F Temperature 97.6 F Temperature 97.8 F - Labs CBC & Chem 7: 07/03/21 04:48 07/03/21 04:48
[2021-07-04] MEDS: INSULIN LISPRO 100 UNIT/ML SUB-Q SCH ×2 (15:27→15:28)
[2021-07-04 16:06] VITALS: BP 100/61
== END 2021-07-04 20:50 | DRG 871 ==
LOC: ED 23:02 → 3A 06-18 06:25 → OBSVTOIN 06-18 09:16 → CC1 06-21 17:17 → IMCU 06-21 19:50 → 3A 07-04 19:02 → IMCU 07-04 19:10
PROVIDERS: ADMIT Internal Medicine Geriatric Medicine; ATTEND Student in an Organized Health Care Education/Training Program
PROC: 02H633Z Insertion of Infusion Device into Right Atrium, Percutaneous Approach (ICD-10-PCS; principal; 2021-06-21)
PROC: B548ZZA Ultrasonography of Superior Vena Cava, Guidance (ICD-10-PCS; 2021-06-21)
PROC: 5A1D70Z Performance of Urinary Filtration, Intermittent, Less than 6 Hours Per Day (ICD-10-PCS; 2021-06-21)
PROC: 0JH63XZ Insertion of Tunneled Vascular Access Device into Chest Subcutaneous Tissue and Fascia, Percutaneous Approach (ICD-10-PCS; 2021-06-21)
PROC: 5A1D70Z Performance of Urinary Filtration, Intermittent, Less than 6 Hours Per Day (ICD-10-PCS; 2021-06-22)
PROC: 5A0955A Assistance with Respiratory Ventilation, Greater than 96 Consecutive Hours, High Flow/Velocity Cannula (ICD-10-PCS; 2021-06-22)
PROC: 5A1D70Z Performance of Urinary Filtration, Intermittent, Less than 6 Hours Per Day (ICD-10-PCS; 2021-06-24)
PROC: XW043H5 Introduction of Tocilizumab into Central Vein, Percutaneous Approach, New Technology Group 5 (ICD-10-PCS; 2021-06-24)
PROC: 5A1D70Z Performance of Urinary Filtration, Intermittent, Less than 6 Hours Per Day (ICD-10-PCS; 2021-06-25)
PROC: 5A1D70Z Performance of Urinary Filtration, Intermittent, Less than 6 Hours Per Day (ICD-10-PCS; 2021-06-27)
PROC: 5A1D70Z Performance of Urinary Filtration, Intermittent, Less than 6 Hours Per Day (ICD-10-PCS; 2021-06-29)
PROC: 5A1D70Z Performance of Urinary Filtration, Intermittent, Less than 6 Hours Per Day (ICD-10-PCS; 2021-07-01)
PROC: 5A1D70Z Performance of Urinary Filtration, Intermittent, Less than 6 Hours Per Day (ICD-10-PCS; 2021-07-02)
PROC: 5A1D70Z Performance of Urinary Filtration, Intermittent, Less than 6 Hours Per Day (ICD-10-PCS; 2021-07-04)
DX: A41.9 Sepsis, unspecified organism (principal); U07.1 COVID-19; J96.01 Acute respiratory failure with hypoxia; J12.82 Pneumonia due to coronavirus disease 2019; N18.6 End stage renal disease; N17.9 Acute kidney failure, unspecified; N39.0 Urinary tract infection, site not specified; E11.22 Type 2 diabetes mellitus with diabetic chronic kidney disease; Z82.49 Family history of ischemic heart disease and other diseases of the circulatory system; I12.0 Hypertensive chronic kidney disease with stage 5 chronic kidney disease or end stage renal disease
CPT/HCPCS: 36415; 36558; 71045; 74176; 76705; 76770; 76937; 77001; 78580; 80048; 80053; 80074; 80076; 81001; 81025; 82436; 82570; 82728; 82803; 82947; 82962; 83615; 83690; 83735; 84100; 84132; 84145; 84156; 84300; 85007; 85025; 85027; 85379; 85610; 86021; 86038; 86140; 86160; 86225; 86235; 87040; 87076; 87086; 87186; 93005; 94760; G0378; A9540; C1750; J0360; J0456; J0696; J1644; J1815; J2060; J2270; J2920; J3262; J3370; J7030; J7040; J7050; J7120; U0003